=== PATIENT | male | born 1965 | race Caucasian/White ===

== ENCOUNTER → 2018-06-16 17:23 | Outpatient (CLI) | payer OTHER, SELFPAY ==
--- NOTE | 2018-06-16 17:31 | RAD_ITS ---
STUDY: X-RAY - RIGHT SHOULDER REASON FOR EXAM: Chronic shoulder pain with progressive worsening. TECHNIQUE: 4 view(s) of the shoulder. COMPARISON: None. FINDINGS: Normal glenohumeral articulation. There is a small undersurface osteophyte of the distal clavicle without joint space narrowing of the acromioclavicular joint. Normal acromion. Normal humeral head and visualized proximal humerus. There is a small ossicle at the inferior glenoid. Normal visualized pulmonary apex. RAD/Shoulder min 2 Views IMPRESSION: Small undersurface osteophyte of the distal clavicle. Electronically Signed: Rui Eng MD at 12:44 EST Tel , Service support ,
== END ==
PROVIDERS: Family Provider Internal Medicine; PCP Internal Medicine; Referring Provider Anesthesiology Pain Medicine; Visit Provider Anesthesiology Pain Medicine
DX: M25.511 Pain in right shoulder (principal); G89.29 Other chronic pain
CPT/HCPCS: 73030

== ENCOUNTER → 2018-09-03 06:32 | Outpatient (CLI) | payer OTHER, SELFPAY ==
--- NOTE | 2018-09-03 10:16 | NEURO ---
NCS and/or EMG Patient Report Ordering Doctor: Yamil Cao DATE OF SERVICE: 09/03/18 This is a bilateral upper extremity nerve conduction study in the left upper extremity EMG performed on this 53-year-old male with symptoms in both hands worse on the left including numbness and tingling, present for several years but worse over the past 6 months. He is a diabetic, his most recent hemoglobin A1c was 7.1 but he says 2 years ago it was as high as 9.4. He does note that a cortisone injection in his right shoulder improved his hand symptoms 4 weeks ago. He says symptoms are worse on the left side. Bilateral upper extremity sensory and motor nerve conduction studies performed. The median motor and sensory distal latencies are severely prolonged with mild reduction of amplitudes and moderate to severe reduction of conduction velocities. The ulnar motor and sensory and radial sensory responses are preserved. Median F waves bilaterally are prolonged compared to the ulnar F waves. Left upper extremity needle electromyography is performed. Muscles evaluated included the first dorsal interosseous, abductor pollicis brevis, brachioradialis, biceps, triceps and deltoid muscles. The abductor pollicis brevis muscle did demonstrate large motor units with early recruitment and 1+ fibrillation potentials. All other C8 muscles were normal and all other muscles demonstrated normal insertional activity with absence of pathologic spontaneous activity, normal motor unit recruitment pattern and amplitude was otherwise noted. Impression: Abnormal electrophysiologic study of the bilateral upper extremities consistent with severe carpal tunnel syndrome bilaterally, worse on the left.
== END ==
PROVIDERS: Family Provider Internal Medicine; PCP Internal Medicine; Referring Provider Anesthesiology Pain Medicine; Visit Provider Anesthesiology Pain Medicine
DX: G56.03 Carpal tunnel syndrome, bilateral upper limbs (principal); M79.643 Pain in unspecified hand; M79.603 Pain in arm, unspecified
CPT/HCPCS: 95886; 95911

== ENCOUNTER → 2018-11-04 08:24 | Outpatient (CLI) | payer OTHER, SELFPAY ==
[2018-11-04 08:14] VITALS: BMI 30.1
--- NOTE | 2018-11-04 08:25 | RAD_ITS ---
STUDY: X-RAY - LEFT HAND REASON FOR EXAM: Pain, carpal tunnel. TECHNIQUE: 3 view(s) of the hand. COMPARISON: None. FINDINGS: Normal radiocarpal articulation. Normal distal radioulnar joint. Normal visualized carpal bones. Normal carpal articulations. There is a small ossicle at the dorsal aspect of the wrist. Normal carpometacarpal articulation of the thumb. Normal second through fifth carpometacarpal joints. Normal metacarpi. Normal metacarpophalangeal joint of the thumb. There is a small marginal osteophyte at the first distal phalangeal base without joint space narrowing of the interphalangeal joint of the thumb. Normal proximal and distal phalanges of the thumb. Normal metacarpophalangeal joints of the second through fifth fingers. Normal proximal and distal interphalangeal joints of the second through fifth fingers. Normal phalanges of the second through fifth fingers. There is a small ossicle at the distal ulnar styloid process. RAD/Hand Min 3 Views IMPRESSION: Small marginal osteophyte of the first distal phalangeal base. Small ossicles at distal ulnar styloid process and dorsal wrist. Otherwise, unremarkable x-ray examination of the left hand. Electronically Signed: Rui Eng MD at 10:32 EDT Tel , Service support ,
--- NOTE | 2018-11-04 08:25 | RAD_ITS ---
STUDY: X-RAY - RIGHT HAND REASON FOR EXAM: Pain, carpal tunnel. TECHNIQUE: 3 view(s) of the hand. COMPARISON: None. FINDINGS: Normal radiocarpal articulation. Normal distal radioulnar joint. Normal visualized carpal bones. Normal carpal articulations Normal carpometacarpal articulation of the thumb. Normal second through fifth carpometacarpal joints. There is a carpal boss. Normal metacarpi. Normal metacarpophalangeal joint of the thumb. There are small marginal osteophytes without joint space narrowing of the interphalangeal joint of the thumb. Normal proximal and distal phalanges of the thumb. Normal metacarpophalangeal joints of the second through fifth fingers. There are small marginal osteophytes and mild joint space narrowing of the second distal interphalangeal joint. Normal phalanges of the second through fifth fingers. There is a metallic foreign body at the dorsal radial aspect of the third proximal phalangeal base. There is a very small metallic foreign body at the radial aspect of the first metacarpal. RAD/Hand Min 3 Views IMPRESSION: Mild arthrosis of the second distal interphalangeal joint. Small marginal osteophytes of the interphalangeal joint of the first digit. Carpal boss. Metallic foreign bodies. Electronically Signed: Rui Eng MD at 10:38 EDT Tel , Service support ,
== END ==
PROVIDERS: Family Provider Internal Medicine; PCP Internal Medicine; Referring Provider Orthopaedic Surgery; Visit Provider Orthopaedic Surgery
DX: G56.03 Carpal tunnel syndrome, bilateral upper limbs (principal)
CPT/HCPCS: 73130

== ENCOUNTER 2018-11-19 12:32 | Day surgery (SDC) | payer OTHER, SELFPAY ==
[2018-11-04 08:14] VITALS: BMI 30.1
--- NOTE | 2018-11-18 16:33 | PCM.HP.BLA ---
History and Physical I have re-examined the patient. There are no clinical changes since date of exam. Intake Vital Signs 11/04/18 Height 5 ft 10 in 11/04/18 Weight: 210 lb 11/04/18 Body Mass Index (BMI) 30.1 Intake Visit Reasons: Bilat Wrist Accompanied by: Self Is patient in pain?: No Allergies No Known Allergies Allergy (Unverified 11/04/18 08:15) Medications canagliflozin 100 mg tablet PO #30 tab 11/04/18 [History Confirmed 11/04/18] fenofibrate micronized 200 mg capsule PO #30 cap 11/04/18 [History Confirmed 11/04/18] hydrochlorothiazide 25 mg tablet PO #30 tab 11/04/18 [History Confirmed 11/04/18] insulin glargine (U-100) 100 unit/mL subcutaneous solution SC #50 ml 11/04/18 [History Confirmed 11/04/18] insulin lispro (U-100) 100 unit/mL subcutaneous pen SC #45 ml 11/04/18 [History Confirmed 11/04/18] lisinopril 40 mg tablet PO #30 tab 11/04/18 [History Confirmed 11/04/18] metformin 1,000 mg tablet PO #60 tab 11/04/18 [History Confirmed 11/04/18] naproxen 500 mg tablet PO #60 tab 11/04/18 [History Confirmed 11/04/18] pravastatin 80 mg tablet PO #30 tab 11/04/18 [History Confirmed 11/04/18] verapamil ER (SR) 240 mg tablet,extended release PO #30 tab 11/04/18 [History Confirmed 11/04/18] [facility] Medical History (Updated 11/04/18 @ 08:18 by Migdalia Morales) Diabetes mellitus (Acute) Hypertension (Chronic) HPI Bilat Wrist: Details: Parts of this documentation were recorded by a scribe, this documentation accurately reflects the service provided and the decisions made by me, Vanessa Dominguez, 11/04/18 0809. JUDIE CORBETT is a 53 year old M new patient here today for BL wrist pain/numbness. Had EMG study completed in 09/03/18 which showed BL severe carpal tunnel syndrome with the right being worse. Patient states he has numbness and tingling throughout his BL hands and states his finger tips feel that they are on fire. Patient has difficulty holding things in his hands. The pain and numbness is worse at night and does wake him up. Has tried night bracing which is not helpful. Denies any injections. Patient states his left hand is the worst. ROS Const Reports system reviewed and no additional complaints, except as docu Eyes Reports system reviewed and no additional complaints, except as docu ENT Reports system reviewed and no additional complaints, except as docu Card Reports system reviewed and no additional complaints, except as docu Resp Reports system reviewed and no additional complaints, except as docu GI Reports system reviewed and no additional complaints, except as docu Reports system reviewed and no additional complaints, except as docu Musc Reports as per HPI Skin/Breast Reports system reviewed and no additional complaints, except as docu Neuro Yes system reviewed and no additional complaints, except as docu Psych Reports system reviewed and no additional complaints, except as docu Endo Reports system reviewed and no additional complaints, except as docu Brendon/Lymph Reports system reviewed and no additional complaints, except as docu Aller/Immun Reports system reviewed and no additional complaints, except as docu Ortho Exam Left Wrist/Hand Left Wrist: Yes Durken's Test Sensation: Median: D WRIST: thenar atrophy noted bilaterally, left is greater Assessment & Plan Problems 1. Bilateral carpal tunnel syndrome G56.03 Plan X-rays were reviewed. There is no obvious fracture, dislocation, or lucency noted. Educated on the anatomy of the hands and innervation of the nerves and explained that he has bilateral carpal tunnel, left is greater. His treatment options are do nothing, surgery or injections. Explained that the goal of surgery is to stop progression, he may not get his previous strength back. Risks, benefits and alternatives of surgery reviewed including but no limited to risk of incisional hypersensitivity, pillar pain and continued symptomatology, nerve or artery damage, finger and wrist stiffness. Post op restrictions reviewed. Follow up post op or sooner if pain, swelling, numbness or associated symptoms, or concerns develop. All questions answered. Patient in agreement of plan. Orders Orders: Hand Min 3 Views Today G56.03 Hand Min 3 Views Today G56.03 Hand Min 3 Views Today G56.03 Coding Level of Care Code 11268 Diagnoses Bilateral carpal tunnel syndrome G56.03
[2018-11-19] VITALS (9 sets, daily range): BP systolic 107–133; BP diastolic 69–92; PULSE 60–77; RESP 14–16; TEMP 36.2–36.9; O2SAT 95–98; BMI 28.8
[2018-11-19] MEDS: Cefazolin 2 GM in 0.9% Normal Saline 100 ML IV (14:29)
[2018-11-19] MEDS: Mupirocin Ointment 22gm Tube 1 APPLIC (14:58)
[2018-11-19] MEDS: Bupivacaine 0.5% PF 10 ML VIAL (14:59)
[2018-11-19] MEDS: Triamcinolone Acetonide 40 MG/ML Vial (14:59)
--- NOTE | 2018-11-19 15:40 | DCINST_ITS ---
Discharge Diet: No Restrictions - leave dressing on until seen in postop clinic in 10-14 days, call with concerns, keep dressing cdi Discharge Activity: May Not Drive May shower in (days): 1 Ice area for (Minutes): 20 - Every hour while awake. Weight Bearing Status: Weight bearing as tolerated Keep extremity elevated above heart level: Operative Extremity Call your doctor if your incision/area has: Continuous Slow Oozing, Sudden Increased Bleeding, Increased Pain/ Swelling, Increased Redness, Foul Smelling Discharge Call your doctor if you observe: Fever of 101 or Higher, Coldness, Increased Pain, Numbness or Tingling, Change in Color, Calf discomfort Allergies/Adverse Reactions: Allergies No Known Allergies Allergy (Verified 11/19/18 12:44) Medications to take at Discharge canagliflozin 100 mg tablet 50 mg PO DAILY #30 tab 11/04/18 fenofibrate micronized 200 mg capsule 200 mg PO DAILY #30 cap 11/04/18 hydrochlorothiazide 25 mg tablet 25 mg PO DAILY #30 tab 11/04/18 lisinopril 40 mg tablet 40 mg PO DAILY #30 tab 11/04/18 metformin 1,000 mg tablet 1,000 mg PO BID #60 tab 11/04/18 pravastatin 80 mg tablet 80 mg PO QHS #30 tab 11/04/18 verapamil ER (SR) 240 mg tablet,extended release 240 mg PO QHS #30 tab 11/04/18 Insulin Glargine,Hum.rec.anlog [Lantus] 62 unit SQ QHS 11/12/18 Insulin Lispro [Humalog KwikPen] 100 unit SQ UD 11/12/18 Primary Care Physician: Ad Boyd MD [Primary Care Provider] - Test Results: Test results from this visit will be discussed in further detail at your follow- up appointment, if applicable. Please Follow Up With: Vanessa Dominguez, DO - [phone]
--- NOTE | 2018-11-19 15:40 | OP.PCM_ITS ---
Report of Operation Date of Procedure: 11/19/18 Pre-Operative Diagnosis: bilateral carpal tunnel syndrome Post-Operative Diagnosis: same Surgery/Procedure Performed:: left carpal tunnel release, right carpal tunnel injection pelletising extruder operator: Bigg Poe Type of Anesthesia:: Tracy Echavarria Anesthesiologist: Jonathan Herrmann Estimated Blood Loss (mL): min Fluids Replaced: 600cc lr Description of Procedure: Preoperative note Patient is a { 53 yo male } patient with nerve conduction study confirming carpal tunnel syndrome. Patient failed conservative treatment for her carpal tunnel elected proceed with left carpal tunnel release right carpal tunne injection Risks benefits and alternatives surgery discussed with patient. Risks including but not limited to blood loss, blood clot, infection, neurovascular injury, failure procedure, loss of life and loss of limb. Patient is aware like proceed with left carpal tunnel release. Operative note Patient seen and examined preoperative holding area. Left hand was marked. History and physical and consent reviewed. Patient was brought to the operating room placed supine on the operating table. Sign in, anesthesia, antibiotics were administered. Left upper extremity was prepped and draped after Tracy block was initiated. All bony prominences well-padded SCDs placed on bilateral lower extremities. We marked out our incisions for our carpal tunnel release at the intersection of Yang's line in the fourth ray flexed. We extended about a centimeter and a half. Timeout was performed. We then checked ensure that the Tracy block was working with pickups which it was. We then used a 15 blade to make a skin incision. We then dissected down tenotomy syllable of the transverse carpal ligament. We then used a new 15 blade cut through the transverse carpal ligament down to the level of the median nerve. We then further released the median nerve the combination of the 15 blade and tenotomies. The nerve was grayish in color and adherent to the transverse carpal ligament volarly. We released the transverse carpal ligament distally to the fat pad and then proximally under standard technique. We then palpated to ensure that we released all of the transverse carpal ligament which we did. We irrigated the incision with copious amounts of sterile saline. All bleeders were coagulated. The incision was closed with interrupted 4-0 nylon stitches. Tourniquet was deflated for total working time of 10 minutes. Patient tolerated procedure well there were no complications. We then injected the right carpal tunnel using sterile technique and placed a Band-Aid over there was no issues and no complications. Patient transferred to recovery room in stable condition. Postoperative note Hospital pharmacy has prescription Leave dressing clean dry and intact Follow-up in 2 weeks Call with concerns This note was generated with The [employer] dictation software. It may contain incorrect words, spelling, and punctuation that were not noted in checking the note before signing.
[2018-11-19] MEDS: HYDROcodone Bitartrate/Apap 5/325 Tablet PO (16:00)
--- NOTE | 2018-11-19 17:03 | SUR.PHASEII ---
PATIENT REPORTS NOT FEELING WELL LIKE MY BLOOD SUGAR IS LOW. RELATES HE HAD NOT EATEN SINCE 2100 THE PREVIOUS DAY, DIABETIC. HAD SOME SODA AND COOKIES BUT STILL FEELING POORLY. ACCUCHECK 99 WHICH IS LOW FOR PATIENT WHO FEELS SYMPTOMATIC HYPOGLYCEMIA BELOW 125. PEANUT BUTTER AND JELLY SANDWICH WITH APPLE JUICE GIVEN. OTHERWISE STATES PAIN IS IMPROVED AND TOLERABLE. WILL MONITOR.
[2018-11-20 07:47] LABS: Bedside Glucose 90 mg/dL (70-110)
[2018-11-20 08:09] LABS: Bedside Glucose 99 mg/dL (70-110)
== END 2018-11-19 17:38 | disposition home or self-care (01) ==
LOC: SDC 12:33 → AC 12:35
PROVIDERS: Family Provider Internal Medicine; PCP Internal Medicine; Referring Provider Orthopaedic Surgery; Visit Provider Orthopaedic Surgery
PROC: (CPT 64721; principal; 2018-11-19 14:00)
DX: G56.03 Carpal tunnel syndrome, bilateral upper limbs (principal); E11.9 Type 2 diabetes mellitus without complications; I10 Essential (primary) hypertension; E78.00 Pure hypercholesterolemia, unspecified; Z79.4 Long term (current) use of insulin; Z79.899 Other long term (current) drug therapy
CPT/HCPCS: 01810; 20526; 64721; 82962; J7120; J2405

== ENCOUNTER 2019-07-15 18:30 | Outpatient (RCR) | payer OTHER, SELFPAY ==
[2019-06-25 08:44] VITALS: BMI 28.8
== END 2019-07-15 19:00 | disposition home or self-care (01) ==
LOC: PT 18:30
PROVIDERS: PCP Internal Medicine; Referring Provider Orthopaedic Surgery; Visit Provider Orthopaedic Surgery
DX: S46.911D Strain of unspecified muscle, fascia and tendon at shoulder and upper arm level, right arm, subsequent encounter (principal); M75.21 Bicipital tendinitis, right shoulder
CPT/HCPCS: 97035; 97110; 97161

== ENCOUNTER 2020-03-23 06:01 | Day surgery (SDC) | payer OTHER, SELFPAY ==
[2020-01-26 08:14] VITALS: BMI 28.8
--- NOTE | 2020-02-24 06:00 | HP_ITS ---
I have re-examined the patient. There are no clinical changes since date of exam. Intake Intake Visit Reasons: RIGHT SHOULDER Accompanied by: self Is patient in pain?: Yes Allergies No Known Allergies Allergy (Verified 11/19/18 12:44) Medications canagliflozin 100 mg tablet 50 mg PO DAILY #30 tab 11/04/18 [History Confirmed 01/26/20] fenofibrate micronized 200 mg capsule 200 mg PO DAILY #30 cap 11/04/18 [History Confirmed 01/26/20] hydrochlorothiazide 25 mg tablet 25 mg PO DAILY #30 tab 11/04/18 [History Confirmed 01/26/20] lisinopril 40 mg tablet 40 mg PO DAILY #30 tab 11/04/18 [History Confirmed 01/26/20] metformin 1,000 mg tablet 1,000 mg PO BID #60 tab 11/04/18 [History Confirmed 01/26/20] pravastatin 80 mg tablet 80 mg PO QHS #30 tab 11/04/18 [History Confirmed 01/26/20] verapamil 240 mg tablet,extended release 240 mg PO QHS #30 tab 11/04/18 [History Confirmed 01/26/20] Insulin Glargine,Hum.rec.anlog [Lantus] 62 unit SQ QHS 11/12/18 [History Confirmed 01/26/20] Insulin Lispro [Humalog KwikPen] 100 unit SQ UD 11/12/18 [History Confirmed 01/26/20] [facility] Medical History (Updated 11/18/18 @ 16:[address] Vanessa Dominguez DO) Diabetes mellitus (Acute) Hypertension (Chronic) Social History (Updated 01/26/20 @ 10:[address] Vanessa Dominguez DO) Smoking Status: Never smoker HPI RIGHT SHOULDER: Surgical H&P: Yes Details: Parts of this documentation were recorded by a scribe, this documentation accurately reflects the service provided and the decisions made by me, Dr. Vanessa Dominguez DO 01/26/20 0806. JUDIE CORBETT is a 54 year old M here today for F/U on right shoulder after having MRI completed. He has had this shoulder pain for 2 years now. He was having steroid injections with basali and they were lasting for 3 months but now his last injection was only effective for about 6 weeks. He has right anterior shoulder over the biceps with pain moving lateral shoulder. He does have numbness and tingling of his right hand from carpal tunnel that is getting weaker and progressively worse with time. No neck pain or other radicular symptoms. see chart for fruther details. HAYLEE Musc Reports joint pain, Reports joint swelling, Reports limited joint movement, Denies numbness, Reports stiffness, Denies tingling Skin/Breast Denies redness, Denies lesions, Denies itching, Denies rash Neuro No numbness, No tingling Ortho Exam General General: Yes no acute distress Neurologic: Yes alert, Yes oriented x3 Psychologic: Yes reasonable and appropriate Right Wrist/Hand Motor: EPL: 5, FDP-2: 4, 1st Dorsal Interosseous: 5, APB: 4 Sensation: Radial: I, Ulnar: I, Median: D Right Shoulder Skin/Wound: No ecchymosis, No erythema, No swelling Testing: Positive Hawkin's, Neer's, Speed's, TTP Biceps and [place]; negative AROM-Forward Elevation 0-180, AROM-External Rotation at 90 0-60 or AROM-External Rotation at side 0-60 SHOULDER: rotator cuff weakness Assessment & Plan Problems 1. Biceps tendinitis of right shoulder M75.21 2. Complete tear of right rotator cuff, unspecified whether traumatic M75.121 3. Right carpal tunnel syndrome G56.01 Plan Personally reviewed patients MRI of the right shoulder. Patient educated that he has a full RTC tear of the right shoulder along with biceps tendonitis. Patient educated that since he has failed conservative treatment the next treatment option is to have a RTC repair and biceps tenodesis vs tenotomy. Reviewed the pre-operative plans with the patient. Risks and benefits of the procedure were fully explained, including but not limited to infection, neurovascular injury, continued pain, arthritis, stiffness, need for further surgery, re-injury, DVT, PE, general risks of anesthesia, and loss of limb or life. The patient understands all the risks and does wish to proceed with written consent. He wishes to proceed with right shoulder arthroscopy with rotator cuff repair, with tenodesis vs tenotomy, repair as indicated along with right carpal tunnel release. Educated that he also has carpal tunnel syndrome of the right side and we will to the release with the shoulder scope.We discussed the current risk associated COVID-19. While it is understood that there is a community spread of COVID 19 the risk of zachariah COVID-19 while at [facility] is very low, however, the risk cannot be completely mitigated because of the community spread of the disease. We discussed in detail the risk of exposure to and or potential harm posed by the COVID-19 virus with having a surgery/procedure at this time versus the risk of delaying the surgery/procedure. Is not possible to know either the risk of delaying the surgery procedure or chance of getting an infection with perfect accuracy, but a joint decision was made to proceed at this time with a schedule surgery/procedure as indicated on the consent form. Patient was notified that we will need to comply with any screening or testing [facility] wishes to perform or that surgery may be delayed for any positive results. Educated that he will be 6 weeks in a sling after surgery and he is unable to lift over head for 12 weeks post op. He wishes to have surgery within the next 30 days. Follow up 5 days post op or sooner if pain, swelling, numbness or associated symptoms, or concerns develop. All questions answered. Patient in agreement of plan. Coding Level of Care Code Off vis,est,level 4 Diagnoses Biceps tendinitis of right shoulder M75.21 Complete tear of right rotator cuff, unspecified whether traumatic M75.121 ??Rotator cuff tear trauma status: unspecified whether traumatic Right carpal tunnel syndrome G56.01 COVID (Procedure Consent) Procedure Criteria Procedure Criteria: Yes Elective The surgeon/proceduralist and patient have discussed in detail the risk of exposure to and/or potential harm posed by the COVID-19 virus with having a surgery/procedure at this time versus the risk of? delaying the surgery/procedure. It is not possible to know either the risk of delaying the surgery or procedure or chance of getting an infection with perfect accuracy, but a joint decision was made between the patient and the surgeon/proceduralist ?to proceed at this time with the scheduled surgery/procedure as indicated on the consent form.
[2020-03-08 08:17] VITALS: BMI 30.1
--- NOTE | 2020-03-18 08:15 | EKG12_ITS ---
Test Reason : PREOP Blood Pressure : / mmHG Vent. Rate : 073 BPM Atrial Rate : 073 BPM P-R Int : 134 ms QRS Dur : 096 ms QT Int : 378 ms P-R-T Axes : 018 017 010 degrees QTc Int : 416 ms Normal sinus rhythm Normal ECG Confirmed by CHAMP WALKER MD ([id number]), editorial intern CROW [place]ILL ([id number]) on 03/22/2020 9:27:48 AM Referred By: Vanessa Dominguez Confirmed By:CHAMP WALKER MD
[2020-03-18 09:23] LABS: Anion Gap 7 (5-15); BUN 29 mg/dL (7-18); BUN/Creat Ratio 24.6 RATIO (10-20); Calcium,Total 9.4 mg/dL (8.5-10.1); Chloride 106 mmol/L (98-107); Creatinine, Serum 1.18 mg/dL (0.70-1.30); EST Glomerular Filtration Rate 68 mL/min (>60); Est Glom Filt Rate - Afr Amer 82 mL/min (>60); Glucose 112 mg/dL (74-106); Potassium 3.9 mmol/L (3.5-5.1); Sodium Level 139 mmol/L (136-145)
[2020-03-22 14:28] LABS: Probe Check PASS; Specimen Processing Control PASS
--- NOTE | 2020-03-23 | TESH_PTH ---
PATIENT: JUDIE CORBETT Jr. LOC: [facility] [place] U#:[id number] AGE/SX: 54/M ROOM: RE03/23/[address]: Dr. Vanessa Dominguez DO : 1965 BED: DIS: 03/23/2020 SPEC #: [id number] RECD: 03/23/20 13:52 STATUS: FRIEDA TYRA #: [id number] ELADIA: 03/23/20 00:[address]: Vanessa Dominguez DEPT: SURGICAL PATHOLOGY RECD BY: Landon Doherty ENTERED: 03/24/20 08:14 SP TYPE: TENDON OTHR DR: Dr. Ad Boyd MD Tissues: Tendon and tendon sheath, NOS Procedures: Surgery Specimen Level III HEADER OPERATION: Shoulder arthroscopy; rotator cuff repair PRE-OP DIAGNOSIS: Biceps tendonitis of right shoulder; complete tear of right rotator cuff TISSUE SUBMITTED: Biceps tendon MICROSCOPIC DIAGNOSIS Biceps tendon: A piece of dense fibroconnective tissue with reactive changes, clinically complete tear of right rotator cuff. MILTON:josé 03/25/20 MICROSCOPIC DESCRIPTION Slides are reviewed. GROSS DESCRIPTION Received in fixative is one container labeled with the patient's name and designated biceps tendon. The specimen consists of a piece of tendinous tissue measuring 5 x 1 x 0.2 cm. Facilities Assistant sections are submitted in one cassette. / MILTON:josé 03/24/20 TC:5 CPT: 33449
[2020-03-23 06:20] VITALS: BP 133/90; PULSE 86; RESP 16; TEMP 36.6; O2SAT 99; BMI 28.9
[2020-03-23] MEDS: Lactated Ringers 1,000 ML 100 ML IV (07:02)
[2020-03-23 07:15] LABS: Bedside Glucose 224 mg/dL (70-110)
--- NOTE | 2020-03-23 07:36 | OP.PCM_ITS ---
Report of Operation Date of Procedure: 03/23/20 Pre-Operative Diagnosis: right shoulder rotator cuff tear, subacromial imp ingment syndrome, biceps tendinosis, right carpal tunnel syndrome Post-Operative Diagnosis: same Surgery/Procedure Performed:: sars, rotator cuff repair, sad/acromioplasty, open biceps subpec tenodesis, right carpal tunnel release engineer: Bigg Poe Type of Anesthesia:: General/Regional Anesthesiologist: Hollis Galo Specimen's removed: biceps tendon Estimated Blood Loss (mL): min Fluids Replaced: 1200cc lr Description of Procedure: Preoperative note Patient is a 54 year old patient with nerve conduction study confirming carpal tunnel syndrome, patient also had an MRI after failing conservative treatment options that showed a right full-thickness rotator cuff tear as well as biceps tendinosis and tearing at the labral junction, and bursitis. As noted above patient failed conservative treatment options elected proceed with right shoulder arthroscopy and right carpal tunnel release repair as indicated. Risks benefits and alternatives surgery discussed with patient. Risks including but not limited to blood loss, blood clot, infection, neurovascular injury, failure procedure, loss of life and loss of limb. Patient is aware like proceed with right carpal tunnel release right shoulder arthroscopy repair as indicated.. Operative note Patient seen and examined preoperative holding area. right hand was marked. History and physical and consent reviewed. Patient was brought to the operating room placed supine on the operating table. Sign in, anesthesia, antibiotics were administered. Patient was placed in beachchair positioning [facility] through beachchair positioning his blood pressure was checked and was stable. All bony prominences well-padded SCDs placed on bilateral lower extremities. We then marked out our bony landmarks for our portal placement for her shoulder. Timeout was performed. We then insufflated the glenohumeral joint for the posterior aspect had good return. Then use #11 blade to create our posterior portal. Began our diagnostic arthroscopy. The subscap was intact. We then created an anterior portal under direct visualization. We then probed the biceps labral anchor which was unstable and the labrum was completely torn off of its insertion. We then inserted a basket and trimmed back and cut the biceps and complete our biceps tenotomy. Inserted a shaver and trim back any loose pieces of the labrum the biceps labral junction. Patient had little bit of degenerative change changes of the anterior glenoid. There were no loose bodies in the inferior recess no haggle lesion. We then were able to visualize the full-thickness rotator cuff from the intra the intra-articular aspect. We then moved to the subacromial space. We created a lateral portal under direct visualization. There is extensive bursitis throughout the shoulder. This was resected with a combination of a shaver and a burner. We then debrided back the unstable mid rotator cuff. We then prepared the humeral head using an ablator wand to take any soft tissue off of our anchor placement sites as well as then using a bur to decorticate for better fixation of our screws and healing of her rotator cuff. Then placed to 5 5 bio composite Arthrex anchors just lateral to the cartilage of the humeral head. Then placed stitches coming from anterior to posterior through the rotator cuff which is a quite thickened rotator cuff and had a delaminating tear of the intra and her body as well. After this we did placed 2 additional suture tapes for better fixation. We then used 2 swivel locks laterally and tensioned the sutures appropriately laterally ensuring to anchors ensuring good spacing and placement of anchors. We had excellent footprint coverage with no tension on the repair. We then irrigated the subacromial space with copious nonsterile saline. We then moved to the open biceps tenodesis. Reprepped the area again waited the allotted 3 minutes and then made an incision just distal to the pec insertion. Is about 2 cm incision. Dissected down tenotomies to level of the biceps tendon which was brought out of the incision and truncated to appropriate length. We then whipstitched the end and placed the stitches through the Arthrex pec button system. We then subpec protecting all neurovascular structures at all times drilled unicortical he we then placed our button that was at the end of the biceps and flipped the button into the humeral shaft and then brought the tendon down to bone and then to the periosteum down to the biceps tendon for reinforcement with a free needle. Please note that at this time we did extend the arm to ensure that we had good length via biopsy of the tendon prior to truncated the biceps tendon we did did perform. Again we then irrigated all incisions copious nonsterile saline the portals were closed with interrupted 4-0 nylon stitches the biceps tenodesis site was closed with interrupted 3-0 Vicryl in a running 4-0 Monocryl. Then paid attention to our carpal tunnel. We reprepped the area and waited the allotted 3 minutes. We then marked out our incisions for our carpal tunnel release at the intersection of Yang's line in the fourth ray flexed. We ex tended about a centimeter and a half. We then used a 15 blade to make a skin incision. We then dissected down tenotomy syllable of the transverse carpal ligament. We then used a new 15 blade cut through the transverse carpal ligament down to the level of the median nerve. We then further released the median nerve the combination of the 15 blade and tenotomies. The nerve was grayish in color and adherent to the transverse carpal ligament volarly. We released the transverse carpal ligament distally to the fat pad and then proximally under standard technique. We then palpated to ensure that we released all of the transverse carpal ligament which we did. We irrigated the incision with copious amounts of sterile saline. All bleeders were coagulated. The incision was closed with interrupted 4-0 nylon stitches. Tourniquet was deflated for total working time of 14 minutes. Patient tolerated procedure well there were no complications. Patient transferred to recovery room in stable condition. Postoperative note Hospital pharmacy has prescription Leave dressing clean dry and intact Follow-up in 2 weeks Call with concerns This note was generated with [employer]ation software. It may contain incorrect words, spelling, and punctuation that were not noted in checking the note before signing
--- NOTE | 2020-03-23 07:36 | PCM.DC.ORTHO ---
Discharge Diet: No Restrictions - Leave dressing intact, remove dressing in 5 days and apply Band-Aids to incision sites, take medications as prescribed, do not take excess Tylenol, call with increased pain numbness tingling further issues arise, may remove sling for pendulums only Discharge Activity: May Not Drive May shower in (days): 1 Ice area for (Minutes): 20 - Every hour while awake. Weight Bearing Status: Weight bearing as tolerated Keep extremity elevated above heart level: Operative Extremity Call your doctor if your incision/area has: Continuous Slow Oozing, Sudden Increased Bleeding, Increased Pain/ Swelling, Increased Redness, Foul Smelling Discharge Call your doctor if you observe: Fever of 101 or Higher, Coldness, Increased Pain, Numbness or Tingling, Change in Color, Calf discomfort Allergies/Adverse Reactions: Allergies No Known Allergies Allergy (Verified 03/14/20 08:17) Medications to take at Discharge canagliflozin 100 mg tablet 50 mg PO DAILY #30 tab 11/04/18 fenofibrate micronized 200 mg capsule 200 mg PO DAILY #30 cap 11/04/18 hydrochlorothiazide 25 mg tablet 25 mg PO DAILY #30 tab 11/04/18 lisinopril 40 mg tablet 40 mg PO QHS #30 tab 11/04/18 metformin 1,000 mg tablet 1,000 mg PO BID #60 tab 11/04/18 pravastatin 80 mg tablet 80 mg PO QHS #30 tab 11/04/18 verapamil 240 mg tablet,extended release 240 mg PO QHS #30 tab 11/04/18 Insulin Glargine,Hum.rec.anlog [Lantus] 62 unit SQ QHS 11/12/18 Insulin Lispro [Humalog KwikPen] 100 unit SQ UD 11/12/18 Ondansetron [Zofran] 8 mg PO Q8H PRN PRN #20 tab 03/23/20 Oxycodone HCl/Acetaminophen [Percocet 5/325] 1 - 2 tab PO Q6H PRN PRN 5 Days #28 tab 03/23/20 Zolpidem Tartrate [Ambien (Generic)] 5 mg PO QHS PRN PRN #14 tab 03/23/20 The following prescriptions were given: Zolpidem Tartrate [Ambien (Generic)] 5 mg PO QHS PRN PRN #14 tab PRN Reason: Insomnia Transmission Status: Received by [facility] Oxycodone HCl/Acetaminophen [Percocet 5/325] 1 - 2 tab PO Q6H PRN PRN 5 Days #28 tab PRN Reason: Pain Transmission Status: Received by [facility] Ondansetron [Zofran] 8 mg PO Q8H PRN PRN #20 tab PRN Reason: Nausea Transmission Status: Received by [facility] Primary Care Physician: Ad Boyd MD [Primary Care Provider] - Test Results: Test results from this visit will be discussed in further detail at your follow-up appointment, if applicable. Please Follow Up With: Vanessa Dominguez, DO - [phone]
[2020-03-23] MEDS: Cefazolin 2 GM in 0.9% Normal Saline 100 ML IV (07:45)
[2020-03-23] MEDS: Epinephrine (1 mg/ml) 1 MG/ML VIAL (10:00)
[2020-03-23] MEDS: Mupirocin Ointment 22gm Tube 1 APPLIC (10:45)
[2020-03-23 11:47] VITALS: BP 133/90; BP 148/84; PULSE 83; RESP 16; TEMP 36.1; O2SAT 93
[2020-03-23 12:00] VITALS: BP 133/90; BP 157/85; PULSE 92; RESP 16; O2SAT 93
[2020-03-23 12:00] LABS: Bedside Glucose 261 mg/dL (70-110)
[2020-03-23 12:15] VITALS: BP 133/90; BP 167/97; PULSE 91; RESP 16; O2SAT 95
[2020-03-23 12:35] VITALS: BP 133/90; BP 134/75; PULSE 99; RESP 16; O2SAT 100
[2020-03-23] MEDS: Insulin Lispro 100 UNIT/ML INSULN.PEN 6 UNIT SC (12:54)
[2020-03-23 13:15] VITALS: BP 133/90; BP 141/84; PULSE 94; RESP 18; TEMP 36.4; O2SAT 93
== END 2020-03-23 14:09 | disposition home or self-care (01) ==
LOC: SDC 06:01 → AC 06:02
PROVIDERS: Anesthesiology; PCP Internal Medicine; Referring Provider Orthopaedic Surgery; Visit Provider Orthopaedic Surgery
PROC: (CPT 29827; principal; 2020-03-23 07:10)
PROC: (CPT 64721; 2020-03-23 07:10)
DX: M75.121 Complete rotator cuff tear or rupture of right shoulder, not specified as traumatic (principal); M75.41 Impingement syndrome of right shoulder; M75.21 Bicipital tendinitis, right shoulder; M75.51 Bursitis of right shoulder; G56.01 Carpal tunnel syndrome, right upper limb; Z20.828 Contact with and (suspected) exposure to other viral communicable diseases; E11.9 Type 2 diabetes mellitus without complications; I10 Essential (primary) hypertension; E78.00 Pure hypercholesterolemia, unspecified; K21.9 Gastro-esophageal reflux disease without esophagitis; Z79.4 Long term (current) use of insulin; Z79.899 Other long term (current) drug therapy
CPT/HCPCS: 01630; 29823; 29826; 29827; 64415; 64721; 36415; 80048; 82962; 83036; 87426; 87635; 88304; 93005; C9803; J7120; C1713; J2405; U0002

== ENCOUNTER → 2020-04-05 09:20 | Outpatient (CLI) | payer OTHER, SELFPAY ==
[2020-04-01 09:47] VITALS: BMI 28.8
--- NOTE | 2020-04-05 09:21 | VDUE_ITS ---
Reason For Study: Swelling Right Proximal Right jugular vein is spontaneous, widely patent, phasic, with no intraluminal echogenicity noted. Right subclavian vein is spontaneous, widely patent, phasic, with no intraluminal echogenicity noted. Right Lower Arm Right radial vein is compressible. Right ulnar vein is compressible. Right Arm Right axillary vein is spontaneous, patent, phasic, competent, compressible and demonstrates augmentation. Right brachial vein is compressible. Right cephalic vein is compressible. Right basilic vein is compressible. Patient Safety Prelim to Angel[place]. Interpretation Summary No evidence for acute deep venous thrombosis[right] upper extremity with patent and compressible cephalic and basilic veins. Ordering Physician: Vanessa Dominguez Referring Physician: Ad Boyd M.D. Performed By: Karin Fitzgerald RVT ?
== END ==
PROVIDERS: PCP Internal Medicine; Referring Provider Orthopaedic Surgery; Visit Provider Orthopaedic Surgery
DX: Z47.89 Encounter for other orthopedic aftercare (principal); M79.89 Other specified soft tissue disorders
CPT/HCPCS: 93971

== ENCOUNTER 2020-08-03 18:30 | Outpatient (RCR) | payer OTHER, SELFPAY ==
[2020-04-01 09:47] VITALS: BMI 28.8
--- NOTE | 2020-04-11 09:56 | HP.PTEVAL ---
Patient's Visit Information JUDIE CORBETT Jr. is a 54 year old M referred to Physical Therapy by Dr. Vanessa Dominguez DO with a diagnosis of 03-25-2020 S/P R RC repair and biceps tenodesis, R CTR. Date of Evaluation: 04/06/20 Physical Therapist: JACOBO Chester - Visit Plan Frequency: 2x /Week Duration: 2 Months Plan: Follow Protocol in file. 2X/ week for 6-8 weeks for R shoulder PROM (no ER past 30 degrees), Wrist ROM (flex and ext) and thumb to all 5 fingers. With E-stim and ice to the R shoulder as needed with HEP. Teach pendulums next visit. Pt will be in abd sling X 5 more weeks. - Subjective Pt had surgery on 03-25-2020. Pt saw Dr Sebastian yesterday and he gave him the paper work to see PT. She told him to work his hand. He was squeezing a jelly ball. Pt was told that he has 5 more weeks in his sling. Pt has been having pain in his forearm and fingers and had the US and there were no clots.... He is not sleeping well ( 2 hours at a time) and he is still in a recliner. 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 When he bends his middle finger he gets a pain up the forearm and up to his shoulder. He reports that he has pain in his shoulder when showering cause he has to hold his arm up. - Pain R shoulder Pain Intensity (Out of 10): 0 R forearm pain Pain Intensity (Out of 10): 1 - Objective PROM R shoulder flex 105 dergrees and R shoulder PROM L abd 100 degrees, ER ROM L shoulder to 5 degrees. R wrist ext 31 degrees, R wrist flexion 62 degees. He is able to touch thumb to all digits except for 5th met. He has increased forearm pain with middle finger flexion and touching thrumb. - Goals Goal 1:: I HEP Goal Time Frame: 6-8 Weeks Goal 2:: Increase PROM to full pain free ROM at DC Goal Time Frame: 6-8 Weeks Goal 3:: Decrease R shoulder pain to 0/10 at rest Goal Time Frame: 6-8 Weeks Goal 4:: Be able to sleep trough the night without pain Goal Time Frame: 8-12 Weeks Goal 5:: Inccrease R wrist flex and ext to full pain free ROM Goal Time Frame: 6-8 Weeks - Rehabilitation Potential Rehabilitation Potential: Good - Anticipated Interventions Patient/Client Instruction: Educate patient on: Condition, Plan of Care For the Purpose of:: To decrease pain, To decrease swelling/inflammation, To increase ROM, To improve nutrient delivery to tissue, To improve muscle performance and motor function, To improve ability to perform ADL's, To increase tolerance to activity/condition/position, To improve ability of physical actions for home/community/work/leisure, To improve health of tissue, To decrease soft tissue restriction, To increase flexibility/ROM Therapeutic Exercise to Include: Strength training, Flexibilty training, Passive ROM, Active ROM, Scapular Strength/Stabilization For the Purpose of:: To decrease pain, To decrease swelling/inflammation, To increase ROM, To improve nutrient delivery to tissue, To improve muscle performance and motor function, To improve ability to perform ADL's, To increase tolerance to activity/condition/position, To improve performance and independence with ADL's, To decrease level of supervision to perform tasks, To improve ability of physical actions for home/community/work/leisure, To improve health of tissue, To decrease soft tissue restriction, To increase flexibility/ROM Manual Therapy Techniques to Include: Passive ROM For the Purpose of:: To increase ROM, To improve nutrient delivery to tissue IF ES: Yes Cryotherapy (ice pack, ice massage): Yes Thermo therapy (hot pack): Yes For the Purpose of:: To decrease pain, To decrease swelling/inflammation, To increase ROM, To improve nutrient delivery to tissue, To improve muscle performance and motor function Thank you for the opportunity to evaluate your patient. For Medicare and Medicare HMO plans, please review the plan of care and approve it. It will need to be FAXED BACK to us at [phone] for Medicare purposes. For Medicare only, by signing this I certify the plan of care. Please let me know if there are questions or concerns regarding this plan of care. Physician Signature: Date:
--- NOTE | 2020-06-13 18:58 | HP.OTEVAL_ITS ---
Patient's Visit Information JUDIE CORBETT Jr. is a 54 year old M, referred to Occupational Therapy by Dr. Vanessa Dominguez DO, with a diagnosis of right CTS. Date of Evaluation: 06/13/20 Occupational Therapist: Shonna Yanez, OTR/Roman, CHT - Subjective This 54 year old male was seen for OT eval with dx of right CTS s/p right CTR 2019. pt states he ended up having RC tear, CTS and biceps proximal repair. pt states the CTS was an issue for about two years and opted to have his sx with his shoulder repair- today pt is cont. with physical therpay for his shoulder but continues to have scar sensitivity issues. pt would like to know what he can do to improve the scar tenderness so he isn't limited with ADLS, IADLs or work tasks. - Pain right hand 0 Pain Intensity Range: 0, 6 - ROM Wrist: right 55/55 left 60/60 ROM Comments: pt demo the ability to form a composite fist - Strength Category Consultant: right 65# left 95# Lateral Pinch: right 22# left 26# Tripod Pinch: right 20# left 24# - Sensation Sensation Comments: pt states after sx his tingling/numbness resolved - Quick DASH-Disab of Arm,Shoulder& Hand Quick DASH Score: 30.0000 - Goals Goal:: pt will demo a increase in right art gilder strength to 75# or greater to increase pts ind. with ADLs and IADLs by d/c Goal:: pt will report pain no greater than 2/10 with use of right hand with daily tasks by d/c Goal:: pt will demo understanding of scar mtg, scar desensitization by end of 1st session. - Rehabilitation General Assessment: Pt is 11 weeks and 3 days s/p from a right CTR with RC repair and proximal biceps tendon repair. pt states he continues to struggle with scar tenderness with some daily occupations and has to mod. his daily tasks. Pt demo with hyper-trophic scar and tenderness with use of right hand with ADLs and IADLs. PT would benefit from skilled OT services to ed. pt on scar mtg and scar desensitization. pts order for OT was writen 05/05/20 and this is the first pt has been able to get into OT due to work schedule. Pt demo good ability and can form a tight fist. scar is tender at times- therapsit is rec'd HEP at this time. pt demo understanding and agree to POC. Pt is cont. with PT for his shoulder rehab and will let therapist know if he has questions or concerns. Rehabilitation Potential: Good - Anticipated Interventions A/AAROM/PROM, Strengthening, Scar Care, Triggerpoint Release, Desensitization, Modalities, Home Program - Visit Plan TEXT: Thank you for the opportunity to evaluate your patient. For Medicare and Medicare HMO plans, please review the plan of care and approve it. It will need to be FAXED BACK to us at [phone] for Medicare purposes. Please let me know if there are questions or concerns regarding this plan of care. Physician Signature: Date:
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
== END 2020-08-03 19:00 | disposition home or self-care (01) ==
LOC: PT 18:30
PROVIDERS: PCP Internal Medicine; Referring Provider Orthopaedic Surgery; Visit Provider Orthopaedic Surgery
DX: Z47.89 Encounter for other orthopedic aftercare (principal)
CPT/HCPCS: 97110; 97140; 97161; 97166; 97530

== ENCOUNTER 2022-02-20 07:00 | Outpatient (RCR) | payer OTHER, SELFPAY ==
--- NOTE | 2021-08-23 10:31 | HP.PTEVAL ---
Patient's Visit Information JUDIE CORBETT Jr. is a 56 year old M referred to Physical Therapy by ISABELLE MCCLURE with a diagnosis of s/p L shld arthro, massive RC repair, bicep tenodesis, SAD, acromiopla 08/01. Date of Evaluation: 08/22/21 Physical Therapist: JACOBO Chester - Visit Plan Frequency: 1-2x /Week Duration: 2 Months Plan: Follow filed protocol. 1-2X/ week for PROM (flexion 130 degrees and ER to 30 degrees) for 3-4 additional weeks or 6 (09-12-2021)weeks total and then follow protocol after pt sees for progression. May use ice. DOS 08-01-2021. HEP: hand squeeze ball, scapular squeezes, and pendulums - Subjective Pt reports that his L shoulder started to act up and went to see Dr Sebastian and she did an MRI and it was a mess. It showed an old tear, a new tear, and Dr did something with his bicep and tucked it under his clavicle but he does not have a scar or luna muscle. The surgery was 5.5 hours and to be in the sling for at least 6 weeks. The tear was massive. He was sleeping in the recliner but now in bed all propped up. It is getting better but still not good sleep. He is off work for at least 8 weeks. RTD in 3 weeks. He is not taking pain meds now for over a week. He is R handed. Pt is in a sling on his side. - Pain L shoulder pain Pain Intensity (Out of 10): 2 - Objective R handed. R shoulder PROM ER at 54 degrees abd 12 degrees. R shoulder PROM flexion 97 degrees. Instructed pt in pendulums, ball hand squeeze and scapular squeezes - Balance/Special Test Scores Quick DASH Score: 34.0900 - Goals Goal 1:: I HEP Goal Time Frame: 8-12 Weeks Goal 2:: PROM 130 degrees flexion Goal Time Frame: 2-4 Weeks Goal 3:: Be able to use his L arm with ADL's and work without pain or signs of weakness Goal Time Frame: 8-12 Weeks Goal 4:: Increase AROM of the L shoulder to full AROM painfree by DC Goal Time Frame: 8-12 Weeks - Rehabilitation Potential Rehabilitation Potential: Good - Anticipated Interventions Patient/Client Instruction: Educate patient on: Condition, Plan of Care For the Purpose of:: To decrease pain, To decrease swelling/inflammation, To increase ROM, To improve nutrient delivery to tissue, To improve muscle performance and motor function, To improve ability to perform ADL's, To increase tolerance to activity/condition/position, To improve performance and independence with ADL's, To decrease level of supervision to perform tasks, To improve ability of physical actions for home/community/work/leisure, To improve health of tissue, To decrease soft tissue restriction, To increase flexibility/ROM Therapeutic Exercise to Include: Strength training, Coordination, Postural training, Flexibilty training, Passive ROM, Active ROM, Scapular Strength/Stabilization For the Purpose of:: To decrease pain, To increase ROM, To improve nutrient delivery to tissue, To improve muscle performance and motor function, To improve ability to perform ADL's, To increase tolerance to activity/condition/position, To improve performance and independence with ADL's, To decrease level of supervision to perform tasks, To improve ability of physical actions for home/community/work/leisure, To improve health of tissue, To decrease soft tissue restriction, To increase flexibility/ROM Manual Therapy Techniques to Include: Passive ROM For the Purpose of:: To increase ROM, To decrease soft tissue restriction, To increase flexibility/ROM Thank you for the opportunity to evaluate your patient. For Medicare and Medicare HMO plans, please review the plan of care and approve it. It will need to be FAXED BACK to us at [phone] for Medicare purposes. For Medicare only, by signing this I certify the plan of care. Please let me know if there are questions or concerns regarding this plan of care. Physician Signature: Date:
--- NOTE | 2021-09-27 18:57 | HP.PTREVAL ---
ISABELLE MCCLURE, It has been my pleasure to treat JUDIE CORBETT Jr. over the last 10 visits for s/p L shld arthro, massive RC repair, bicep tenodesis, SAD, acromiopla 08/01. Please see the progress note below for an update on the physical therapy plan of care! Subjective: Continued from July Objective/Function: PROM L shoulder to 140 degrees and ER to at least 30 degrees. Plan Plan: Start isometrics next visit. Follow filed protocol (6 weeks to 10 weeks) able to do AAROM flex and ER including pulleys, isometics, UBE with arms by side. October 10 able to start AROM and RC strengthening. 1-2X/ week for PROM (flexion 130 degrees and ER to 30 degrees) for 3-4 additional weeks or 6 (09-12-2021)weeks total and then follow protocol after pt sees Dr for progression. May use ice. DOS 08-01-2021. HEP: hand squeeze ball, scapular squeezes, and pendulums Balance/Gait/Functional tests - Balance/Special Test Scores Quick DASH Score: 25.0000 Goals Goal 1:: I HEP Goal Time Frame: 8-12 Weeks Goal 2:: PROM 130 degrees flexion Goal Time Frame: 2-4 Weeks Goal Progress: Goal Met Goal 3:: Be able to use his L arm with ADL's and work without pain or signs of weakness Goal Time Frame: 8-12 Weeks Goal 4:: Increase AROM of the L shoulder to full AROM painfree by DC Goal Time Frame: 8-12 Weeks Anticipated Interventions Patient/Client Instruction: Educate patient on: Condition, Plan of Care For the Purpose of:: To decrease pain, To decrease swelling/inflammation, To increase ROM, To improve nutrient delivery to tissue, To improve muscle performance and motor function, To improve ability to perform ADL's, To increase tolerance to activity/condition/position, To improve performance and independence with ADL's, To decrease level of supervision to perform tasks, To improve ability of physical actions for home/community/work/leisure, To improve health of tissue, To decrease soft tissue restriction, To increase flexibility/ROM Therapeutic Exercise to Include: Strength training, Coordination, Postural training, Flexibilty training, Passive ROM, Active ROM, Scapular Strength/Stabilization For the Purpose of:: To decrease pain, To increase ROM, To improve nutrient delivery to tissue, To improve muscle performance and motor function, To improve ability to perform ADL's, To increase tolerance to activity/condition/position, To improve performance and independence with ADL's, To decrease level of supervision to perform tasks, To improve ability of physical actions for home/community/work/leisure, To improve health of tissue, To decrease soft tissue restriction, To increase flexibility/ROM Manual Therapy Techniques to Include: Passive ROM For the Purpose of:: To increase ROM, To decrease soft tissue restriction, To increase flexibility/ROM Please do not hesitate to contact me at [phone] by phone or if you have questions or concerns regarding this new plan of care! Sincerely, Olga Trevino, MPT
--- NOTE | 2022-02-20 07:50 | HP.PTDCSUM ---
It has been my pleasure to treat JUDIE CORBETT . referred by ISABELLE MCCLURE, with the diagnosis of s/p L shld arthro, massive RC repair, bicep tenodesis, SAD, acromiopla 08/01 for a total of 26 visit(s). Discharge Date: 02/20/22 Please see the following information for a summary of their discharge status. Subjective: Pt saw the Dr yesterday and she said that she does not need to see him anymore. He was able to reach up higher at work yesterday. He feels that he can keep working on it at home. L shoulder pain Pain Intensity (Out of 10): 0 % Improvement: 80 Objective/Function: AROM L Shoulder: Flex 141. IR L1 (tight) Goal 1:: I HEP Goal Progress: Goal Met Goal 2:: PROM 130 degrees flexion Goal Progress: Goal Met Goal 3:: Be able to use his L arm with ADL's and work without pain or signs of weakness Goal Progress: Progressing Goal 4:: Increase AROM of the L shoulder to full AROM painfree by DC Goal Progress: Progressing Plan: DC PT to HOME stretching and strengthening Discharge Comments: DC PT to HEP If there are questions or concerns regarding this patient's physical therapy, please feel free to call me at [phone]. Thank you for the referral of this patient. Sincerely, Olga Trevino, MPT Balance/Gait/Functional tests - Balance/Special Test Scores Quick DASH Score: 6.8175
== END 2022-02-20 09:46 | disposition home or self-care (01) ==
LOC: PT 07:00
PROVIDERS: PCP Internal Medicine
DX: M25.512 Pain in left shoulder (principal); G89.29 Other chronic pain; M75.122 Complete rotator cuff tear or rupture of left shoulder, not specified as traumatic; M77.8 Other enthesopathies, not elsewhere classified; Z98.890 Other specified postprocedural states
CPT/HCPCS: 97014; 97035; 97110; 97140; 97161; G0283

== ENCOUNTER → 2024-10-14 | Outpatient (CLI) | payer OTHER, SELFPAY ==
--- NOTE | 2024-10-14 08:27 | RAD_ITS ---
PROCEDURE: KNEE 1 OR 2 VIEWS 10/14/2024 REASON FOR EXAM: OA TECHNIQUE: KNEE 1 OR 2 VIEWS COMPARISON: None. FINDINGS: Mild tricompartmental changes of degenerative joint disease, more prominent in the medial tibiofemoral compartment. No fracture or dislocation is seen. No lytic or blastic bone lesion is noted. Minimal suprapatellar knee joint effusion. Prepatellar/infrapatellar soft tissue edema and thickening, probably bursitis. RAD/Knee 1 or 2 Views IMPRESSION: Mild degenerative joint disease. Prepatellar/infrapatellar soft tissue edema and thickening, probably bursitis. Reading Location: [facility]
--- NOTE | 2024-10-14 08:27 | RAD_ITS ---
PROCEDURE: HAND MIN 3 VIEWS 10/14/2024 REASON FOR EXAM: PAIN TECHNIQUE: HAND MIN 3 VIEWS COMPARISON: None. FINDINGS: Mild degenerative joint disease of the 1st carpometacarpal joint. Moderate degenerative joint disease of the 3rd metacarpophalangeal joint. Moderate degenerative joint disease of the 2nd metacarpophalangeal joint. Radiopaque foreign bodies overlying the base of the 1st metacarpal bone and the base of the middle phalanx of the 3rd finger. No fracture or dislocation is seen. No lytic or blastic bone lesion is noted. RAD/Hand Min 3 Views IMPRESSION: Degenerative joint disease, more prominent in the 3rd and 2nd metacarpophalange al joints. Reading Location: [facility]
--- NOTE | 2024-10-14 08:27 | RAD_ITS ---
PROCEDURE: KNEE 1 OR 2 VIEWS 10/14/2024 REASON FOR EXAM: OA TECHNIQUE: KNEE 1 OR 2 VIEWS COMPARISON: None. FINDINGS: Mild tricompartmental changes of degenerative joint disease, more prominent in the medial tibiofemoral compartment. Enthesophytes are noted at the upper and lower pole of the patella. Minimal suprapatellar knee joint effusion. No fracture or dislocation is seen. Well-defined sclerotic lesion in the proximal tibial diaphysis measuring 1.7 cm, probably benign chronic bone island. RAD/Knee 1 or 2 Views IMPRESSION: Mild degenerative joint disease. Reading Location: [facility]
--- NOTE | 2024-10-14 08:30 | RAD_ITS ---
PROCEDURE: HAND MIN 3 VIEWS 10/14/2024 REASON FOR EXAM: Finger stiffness. TECHNIQUE: HAND MIN 3 VIEWS COMPARISON: None. FINDINGS: Mild degenerative joint disease of the 1st carpometacarpal, carpal, metacarpophalangeal and interphalangeal joints. No fracture or dislocation is seen. No lytic or blastic bone lesion is noted. RAD/Hand Min 3 Views IMPRESSION: Mild degenerative joint disease. Reading Location: [facility]
--- OUTSIDE RECORDS SUMMARY | 2024-10-14 09:10 | XMS RPT_ITS | CCD ---
Author Organization [facility] Care Team Providers Care Accessibility Lift Technician Name Role Phone Ad Boyd MD Primary Care Provider [phone] Ad Boyd Primary Care Unavailable CELESTINE LOPEZ Referring Unavailable CELESTINE LOPEZ Attending Unavailable Ad Boyd MD Primary Care Provider [phone] Clara Escobar MD Unavailable Ad Boyd MD Primary Care Provider [phone] AD BOYD Primary Care Unavailable DAVID SAHA Referring Unavailable DAVID SAHA Referring Unavailable AD BOYD Primary Care Unavailable Chris MANAGER OF SALES.PIZZA MAKER, Britney M Unavailable DAVID SAHA Attending Unavailable AD BOYD Primary Care Unavailable DAVID SAHA Referring Unavailable AD BOYD Primary Care Unavailable MYAH CORDOBA Attending Unavailable AD BOYD Primary Care Unavailable CLARA ESCOBAR Attending Unavailable AD BOYD Primary Care Unavailable MONSERRAT THORNTON Attending Unavailable AD BOYD Primary Care Unavailable MONSERRAT THORNTON Referring Unavailable Ad Boyd MD Primary Care Provider [phone] Allergies Allergy Classification Reported Allergen(s) Allergy Type Date of Onset Reaction(s) Facility (16 sources) semaglutide; Translations: [SEMAGLUTIDE] Drug Allergy 03-26-[address] [facility] Medications Current Medications Medication Drug Class(es) Dates Sig (Normalized) Sig (Original) ascorbic acid 200 mg / beta carotene 1000 unt / cuprous oxide 2 mg / dl-alpha tocopheryl acetate 60 unt / lutein 2 mg / sodium selenate 0.055 mg / zinc oxide 40 mg oral tablet (20 sources) Vitamin C Start: 01-15-2014 End: 09-23-2024 take 1 tablet by mouth once daily Vit A,C and O-Kbtckp-[place] (OCUVITE WITH LUTEIN) 1,000 unit-200 mg-60 unit-2 mg tab Indications: Macular degeneration Take 1 tablet by mouth once daily. 0 01/15/2014 09/23/2024 Discontinued (Other) Comment on above: Take 1 tablet by jay th once daily. aspirin 81 mg delayed release oral tablet (20 sources) Platelet Aggregation Inhibitor, Nonsteroidal Anti-inflammatory Drug Start: 04-28-2007 take 1 tablet by mouth once daily aspirin(ECOTRIN LOW STRENGTH 81 MG TAB) Indications: Type II or unspecified type diabetes mellitus without mention of complication, not stated as uncontrolled Take 81 mg by mouth once daily. 0 04/28/2007 Active Comment on above: Take one(1) tablet d aily. atorvastatin 40 mg oral tablet (20 sources) HMG-CoA Reductase Inhibitor Start: 06-30-2020 End: 09-23-2024 take 1 tablet by mouth once daily atorvastatin (LIPITOR) 40 mg tablet Indications: Mixed hyperlipidemia Take 1 tablet by mouth once daily. 90 tablet 09/22/2024 Active Comment on above: Take 1 tablet by jay th once daily. TAKE 1 TABLET BY JAY TH ONCE DAILY Blood-Glucose Meter,Continuous (DEXCOM G6 MIXING ENGINEER) misc (20 sources) Start: 10-05-2021 End: 09-23-2024 Blood-Glucose Meter,Continuous (DEXCOM G6 MIXING ENGINEER) misc Indications: Controlled type 2 diabetes mellitus without complication, with long-term current use of insulin (HCC) Use as directed, IDDM, E11.9 1 Each 10/05/2021 09/23/2024 Discontinued (Other) Start: 10-05-2021 Blood-Glucose Meter,Continuous (DEXCOM G6 MIXING ENGINEER) misc Indications: Controlled type 2 diabetes mellitus without complication, with long-term current use of insulin (HCC) Use as directed, IDDM, E11.9 1 Each 10/05/2021 Active Start: 10-05-2021 Blood-Glucose Meter,Continuous (DEXCOM G6 MIXING ENGINEER) misc Indications: Controlled type 2 diabetes mellitus without complication, with long-term current use of insulin (HCC) Use as directed, IDDM, E11.9 1 Each 0 10/05/2021 Active Comment on above: Use as directed, IDD M, E11.9 Blood-Glucose Meter,Continuous (DEXCOM G7 MIXING ENGINEER) misc (4 sources) Blood-Glucose Meter,Continuous (DEXCOM G7 MIXING ENGINEER) misc 1 each. [facility] Active Blood-Glucose Sensor (DEXCOM G6 SENSOR) ana (20 sources) Start: 03-13-2022 End: 09-23-2024 Blood-Glucose Sensor (DEXCOM G6 SENSOR) ana Use as directed; IDDM, E 11.9 3 Each 11 03/13/2022 09/23/2024 Discontinued (Other) Start: 03-13-2022 Blood-Glucose Sensor (DEXCOM G6 SENSOR) ana Use as directed; IDDM, E 11.9 3 Each 11 03/13/2022 Active Start: 10-05-2021 Blood-Glucose Sensor (DEXCOM G6 SENSOR) ana Indications: Controlled type 2 diabetes mellitus without complication, with long-term current use of insulin (HCC) Use as directed; IDDM, E 11.9 3 Each 11 10/05/2021 Active Comment on above: Use as directed; IDD M, E 11.9 Blood-Glucose Sensor (DEXCOM G7 SENSOR) ana (4 sources) Blood-Glucose Se nsor (DEXCOM G7 SENSOR) ana 1 each every 10 days. [facility] Active Blood-Glucose Transmitter (DEXCOM G6 TRANSMITTER) ana (20 sources) Start: 10-05-2021 End: 09-23-2024 Blood-Glucose Transmitter (DEXCOM G6 TRANSMITTER) ana Indications: Controlled type 2 diabetes mellitus without complication, with long-term current use of insulin (HCC) Use as directed, IDDM, E 11.9 1 Each 3 10/05/2021 09/23/2024 Discontinued (Other) Start: 10-05-2021 Blood-Glucose Transmitter (DEXCOM G6 TRANSMITTER) ana Indications: Controlled type 2 diabetes mellitus without complication, with long-term current use of insulin (HCC) Use as directed, IDDM, E 11.9 1 Each 3 10/05/2021 Active Comment on above: Use as directed, IDD M, E 11.9 canagliflozin 300 mg oral tablet (2 sources) Sodium-Glucose Cotransporter 2 Inhibitor Start: 07-01-19 21 take 300 mg by mouth once daily Canagliflozin Active 300 MG PO DAILY June 30, 2020 1:00am Start: 11-04-2018 End: 06-30-2020 take 50 mg by mouth once daily Canagliflozin Discontin ued 50 MG PO DAILY November 04, 2018 12:00am June 30, 2020 9:09am dapagliflozin 10 mg oral tablet (20 sources) Sodium-Glucose Cotransporter 2 Inhibitor Start: 09-22-2024 take 1 tablet by mouth once daily at breakfast FARXIGA 10 mg tablet Indications: Type 2 diabetes mellitus with microalbuminuria, with long-term current use of insulin (HCC) Take 1 tablet by mouth daily with breakfast. 90 tablet 09/22/2024 Active Start: 04-12-2023 End: 09-18-2024 take 1 tablet by mouth once daily at breakfast FARXIGA 10 mg tablet Indications: Type 2 diabetes mellitus with microalbuminuria, with long-term current use of insulin (HCC) Take 1 tablet by mouth daily with breakfast. 90 tablet 3 10/21/2023 09/18/2024 Discontinued Start: 04-24-2021 End: 04-25-2022 take 1 tablet by mouth once daily at breakfast FARXIGA 10 mg tablet Take 1 tablet by mouth daily with breakfast. 90 tablet 3 04/25/2022 Active Comment on above: Take 1 tablet by jay th daily with breakfast. diclofenac sodium 75 mg delayed release oral tablet (4 sources) Nonsteroidal Anti-inflammatory Drug Start: 09-17-19 End: 10-15-19 take 1 tablet by mouth twice daily diclofenac, EC, (VOLTAREN) 75 mg EC tablet Take 75 mg by mouth two times a day. 09/16/2024 10/14/2024 Active doxycycline hyclate 100 mg oral tablet (1 source) Tetracycline-class Drug Start: 04-07-20 End: 04-14-20 take 1 tablet by mouth twice daily doxycycline (VIBRA-TABS) 100 mg tablet Indications: Rhinosinusitis Take 1 tablet by mouth two times a day for 7 days. 14 tablet 04/07/2024 04/14/2024 Active fenofibrate 200 mg oral capsule (20 sources) Peroxisome Proliferator Receptor alpha Agonist Start: 09-23-19 take 1 capsule by mouth once fenofibrate (LOFIBRA) 200 mg capsule Indications: Mixed hyperlipidemia Take 1 capsule by mouth every afternoon. 90 capsule 09/22/2024 Active Start: 11-04-2018 End: 09-18-2024 take 1 capsule by mouth once daily fenofibrate (LOFIBRA) 200 mg capsule Indications: Mixed hyperlipidemia TAKE 1 CAPSULE BY MOUTH DAILY 90 capsule 3 04/02/2024 09/18/2024 Discontinued Comment on above: TAKE 1 CAPSULE BY MO UTH DAILY glucagon 3 mg nasal powder (16 sources) Antihypoglycemic Agent Start : 02-12 glucagon (BAQSIMI) 3 mg/actuation nasal spray Use 1 [place] in the nose as needed. May repeat after 15 minutes using a new device if there is no response. 2 Each 2 02/13/2024 Active hydroCHLOROthiazide 25 mg oral tablet (20 sources) Thiazide Diuretic Start : 08-28 End: 10-08 take 1 tablet by mouth once daily hydroCHLOROthiazide 25 mg tablet Indications: Essential hypertension Take 1 tablet by mouth once daily. 90 tablet 3 10/08/2024 Active Start: 11-04-2018 End: 06-19-2022 take 1 tablet by mouth once daily hydroCHLOROthiazide (HYDRODIURIL, ESIDRIX) 25 mg tablet TAKE 1 TABLET BY MOUTH ONCE DAILY 30 tablet 0 06/19/2022 Active Comment on above: TAKE 1 TABLET BY JAY TH ONCE DAILY Take 1 tablet by jay th once daily. insulin glargine 100 unt/ml injectable solution (20 sources) Insulin Analog Start: 09-24-19 inject 60 [IU] by subcutaneous injection once daily at bedtime insulin glargine (LANTUS U-100 INSULIN) 100 unit/mL injection Indications: Type 2 diabetes mellitus with microalbuminuria, with long-term current use of insulin (HCC) Inject 60 Units subcutaneously daily at bedtime. 09/23/2024 Active Start: 09-22-2024 End: 09-23-2024 inject 55 [IU] by subcutaneous injection once daily at bedtime insulin glargine (LANTUS U-100 INSULIN) 100 unit/mL injection Indications: Type 2 diabetes mellitus with microalbuminuria, with long-term current use of insulin (HCC) Inject 55 Units subcutaneously daily at bedtime. 60 mL 09/22/2024 09/23/2024 Discontinued Start: 03-26-2024 End: 09-18-2024 inject 55 [IU] by subcutaneous injection once daily at bedtime insulin glargine (LANTUS U-100 INSULIN) 100 unit/mL injection Indications: Type 2 diabetes mellitus with microalbuminuria, with long-term current use of insulin ([facility]) Inject 55 Units subcutaneously daily at bedtime. 60 mL 09/22/2024 Active Start: 01-15-2024 End: 03-26-2024 inject 60 [IU] by subcutaneous injection once daily at bedtime insulin glargine (LANTUS U-100 INSULIN) 100 unit/mL injection Indications: Type 2 diabetes mellitus with microalbuminuria, with long-term current use of insulin ([facility]) Inject 60 Units subcutaneously daily at bedtime. 60 mL 3 01/15/2024 03/26/2024 Discontinued Start: 09-12-2023 End: 01-15-2024 inject 55 [IU] by subcutaneous injection once daily at bedtime insulin glargine (LANTUS U-100 INSULIN) 100 unit/mL injection Inject 55 Units subcutaneously daily at bedtime. 60 mL 3 09/12/2023 01/15/2024 Discontinued Start: 08-21-2021 End: 09-12-2023 inject 60 [IU] by subcutaneous injection once daily at bedtime LANTUS U-100 INSULIN 100 unit/mL injection Indications: Controlled type 2 diabetes mellitus without complication, with long-term current use of insulin ([facility]) INJECT 60 UNITS SUBCUTANEOUSLY ONCE DAILY AT BEDTIME 60 mL 3 10/12/2022 09/12/2023 Discontinued Start: 08-19-2020 inject 60 [IU] by newman bcutaneous injection once daily at bedtime insulin glargine (LANTUS U-100 INSULIN) 100 unit/mL injection Inject 60 Units subcutaneously daily at bedtime. 60 mL 3 08/19/2020 Active Start: 11-12-2018 inject 62 [IU] by newman bcutaneous injection at bedtime Insulin Glargine Active 62 UNIT SQ AT BEDTIME November 12, 2018 12:00am Comment on above: Inject 60 Units subc utaneously daily at bedtime. INJECT 60 UNITS SUBC UTANEOUSLY ONCE DAILY AT BEDTIME 3 ml insulin lispro 100 unt/ml pen injector (20 sources) Insulin Analog Start: 09-12-2023 End: 10-13-2024 HUMALOG KWIKPEN INSULIN 100 unit/mL Indications: Type 2 diabetes mellitus with microalbuminuria, with long-term current use of insulin (HCC) INJECT 12 UNTS SUBCUTANEOUSLY BEFORE BREAKFAST, 20 UNITS BEFORE lunch and 30 UNITS PLUS SS#2 (2 units for every 50 over 150 pre meal blood sugar) 60 mL 3 10/13/2024 Active Start: 06-19-2023 End: 09-12-2023 inject 14 [IU] by subcutaneous injection before breakfast, then inject 22 [IU] by subcutaneous injection before lunch, then inject 32 [IU] by subcutaneous injection before dinner HUMALOG KWIKPEN INSULIN 100 unit/mL Indications: Type 2 diabetes mellitus with microalbuminuria, with long-term current use of insulin (HCC) INJECT 14 UNITS SUBCUTANEOUSLY BEFORE BREAKFAST, INJECT 22 UNITS BEFORE lunch, INJECT 32 UNITS BEFORE dinner 75 mL 3 06/19/2023 09/12/2023 Discontinued Start: 04-12-2023 End: 06-19-2023 HUMALOG KWIKPEN INSULIN 100 unit/mL Indications: Type 2 diabetes mellitus with microalbuminuria, with long-term current use of insulin ([facility]) 12 units with breakfast, 20 units with lunch and 30 units with dinner 75 mL 3 04/12/2023 06/19/2023 Discontinued Start: 11-09-2022 HUMALOG KWIKPE N INSULIN 100 unit/mL Indications: Type 2 diabetes mellitus with microalbuminuria, with long-term current use of insulin ([facility]) 5 units with dinner 75 mL 3 11/09/2022 Active Start: 06-15-2022 End: 06-18-2022 inject 14 [IU] by subcutaneous injection before breakfast, then inject 22 [IU] by subcutaneous injection before lunch, then inject 32 [IU] by subcutaneous injection before dinner HUMALOG KWIKPEN INSULIN 100 unit/mL Indications: Type 2 diabetes mellitus with microalbuminuria, with long-term current use of insulin (HCC) INJECT 14 UNITS SUBCUTANEOUSLY BEFORE BREAKFAST, INJECT 22 UNITS BEFORE lunch, INJECT 32 UNITS BEFORE dinner 75 mL 3 06/18/2022 Active Start: 10-05-2021 End: 06-15-2022 inject 12 [IU] by subcutaneous injection before breakfast, then inject 20 [IU] by subcutaneous injection before lunch, then inject 30 [IU] by subcutaneous injection before dinner insulin lispro (HUMALOG KWIKPEN INSULIN) 100 unit/mL Indications: Controlled type 2 diabetes mellitus without complication, with long-term current use of insulin ([facility]) INJECT 12 UNITS SUBCUTANEOUSLY BEFORE BREAKFAST, INJECT 20 UNITS BEFORE lunch, INJECT 30 UNITS BEFORE dinner 20 Pen 3 10/05/2021 06/15/2022 Discontinued Start: 08-19-2020 End: 10-05-2021 inject 10 [IU] by subcutaneous injection before breakfast, then inject 23 [IU] by subcutaneous injection before lunch, then inject 35 [IU] by subcutaneous injection before dinner insulin lispro (HUMALOG KWIKPEN INSULIN) 100 unit/mL Indications: Controlled type 2 diabetes mellitus without complication, with long-term current use of insulin ([facility]) INJECT TEN UNITS SUBCUTANEOUSLY BEFORE BREAKFAST, INJECT 23 UNITS BEFORE lunch, INJECT 35 UNITS BEFORE dinner 20 Pen 3 08/19/2020 10/05/2021 Discontinued Start: 11-12-2018 Insulin Lispro Active 100 UNIT SQ DIRECTED November 12, 2018 12:00am Comment on above: INJECT TEN UNITS SUB CUTANEOUSLY BEFORE BREAKFAST, INJECT 23 UNITS BEFORE lunch, INJECT 35 UNITS BEFORE dinner INJECT 12 UNITS SUBC UTANEOUSLY BEFORE BREAKFAST, INJECT 20 UNITS BEFORE lunch, INJECT 30 UNITS BEFORE dinner INJECT 14 UNITS SUBC UTANEOUSLY BEFORE BREAKFAST, INJECT 22 UNITS BEFORE lunch, INJECT 32 UNITS BEFORE dinner 5 units with dinner 12 units with breakf ast, 20 units with lunch and 30 units with dinner lisinopril 40 mg oral tablet (20 sources) Angiotensin Converting Enzyme Inhibitor Start: 2018 End: 2024 take 1 tablet by mouth once daily lisinopril (ZESTRIL) 40 mg tablet Indications: Essential hypertension Take 1 tablet by mouth once daily. 90 tablet 3 10/08/2024 Active Comment on above: TAKE 1 TABLET BY JAY TH ONCE DAILY take 1 tablet by jay th daily metFORMIN hydrochloride 1000 mg oral tablet (20 sources) Biguanide Start: 2018 End: 2024 take 1 tablet by mouth twice daily metFORMIN (GLUCOPHAGE) 1,000 mg tablet Indications: Controlled type 2 diabetes mellitus without complication, with long-term current use of insulin ([facility]) TAKE 1 TABLET BY MOUTH TWICE DAILY 180 tablet 3 09/21/2024 Active Comment on above: Take 1 tablet by jay th twice daily. multivit-min/folic/v it K/lycop (MEN'S MULTIVITAMIN ORAL) (4 sources) take 1 tablet by mouth once daily multivit-min/folic/v it K/lycop (MEN'S MULTIVITAMIN ORAL) Take 1 tablet by mouth once daily. Active semaglutide (OZEMPIC) 0.25 mg or 0.5 mg (2 mg/3 mL) pen (5 sources) Start: 2023 End: 2023 inject 0.25 mg by subcutaneous injection every week, then inject 0.5 mg by subcutaneous injection every week semaglutide (OZEMPIC) 0.25 mg or 0.5 mg (2 mg/3 mL) pen Indications: Type 2 diabetes mellitus with microalbuminuria, with long-term current use of insulin (HCC) Inject subcutaneously 0.25 mg weekly x 4 wks then increase to 0.5 mg weekly 3 mL 5 01/15/2024 03/26/2024 Discontinued Start: 01-15-2024 inject 0.25 mg by newman bcutaneous injection every week, then inject 0.5 mg by subcutaneous injection every week semaglutide (OZEMPIC) 0.25 mg or 0.5 mg (2 mg/3 mL) pen Indications: Type 2 diabetes mellitus with microalbuminuria, with long-term current use of insulin (HCC) Inject subcutaneously 0.25 mg weekly x 4 wks then increase to 0.5 mg weekly 3 mL 5 01/15/2024 Active verapamil hydrochloride 240 mg extended release oral tablet (20 sources) Calcium Channel Abdulaziz Start: 09-22-2024 take 1 tablet by mouth once daily at bedtime verapamil SR (CALAN SR) 240 mg CR tablet Indications: Essential hypertension Take 1 tablet by mouth daily at bedtime. 90 tablet 09/22/2024 Active Start: 11-04-2018 End: 09-18-2024 take 1 tablet by mouth once daily at bedtime verapamil SR (CALAN SR) 240 mg CR tablet Indications: Essential hypertension take 1 tablet by mouth daily at bedtime 90 tablet 3 06/22/2024 09/18/2024 Discontinued Comment on above: Take 1 tablet by jay th daily at bedtime. TAKE 1 TABLET BY JAY TH DAILY AT BEDTIME Completed/Discontinued Medications Medication Drug Class(es) Dates Sig (Normalized) Sig (Original) acetaminophen 325 mg / HYDROcodone bitartrate 5 mg oral tablet (1 source) Opioid Agonist Start: 11-19-2018 End: 11-29-2018 take 1 tablet by mouth every six hours as needed Hydrocodone-Acetami nophen Discontinued 1 - 2 TABLET PO EVERY 6 HOURS NEEDED 40 5 November 19, 2018 November 29, 2018 12:09am acetaminophen 325 mg / oxyCODONE hydrochloride 5 mg oral tablet (6 sources) Opioid Agonist Start: 08-01-2021 End: 10-05-2021 take 1 tablet by mouth every six hours as needed for pain oxyCODONE-acetamino phen (PERCOCET) 5-325 mg tablet Indications: Postoperative pain Take 1 tablet by mouth every 6 hours as needed for pain. 25 tablet 0 08/01/2021 10/05/2021 Discontinued Start: 03-23-2020 End: 03-28-2020 take 1 tablet by mouth every six hours as needed Oxycodone-Acetaminophen Discontinued 1 - 2 TABLET PO EVERY 6 HOURS NEEDED 28 March 23, 2020 March 28, 2020 1:03am Comment on above: Take 1 tablet by jay th every 6 hours as needed for pain. 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 10 tablet 0 08/03/2021 10/05/2021 Discontinued Comment on above: Take 1 tablet by jay th twice daily for 5 days. ondansetron 4 mg oral tablet (6 sources) Serotonin-3 Receptor Antagonist Start: 2 End: 2 take 1 tablet by mouth every eight hours as needed ondansetron (ZOFRAN) 4 mg tablet Take 1 tablet by mouth every 8 hours as needed for nausea/vomiting. 10 tablet 0 08/01/2021 10/05/2021 Discontinued Start: 03-23-2020 take 8 mg by mouth e very eight hours as needed Ondansetron Hcl Active 8 MG PO EVERY 8 HOURS NEEDED March 23, 2020 1:00am Comment on above: Take 1 tablet by jay th every 8 hours as needed for nausea/vomiting. oxyCODONE hydrochloride 5 mg oral tablet (1 source) Opioid Agonist Start: End: take 1-3 tablets by mouth every four hours at mealtime as needed for pain Oxycodone Discontinued 5 MG PO Q4H 30 March 24, 2020 March 29, 2020 1:02am take 1-3 tabs by mouth with food every 4 hours as needed for pain, stop all other narcotics pravastatin sodium 80 mg oral tablet (1 source) HMG-CoA Reductase Inhibitor Start: End: take 80 mg by mouth at bedtime Pravastatin Discontinued 80 MG PO AT BEDTIME November 04, 2018 12:00am June 30, 2020 9:08am traMADol hydrochloride 50 mg oral tablet (7 sources) Opioid Agonist Start: End: take 1 tablet by mouth every four hours as needed for pain traMADol (ULTRAM) 50 mg tablet Indications: Bursitis of left shoulder , Nontraumatic complete tear of left rotator cuff , Tendinitis of left shoulder , Chronic left shoulder pain Take 1 tablet by mouth every 4 hours as needed for pain. for pain. 30 tablet 0 05/11/2021 10/05/2021 Discontinued Comment on above: Take 1 tablet by jay every 4 hours as needed for pain. for pain. zolpidem tartrate 5 mg oral tablet (6 sources) gamma-Aminobutyric Acid-ergic Agonist Start: End: take 1 tablet by mouth at bedtime as needed zolpidem (AMBIEN) 5 mg tablet Indications: Other insomnia Take 1 tablet by mouth at bedtime as needed for up to 7 days. 7 tablet 0 08/01/2021 10/05/2021 Discontinued Start: 03-23-2020 End: 06-30-2020 take 5 mg by mouth at bedtime as needed Zolpidem Discontinued 5 MG PO AT BEDTIME NEEDED March 23, 2020 1:00am June 30, 2020 9:09am Comment on above: Take 1 tablet by jya th at bedtime as needed for up to 7 days. Problems Active Problems Problem Classification Problem Date Documented Date Episodic/Chronic Diabetes mellitus with complications (20 sources) Type II diabetes mellitus uncontrolled; Translations: [Type 2 diabetes mellitus with hyperglycemia] Onset: 04-28-1998 04-17-2021 Chronic Diabetes mellitus without complication (20 sources) Type 2 diabetes mellitus; Translations: [Type 2 diabetes mellitus without complications] Onset: 08-01-2021 08-01-2021 Chronic Disorders of lipid metabolism (20 sources) Mixed hyperlipidemia; Translations: [Mixed hyperlipidemia] Onset: 04-28-2007 06-21-2014 Chronic Essential hypertension (20 sources) Hypertensive disorder; Translations: [Essential (primary) hypertension] Onset: 04-28-2007 06-21-2014 Chronic Malaise and fatigue (1 source) Fatigue; Translations: [Other fatigue] 09-12-2023 Episodic Other aftercare (3 sources) lobsterman (current) use of insulin; Translations: [Type 2 diabetes mellitus with microalbuminuria, with long-term current use of insulin (HCC)] Onset: 06-15-2022 Episodic Other connective tissue disease (1 source) Complete rotator cuff tear or rupture of left shoulder, not specified as traumatic; Translations: [Complete rotator cuff tear or rupture of left shoulder, not specified as traumatic] Onset: 02-20-2022 Episodic Other connective tissue disease (1 source) Other enthesopathies, not elsewhere classified; Translations: [Other enthesopathies, not elsewhere classified] Onset: 02-20-2022 Episodic Other connective tissue disease (2 sources) Pain in right foot; Translations: [Pain in right foot] 08-19-2023 Episodic Other connective tissue disease (1 source) Plantar fasciitis; Translations: [Plantar fascial fibromatosis] 08-29-2023 Episodic Other male genital disorders (20 sources) Secondary erectile dysfunction; Translations: [Male erectile dysfunction, unspecified] Onset: 11-06-2016 11-06-2016 Chronic Other nervous system disorders (1 source) Other chronic pain; Translations: [Other chronic pain] Onset: 02-20-2022 Chronic Other non-traumatic joint disorders (2 sources) Chronic pain of left upper limb; Translations: [Pain in left shoulder] Episodic Other non-traumatic joint disorders (1 source) Pain in left shoulder; Translations: [Pain in left shoulder] Onset: 02-20-2022 Episodic Other screening for suspected conditions (not mental disorders or infectious disease) (3 sources) Patient encounter status; Translations: [Encounter for screening for malignant neoplasm of colon] Onset: 03-20-2024 08-28-2023 Episodic Other upper respiratory infections (1 source) Chronic sinusitis, unspecified; Translations: [Unspecified sinusitis (chronic)] 04-07-2024 Chronic Residual codes; unclassified (2 sources) History of operative procedure on shoulder; Translations: [Other specified postprocedural states] Episodic Residual codes; unclassified (1 source) Other specified postprocedural states; Translations: [Other specified postprocedural states] Onset: 02-20-2022 Episodic Past or Other Problems Problem Classification Problem Date Documented Date Episodic/Chronic Genitourinary symptoms and ill-defined conditions (20 sources) Proteinuria; Translations: [Proteinuria, unspecified] Onset: 11-21-2010 Resolved: 09-19-2015 09-19-2015 Episodic Other connective tissue disease (20 sources) Full thickness rotator cuff tear; Translations: [Complete rotator cuff tear or rupture of left shoulder, not specified as traumatic] Onset: 07-25-2021 Episodic Other connective tissue disease (20 sources) Bursitis of left shoulder; Translations: [Bursitis of left shoulder] Onset: 07-25-2021 Episodic Other connective tissue disease (20 sources) Tendonitis of left shoulder; Translations: [Other enthesopathies, not elsewhere classified] Onset: 07-25-2021 Episodic Other nutritional; endocrine; and metabolic disorders (20 sources) Constitutional obesity; Translations: [Other obesity] Onset: 09-19-2015 Resolved: 06-23-2018 06-23-2018 Chronic Other nutritional; endocrine; and metabolic disorders (19 sources) Overweight in adulthood with body mass index of 25 or more but less than 30; Translations: [Overweight] Onset: 02-12-2024 01-15-2024 Episodic Other nutritional; endocrine; and metabolic disorders (1 source) Overweight; Translations: [Overweight with body mass index (BMI) of 29 to 29.9 in adult] Onset: 02-12-2024 Episodic Other nutritional; endocrine; and metabolic disorders (1 source) Body mass index (BMI) 29.0-29.9, adult; Translations: [Overweight with body mass index (BMI) of 29 to 29.9 in adult] Onset: 02-12-2024 Episodic Results Test Name Value Interpretation Reference Range Facility 25(OH)D3 [facility] 2024 25-hydroxyvitamin D3 [Mass/Vol] 26.1 ng/mL Low 31.0-80.0 [facility] Comment on above: Order Comment: Speci men Type: BLOOD SPECIMENOrdering Facility: [facility] Address: [address] [place] [address] Result Comment: Clas sification of 25 OH Vitamin D status: Deficiency/Insufficiency: < or = 30 ng/ml. Sufficiency/Optimal Levels: 31-80 ng/mL Toxicity: > 100 ng/mL. Test performed by chemiluminescent immunoassay. Performed By: #### 1 989-3 ####[facility] [id number] [place] [address] [place] ALBUMIN/CREATININE RATIO, UR INEon 09-23-2024 Albumin DL <= 20 mg/L (U) [Mass/Vol] 13.5 mg/L Normal [facility] Comment on above: Order Comment: Speci men Type: URINE SPECIMENOrdering Facility: [facility] Address: [address] [place] [address] Performed By: #### U ACR ####[facility] [id number] [place] [address] [place] Albumin/Creatinine (U) [Mass ratio] 17 mg/g Normal <30 [facility] Comment on above: Order Comment: Speci men Type: URINE SPECIMENOrdering Facility: [facility] Address: [address] [place] [address] Result Comment: Adul t Male and Female Nephrotic Criteria: <30 mg/g is considered normal to mildly increased 30-300 mg/g is considered moderately increased >300 mg/g is considered severely increased KDIGO. (2013). KDIGO 2012 Clinical Practice Guideline for the Evaluation and Management of Chronic Kidney Disease. Official Journal of the International Society of Nephrology, 3(1), 1-150. Performed By: #### U ACR ####[facility] LABIA [id number] [address] OF [facility] Creatinine (U) [Mass/Vol] 80.9 mg/dL Normal 20.0-300.0 [facility] Comment on above: Order Comment: Speci men Type: URINE SPECIMENOrdering Facility: [facility] Address: [address] [place] [address] Performed By: #### U ACR ####[facility] LABCLIA [id number] [address] OF [facility] CNOVon 09-23-2024 CNOV Office Visit (ENWSTR ) JUDIE CORBETT ([id number]) 1965 M Date Time Provider Department 09/23/24 7:15 AM MONSERRAT THORNTON ENWSTR During your visit today, we recorded the following information about you: Pulse Respiration Blood pressure Weight 69/minute 19/minute 140/88 92.1 kg Height 1.778 m Monserrat Thornton, MANAGER OF SALES.PIZZA MAKER 09/23/2024 7:54 AM Signed OFFICE VISIT PROGRESS NOTE CC Judie Corbett is a 59 year old who presents today for blood sugar review, DM Med dose review, adjust. HPI PATIENT OF DR. 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 Escobar in [place] Does not calibrate his DEXCOM States was really watching his diet, then 'fell off' Was eating differently intiially, tried for a little while, then 'hyun' I was hungry all the time I like to eat, portion control difficult Lost weight, 10 pounds, then regained I gotta get back on track Has arthritis in bilateral hands/knuckles Was previouly using a lot of tylenol Now started on voltaren Reports farxiga is no longer covered Did not tolerate GLP1 group due to muscle aches and fatigue CURRENT DM MEDS FARXIGA 10 mg daily HUMALOG 30 LANTUS 55 units daily METFORMIN 1000 BID SMBG Type of Monitor: Other DEXCOM (patient was not calibrating his DEXCOM) Frequency of Monitorin times a day BG Values: Hypoglycemia: no Diet: No specific diet regimen - 'got off track' Exercise: work only DM REVIEW OF SYSTEMS Last Eye Exam : 03/2024 Last Podiatry Exam: 12/2023 Cardiorespiratory: negative, denies chest pain, pressure Claudication: no Dyslipidemia: Yes, controlled on medication High Blood Pressure: Yes, controlled on medication CURRENT LABS LABS ORDERED, NOT COMPLETED BY PATIENT FOR OV HEMOGLOBIN A1C Component Ref Range AND Units 6 mo ago (03/20/24) 1 yr ago (04/05/23) 3 yr ago (07/25/21) 4 yr ago (05/05/20) 8 yr ago (03/19/16) 8 yr ago (10/12/15) 9 yr ago (06/22/15) Hemoglobin A1C 4.3 - 5.6 % 7.0 High 7.2 High CM 7.6 High C Recent Labs 07/25/21 0932 03/13/22 0937 09/21/22 0928 11/09/22 0843 04/05/23 0703 09/12/23 0832 01/15/24 0755 03/20/24 0807 ALT -- -- 21 -- 18 -- -- 20 AST -- -- 23 -- 21 -- -- 27 UCRR 92.7 -- -- -- 88.3 -- -- 85.0 UALBR 21.7 -- -- -- 30.4 -- -- 22.3 UALBCR 23 -- -- -- 34* -- -- 26 TSH -- -- -- -- 1.450 -- -- -- TPROT -- -- 7.5 -- 7.2 -- -- 7.1 ALB -- -- 4.5 -- 4.5 -- -- 4.4 CA -- -- 9.9 -- 9.7 -- -- 9.2 TBILI -- -- 0.3 -- 0.3 -- -- 0.3 ALKPHOS -- -- 65 -- 60 -- -- 54 GLUC -- -- 121* -- 83 -- -- 92 BUN -- -- 23 -- 31* -- -- 30* CREAT -- -- 1.11 -- 1.13 -- -- 1.18 NA -- -- 139 -- 140 -- -- 141 K -- -- 4.6 -- 4.4 -- -- 4.3 CHLOR -- -- 104 -- 104 -- -- 105 CO2 -- -- 21* -- 26 -- -- 24 ANION -- -- 14 -- 10 -- -- 12 EGFROTH -- -- 76 -- 75 -- -- 71 HBA1C -- < > -- < > 7.2* 7.7* 7.3* 7.0* < > = values in this interval not displayed. Recent Labs 07/25/21 0913 03/13/22 0937 04/05/23 0703 09/12/23 0832 01/15/24 0755 03/20/24 0807 TG 315* -- 343* -- -- 211* CHOL 147 -- 150 -- -- 154 HDL 34* -- 33* -- -- 36* VLDL 63* -- 69* -- -- 42* LDL 50 -- 48 -- -- 76 FASTTIME 2 -- 12 -- -- 12 TCHDL 4.32 -- 4.55 -- -- 4.28 LDLHDL 1.47 -- 1.45 -- -- 2.11 NONHDL 113 -- 117 -- -- 118 HBA1C 7.6* < > 7.2* 7.7* 7.3* 7.0* HBA0 171 -- 160 -- -- 154 < > = values in this interval not displayed. PAST MEDICAL HISTORY Diagnosis Date Carpal tunnel syndrome, bilateral 2018 DM w/o complication type II, uncontrolled 08/21/2011 Macular degeneration 06/11/2013 Nontraumatic complete tear of right rotator cuff 2019 Other and unspecified hyperlipidemia 04/28/2007 Proteinuria 11/21/2010 Snoring Type II or unspecified type diabetes mellitus without mention of complication, not stated as uncontrolled 04/28/2007 Unspecified essential hypertension 04/28/2007 PAST SURGICAL HISTORY Procedure Laterality Date ARTHROSC SH TENODESIS BICEPS Right 03/23/2020 COLONOSCOPY FLX DX W/COLLJ SPEC WHEN PFRMD 03/08/2014 HAND SURGERY HX Right 1979 Tendon repair REVISE MEDIAN N/CARPAL TUNNEL SURG Left 11/19/2018 REVISE MEDIAN N/CARPAL TUNNEL SURG Right 03/23/2020 ROTATOR CUFF REPAIR Right 03/23/2020 FAMILY HISTORY Problem Relation Age of Onset Diabetes Mother Stroke Mother Cancer Mother kidney Coronary Artery Disease Mother Kidney Disease Father declined dialysis Hypertension Father Coronary Artery Disease Father Emphysema Father No Known Problems Sister No Known Problems Sister Social History Tobacco Use Smoking status: Never Smokeles (more content not included)... [facility] (SOFYW[facility] JUDIE CORBETT ([id number]) 1965 M Date Time Provider Department 09/23/24 MONSERRAT THORNTON During your visit today, we recorded the following information about you: Reyna Granados RN 09/23/2024 8:43 AM Signed OV notes from today's endocrinology visit faxed to [facility] for Pt's existing CGM order. Fax confirmation received. Reyna Granados RN September 23, 2024 8:43 AM Allergies As of Date: 09/23/2024 Noted Allergy Reaction OZEMPIC (SEMAGLUTIDE) 03/26/2024 5 - Intolerance Comments: Muscle aches, fatigue Date Reviewed: 09/23/2024 Reviewed by: Reyna Granados RN - Fully Assessed Reason for Visit: OV Notes to DME [Other] Prescriptions as of 09/23/2024 - diclofenac, EC, (VOLTAREN) 75 mg EC tablet Take 75 mg by mouth two times a day. - Blood-Glucose Meter,Continuous (DEXCOM G7 MIXING ENGINEER) misc 1 each. [facility] - Blood-Glucose Sensor (DEXCOM G7 SENSOR) ana 1 each every 10 days. [facility] - multivit-min/folic/vit K/lycop (MEN'S MULTIVITAMIN ORAL) Take 1 tablet by mouth once daily. - insulin glargine (LANTUS U-100 INSULIN) 100 unit/mL injection Inject 60 Units subcutaneously daily at bedtime. - HUMALOG KWIKPEN INSULIN 100 unit/mL INJECT 12 UNTS SUBCUTANEOUSLY BEFORE BREAKFAST, 20 UNITS BEFORE lunch and 30 UNITS PLUS SS#2 (2 units for every 50 over 150 pre meal blood sugar) - blood sugar diagnostic (ONETOUCH VERIO TEST STRIPS) test strip Check blood sugar results for CGM calibration and during sensor downtime up to TWICE DAILY - lancets (ONETOUCH DELICA PLUS LANCET) 30 gauge Check blood sugar results for CGM calibration and during sensor downtime up to TWICE DAILY - FARXIGA 10 mg tablet Take 1 tablet by mouth daily with breakfast. - atorvastatin (LIPITOR) 40 mg tablet Take 1 tablet by mouth once daily. - verapamil SR (CALAN SR) 240 mg CR tablet Take 1 tablet by mouth daily at bedtime. - fenofibrate (LOFIBRA) 200 mg capsule Take 1 capsule by mouth every afternoon. - metFORMIN (GLUCOPHAGE) 1,000 mg tablet TAKE 1 TABLET BY MOUTH TWICE DAILY - hydroCHLOROthiazide 25 mg tablet TAKE 1 TABLET BY MOUTH ONCE DAILY - lisinopril (ZESTRIL) 40 mg tablet TAKE 1 TABLET BY MOUTH ONCE DAILY - glucagon (BAQSIMI) 3 mg/actuation nasal spray Use 1 Beeson in the nose as needed. May repeat after 15 minutes using a new device if there is no response. - insulin needles, DISPOSABLE, (BD INSULIN PEN NEEDLE UF) 31 gauge x 09/04 Use 4 pen needles daily - aspirin(ECOTRIN LOW STRENGTH 81 MG TAB) Take 81 mg by mouth once daily. Problem List As Of Date 09/23/2024 Noted Resolved Mixed hyperlipidemia [E78.2] 04/28/2007 Proteinuria [R80.9] 11/21/2010 09/19/2015 Obesity [E66.89] 09/19/2015 06/23/2018 Impotence of organic origin [N52.9] 11/06/2016 Complete tear of left rotator cuff [M75.122] 07/25/2021 Bursitis of left shoulder [M75.52] 07/25/2021 Tendinitis of left shoulder [M77.8] 07/25/2021 Essential hypertension [I10] 10/05/2021 Type 2 diabetes mellitus with microalbuminuria,*06/15/2022 Overweight with body mass index (BMI) of 29 to *02/12/2024 Encounter Status:Closed by REYNA GRANADOS on 09/23/24 Normal [facility] Comprehensive metabolic 2000 panelOrdered By: Camryn Miles on 09-23-2024 Albumin [Mass/Vol] 4.2 g/dL 3.9 - 4.9 g/dL [facility] ALP [Catalytic activity/Vol] 63 U/L 38 - 113 U/L [facility] ALT [Catalytic activity/Vol] 21 U/L 10 - 54 U/L [facility] Anion gap [Moles/Vol] 12 mmol/L 8 - 15 mmol/L [facility] AST [Catalytic activity/Vol] 24 U/L 14 - 40 U/L [facility] Bilirubin [Mass/Vol] 0.2 mg/dL 0.2 - 1.3 mg/dL [facility] Calcium [Mass/Vol] 9.8 mg/dL 8.5 - 10. 2 mg/dL [facility] Chloride [Moles/Vol] 103 mmol/L 98 - 107 mmol/L [facility] CO2 [Moles/Vol] 21 mmol/L Low 22 - 30 mmol/L [facility] Creatinine [Mass/Vol] 1.3 mg/dL High 0.73 - 1.22 mg/dL [facility] GFR/1.73 sq M.predicted among non-blacks MDRD (S/P/Bld) [Vol rate/Area] 63 mL/min/{1.73_m2} - PINF [facility] Comment on above: Estimated Glomerular Filtration Rate (eGFR) is calculated using the 2020 CKD-EPI creatinine equation. This equation utilizes serum creatinine, sex, and age as parameters. The creatinine assay has traceable calibration to isotope dilution-mass spectrometry. Refer to KDIGO guidelines for clinical interpretation. In patients with unstable renal function, e.g. those with acute kidney injury, the eGFR may not accurately reflect actual GFR. Glucose [Mass/Vol] 148 mg/dL High 74 - 99 mg/dL [facility] Comment on above: The [place] Diabete s Association (ADA) provides guidance for cutoff values for fasting glucose and random glucose. The ADA defines fasting as no caloric intake for at least 8 hours. Fasting plasma glucose results between 100 to 125 mg/dL indicate increased risk for diabetes (prediabetes). Fasting plasma glucose results greater than or equal to 126 mg/dL meet the criteria for diagnosis of diabetes. In the absence of unequivocal hyperglycemia, results should be confirmed by repeat testing. In a patient with classic symptoms of hyperglycemia or hyperglycemic crisis, random plasma glucose results greater than or equal to 200 mg/dL meet the criteria for diagnosis of diabetes. Reference: Standards of Medical Care in Diabetes 2016, [place] Diabetes Association. Diabetes Care. 2016.39(Suppl 1). Interpretation and review of laboratory results Abnormal [facility] Potassium [Moles/Vol] 4.4 mmol/L 3.7 - 5.1 mmol/L [facility] Protein [Mass/Vol] 6.9 g/dL 6.3 - 8.0 g/dL [facility] Sodium [Moles/Vol] 136 mmol/L 136 - 144 mmol/L [facility] Urea nitrogen [Mass/Vol] 35 mg/dL High 9 - 24 mg/dL [facility] Comprehensive metabolic 2000 panelon 09-23-2024 Albumin [Mass/Vol] 4.2 g/dL Normal 3.9-4.9 [facility] Comment on above: Order Comment: Speci men Type: BLOOD SPECIMENOrdering Facility: [facility] Address: [facility] [place] [address] Performed By: #### 2 4323-8 ####[facility] MILLTOWNCLIA [id number] [place] [address] [place] ALP [Catalytic activity/Vol] 63 U/L Normal 38-113 [facility] Comment on above: Order Comment: Speci men Type: BLOOD SPECIMENOrdering Facility: [facility] Address: [address] [place] [address] Performed By: #### 2 4323-8 ####[facility] MILLTOWNCLIA [id number] [place] [address] [place] ALT [Catalytic activity/Vol] 21 U/L Normal 10-54 [facility] Comment on above: Order Comment: Speci men Type: BLOOD SPECIMENOrdering Facility: [facility] Address: [address] [place] [address] Performed By: #### 2 4323-8 ####[facility] MILLWNCLIA [id number] [place] [address] [place] Anion gap [Moles/Vol] 12 mmol/L Normal 8-15 [facility] Comment on above: Order Comment: Speci men Type: BLOOD SPECIMENOrdering Facility: [facility] Address: [address] [place] [address] Performed By: #### 2 4323-8 ####[facility] MILLWNCLIA [id number] [place] [address] [place] AST [Catalytic activity/Vol] 24 U/L Normal 14-40 [facility] Comment on above: Order Comment: Speci men Type: BLOOD SPECIMENOrdering Facility: [facility] Address: [address] [place] [address] Performed By: #### 2 4323-8 ####[facility] MILLTOWNCLIA [id number] [place] [address] [place] Bilirubin [Mass/Vol] 0.2 mg/dL Normal 0.2-1.3 [facility] Comment on above: Order Comment: Speci men Type: BLOOD SPECIMENOrdering Facility: [facility] Address: [address] [place] [address] Performed By: #### 2 4323-8 ####[facility] ZHANNALIA [id number] [place] [address] [place] Calcium [Mass/Vol] 9.8 mg/dL Normal 8.5-10.2 [facility] Comment on above: Order Comment: Speci men Type: BLOOD SPECIMENOrdering Facility: [facility] Address: [address] [place] [address] Performed By: #### 2 4323-8 ####[facility]ITALWNCLIA [id number] [place] [address] [place] Chloride [Moles/Vol] 103 mmol/L Normal 98-107 [facility] Comment on above: Order Comment: Speci men Type: BLOOD SPECIMENOrdering Facility: [facility] Address: [address] [place] [address] Performed By: #### 2 4323-8 ####[facility]ITAL[facility]CLIA [id number] [place] [address] [place] CO2 [Moles/Vol] 21 mmol/L Low 22-30 [facility] Comment on above: Order Comment: Speci men Type: BLOOD SPECIMENOrdering Facility: [facility] Address: [address] [place] [address] Performed By: #### 2 4323-8 ####[facility]ITALNCLIA [id number] [place] [address] [place] Creatinine [Mass/Vol] 1.30 mg/dL High 0.73-1.22 [facility] Comment on above: Order Comment: Speci men Type: BLOOD SPECIMENOrdering Facility: [facility] Address: [address] [place] [address] Performed By: #### 2 4323-8 ####[facility]ITAL[facility] [id number] [place] [address] [place] Creatinine and Glomerular filtration rate.predicted panel (S/P/Bld) 63 mL/min/1.73m??? Normal >=60 [facility] Comment on above: Order Comment: Iván olmos Type: BLOOD SPECIMENOrdering Facility: [facility] Address: [address] [place] [address] Result Comment: Roberta mated Glomerular Filtration Rate (eGFR) is calculated using the 2020 CKD-EPI creatinine equation. This equation utilizes serum creatinine, sex, and age as parameters. The creatinine assay has traceable calibration to isotope dilution-mass spectrometry. Refer to KDIGO guidelines for clinical interpretation. In patients with unstable renal function, e.g. those with acute kidney injury, the eGFR may not accurately reflect actual GFR. Performed By: #### 2 4323-8 ####[facility] [id number] [place] [address] [place] Glucose [Mass/Vol] 148 mg/dL High 74-99 [facility] Comment on above: Order Comment: Iván olmos Type: BLOOD SPECIMENOrdering Facility: [facility] Address: [address] [place] [address] Result Comment: The [place] Diabetes Association (ADA) provides guidance for cutoff values for fasting glucose and random glucose. The ADA defines fasting as no caloric intake for at least 8 hours. Fasting plasma glucose results between 100 to 125 mg/dL indicate increased risk for diabetes (prediabetes). Fasting plasma glucose results greater than or equal to 126 mg/dL meet the criteria for diagnosis of diabetes. In the absence of unequivocal hyperglycemia, results should be confirmed by repeat testing. In a patient with classic symptoms of hyperglycemia or hyperglycemic crisis, random plasma glucose results greater than or equal to 200 mg/dL meet the criteria for diagnosis of diabetes. Reference: Standards of Medical Care in Diabetes 2016, [place] Diabetes Association. Diabetes Care. 2016.39(Suppl 1). Performed By: #### 2 4323-8 ####[facility] [id number] [place] [address] [place] Potassium [Moles/Vol] 4.4 mmol/L Normal 3.7-5.1 [facility] Comment on above: Order Comment: Speci men Type: BLOOD SPECIMENOrdering Facility: [facility] Address: [address] [place] [address] Performed By: #### 2 4323-8 ####[facility] HOSPITALWOSWALDOLIA [id number] [place] [address] [place] Protein [Mass/Vol] 6.9 g/dL Normal 6.3-8.0 [facility] Comment on above: Order Comment: Speci men Type: BLOOD SPECIMENOrdering Facility: [facility] Address: [address] [place] [address] Performed By: #### 2 4323-8 ####[facility] HOSPITALOSWALDOLIAngelica [id number] [place] [address] [place] Sodium [Moles/Vol] 136 mmol/L Normal 136-144 [facility] Comment on above: Order Comment: Speci men Type: BLOOD SPECIMENOrdering Facility: [facility] Address: [address] [place] [address] Performed By: #### 2 4323-8 ####[facility] HOSPITALCARISSALIA [id number] [place] [address] [place] Urea nitrogen [Mass/Vol] 35 mg/dL High 9-24 [facility] Comment on above: Order Comment: Speci men Type: BLOOD SPECIMENOrdering Facility: [facility] Address: [address] [place] [address] Performed By: #### 2 4323-8 ####[facility]ITALNCLIA [id number] [place] [address] [place] HbA1c (Bld)on 09-23-2024 Average glucose Estimated from glycated hemoglobin (Bld) [Mass/Vol] 166 mg/dL Normal [facility] Comment on above: Order Comment: Iván olmos Type: BLOOD SPECIMENOrdering Facility: [facility] Address: [address] [place] [address] Result Comment: eAG: (Estimated average glucose) is a calculated value from HgbA1c and is leasing representative of the average blood glucose level in the last 2-3 month period. Performed By: #### 5 5454-3 ####[facility] LABCLIA [id number] [place] [address] [place] HbA1c (Bld) [Mass fraction] 7.4 % High 4.3-5.6 [facility] Comment on above: Order Comment: Iván olmos Type: BLOOD SPECIMENOrdering Facility: [facility] Address: [address] [place] [address] Result Comment: [place] Diabetes Association guidelines indicate that patients with HgbA1c in the range 5.7-6.4% are at increased risk for development of diabetes, and intervention by lifestyle modification may be beneficial. HgbA1c greater or equal to 6.5% is considered diagnostic of diabetes. Performed By: #### 5 5454-3 ####[facility] LABCLIA [id number] [place] [address] [place] LIPID PANEL, NONFASTINGon Cholesterol [Mass/Vol] 147 mg/dL Normal <200 [facility] Comment on above: Order Comment: Iván nickolas Type: BLOOD SPECIMENOrdering Facility: [facility] Address: [address] [place] [address] Result Comment: <200 mg/dL, Desirable 200-239 mg/dL, Borderline high >239 mg/dL, High Performed By: #### 3 016-3, LIPNF, 2132-9 ####[facility] LABCLIA [id number] [place] [address] [place] HDL CHOLESTEROL, NF 30 mg/dL Low >39 [facility] Comment on above: Order Comment: Iván nickolas Type: BLOOD SPECIMENOrdering Facility: [facility] Address: [address] [place] [address] Result Comment: 40-5 9 mg/dL, Acceptable >59 mg/dL, High: Negative risk factor for coronary heart disease <40 mg/dL, Low: Positive risk factor for coronary heart disease Performed By: #### 3 016-3, LIPNF, 2131-12 ####[facility] LABCLIA [id number] [place] [id number] [place] LDL CHOLESTEROL CALCULATED, NF 60 mg/dL Normal <100 [facility] Comment on above: Order Comment: Speci men Type: BLOOD SPECIMENOrdering Facility: [facility] [facility] Address: [address] [place] [address] Result Comment: <100 mg/dL, Optimal 100-129 mg/dL, Near optimal/above optimal 130-159 mg/dL, Borderline high 160-189 mg/dL, High >189 mg/dL, Very high Secondary prevention optimal LDL Cholesterol levels are recommended to be <70 mg/dL LDL cholesterol is calculated using the Yanes-NIH equation. Performed By: #### 3 016-3, LIPFRED, 2131-12 ####[facility] LABCLIA [id number] [address] [place] LDL/HDL RATIO, NF 2.00 mg/dL Normal <2.54 [facility] Comment on above: Order Comment: Speci men Type: BLOOD SPECIMENOrdering Facility: [facility] Address: [address] [place] [address] Result Comment: Refmellisa guerrace: 1. National Cholesterol Education Program ATP III Guideline At-A-Glance Quick Desk Reference: National Heart, Lung, and Blood [place]. National Institutes of Health. 2001: NIH Publication No. 01-3305. 2. An International Atherosclerosis Society position paper: global recommendations for the management of dyslipidemia: executive summary, Atherosclerosis. 2014: 232(2):410-413. Performed By: #### 3 016-3, LIPNF, 2131-12 ####[facility] LABCLIA [id number] [place] [id number] [place] NON HDL CHOL, NF 117 mg/dL Normal <130 [facility] Comment on above: Order Comment: Speci men Type: BLOOD SPECIMENOrdering Facility: [facility] Address: [address] [place] [address] Result Comment: <130 mg/dL, Optimal 130-159 mg/dL, Near optimal/above optimal 160-189 mg/dL, Borderline high 190-219 mg/dL, High >219 mg/dL, Very high Secondary prevention optimal non HDL Cholesterol levels are recommended to be <100 mg/dL Performed By: #### 3 016-3, LIPNF, 2131-12 ####[facility] LABCLIA [id number] [address] OF [facility] T CHOL/HDL RATIO NF 4.90 mg/dL Normal <5.10 [facility] Comment on above: Order Comment: Speci men Type: BLOOD SPECIMENOrdering Facility: [facility] Address: [address] [place] [address] Performed By: #### 3 016-3, LIPNF, 2131-12 ####[facility] LABIA [id number] [place] [address] [place] TRIGLYCERIDES, NF 370 mg/dL High <150 [facility] Comment on above: Order Comment: Speci men Type: BLOOD SPECIMENOrdering Facility: [facility] Address: [address] [place] [address] Result Comment: <150 mg/dL, Normal 150-199 mg/dL, Borderline high 200-499 mg/dL, High >499 mg/dL, Very high Performed By: #### 3 016-3, LIPNF, 2131-12 ####[facility] LABIA [id number] [place] [address] [place] VLDL CHOLESTEROL, NF 54 mg/dL High <30 [facility] Comment on above: Order Comment: Speci men Type: BLOOD SPECIMENOrdering Facility: [facility] Address: [address] [place] [address] Performed By: #### 3 016-3, LIPNF, 2131-12 ####[facility] LABIA [id number] [address] [place] TSH SerPl-aCncon 09-23-2024 TSH Qn 1.070 m[IU]/L Normal 0.270-4.200 [facility] Comment on above: Order Comment: Speci men Type: BLOOD SPECIMENOrdering Facility: [facility] Address: [address] [place] [address] Performed By: #### 3 016-3, LIPNF, 2131-12 ####[facility] LABIA [id number] [address] [place] Vit B12 SerPl-mCncon 025 Cobalamin (Vitamin B12) [Mass/Vol] 468 pg/mL Normal 232-1245 [facility] Comment on above: Order Comment: Speci men Type: BLOOD SPECIMENOrdering Facility: [facility] Address: [address] [place] [address] Performed By: #### 3 016-3, LIPFRED, 2131-12 ####[facility] [id number] [address] [place] CNPTrish 09-08-2024 CNPN Telephone (ENDMED) JUDIE CORBETT ([id number]) 1965 M Date Time Provider Department 09/08/24 CLARA ESCOBAR During your visit today, we recorded the following information about you: Constantino Eisenberg MA 09/08/2024 1:36 PM Signed Form on [employer] desk/basket for review from [employer]. Please review and sign. Needs to be faxed to [phone]. DWO: Medical Supplies ([place]) Constantino Eisenberg MA 09/08/2024 2:06 PM Signed Form signed and faxed, Transmission ok CLOSED Allergies As of Date: 09/08/2024 Noted Allergy Reaction OZEMPIC (SEMAGLUTIDE) 03/26/2024 5 - Intolerance Date Reviewed: 04/07/2024 Reviewed by: Ebonie Toth MA - Fully Assessed Reason for Visit: [employer] Form [Other] Cmt: DWO: Medical Supplies ([place]) Prescriptions as of 09/08/2024 - hydroCHLOROthiazide 25 mg tablet TAKE 1 TABLET BY MOUTH ONCE DAILY - lisinopril (ZESTRIL) 40 mg tablet TAKE 1 TABLET BY MOUTH ONCE DAILY - verapamil SR (CALAN SR) 240 mg CR tablet take 1 tablet by mouth daily at bedtime - fenofibrate (LOFIBRA) 200 mg capsule TAKE 1 CAPSULE BY MOUTH DAILY - insulin glargine (LANTUS U-100 INSULIN) 100 unit/mL injection Inject 55 Units subcutaneously daily at bedtime. - glucagon (BAQSIMI) 3 mg/actuation nasal spray Use 1 Beeson in the nose as needed. May repeat after 15 minutes using a new device if there is no response. - HUMALOG KWIKPEN INSULIN 100 unit/mL INJECT 12 UNTS SUBCUTANEOUSLY BEFORE BREAKFAST, 20 UNITS BEFORE lunch and 30 UNITS - FARXIGA 10 mg tablet Take 1 tablet by mouth daily with breakfast. - metFORMIN (GLUCOPHAGE) 1,000 mg tablet take 1 tablet by mouth twice daily - atorvastatin (LIPITOR) 40 mg tablet take 1 tablet by mouth once daily - Blood-Glucose Sensor (DEXCOM G6 SENSOR) ana Use as directed; IDDM, E 11.9 - Blood-Glucose Meter,Continuous (DEXCOM G6 MIXING ENGINEER) [facility] Use as directed, IDDM, E11.9 - Blood-Glucose Transmitter (DEXCOM G6 TRANSMITTER) ana Use as directed, IDDM, E 11.9 - insulin needles, DISPOSABLE, (BD INSULIN PEN NEEDLE UF) 31 gauge x 09/04 Use 4 pen needles daily - Vit A,C and D-Knmksq-Pymqeigm (OCUVITE WITH LUTEIN) 1,000 unit-200 mg-60 unit-2 mg tab Take 1 tablet by mouth once daily. - aspirin(ECOTRIN LOW STRENGTH 81 MG TAB) Take one(1) tablet daily. Problem List As Of Date 09/08/2024 Noted Resolved Mixed hyperlipidemia [E78.2] 04/28/2007 Proteinuria [R80.9] 11/21/2010 09/19/2015 Obesity [E66.89] 09/19/2015 06/23/2018 Impotence of organic origin [N52.9] 11/06/2016 Complete tear of left rotator cuff [M75.122] 07/25/2021 Bursitis of left shoulder [M75.52] 07/25/2021 Tendinitis of left shoulder [M77.8] 07/25/2021 Essential hypertension [I10] 10/05/2021 Type 2 diabetes mellitus with microalbuminuria,*06/15/2022 Overweight with body mass index (BMI) of 29 to *02/12/2024 Encounter Status:Closed by CONSTANTINO EISENBERG on 09/08/24 [facility] Tele[facility] (ENDOMN) JUDIE CORBETT ([id number]) 1965 M Date Time Provider Department 07/24/24 DAVID SAHA During your visit today, we recorded the following information about you: Roxie Fortune MA 07/24/2024 3:27 PM Signed The patient needs some help with the coding for the appointment with the registered Dietitian. The patient did call the billing department and was told that he was charged for nutritional education training therapy for 860$. The patient would like a phone call back. The service was not covered by his insurance. Please call the patient at [phone] Roxie Fortune Mail Weigher II Endocrinology AND Metabolism [place] F20-X David Saha APRN.PIZZA MAKER 07/24/2024 3:46 PM Signed Will forward to unit support representative. Thank you David Saha APRN.PIZZA MAKER 07/27/2024 12:57 PM Signed He will need to follow up with billing department and his insurnace. Thank you Kalina Reza, RN 07/27/2024 2:36 PM Signed Notified patient of David Saha CNP's message. Patient was not accepting of this information. Discussed that the diagnosis attached to his services rendered are directly related to the actual visit he had with nutrition not David, she did not conduct the visit itself. She placed the consult order. Discussed that many insurances do not cover this service. He stated that he was told by his insurance that they do not cover this type of visit. Explained that unfortunately he will need to contact billing to discuss payment options, the answer is not to blame the providers that rendered services. He did not have to attend this appointment, but it is patients responsibility to know what is covered under his own responsibility, he did agree that it is but he feels that what he received was not worth this fee. Discussed that the providers do not place the amounts to visits, they place the services they render according to the [facility]'s template, and the billing office attaches the fee's set forth by [facility], these are fee's set by our [employer]. Any further questions should be addressed between himself, the billing office and insurance. All codes were deemed correct from both providers' standpoint. Patient did end call abruptly. Encounter closed. Allergies As of Date: 07/24/2024 Noted Allergy Reaction OZEMPIC (SEMAGLUTIDE) 03/26/2024 5 - Intolerance Date Reviewed: 04/07/2024 Reviewed by: Ebonie Toth MA - Fully Assessed Reason for Visit: Patient Question [2427] Prescriptions as of 07/27/2024 - hydroCHLOROthiazide 25 mg tablet TAKE 1 TABLET BY MOUTH ONCE DAILY - lisinopril (ZESTRIL) 40 mg tablet TAKE 1 TABLET BY MOUTH ONCE DAILY - verapamil SR (CALAN SR) 240 mg CR tablet take 1 tablet by mouth daily at bedtime - fenofibrate (LOFIBRA) 200 mg capsule TAKE 1 CAPSULE BY MOUTH DAILY - insulin glargine (LANTUS U-100 INSULIN) 100 unit/mL injection Inject 55 Units subcutaneously daily at bedtime. - glucagon (BAQSIMI) 3 mg/actuation nasal spray Use 1 Beeson in the nose as needed. May repeat after 15 minutes using a new device if there is no response. - HUMALOG KWIKPEN INSULIN 100 unit/mL INJECT 12 UNTS SUBCUTANEOUSLY BEFORE BREAKFAST, 20 UNITS BEFORE lunch and 30 UNITS - FARXIGA 10 mg tablet Take 1 tablet by mouth daily with breakfast. - metFORMIN (GLUCOPHAGE) 1,000 mg tablet take 1 tablet by mouth twice daily - atorvastatin (LIPITOR) 40 mg tablet take 1 tablet by mouth once daily - Blood-Glucose Sensor (DEXCOM G6 SENSOR) ana Use as directed; IDDM, E 11.9 - Blood-Glucose Meter,Continuous (DEXCOM G6 MIXING ENGINEER) misc Use as directed, IDDM, E11.9 - Blood-Glucose Transmitter (DEXCOM G6 TRANSMITTER) ana Use as directed, IDDM, E 11.9 - insulin needles, DISPOSABLE, (BD INSULIN PEN NEEDLE UF) 31 gauge x 5/16 Use 4 pen needles daily - Vit A,C and B-Drusel-Mticqxva (OCUVITE WITH LUTEIN) 1,000 unit-200 mg-60 unit-2 mg tab Take 1 tablet by mouth once daily. - aspirin(ECOTRIN LOW STRENGTH 81 MG TAB) Take one(1) tablet daily. Problem List As Of Date 07/24/2024 Noted Resolved Mixed hyperlipidemia [E78.2] 04/28/2007 Proteinuria [R80.9] 11/21/2010 09/19/2015 Obesity [E66.89] 09/19/2015 06/23/2018 Impotence of organic origin [N52.9] 11/06/2016 Complete tear of left rotator cuff [M75.122] 07/25/2021 Bursitis of left shoulder [M75.52] 07/25/2021 Tendinitis of left shoulder [M77.8] 07/25/2021 Essential hypertension [I10] 10/05/2021 Type 2 diabetes mellitus with microalbuminuria,*06/15/2022 Overweight with body mass index (BMI) of 29 to *02/12/2024 Encounter Status:Closed by KALINA REZA on 07/27/24 [facility] CNOVon 04-07-2024 CNOV Office Visit (WSTR ) JUDIE CORBETT ([id number]) 1965 M Date Time Provider Department 04/07/24 7:30 AM SHELLY GARCÍA [facility] During your visit today, we recorded the following information about you: Temperature Pulse Respiration Blood pressure 97.9 degrees 86/minute 16/minute 134/72 Weight 91.6 kg Shelly García, JERRY.PIZZA MAKER 04/07/2024 7:45 AM Signed CC: Patient presents with: Sinus Problem: sinus pressure and drainage x 9 days HPI: Judie Corbett is a 58 year old male who presents to the office with complaint of head congestion and sinus symptoms for 9 days. Symptoms are staying the same. Associated symptoms includes nasal congestion. Denies wheezing, dyspnea, nausea, vomiting , and diarrhea. Treatments tried include nothing so far. with no relief of symptoms. Sick contacts: unknown. History of asthma, frequent episodes of bronchitis, chronic bronchitis, bronchiectasis or COPD: No Smoker: No Seasonal/environmental allergies: No The ROS is otherwise negative. The patient's pmh, medications, allergies, and past visits are reviewed. PHYSICAL EXAM: BP 134/72 Pulse 86 Temp 36.6 ?C (97.9 ?F) Resp 16 Wt 91.6 kg (201 lb 15.1 oz) SpO2 96% BMI 28.98 kg/m? General appearance: alert, cooperative, pleasant, in no acute distress Head: Normocephalic Eyes: EOM's intact, conjunctiva pink and moist, no icterus, sclera white, non-injected Ears: Right ear: External ear/canal- Normal, TM - clear with good landmarks. Left ear: External ear/canal- Normal, TM - clear with good landmarks Oropharynx:moist without lesions, No erythema, exudates or tonsillar hypertrophy. Heart: Negative. RRR without obvious murmur, gallop, or rubs. No ectopy. Lungs: clear to auscultation, without rales or wheeze, good air exchange PAST MEDICAL HISTORY Diagnosis Date Carpal tunnel syndrome, bilateral 2019 DM w/o complication type II, uncontrolled 08/21/2011 Macular degeneration 06/11/2013 Nontraumatic complete tear of right rotator cuff 2019 Other and unspecified hyperlipidemia 04/28/2007 Proteinuria 11/21/2010 Snoring Type II or unspecified type diabetes mellitus without mention of complication, not stated as uncontrolled 04/28/2007 Unspecified essential hypertension 04/28/2007 PAST SURGICAL HISTORY Procedure Laterality Date ARTHROSC SH TENODESIS BICEPS Right 03/23/2020 COLONOSCOPY FLX DX W/COLLJ SPEC WHEN PFRMD 03/08/2014 HAND SURGERY HX Right 1979 Tendon repair REVISE MEDIAN N/CARPAL TUNNEL SURG Left 11/19/2018 REVISE MEDIAN N/CARPAL TUNNEL SURG Right 03/23/2020 ROTATOR CUFF REPAIR Right 03/23/2020 ALLERGIES Ozempic [Semaglutide] MEDICATIONS fenofibrate (LOFIBRA) 200 mg capsule TAKE 1 CAPSULE BY MOUTH DAILY insulin glargine (LANTUS U-100 INSULIN) 100 unit/mL injection Inject 55 Units subcutaneously daily at bedtime. glucagon (BAQSIMI) 3 mg/actuation nasal spray Use 1 Beeson in the nose as needed. May repeat after 15 minutes using a new device if there is no response. HUMALOG KWIKPEN INSULIN 100 unit/mL INJECT 12 UNTS SUBCUTANEOUSLY BEFORE BREAKFAST, 20 UNITS BEFORE lunch and 30 UNITS FARXIGA 10 mg tablet Take 1 tablet by mouth daily with breakfast. metFORMIN (GLUCOPHAGE) 1,000 mg tablet take 1 tablet by mouth twice daily atorvastatin (LIPITOR) 40 mg tablet take 1 tablet by mouth once daily lisinopril (ZESTRIL) 40 mg tablet take 1 tablet by mouth daily hydroCHLOROthiazide 25 mg tablet take 1 tablet by mouth once daily. verapamil SR (CALAN SR) 240 mg CR tablet take 1 tablet by mouth daily at bedtime Blood-Glucose Sensor (DEXCOM G6 SENSOR) ana Use as directed; IDDM, E 11.9 Blood-Glucose Meter,Continuous (DEXCOM G6 MIXING ENGINEER) misc Use as directed, IDDM, E11.9 Blood-Glucose Transmitter (DEXCOM G6 TRANSMITTER) ana Use as directed, IDDM, E 11.9 insulin needles, DISPOSABLE, (BD INSULIN PEN NEEDLE UF) 31 gauge x 5/16 Use 4 pen needles daily Vit A,C and Y-Kkjmms-Ddjnzxmk (OCUVITE WITH LUTEIN) 1,000 unit-200 mg-60 unit-2 mg tab Take 1 tablet by mouth once daily. aspirin(ECOTRIN LOW STRENGTH 81 MG TAB) Take one(1) tablet daily. doxycycline (VIBRA-TABS) 100 mg tablet Take 1 tablet by mouth two times a day for 7 days. FAMILY HISTORY Problem Relation Age of Onset Diabetes Mother Stroke Mother Cancer Mother kidney Coronary Artery Disease Mother Kidney Disease Father declined dialysis Hypertension Father Coronary Artery Disease Father Emphysema Father No Known Problems Sister No Known Problems Sister Social History Tobacco Use Smoking status: Never Smokeless tobacco: Never Vaping Use Vaping status: Never Used Substance Use Topics Alcohol use: Yes Comment: Not weekly Drug use: No ASSESSMENT/PLAN: 1. Rhinosinusitis - ICD9: 473.9, ICD10: J32.9 - DOXYCYCLINE HYCLATE 100 MG TABLET Prescription instructions reviewed with patient as appli (more content not included)... Normal [facility] CNPNon 04-02-2024 CNPN Telephone (ENDHDF) JUDIE CORBETT ([id number]) 1965 M Date Time Provider Department 04/02/24 CLARA ESCOBAR During your visit today, we recorded the following information about you: Sydnee Butcher MA 04/02/2024 3:03 PM Signed Form on docs desk/basket for review from [employer]. Please review and sign. Needs to be faxed to For: [employer] Office notes attached Clara Escobar MD 04/06/2024 11:24 AM Signed Form signed Please fax it back Thank you MD Hadley Lisa Gretchen, MA 04/06/2024 1:31 PM Signed Form faxed to [employer] at on April 06, 2024; transmission ok. Allergies As of Date: 04/02/2024 Noted Allergy Reaction OZEMPIC (SEMAGLUTIDE) 03/26/2024 5 - Intolerance Date Reviewed: 03/26/2024 Reviewed by: Constantino Eisenberg MA - Fully Assessed Reason for Visit: [employer] [Other] Prescriptions as of 04/06/2024 - fenofibrate (LOFIBRA) 200 mg capsule TAKE 1 CAPSULE BY MOUTH DAILY - insulin glargine (LANTUS U-100 INSULIN) 100 unit/mL injection Inject 55 Units subcutaneously daily at bedtime. - glucagon (BAQSIMI) 3 mg/actuation nasal spray Use 1 Beeson in the nose as needed. May repeat after 15 minutes using a new device if there is no response. - HUMALOG KWIKPEN INSULIN 100 unit/mL INJECT 12 UNTS SUBCUTANEOUSLY BEFORE BREAKFAST, 20 UNITS BEFORE lunch and 30 UNITS - FARXIGA 10 mg tablet Take 1 tablet by mouth daily with breakfast. - metFORMIN (GLUCOPHAGE) 1,000 mg tablet take 1 tablet by mouth twice daily - atorvastatin (LIPITOR) 40 mg tablet take 1 tablet by mouth once daily - lisinopril (ZESTRIL) 40 mg tablet take 1 tablet by mouth daily - hydroCHLOROthiazide 25 mg tablet take 1 tablet by mouth once daily. - verapamil SR (CALAN SR) 240 mg CR tablet take 1 tablet by mouth daily at bedtime - Blood-Glucose Sensor (DEXCOM G6 SENSOR) ana Use as directed; IDDM, E 11.9 - Blood-Glucose Meter,Continuous (DEXCOM G6 MIXING ENGINEER) misc Use as directed, IDDM, E11.9 - Blood-Glucose Transmitter (DEXCOM G6 TRANSMITTER) ana Use as directed, IDDM, E 11.9 - insulin needles, DISPOSABLE, (BD INSULIN PEN NEEDLE UF) 31 gauge x 09/04 Use 4 pen needles daily - Vit A,C and Z-Jhncyd-Cmqglzzf (OCUVITE WITH LUTEIN) 1,000 unit-200 mg-60 unit-2 mg tab Take 1 tablet by mouth once daily. - aspirin(ECOTRIN LOW STRENGTH 81 MG TAB) Take one(1) tablet daily. Problem List As Of Date 04/02/2024 Noted Resolved Mixed hyperlipidemia [E78.2] 04/28/2007 Proteinuria [R80.9] 11/21/2010 09/19/2015 Obesity [E66.89] 09/19/2015 06/23/2018 Impotence of organic origin [N52.9] 11/06/2016 Complete tear of left rotator cuff [M75.122] 07/25/2021 Bursitis of left shoulder [M75.52] 07/25/2021 Tendinitis of left shoulder [M77.8] 07/25/2021 Essential hypertension [I10] 10/05/2021 Type 2 diabetes mellitus with microalbuminuria,*06/15/2022 Overweight with body mass index (BMI) of 29 to *02/12/2024 Encounter Status:Closed by CLARA ESCOBAR on 04/06/24 Normal [facility] CNPNon 03-27-2024 CNPN Telephone (ENDMED) JUDIE CORBETT ([id number]) 1965 M Date Time Provider Department 03/27/24 CLARA ESCOBAR [employer]oMED During your visit today, we recorded the following information about you: Kelly Singh MA 03/27/2024 11:45 AM Signed Received Eye Exam Report from Hector Moore O.D. HM Updated. Placed in provider's inbox for review. [facility] Clara Escobar MD 03/30/2024 10:23 AM Signed Reviewed Exam date- 03/27/24 No retinopathy Clara Escobar MD Allergies As of Date: 03/27/2024 Noted Allergy Reaction OZEMPIC (SEMAGLUTIDE) 03/26/2024 5 - Intolerance Date Reviewed: 03/26/2024 Reviewed by: Constantino Eisenberg MA - Fully Assessed Reason for Visit: Diabetic Eye Exam [3566] Cmt: Hector Moore O.D. Prescriptions as of 03/30/2024 - insulin glargine (LANTUS U-100 INSULIN) 100 unit/mL injection Inject 55 Units subcutaneously daily at bedtime. - glucagon (BAQSIMI) 3 mg/actuation nasal spray Use 1 Beeson in the nose as needed. May repeat after 15 minutes using a new device if there is no response. - HUMALOG KWIKPEN INSULIN 100 unit/mL INJECT 12 UNTS SUBCUTANEOUSLY BEFORE BREAKFAST, 20 UNITS BEFORE lunch and 30 UNITS - FARXIGA 10 mg tablet Take 1 tablet by mouth daily with breakfast. - metFORMIN (GLUCOPHAGE) 1,000 mg tablet take 1 tablet by mouth twice daily - atorvastatin (LIPITOR) 40 mg tablet take 1 tablet by mouth once daily - lisinopril (ZESTRIL) 40 mg tablet take 1 tablet by mouth daily - hydroCHLOROthiazide 25 mg tablet take 1 tablet by mouth once daily. - verapamil SR (CALAN SR) 240 mg CR tablet take 1 tablet by mouth daily at bedtime - fenofibrate (LOFIBRA) 200 mg capsule take 1 capsule by mouth daily - Blood-Glucose Sensor (DEXCOM G6 SENSOR) ana Use as directed; IDDM, E 11.9 - Blood-Glucose Meter,Continuous (DEXCOM G6 MIXING ENGINEER) misc Use as directed, IDDM, E11.9 - Blood-Glucose Transmitter (DEXCOM G6 TRANSMITTER) ana Use as directed, IDDM, E 11.9 - insulin needles, DISPOSABLE, (BD INSULIN PEN NEEDLE UF) 31 gauge x 09/04 Use 4 pen needles daily - Vit A,C and V-Shupml-Whkfnqpk (OCUVITE WITH LUTEIN) 1,000 unit-200 mg-60 unit-2 mg tab Take 1 tablet by mouth once daily. - aspirin(ECOTRIN LOW STRENGTH 81 MG TAB) Take one(1) tablet daily. Problem List As Of Date 03/27/2024 Noted Resolved Mixed hyperlipidemia [E78.2] 04/28/2007 Proteinuria [R80.9] 11/21/2010 09/19/2015 Obesity [E66.89] 09/19/2015 06/23/2018 Impotence of organic origin [N52.9] 11/06/2016 Complete tear of left rotator cuff [M75.122] 07/25/2021 Bursitis of left shoulder [M75.52] 07/25/2021 Tendinitis of left shoulder [M77.8] 07/25/2021 Essential hypertension [I10] 10/05/2021 Type 2 diabetes mellitus with microalbuminuria,*06/15/2022 Overweight with body mass index (BMI) of 29 to *02/12/2024 Encounter Status:Closed by CLARA ESCOBAR on 03/30/24 Normal [facility] CNOVon 03-26-2024 CNOV Office Visit (CHRIS ) JUDIE CORBETT ([id number]) 1965 M Date Time Provider Department 03/26/24 8:40 AM CLARA ESCOBAR During your visit today, we recorded the following information about you: Pulse Blood pressure Weight 82/minute 137/75 90.6 kg Clara Escobar MD 03/26/2024 9:06 AM Signed DIABETES FOLLOW UP SUBJECTIVE: Judie Corbett is a 58 year old male who presents for a return visit regarding type 2 Diabetes, HTN and hyperlipidemia. Diabetes complications include: None. Recent A1c was 7.0 Interval history: He saw a dietitian and cut down on carbs Also focusing on portion control He has lost weight- 7 lbs He tried ozempic but didn't tolerate it -developed muscle aches and extreme fatigue Diabetes treatment regimen: Lantus 60 units q HS Humalog 12-20-30 units with meals- states he usually doesn't need lunch dose since he has made dietary changes Metformin 1000 mg BID Farxiga 10 mg daily Meal plannin meals, snacks are carrots and beets eye exam: uptodate flu shot:no Blood glucose times and ranges (mg/dl): Currently he is using [employer] G6 14 day CGM data GMI- 6.8 Average BG 146 TIR- 74% High- 14% Very high-5% Low- 4% Very low-1% Hypoglycemic episodes/treatment: rare He also has HTN, he takes lisinopril 40 mg daily and verapamil 240 mg daily Hyperlipidemia- on pravachol and fenofibrate PAST MEDICAL HISTORY Diagnosis Date Carpal tunnel syndrome, bilateral 2019 DM w/o complication type II, uncontrolled 08/21/2011 Macular degeneration 06/11/2013 Nontraumatic complete tear of right rotator cuff 2019 Other and unspecified hyperlipidemia 04/28/2007 Proteinuria 11/21/2010 Snoring Type II or unspecified type diabetes mellitus without mention of complication, not stated as uncontrolled 04/28/2007 Unspecified essential hypertension 04/28/2007 PAST SURGICAL HISTORY Procedure Laterality Date ARTHROSC SH TENODESIS BICEPS Right 03/23/2020 COLONOSCOPY FLX DX W/COLLJ SPEC WHEN PFRMD 03/08/2014 HAND SURGERY HX Right 1980 Tendon repair REVISE MEDIAN N/CARPAL TUNNEL SURG Left 11/19/2018 REVISE MEDIAN N/CARPAL TUNNEL SURG Right 03/23/2020 ROTATOR CUFF REPAIR Right 03/23/2020 Social History Tobacco Use Smoking status: Never Smokeless tobacco: Never Vaping Use Vaping status: Never Used Substance Use Topics Alcohol use: Yes Comment: Not weekly Drug use: No REVIEW OF SYSTEMS: GENERAL:No weight loss, malaise or fevers NECK:Negative for lumps, goiter, pain and significant neck swelling RESPIRATORY: Negative for cough, hemoptysis, wheezing or shortness of breath CARDIOVASCULAR: Negative for chest pain, leg swelling or palpitations MUSCULOSKELETAL:no muscle aches, +arthralgia NEUROLOGIC: no numbness, tingling, no Paresthesias, no headaches SKIN:Negative for lesions, rash, and itching ENDOCRINE: Negative for cold or heat intolerance or goiter Current Outpatient Medications on File Prior to Visit Medication Sig glucagon (BAQSIMI) 3 mg/actuation nasal spray Use 1 Beeson in the nose as needed. May repeat after 15 minutes using a new device if there is no response. insulin glargine (LANTUS U-100 INSULIN) 100 unit/mL injection Inject 60 Units subcutaneously daily at bedtime. HUMALOG KWIKPEN INSULIN 100 unit/mL INJECT 12 UNTS SUBCUTANEOUSLY BEFORE BREAKFAST, 20 UNITS BEFORE lunch and 30 UNITS FARXIGA 10 mg tablet Take 1 tablet by mouth daily with breakfast. metFORMIN (GLUCOPHAGE) 1,000 mg tablet take 1 tablet by mouth twice daily atorvastatin (LIPITOR) 40 mg tablet take 1 tablet by mouth once daily lisinopril (ZESTRIL) 40 mg tablet take 1 tablet by mouth daily hydroCHLOROthiazide 25 mg tablet take 1 tablet by mouth once daily. verapamil SR (CALAN SR) 240 mg CR tablet take 1 tablet by mouth daily at bedtime fenofibrate (LOFIBRA) 200 mg capsule take 1 capsule by mouth daily Blood-Glucose Sensor (Vocalcom G6 SENSOR) ana Use as directed; IDDM, E 11.9 Blood-Glucose Meter,Continuous (DEXCOM G6 MIXING ENGINEER) misc Use as directed, IDDM, E11.9 Blood-Glucose Transmitter (DEXCOM G6 TRANSMITTER) ana Use as directed, IDDM, E 11.9 insulin needles, DISPOSABLE, (BD INSULIN PEN NEEDLE UF) 31 gauge x 16 Use 4 pen needles daily Vit A,C and Z-Nsgoaj-Fzdesrak (OCUVITE WITH LUTEIN) 1,000 unit-200 mg-60 unit-2 mg tab Take 1 tablet by mouth once daily. aspirin(ECOTRIN LOW STRENGTH 81 MG TAB) Take one(1) tablet daily. semaglutide (OZEMPIC) 0.25 mg or 0.5 mg (2 mg/3 mL) pen Inject subcutaneously 0.25 mg weekly x 4 wks then increase to 0.5 mg weekly (Patient not taking: Reported on 03/26/2024) No current facility-administered medications on file prior to visit. PHYSICAL EXAM: BP 137/75 Pulse 82 Wt 90.6 kg (199 lb 11.8 oz) SpO2 98% BMI 28.66 kg/m? General:alert and oriented X 3, no acute distress Eyes:anicteric sclera, Extraocular motions inta (more content not included)... Normal [facility] Chris 03-26-2024 [place]IN[place] Telephone ([employer]) JUDIE CORBETT ([id number]) 1965 M Date Time Provider Department 03/26/24 CLARA ESCOBAR During your visit today, we recorded the following information about you: Constantino Eisenberg MA 03/27/2024 1:07 PM Addendum Patient provided [place] Dept of Transportation Diabetic Waiver form at appointment. completed form. A copy of the form will be at the front office agent for patient to moss picker. Called patient and let him know. Copy sent to be scanned in. CLOSED Allergies As of Date: 03/26/2024 Noted Allergy Reaction OZEMPIC (SEMAGLUTIDE) 03/26/2024 5 - Intolerance Date Reviewed: 03/26/2024 Reviewed by: Constantino Eisenberg MA - Fully Assessed Reason for Visit: [place] Dept of Transportation Form [Other] Cmt: Diabetic Waiver Prescriptions as of 03/27/2024 - insulin glargine (LANTUS U-100 INSULIN) 100 unit/mL injection Inject 55 Units subcutaneously daily at bedtime. - glucagon (BAQSIMI) 3 mg/actuation nasal spray Use 1 Beeson in the nose as needed. May repeat after 15 minutes using a new device if there is no response. - HUMALOG KWIKPEN INSULIN 100 unit/mL INJECT 12 UNTS SUBCUTANEOUSLY BEFORE BREAKFAST, 20 UNITS BEFORE lunch and 30 UNITS - FARXIGA 10 mg tablet Take 1 tablet by mouth daily with breakfast. - metFORMIN (GLUCOPHAGE) 1,000 mg tablet take 1 tablet by mouth twice daily - atorvastatin (LIPITOR) 40 mg tablet take 1 tablet by mouth once daily - lisinopril (ZESTRIL) 40 mg tablet take 1 tablet by mouth daily - hydroCHLOROthiazide 25 mg tablet take 1 tablet by mouth once daily. - verapamil SR (CALAN SR) 240 mg CR tablet take 1 tablet by mouth daily at bedtime - fenofibrate (LOFIBRA) 200 mg capsule take 1 capsule by mouth daily - Blood-Glucose Sensor (DEXCOM G6 SENSOR) ana Use as directed; IDDM, E 11.9 - Blood-Glucose Meter,Continuous (DEXCOM G6 MIXING ENGINEER) misc Use as directed, IDDM, E11.9 - Blood-Glucose Transmitter (DEXCOM G6 TRANSMITTER) ana Use as directed, IDDM, E 11.9 - insulin needles, DISPOSABLE, (BD INSULIN PEN NEEDLE UF) 31 gauge x /16 Use 4 pen needles daily - Vit A,C and D-Ewbutf-Mhtfeoqa (OCUVITE WITH LUTEIN) 1,000 unit-200 mg-60 unit-2 mg tab Take 1 tablet by mouth once daily. - aspirin(ECOTRIN LOW STRENGTH 81 MG TAB) Take one(1) tablet daily. Problem List As Of Date 03/26/2024 Noted Resolved Mixed hyperlipidemia [E78.2] 04/28/2007 Proteinuria [R80.9] 11/21/2010 09/19/2015 Obesity [E66.89] 09/19/2015 06/23/2018 Impotence of organic origin [N52.9] 11/06/2016 Complete tear of left rotator cuff [M75.122] 07/25/2021 Bursitis of left shoulder [M75.52] 07/25/2021 Tendinitis of left shoulder [M77.8] 07/25/2021 Essential hypertension [I10] 10/05/2021 Type 2 diabetes mellitus with microalbuminuria,*06/15/2022 Overweight with body mass index (BMI) of 29 to *02/12/2024 Encounter Status:Closed by CONSTANTINO EISENBERG on 03/26/24 Normal [facility] ALBUMIN/CREATININE RATIO, UR INEon 03-20-2024 Albumin DL <= 20 mg/L (U) [Mass/Vol] 22.3 mg/L Normal [facility] Comment on above: Order Comment: Speci men Type: URINE SPECIMEN Ordering Facility: [facility] Address: [address] [place] [address] Performed By: #### U ACR #### [facility] CLIA [id number] [address] [place] [address] [place] Albumin/Creatinine (U) [Mass ratio] 26 mg/g Normal <30 [facility] Comment on above: Order Comment: Yaquelini men Type: URINE SPECIMEN Ordering Facility: [facility] Address: [address] [place] [address] Result Comment: Adul t Male and Female Nephrotic Criteria: <30 mg/g is considered normal to mildly increased 30-300 mg/g is considered moderately increased >300 mg/g is considered severely increased KDIGO. (2013). KDIGO 2012 Clinical Practice Guideline for the Evaluation and Management of Chronic Kidney Disease. Official Journal of the International Society of Nephrology, 3(1), 1-150. Performed By: #### U ACR #### [facility] CLIA [id number] [address] [place] [address] [place] Creatinine (U) [Mass/Vol] 85.0 mg/dL Normal 20.0-300.0 [facility] Comment on above: Order Comment: Speci men Type: URINE SPECIMEN Ordering Facility: [facility] Address: [address] [place] [address] Performed By: #### U ACR #### [facility] CLIA [id number] [address] [place] [address] [place] CBC panel Auto (Bld)on 03-20 Erythrocyte distribution width (RBC) [Ratio] 14.0 % Normal 11.5-15.0 [facility] Comment on above: Order Comment: Speci men Type: BLOOD SPECIMEN Ordering Facility: [facility] Address: [address] [place] [address] Performed By: #### 5 8410-2 #### [facility] CLIA [id number] [address] Hematocrit (Bld) [Volume fraction] 45.6 % Normal 39.0-51.0 [facility] Comment on above: Order Comment: Speci men Type: BLOOD SPECIMEN Ordering Facility: [facility] Address: [address] [place] [address] Performed By: #### 5 8410-2 #### [facility] CLIA [id number] [address] [place] Hemoglobin (Bld) [Mass/Vol] 15.0 g/dL Normal 13.0-17.0 [facility] Comment on above: Order Comment: Speci men Type: BLOOD SPECIMEN Ordering Facility: [facility] Address: [address] [place] [address] Performed By: #### 5 8410-2 #### [facility] CLIA [id number] [address] MCH (RBC) [Entitic mass] 28.6 pg Normal 26.0-34.0 [facility] Comment on above: Order Comment: Speci men Type: BLOOD SPECIMEN Ordering Facility: [facility] Address: [address] [place] [address] Performed By: #### 5 8410-2 #### [facility] CLIA [id number] [address] [place] MCHC (RBC) [Mass/Vol] 32.9 g/dL Normal 30.5-36.0 [facility] Comment on above: Order Comment: Speci men Type: BLOOD SPECIMEN Ordering Facility: [facility] Address: [facility] [place] [address] Performed By: #### 5 8410-2 #### [facility] CLIA [id number] [address] [place] MCV (RBC) [Entitic vol] 86.9 fL Normal 80.0-100.0 [facility] Comment on above: Order Comment: Speci men Type: BLOOD SPECIMEN Ordering Facility: [facility] Address: [address] [place] [address] Performed By: #### 5 8410-2 #### [facility] CLIA [id number] [address] Nucleated RBC (Bld) [#/Vol] 10*3/uL Normal <0.01 [facility] Comment on above: Order Comment: Speci men Type: BLOOD SPECIMEN Ordering Facility: [facility] Address: [address] [place] [address] Performed By: #### 5 8410-2 #### [facility] CLIA [id number] [address] Platelet mean volume (Bld) [Entitic vol] 10.6 fL Normal 9.0-12.7 [facility] Comment on above: Order Comment: Speci men Type: BLOOD SPECIMEN Ordering Facility: [facility] Address: [address] [place] [address] Performed By: #### 5 8410-2 #### [facility] CLIA [id number] [address] Platelets (Bld) [#/Vol] 201 10*3/uL Normal 150-400 [facility] Comment on above: Order Comment: Speci men Type: BLOOD SPECIMEN Ordering Facility: [facility] Address: [address] [place] [address] Performed By: #### 5 8410-2 #### [facility] CLIA [id number] [address] [place] [address] [place] RBC (Bld) [#/Vol] 5.25 10*6/uL Normal 4.20-6.00 [facility] Comment on above: Order Comment: Speci men Type: BLOOD SPECIMEN Ordering Facility: [facility] Address: [address] [place] [address] Performed By: #### 5 8410-2 #### [facility] CLIA [id number] [address] [place] [address] [place] WBC (Bld) [#/Vol] 5.89 10*3/uL Normal 3.70-11.00 [facility] Comment on above: Order Comment: Speci men Type: BLOOD SPECIMEN Ordering Facility: [facility] Address: [address] [place] [address] Performed By: #### 5 8410-2 #### [facility] CLIA [id number] [address] OF [facility] Comprehensive metabolic 2000 panelon 03-20-2024 Albumin [Mass/Vol] 4.4 g/dL Normal 3.9-4.9 [facility] Comment on above: Order Comment: Speci men Type: BLOOD SPECIMEN Ordering Facility: [facility] Address: [address] [place] [address] Performed By: #### 2 4323-8, 46596-3 #### [facility] CLIA [id number] [address] [place] ALP [Catalytic activity/Vol] 54 U/L Normal 38-113 [facility] Comment on above: Order Comment: Speci men Type: BLOOD SPECIMEN Ordering Facility: [facility] Address: [address] [place] [address] Performed By: #### 2 4323-8, 23516-7 #### [facility] CLIA [id number] [address] ALT [Catalytic activity/Vol] 20 U/L Normal 10-54 [facility] Comment on above: Order Comment: Speci men Type: BLOOD SPECIMEN Ordering Facility: [facility] Address: [address] [place] [address] Performed By: #### 2 4323-8, 07868-4 #### [facility] CLIA [id number] [address] [place] [address] [place] Anion gap [Moles/Vol] 12 mmol/L Normal 8-15 [facility] Comment on above: Order Comment: Speci men Type: BLOOD SPECIMEN Ordering Facility: [facility] Address: [address] [place] [address] Performed By: #### 2 4323-8, 09698-9 #### [facility] CLIA [id number] [address] [place] [address] [place] AST [Catalytic activity/Vol] 27 U/L Normal 14-40 [facility] Comment on above: Order Comment: Speci men Type: BLOOD SPECIMEN Ordering Facility: [facility] Address: [address] [place] [address] Performed By: #### 2 4323-8, 75042-0 #### [facility] CLIA [id number] [address] [place] [address] [place] Bilirubin [Mass/Vol] 0.3 mg/dL Normal 0.2-1.3 [facility] Comment on above: Order Comment: Speci men Type: BLOOD SPECIMEN Ordering Facility: [facility] Address: [address] [place] [address] Performed By: #### 2 4323-8, 78058-4 #### [facility] CLIA [id number] [address] [place] Calcium [Mass/Vol] 9.2 mg/dL Normal 8.5-10.2 [facility] Comment on above: Order Comment: Speci men Type: BLOOD SPECIMEN Ordering Facility: [facility] Address: [address] [place] [address] Performed By: #### 2 4323-8, 30800-4 #### [facility] CLIA [id number] [address] [place] [address] [place] Chloride [Moles/Vol] 105 mmol/L Normal 98-107 [facility] Comment on above: Order Comment: Speci men Type: BLOOD SPECIMEN Ordering Facility: [facility] Address: [address] [place] [address] Performed By: #### 2 4323-8, 80901-5 #### [facility] CLIA [id number] [address] [place] [address] [place] CO2 [Moles/Vol] 24 mmol/L Normal 22-30 [facility] Comment on above: Order Comment: Speci men Type: BLOOD SPECIMEN Ordering Facility: [facility] Address: [address] [place] [address] Performed By: #### 2 4323-8, 13275-6 #### [facility] CLIA [id number] [address] [place] Creatinine [Mass/Vol] 1.18 mg/dL Normal 0.73-1.22 [facility] Comment on above: Order Comment: Speci men Type: BLOOD SPECIMEN Ordering Facility: [facility] Address: [address] [place] [address] Performed By: #### 2 4323-8, 91116-9 #### [facility] CLIA [id number] [address] Creatinine and Glomerular filtration rate.predicted panel (S/P/Bld) 71 mL/min/1.73m??? Normal >=60 [facility] Comment on above: Order Comment: Speci men Type: BLOOD SPECIMEN Ordering Facility: [facility] Address: [address] [place] [address] Result Comment: Roberta mated Glomerular Filtration Rate (eGFR) is calculated using the 2020 CKD-EPI creatinine equation. This equation utilizes serum creatinine, sex, and age as parameters. The creatinine assay has traceable calibration to isotope dilution-mass spectrometry. Refer to KDIGO guidelines for clinical interpretation. In patients with unstable renal function, e.g. those with acute kidney injury, the eGFR may not accurately reflect actual GFR. Performed By: #### 2 4323-8, 89759-5 #### [facility] CLIA [id number] [address] STATES OF [facility] Glucose [Mass/Vol] 92 mg/dL Normal 74-99 [facility] Comment on above: Order Comment: Speci men Type: BLOOD SPECIMEN Ordering Facility: [facility] Address: [address] [place] [address] Result Comment: The [place] Diabetes Association (ADA) provides guidance for cutoff values for fasting glucose and random glucose. The ADA defines fasting as no caloric intake for at least 8 hours. Fasting plasma glucose results between 100 to 125 mg/dL indicate increased risk for diabetes (prediabetes). Fasting plasma glucose results greater than or equal to 126 mg/dL meet the criteria for diagnosis of diabetes. In the absence of unequivocal hyperglycemia, results should be confirmed by repeat testing. In a patient with classic symptoms of hyperglycemia or hyperglycemic crisis, random plasma glucose results greater than or equal to 200 mg/dL meet the criteria for diagnosis of diabetes. Reference: Standards of Medical Care in Diabetes 2016, [place] Diabetes Association. Diabetes Care. 2016.39(Suppl 1). Performed By: #### 2 4323-8, 90387-0 #### [facility] CLIA [id number] [address] [place] [address] [place] Potassium [Moles/Vol] 4.3 mmol/L Normal 3.7-5.1 [facility] Comment on above: Order Comment: Speci men Type: BLOOD SPECIMEN Ordering Facility: [facility] Address: [address] [place] [address] Performed By: #### 2 4323-8, 39469-7 #### [facility] CLIA [id number] [address] [place] [address] [place] Protein [Mass/Vol] 7.1 g/dL Normal 6.3-8.0 [facility] Comment on above: Order Comment: Yaquelini men Type: BLOOD SPECIMEN Ordering Facility: [facility] Address: [address] [place] [address] Performed By: #### 2 4323-8, 54547-8 #### [facility] CLIA [id number] [address] [place] [address] [place] Sodium [Moles/Vol] 141 mmol/L Normal 136-144 [facility] Comment on above: Order Comment: Yaquelini men Type: BLOOD SPECIMEN Ordering Facility: [facility] Address: [address] [place] [address] Performed By: #### 2 4323-8, 57974-9 #### [facility] CLIA [id number] [address] [place] [address] [place] Urea nitrogen [Mass/Vol] 30 mg/dL High 9-24 [facility] Comment on above: Order Comment: Iván olmos Type: BLOOD SPECIMEN Ordering Facility: [facility] Address: [address] [place] [address] Performed By: #### 2 4323-8, 34360-3 #### [facility] CLIA [id number] [address] [place] [address] [place] HbA1c (Bld)on 03-20-2024 Average glucose Estimated from glycated hemoglobin (Bld) [Mass/Vol] 154 mg/dL Normal [facility] Comment on above: Order Comment: Iván olmos Type: BLOOD SPECIMEN Ordering Facility: [facility] Address: [address] [place] [address] Result Comment: eAG: (Estimated average glucose) is a calculated value from HgbA1c and is leasing representative of the average blood glucose level in the last 2-3 month period. Performed By: #### 5 5454-3 #### [facility] CLIA [id number] [address] [place] [address] [place] HbA1c (Bld) [Mass fraction] 7.0 % High 4.3-5.6 [facility] Comment on above: Order Comment: Iván olmos Type: BLOOD SPECIMEN Ordering Facility: [facility] Address: [address] [place] [address] Result Comment: Amer [place] Diabetes Association guidelines indicate that patients with HgbA1c in the range 5.7-6.4% are at increased risk for development of diabetes, and intervention by lifestyle modification may be beneficial. HgbA1c greater or equal to 6.5% is considered diagnostic of diabetes. Performed By: #### 5 5454-3 #### [facility] CLIA [id number] [address] [place] [address] [place] Lipid 1996 panelon 4 Cholesterol [Mass/Vol] 154 mg/dL Normal <200 [facility] Comment on above: Order Comment: Iván olmos Type: BLOOD SPECIMEN Ordering Facility: [facility] Address: [address] [place] [address] Result Comment: <200 mg/dL, Desirable 200-239 mg/dL, Borderline high >239 mg/dL, High Performed By: #### 2 4323-8, 81828-6 #### [facility] CLIA [id number] [address] Cholesterol in HDL [Mass/Vol] 36 mg/dL Low >39 [facility] Comment on above: Order Comment: Iván olmos Type: BLOOD SPECIMEN Ordering Facility: [facility] Address: [address] [place] [address] Result Comment: 40-5 9 mg/dL, Acceptable >59 mg/dL, High: Negative risk factor for coronary heart disease <40 mg/dL, Low: Positive risk factor for coronary heart disease Performed By: #### 2 4323-8, 12647-9 #### [facility] CLIA [id number] [address] Cholesterol in LDL [Mass/Vol] 76 mg/dL Normal <100 [facility] Comment on above: Order Comment: Iván [facility] Type: BLOOD SPECIMEN Ordering Facility: [facility] Address: [address] [place] [address] Result Comment: <100 mg/dL, Optimal 100-129 mg/dL, Near optimal/above optimal 130-159 mg/dL, Borderline high 160-189 mg/dL, High >189 mg/dL, Very high Secondary prevention optimal LDL Cholesterol levels are recommended to be < 70 mg/dL Performed By: #### 2 4323-8, 07534-1 #### [facility] CLIA [id number] [address] Cholesterol in LDL/Cholesterol in HDL [Mass ratio] 2.11 {ratio} Normal <2.54 [facility] Comment on above: Order Comment: Iván [facility] Type: BLOOD SPECIMEN Ordering Facility: [facility] Address: [address] [place] [address] Result Comment: Refe rence: 1. National Cholesterol Education Program ATP III Guideline At-A-Glance Quick Desk Reference: National Heart, Lung, and Blood [place]. National Institutes of Health. 2001: NIH Publication No. 01-3305. 2. An International Atherosclerosis Society position paper: global recommendations for the management of dyslipidemia: executive summary, Atherosclerosis. 2014: 232(2):410-413. Performed By: #### 2 4323-8, 59447-5 #### [facility] CLIA [id number] [address] Cholesterol in VLDL [Mass/Vol] 42 mg/dL High <30 [facility] Comment on above: Order Comment: Yaquelini men Type: BLOOD SPECIMEN Ordering Facility: [facility] Address: [address] [place] [address] Performed By: #### 2 4323-8, 51307-9 #### [facility] CLIA [id number] [address] Cholesterol non HDL [Mass/Vol] 118 mg/dL Normal <130 [facility] Comment on above: Order Comment: Iván olmos Type: BLOOD SPECIMEN Ordering Facility: [facility] Address: [address] [place] [address] Result Comment: <130 mg/dL, Optimal 130-159 mg/dL, Near optimal/above optimal 160-189 mg/dL, Borderline high 190-219 mg/dL, High >219 mg/dL, Very high Secondary prevention optimal non HDL Cholesterol levels are recommended to be <100 mg/dL Performed By: #### 2 4323-8, 01138-6 #### [facility] CLIA [id number] [address] Cholesterol.total/ Cholesterol in HDL [Mass ratio] 4.28 {ratio} Normal <5.10 [facility] Comment on above: Order Comment: Yaquelini men Type: BLOOD SPECIMEN Ordering Facility: [facility] Address: [address] [place] [id number] Performed By: #### 2 4323-8, 30877-2 #### [facility] CLIA [id number] [address] FASTING TIME [address] [facility] Comment on above: Order Comment: Iván [facility] Type: BLOOD SPECIMEN Ordering Facility: [facility] Address: [address] [place] [address] Performed By: #### 2 4323-8, 68992-6 #### [facility] CLIA [id number] [address] [place] [address] [place] Triglyceride [Mass/Vol] 211 mg/dL High <150 [facility] Comment on above: Order Comment: Speci men Type: BLOOD SPECIMEN Ordering Facility: [facility] Address: [address] [place] [address] Result Comment: <150 mg/dL, Normal 150-199 mg/dL, Borderline high 200-499 mg/dL, High >499 mg/dL, Very high Performed By: #### 2 4323-8, 64250-1 #### [facility] CLIA [id number] [address] [place] [address] [place] PSA/PROSTATE SPECIFIC ANTIGE N SCREENINGon 03-20-2024 Prostate specific Ag [Mass/Vol] 0.89 ng/mL Normal <2.60 [facility] Comment on above: Order Comment: Speci men Type: URINE SPECIMEN Ordering Facility: [facility] Address: [address] [place] [address] Result Comment: Tota l PSA test methodology used is the Electrochemiluminescence Immunoassay by [employer]. Total PSA values by differing methodologies cannot be interchanged. Performed By: #### U ACR #### [facility] CLIA [id number] [address] [place] [address] [place] Chris 02-03-2024 [place] Telephone ([employer]) JUDIE CORBETT ([id number]) 1965 M Date Time Provider Department 02/03/24 DAVID SAHA During your visit today, we recorded the following information about you: Constantino Eisenberg MA 02/03/2024 3:22 PM Signed Form on docs desk/basket for review from [employer]. Please review and sign. Needs to be faxed to [phone]. Attached last office note CGM sensor and transmitter David Saha APRN.CNP 02/11/2024 7:24 AM Signed Form signed. Thank you Sydnee Butcher MA 02/11/2024 9:00 AM Signed Form faxed to ANDREA at on February 11, 2024; transmission ok. Allergies As of Date: 02/03/2024 (No Known Allergies) Date Reviewed: 01/15/2024 Reviewed by: David Saha APRN.TRINA - Fully Assessed Reason for Visit: [place] Form [Other] Cmt: CGM sensor and transmitter Prescriptions as of 02/11/2024 - insulin glargine (LANTUS U-100 INSULIN) 100 unit/mL injection Inject 60 Units subcutaneously daily at bedtime. - HUMALOG KWIKPEN INSULIN 100 unit/mL INJECT 12 UNTS SUBCUTANEOUSLY BEFORE BREAKFAST, 20 UNITS BEFORE lunch and 30 UNITS - semaglutide (OZEMPIC) 0.25 mg or 0.5 mg (2 mg/3 mL) pen Inject subcutaneously 0.25 mg weekly x 4 wks then increase to 0.5 mg weekly - FARXIGA 10 mg tablet Take 1 tablet by mouth daily with breakfast. - metFORMIN (GLUCOPHAGE) 1,000 mg tablet take 1 tablet by mouth twice daily - atorvastatin (LIPITOR) 40 mg tablet take 1 tablet by mouth once daily - lisinopril (ZESTRIL) 40 mg tablet take 1 tablet by mouth daily - hydroCHLOROthiazide 25 mg tablet take 1 tablet by mouth once daily. - verapamil SR (CALAN SR) 240 mg CR tablet take 1 tablet by mouth daily at bedtime - fenofibrate (LOFIBRA) 200 mg capsule take 1 capsule by mouth daily - Blood-Glucose Sensor (DEXCOM G6 SENSOR) ana Use as directed; IDDM, E 11.9 - Blood-Glucose Meter,Continuous (DEXCOM G6 MIXING ENGINEER) misc Use as directed, IDDM, E11.9 - Blood-Glucose Transmitter (DEXCOM G6 TRANSMITTER) ana Use as directed, IDDM, E 11.9 - insulin needles, DISPOSABLE, (BD INSULIN PEN NEEDLE UF) 31 gauge x 5/16 Use 4 pen needles daily - Vit A,C and M-Hrfhdk-Xygawrov (OCUVITE WITH LUTEIN) 1,000 unit-200 mg-60 unit-2 mg tab Take 1 tablet by mouth once daily. - aspirin(ECOTRIN LOW STRENGTH 81 MG TAB) Take one(1) tablet daily. Problem List As Of Date 02/03/2024 Noted Resolved Mixed hyperlipidemia [E78.2] 04/28/2007 Proteinuria [R80.9] 11/21/2010 09/19/2015 Obesity [E66.89] 09/19/2015 06/23/2018 Impotence of organic origin [N52.9] 11/06/2016 Complete tear of left rotator cuff [M75.122] 07/25/2021 Bursitis of left shoulder [M75.52] 07/25/2021 Tendinitis of left shoulder [M77.8] 07/25/2021 Essential hypertension [I10] 10/05/2021 Type 2 diabetes mellitus with microalbuminuria,*06/15/2022 Encounter Status:Closed by SYDNEE BUTCHER on 02/11/24 [facility] CNOVon 01-15-2024 CNOV Office Visit (ENDMED ) MONTSERRATJUDIE TAPIA Mellisa ([id number]) 1965 M Date Time Provider Department 01/15/24 8:00 AM DAIVD SAHA During your visit today, we recorded the following information about you: Pulse Blood pressure Weight 77/minute 122/80 92.1 kg David Saha APRN.CNP 01/15/2024 8:57 AM Signed Reason for Consultation: DM Type 2 Referring Physician: Ad Boyd MD [id number] [facility] [address] HISTORY OF PRESENT ILLNESS Mr. Corbett is a 58 year old male presenting here today for a follow up of DM Type 2. As I recall, he was initially diagnosed with diabetes 2011. Patient of Dr. 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 States he has a big appetite and his is planning on starting them on a new diet. She is on compounded Semaglutide. Has questions about how many carbs to consume and daily calorie intake. Concerned family and friends have of cancer and wonders about screenings Dexcom supplies from [employer]. Interested in G7. Current diabetes regimen is as follows: Farxiga 10 mg daily Metformin 1,000mg BID lantus 55 units HS-- taking 60 units instead Humalog 10 units breakfast, 22 units lunch, 34 units with dinner --actually taking 12 B, 20 L, 30 dinner but admits he often misses the breakfast and lunch doses and takes the dinner dose after eating. Previous DM medications: Invokana Glimepiride he is checking his blood glucose continuously with Dexcom G6 CGM he does bring a log book today for review. LDE Blood Sugar Frequency: Dexcom download (01/02/24 to 01/15/24) In range 73% High 24% Very high 2% Low 1% Very low 0% Avg glucose 151 GMI 6.9 BG is best from 1 AM to 7 AM He rises slightly after breakfast and more after lunch and dinner Hypoglycemia frequency: occasionally Hypoglycemia awareness: Yes Regarding symptoms of hypoglycemia, he is not experiencing any symptoms such as polyuria, polydipsia, nocturia or rapid weight loss or blurry vision, Overall, the patient has no acute complaints at this time. HLD: Atorvastatin, fenofibrate HTN: Lisinopril, hctz, verapamil PAST MEDICAL HISTORY Diagnosis Date Carpal tunnel syndrome, bilateral 2018 DM w/o complication type II, uncontrolled 08/21/2011 Macular degeneration 06/11/2013 Nontraumatic complete tear of right rotator cuff 2019 Other and unspecified hyperlipidemia 04/28/2007 Proteinuria 11/21/2010 Snoring Type II or unspecified type diabetes mellitus without mention of complication, not stated as uncontrolled 04/28/2007 Unspecified essential hypertension 04/28/2007 PAST SURGICAL HISTORY Procedure Laterality Date ARTHROSC SH TENODESIS BICEPS Right 03/23/2020 COLONOSCOPY FLX DX W/COLLJ SPEC WHEN PFRMD 03/08/2014 HAND SURGERY HX Right 1979 Tendon repair REVISE MEDIAN N/CARPAL TUNNEL SURG Left 11/19/2018 REVISE MEDIAN N/CARPAL TUNNEL SURG Right 03/23/2020 ROTATOR CUFF REPAIR Right 03/23/2020 FAMILY HISTORY Problem Relation Age of Onset Diabetes Mother Stroke Mother Cancer Mother kidney Coronary Artery Disease Mother Kidney Disease Father declined dialysis Hypertension Father Coronary Artery Disease Father Emphysema Father No Known Problems Sister No Known Problems Sister Social History Tobacco Use Smoking status: Never Smokeless tobacco: Never Vaping Use Vaping status: Never Used Substance Use Topics Alcohol use: Yes Comment: Not weekly Drug use: No Allergies As of Date: 01/15/2024 (No Known Allergies) Fully Assessed 01/15/2024 Current Outpatient Medications Medication Sig Dispense Refill FARXIGA 10 mg tablet Take 1 tablet by mouth daily with breakfast. 90 tablet 3 metFORMIN (GLUCOPHAGE) 1,000 mg tablet take 1 tablet by mouth twice daily 180 tablet 3 atorvastatin (LIPITOR) 40 mg tablet take 1 tablet by mouth once daily 90 tablet 3 insulin glargine (LANTUS U-100 INSULIN) 100 unit/mL injection Inject 55 Units subcutaneously daily at bedtime. 60 mL 3 HUMALOG KWIKPEN INSULIN 100 unit/mL INJECT 10 UNTS SUBCUTANEOUSLY BEFORE BREAKFAST, 22 UNITS BEFORE lunch and 34 UNITS 75 mL 3 lisinopril (ZESTRIL) 40 mg tablet take 1 tablet by mouth daily 90 tablet 3 hydroCHLOROthiazide 25 mg tablet take 1 tablet by mouth once daily. 90 tablet 3 verapamil SR (CALAN SR) 240 mg CR tablet take 1 tablet by mouth daily at bedtime 90 tablet 3 fenofibrate (LOFIBRA) 200 mg capsule take 1 capsule by mouth daily 90 capsule 3 Blood-Glucose Sensor (DEXCOM G6 SENSOR) ana Use as directed; IDDM, E 11.9 3 Each 11 Blood-Glucose Meter,Continuous (DEXCOM G6 MIXING ENGINEER) misc Use as directed, IDDM, E11.9 1 Each 0 Blood (more content not included)... Normal [facility] HEMOGLOBIN A1C (POC)on 01-14 HbA1c (Bld) [Mass fraction] 7.3 % Abnormal 4.3 - 5.6 % [facility] Comment on above: Location:[facility], [address] [place], [address] Point of care (POC) Hemoglobin A1c (HGBA1C) testing is intended to assess glucose control and provide a management tool for patients known to have diabetes and their healthcare providers. Target HGBA1C levels may depend on specific clinical circumstances. POC HGBA1C is not intended for use as a diagnostic or screening test; laboratory-based testing should be used for diagnostic purposes. The following information is supplemental and may not be applicable to specific diabetes management situations: The POC device vocational case manager provides a normal range of 4.2% to 6.5% for the HGBA1C POC test. However, the [place] Diabetes Association guidelines indicate that patients with HGBA1C in the range of 5.7% to 6.4% are at increased risk for development of diabetes and that intervention by lifestyle modification may be beneficial. A HGBA1C level greater than or equal to 6.5% is considered diagnostic of diabetes, pending confirmatory testing. Use of HGBA1C testing to evaluate glucose control may not be appropriate for patients with hemoglobin variants or other conditions (e.g. anemia) that alter red blood cell lifespan. Interpretation and review of laboratory results Abnormal [facility] HEMOGLOBIN A1C (POC)on 09-11 HbA1c (Bld) [Mass fraction] 7.7 % Abnormal 4.3 - 5.6 % [facility] Comment on above: Location:[facility], [address] [place] [address], [address] Point of care (POC) Hemoglobin A1c (HGBA1C) testing is intended to assess glucose control and provide a management tool for patients known to have diabetes and their healthcare providers. Target HGBA1C levels may depend on specific clinical circumstances. POC HGBA1C is not intended for use as a diagnostic or screening test; laboratory-based testing should be used for diagnostic purposes. The following information is supplemental and may not be applicable to specific diabetes management situations: The POC device vocational case manager provides a normal range of 4.2% to 6.5% for the HGBA1C POC test. However, the [place] Diabetes Association guidelines indicate that patients with HGBA1C in the range of 5.7% to 6.4% are at increased risk for development of diabetes and that intervention by lifestyle modification may be beneficial. A HGBA1C level greater than or equal to 6.5% is considered diagnostic of diabetes, pending confirmatory testing. Use of HGBA1C testing to evaluate glucose control may not be appropriate for patients with hemoglobin variants or other conditions (e.g. anemia) that alter red blood cell lifespan. Interpretation and review of laboratory results Abnormal [facility] XR Foot - right AP and Later al and obliqueon 08-23-2023 IMPRESSION: No acute osseous abnormality Cargo And Container Inspector: JANA Transcribe Date/Time: Aug 23 2023 10:51A Dictated by : CYNDY BRAN MD This examination was interpreted and the report reviewed and electronically signed by: CYNDY BRAN MD on Aug 23 2023 10:55AM EST DIVISION OF RADIOLOGY * * *Final Report* * * DATE OF EXAM: Aug 19 2023 3:03PM WOX [id number] - XR FOOT 3V AP/LAT/OBL RT / PROCEDURE REASON: Right foot pain * * * * Physician Interpretation * * * * EXAMINATION: XR FOOT 3V AP/LAT/OBL RT CLINICAL HISTORY: Right foot pain Technique: XR FOOT 3V AP/LAT/OBL RT -- RIGHT with 3 views on 3 images Comparison: None RESULT: No acute fracture or dislocation. Joint spaces are maintained. Plantar and posterior calcaneal spurs. DIVISION OF RADIOLOGY Provider, [facility] - 08/23/2023 * * *Final Report* * * DATE OF EXAM: Aug 19 2023 3:03PM WOX [id number] - XR FOOT 3V AP/LAT/OBL RT / PROCEDURE REASON: Right foot pain * * * * Physician Interpretation * * * * EXAMINATION: XR FOOT 3V AP/LAT/OBL RT CLINICAL HISTORY: Right foot pain Technique: XR FOOT 3V AP/LAT/OBL RT -- RIGHT with 3 views on 3 images Comparison: None RESULT: No acute fracture or dislocation. Joint spaces are maintained. Plantar and posterior calcaneal spurs. IMPRESSION IMPRESSION: No acute osseous abnormality Cargo And Container Inspector: [facility] Transcribe Date/Time: Aug 23 2023 10:51A Dictated by : CYNDY BRAN MD This examination was interpreted and the report reviewed and electronically signed by: CYNDY BRAN MD on Aug 23 2023 10:55AM EST [facility] XR Foot - right AP and Later al and obliqueOrdered By: Ccf Provider on 08-23-2023 [facility] XR Foot - right AP and Later al and obliqueon 08-19-2023 Radiology Study observation (narrative) [facility] ALBUMIN/CREAT RATIO RND URon 04-05-2023 Albumin DL <= 20 mg/L (U) [Mass/Vol] 30.4 mg/L Normal [facility] Comment on above: Order Comment: Speci men Type: URINE SPECIMEN Ordering Facility: [facility] Address: [address] [place] [address] Performed By: #### U ACR #### [facility] CLIA [id number] [address] [place] [address] [place] Albumin/Creatinine (U) [Mass ratio] 34 mg/g High <30 [facility] Comment on above: Order Comment: Speci men Type: URINE SPECIMEN Ordering Facility: [facility] Address: [address] [place] [address] Result Comment: Adul t Male and Female Nephrotic Criteria: <30 mg/g is considered normal to mildly increased 30-300 mg/g is considered moderately increased >300 mg/g is considered severely increased KDIGO. (2013). KDIGO 2012 Clinical Practice Guideline for the Evaluation and Management of Chronic Kidney Disease. Official Journal of the International Society of Nephrology, 3(1), 1-150. Performed By: #### U ACR #### [facility] CLIA [id number] [address] [place] [address] [place] Creatinine (U) [Mass/Vol] 88.3 mg/dL Normal 20.0-300.0 [facility] Comment on above: Order Comment: Speci men Type: URINE SPECIMEN Ordering Facility: [facility] Address: [address] [place] [address] Performed By: #### U ACR #### [facility] CLIA [id number] [address] [place] [address] [place] Comprehensive metabolic 2000 panelon 04-05-2023 Albumin [Mass/Vol] 4.5 g/dL Normal 3.9-4.9 [facility] Comment on above: Order Comment: Speci men Type: BLOOD SPECIMEN Ordering Facility: [facility] Address: [address] [place] [address] Performed By: #### 3 016-3, 02206-5, 92364-9 #### [facility] CLIA [id number] [address] [place] [address] [place] ALP [Catalytic activity/Vol] 60 U/L Normal 38-113 [facility] Comment on above: Order Comment: Speci men Type: BLOOD SPECIMEN Ordering Facility: [facility] Address: [address] [place] [address] Performed By: #### 3 016-3, 40664-4, 43427-2 #### [facility] CLIA [id number] [address] [place] [address] [place] ALT [Catalytic activity/Vol] 18 U/L Normal 10-54 [facility] Comment on above: Order Comment: Speci men Type: BLOOD SPECIMEN Ordering Facility: [facility] Address: [address] [place] [address] Performed By: #### 3 016-3, 77476-0, 00591-9 #### [facility] CLIA [id number] [address] [place] [address] [place] Anion gap [Moles/Vol] 10 mmol/L Normal 9-18 [facility] Comment on above: Order Comment: Speci men Type: BLOOD SPECIMEN Ordering Facility: [facility] Address: [address] [place] [address] Performed By: #### 3 016-3, 84668-0, 02284-4 #### [facility] CLIA [id number] [address] [place] AST [Catalytic activity/Vol] 21 U/L Normal 14-40 [facility] Comment on above: Order Comment: Speci men Type: BLOOD SPECIMEN Ordering Facility: [facility] Address: [address] [place] [address] Performed By: #### 3 016-3, 14821-4, 97239-6 #### [facility] CLIA [id number] [address] [place] [address] [place] Bilirubin [Mass/Vol] 0.3 mg/dL Normal 0.2-1.3 [facility] Comment on above: Order Comment: Speci men Type: BLOOD SPECIMEN Ordering Facility: [facility] Address: [address] [place] [address] Performed By: #### 3 016-3, 86054-3, 08157-1 #### [facility] CLIA [id number] [address] [place] [address] [place] Calcium [Mass/Vol] 9.7 mg/dL Normal 8.5-10.2 [facility] Comment on above: Order Comment: Speci men Type: BLOOD SPECIMEN Ordering Facility: [facility] Address: [address] [place] [address] Performed By: #### 3 016-3, 43961-4, 10502-7 #### [facility] CLIA [id number] [address] [place] [address] [place] Chloride [Moles/Vol] 104 mmol/L Normal 97-105 [facility] Comment on above: Order Comment: Speci men Type: BLOOD SPECIMEN Ordering Facility: [facility] Address: [address] [place] [address] Performed By: #### 3 016-3, 11826-2, 62596-5 #### [facility] CLIA [id number] [address] [place] [address] [place] CO2 [Moles/Vol] 26 mmol/L Normal 22-30 [facility] Comment on above: Order Comment: Speci men Type: BLOOD SPECIMEN Ordering Facility: [facility] Address: [address] [place] [address] Performed By: #### 3 016-3, , 39952-8 #### [facility] CLIA [id number] [address] [place] [address] [place] Creatinine [Mass/Vol] 1.13 mg/dL Normal 0.73-1.22 [facility] Comment on above: Order Comment: Speci men Type: BLOOD SPECIMEN Ordering Facility: [facility] Address: [address] [place] [address] Performed By: #### 3 016-3, 65910-6, 33702-3 #### [facility] CLIA [id number] [address] [place] [address] [place] Creatinine and Glomerular filtration rate.predicted panel (S/P/Bld) 75 mL/min/1.73m??? Normal >=60 [facility] Comment on above: Order Comment: Iván olmos Type: BLOOD SPECIMEN Ordering Facility: [facility] Address: [address] [place] [address] Result Comment: Roberta mated Glomerular Filtration Rate (eGFR) is calculated using the 2020 CKD-EPI creatinine equation. This equation utilizes serum creatinine, sex, and age as parameters. The creatinine assay has traceable calibration to isotope dilution-mass spectrometry. Refer to KDIGO guidelines for clinical interpretation. In patients with unstable renal function, e.g. those with acute kidney injury, the eGFR may not accurately reflect actual GFR. Performed By: #### 3 016-3, 66975-0, 23872-3 #### [facility] CLIA [id number] [address] [place] [address] [place] Glucose [Mass/Vol] 83 mg/dL Normal 74-99 [facility] Comment on above: Order Comment: Iván olmos Type: BLOOD SPECIMEN Ordering Facility: [facility] Address: [address] [place] [address] Result Comment: The [place] Diabetes Association (ADA) provides guidance for cutoff values for fasting glucose and random glucose. The ADA defines fasting as no caloric intake for at least 8 hours. Fasting plasma glucose results between 100 to 125 mg/dL indicate increased risk for diabetes (prediabetes). Fasting plasma glucose results greater than or equal to 126 mg/dL meet the criteria for diagnosis of diabetes. In the absence of unequivocal hyperglycemia, results should be confirmed by repeat testing. In a patient with classic symptoms of hyperglycemia or hyperglycemic crisis, random plasma glucose results greater than or equal to 200 mg/dL meet the criteria for diagnosis of diabetes. Reference: Standards of Medical Care in Diabetes 2016, [place] Diabetes Association. Diabetes Care. 2016.39(Suppl 1). Performed By: #### 3 016-3, 01084-7, 83148-9 #### [facility] CLIA [id number] [address] [place] [address] [place] Potassium [Moles/Vol] 4.4 mmol/L Normal 3.7-5.1 [facility] Comment on above: Order Comment: Iván olmos Type: BLOOD SPECIMEN Ordering Facility: [facility] Address: [address] [place] [address] Performed By: #### 3 016-3, 06051-4, 36388-2 #### [facility] CLIA [id number] [address] [place] [address] [place] Protein [Mass/Vol] 7.2 g/dL Normal 6.3-8.0 [facility] Comment on above: Order Comment: Speci men Type: BLOOD SPECIMEN Ordering Facility: [facility] Address: [address] [place] [address] Performed By: #### 3 016-3, 20664-4, 54001-1 #### [facility] CLIA [id number] [address] [place] [address] [place] Sodium [Moles/Vol] 140 mmol/L Normal 136-144 [facility] Comment on above: Order Comment: Speci men Type: BLOOD SPECIMEN Ordering Facility: [facility] Address: [address] [place] [address] Performed By: #### 3 016-3, 03683-4, 94670-1 #### [facility] CLIA [id number] [address] [place] [address] [place] Urea nitrogen [Mass/Vol] 31 mg/dL High 9-24 [facility] Comment on above: Order Comment: Speci men Type: BLOOD SPECIMEN Ordering Facility: [facility] Address: [address] [place] [address] Performed By: #### 3 016-3, 70026-8, 64425-4 #### [facility] CLIA [id number] [address] [place] [address] [place] HbA1c (Bld)on 04-05-2023 Average glucose Estimated from glycated hemoglobin (Bld) [Mass/Vol] 160 mg/dL Normal [facility] Comment on above: Order Comment: Speci men Type: BLOOD SPECIMEN Ordering Facility: [facility] Address: [address] [place] [address] Result Comment: eAG: (Estimated average glucose) is a calculated value from HgbA1c and is leasing representative of the average blood glucose level in the last 2-3 month period. Performed By: #### 5 5454-3 #### [facility] CLIA [id number] [address] [place] [address] [place] HbA1c (Bld) [Mass fraction] 7.2 % High 4.3-5.6 [facility] Comment on above: Order Comment: Iván nickolas Type: BLOOD SPECIMEN Ordering Facility: [facility] Address: [address] [place] [address] Result Comment: [place] Diabetes Association guidelines indicate that patients with HgbA1c in the range 5.7-6.4% are at increased risk for development of diabetes, and intervention by lifestyle modification may be beneficial. HgbA1c greater or equal to 6.5% is considered diagnostic of diabetes. Performed By: #### 5 5454-3 #### [facility] CLIA [id number] [address] [place] [address] [place] Lipid 1996 panelon 3 Cholesterol [Mass/Vol] 150 mg/dL Normal <200 [facility] Comment on above: Order Comment: Iván olmos Type: BLOOD SPECIMEN Ordering Facility: [facility] Address: [address] [place] [address] Result Comment: <200 mg/dL, Desirable 200-239 mg/dL, Borderline high >239 mg/dL, High Performed By: #### 3 016-3, 09282-9, 54511-9 #### [facility] CLIA [id number] [address] Cholesterol in HDL [Mass/Vol] 33 mg/dL Low >39 [facility] Comment on above: Order Comment: Iván olmos Type: BLOOD SPECIMEN Ordering Facility: [facility] Address: [address] [place] [address] Result Comment: 40-5 9 mg/dL, Acceptable >59 mg/dL, High: Negative risk factor for coronary heart disease <40 mg/dL, Low: Positive risk factor for coronary heart disease Performed By: #### 3 016-3, 40344-0, 00206-9 #### [facility] CLIA [id number] [address] [place] Cholesterol in LDL [Mass/Vol] 48 mg/dL Normal <100 [facility] Comment on above: Order Comment: Yaquelinyari olmos Type: BLOOD SPECIMEN Ordering Facility: [facility] Address: [address] [place] [address] Result Comment: <100 mg/dL, Optimal 100-129 mg/dL, Near optimal/above optimal 130-159 mg/dL, Borderline high 160-189 mg/dL, High >189 mg/dL, Very high Secondary prevention optimal LDL Cholesterol levels are recommended to be < 70 mg/dL Performed By: #### 3 016-3, 70510-3, 40463-7 #### [facility] CLIA [id number] [address] Cholesterol in LDL/Cholesterol in HDL [Mass ratio] 1.45 {ratio} Normal <2.54 [facility] Comment on above: Order Comment: Iván olmos Type: BLOOD SPECIMEN Ordering Facility: [facility] Address: [address] [place] [address] Result Comment: Refe rence: 1. National Cholesterol Education Program ATP III Guideline At-A-Glance Quick Desk Reference: National Heart, Lung, and Blood [place]. National Institutes of Health. 2001: NIH Publication No. 01-3305. 2. An International Atherosclerosis Society position paper: global recommendations for the management of dyslipidemia: executive summary, Atherosclerosis. 2014: 232(2):410-413. Performed By: #### 3 016-3, 41757-9, 89180-1 #### [facility] CLIA [id number] [address] Cholesterol in VLDL [Mass/Vol] 69 mg/dL High <30 [facility] Comment on above: Order Comment: Iván nickolas Type: BLOOD SPECIMEN Ordering Facility: [facility] Address: [address] [place] [address] Performed By: #### 3 016-3, 79489-7, 76792-2 #### [facility] CLIA [id number] [address] [place] Cholesterol non HDL [Mass/Vol] 117 mg/dL Normal <130 [facility] Comment on above: Order Comment: Yaquelinyari olmos Type: BLOOD SPECIMEN Ordering Facility: [facility] Address: [address] [place] [address] Result Comment: <130 mg/dL, Optimal 130-159 mg/dL, Near optimal/above optimal 160-189 mg/dL, Borderline high 190-219 mg/dL, High >219 mg/dL, Very high Secondary prevention optimal non HDL Cholesterol levels are recommended to be <100 mg/dL Performed By: #### 3 016-3, 76868-6, 02745-2 #### [facility] CLIA [id number] [address] Cholesterol.total/ Cholesterol in HDL [Mass ratio] 4.55 {ratio} Normal <5.10 [facility] Comment on above: Order Comment: Speci men Type: BLOOD SPECIMEN Ordering Facility: [facility] Address: [address] [place] [address] Performed By: #### 3 016-3, 25432-3, 29108-6 #### [facility] CLIA [id number] [address] FASTING TIME [address] [facility] Comment on above: Order Comment: Speci men Type: BLOOD SPECIMEN Ordering Facility: [facility] Address: [address] [place] [address] Performed By: #### 3 016-3, 42178-5, 37150-4 #### [facility] CLIA [id number] [address] Triglyceride [Mass/Vol] 343 mg/dL High <150 [facility] Comment on above: Order Comment: Speci men Type: BLOOD SPECIMEN Ordering Facility: [facility] Address: [address] [place] [address] Result Comment: <150 mg/dL, Normal 150-199 mg/dL, Borderline high 200-499 mg/dL, High >499 mg/dL, Very high Performed By: #### 3 016-3, 42673-9, 04424-3 #### [facility] CLIA [id number] [address] TSH SerPl-aCncon 04-05-2023 TSH Qn 1.450 m[IU]/L Normal 0.270-4.200 [facility] Comment on above: Order Comment: Speci men Type: BLOOD SPECIMEN Ordering Facility: [facility] Address: [place] [id number] Performed By: #### 3 016-3, 01216-6, 32177-8 #### [facility] CLIA [id number] [address] [place] [address] [place] HEMOGLOBIN A1C (POC)on 06-15 HbA1c (Bld) [Mass fraction] 7.2 % Abnormal 4.2 - 5.6 % [facility] PT D/C Summary (1)on 022 PT D/C Summary (1) [facility] Physical [facility] [place] [address] / REHABILITATION SERVICES DISCHARGE SUMMARY MR#: [id number] Acct: [id number] Name: JUDIE CORBETT Jr. Rep #: [id number] : 1965 56 From: Olga Trevino MPT Referring Dr.: Status: REG RCR Insurance: [facility] [employer]URANCE It has been my pleasure to treat JUDIE CORBETT Jr. referred by JUANCARLOS MCCLURE, with the diagnosis of s/p L shld arthro, massive RC repair, bicep tenodesis, SAD, acromiopla 08/01 for a total of 26 visit(s). Discharge Date: 02/20/22 Please see the following information for a summary of their discharge status. Subjective: Pt saw the Dr yesterday and she said that she does not need to see him anymore. He was able to reach up higher at work yesterday. He feels that he can keep working on it at home. L shoulder pain Pain Intensity (Out of 10): 0 % Improvement: 80 Objective/Function: AROM L Shoulder: Flex 141. IR L1 (tight) Goal 1:: I HEP Goal Progress: Goal Met Goal 2:: PROM 130 degrees flexion Goal Progress: Goal Met Goal 3:: Be able to use his L arm with ADL's and work without pain or signs of weakness Goal Progress: Progressing Goal 4:: Increase AROM of the L shoulder to full AROM painfree by DC Goal Progress: Progressing Plan: DC PT to HOME stretching and strengthening Discharge Comments: DC PT to HEP If there are questions or concerns regarding this patient's physical therapy, please feel free to call me at [phone]. Thank you for the referral of this patient. Sincerely, JACOBO Chester Balance/Gait/Functional tests - Balance/Special Test Scores Quick DASH Score: 6.8175 02/20/22 0905 CC: JUANCARLOS MCCLURE; Dr. Ad Boyd MD Signed Normal [facility] Re-Evaluation - PT (1)on Re-Evaluation - PT (1) [facility] Physical Therapy [facility] [address] [place] [address] / REEVALUATION / MEDICARE RECERTIFICATION PHYSICAL THERAPY MR#: [id number] Acct: [id number] Name: JUDIE CORBETT Jr. Rep #: [id number] : 1965 56 From: Olga CENTENO Referring Dr.: Status:REG RCR Insurance: [facility] [employer] INSURANCE JUANCARLOS MCCLURE, It has been my pleasure to treat JUDIE CORBETT Jr. over the last 10 visits for s/p L shld arthro, massive RC repair, bicep tenodesis, SAD, acromiopla 08/01. Please see the progress note below for an update on the physical therapy plan of care! Subjective: Continued from July Objective/Function: PROM L shoulder to 140 degrees and ER to at least 30 degrees. Plan Plan: Start isometrics next visit. Follow filed protocol (6 weeks to 10 weeks) able to do AAROM flex and ER including pulleys, isometics, UBE with arms by side. October 10 able to start AROM and RC strengthening. 1-2X/ week for PROM (flexion 130 degrees and ER to 30 degrees) for 3-4 additional weeks or 6 (09-12-2021)weeks total and then follow protocol after pt sees Dr for progression. May use ice. DOS 08-01-2021. HEP: hand squeeze ball, scapular squeezes, and pendulums Balance/Gait/Functional tests - Balance/Special Test Scores Quick DASH Score: 25.0000 Goals Goal 1:: I HEP Goal Time Frame: 8-12 Weeks Goal 2:: PROM 130 degrees flexion Goal Time Frame: 2-4 Weeks Goal Progress: Goal Met Goal 3:: Be able to use his L arm with ADL's and work without pain or signs of weakness Goal Time Frame: 8-12 Weeks Goal 4:: Increase AROM of the L shoulder to full AROM painfree by DC Goal Time Frame: 8-12 Weeks Anticipated Interventions Patient/Client Instruction: Educate patient on: Condition, Plan of Care For the Purpose of:: To decrease pain, To decrease swelling/inflammation, To increase ROM, To improve nutrient delivery to tissue, To improve muscle performance and motor function, To improve ability to perform ADL's, To increase tolerance to activity/condition/position, To improve performance and independence with ADL's, To decrease level of supervision to perform tasks, To improve ability of physical actions for home/community/work/leisure, To improve health of tissue, To decrease soft tissue restriction, To increase flexibility/ROM Therapeutic Exercise to Include: Strength training, Coordination, Postural training, Flexibilty training, Passive ROM, Active ROM, Scapular Strength/Stabilization For the Purpose of:: To decrease pain, To increase ROM, To improve nutrient delivery to tissue, To improve muscle performance and motor function, To improve ability to perform ADL's, To increase tolerance to activity/condition/position, To improve performance and independence with ADL's, To decrease level of supervision to perform tasks, To improve ability of physical actions for home/community/work/leisure, To improve health of tissue, To decrease soft tissue restriction, To increase flexibility/ROM Manual Therapy Techniques to Include: Passive ROM For the Purpose of:: To increase ROM, To decrease soft tissue restriction, To increase flexibility/ROM Please do not hesitate to contact me at [phone] by phone or if you have questions or concerns regarding this new plan of care! Sincerely, Olga Trevino, JACOBO 09/27/21 1908 CC: JUANCARLOS MCCLURE; Dr. Ad Boyd MD Signed For Medicare only, by signing this I certify the plan of care. Physicians Signature Date Normal [facility] Inital Evaluation (1) - PTon 08-23-2021 Inital Evaluation (1) - PT [facility] Physical Therapy [facility] [address] [place] [address] / REHABILITATION SERVICES INITIAL EVALUATION MR#: [id number] Acct: [id number] Name: JUDIE CORBETT Jr. Rep #: [id number] : 1965 56 From: Olga CENTENO Referring Dr.: OUT OF TOWN DOCTOR Status: REG R CR Insurance: [facility]URANCE Patient's Visit Information JUDIE CORBETT Jr. is a 56 year old M referred to Physical Therapy by JUANCARLOS MCCLURE with a diagnosis of s/p L shld arthro, massive RC repair, bicep tenodesis, SAD, acromiopla 08/01. Date of Evaluation: 08/22/21 Physical Therapist: JACOBO Chester - Visit Plan Frequency: 1-2x /Week Duration: 2 Months Plan: Follow filed protocol. 1-2X/ week for PROM (flexion 130 degrees and ER to 30 degrees) for 3-4 additional weeks or 6 (09-12-2021)weeks total and then follow protocol after pt sees for progression. May use ice. DOS 08-01-2021. HEP: hand squeeze ball, scapular squeezes, and pendulums - Subjective Pt reports that his L shoulder started to act up and went to see Dr Sebastian and she did an MRI and it was a mess. It showed an old tear, a new tear, and did something with his bicep and tucked it under his clavicle but he does not have a scar or luna muscle. The surgery was 5.5 hours and to be in the sling for at least 6 weeks. The tear was massive. He was sleeping in the recliner but now in bed all propped up. It is getting better but still not good sleep. He is off work for at least 8 weeks. RTD in 3 weeks. He is not taking pain meds now for over a week. He is R handed. Pt is in a sling on his side. - Pain L shoulder pain Pain Intensity (Out of 10): 2 - Objective R handed. R shoulder PROM ER at 54 degrees abd 12 degrees. R shoulder PROM flexion 97 degrees. Instructed pt in pendulums, ball hand squeeze and scapular squeezes - Balance/Special Test Scores Quick DASH Score: 34.0900 - Goals Goal 1:: I HEP Goal Time Frame: 8-12 Weeks Goal 2:: PROM 130 degrees flexion Goal Time Frame: 2-4 Weeks Goal 3:: Be able to use his L arm with ADL's and work without pain or signs of weakness Goal Time Frame: 8-12 Weeks Goal 4:: Increase AROM of the L shoulder to full AROM painfree by DC Goal Time Frame: 8-12 Weeks - Rehabilitation Potential Rehabilitation Potential: Good - Anticipated Interventions Patient/Client Instruction: Educate patient on: Condition, Plan of Care For the Purpose of:: To decrease pain, To decrease swelling/inflammation, To increase ROM, To improve nutrient delivery to tissue, To improve muscle performance and motor function, To improve ability to perform ADL's, To increase tolerance to activity/condition/position, To improve performance and independence with ADL's, To decrease level of supervision to perform tasks, To improve ability of physical actions for home/community/work/leisure, To improve health of tissue, To decrease soft tissue restriction, To increase flexibility/ROM Therapeutic Exercise to Include: Strength training, Coordination, Postural training, Flexibilty training, Passive ROM, Active ROM, Scapular Strength/Stabilization For the Purpose of:: To decrease pain, To increase ROM, To improve nutrient delivery to tissue, To improve muscle performance and motor function, To improve ability to perform ADL's, To increase tolerance to activity/condition/position, To improve performance and independence with ADL's, To decrease level of supervision to perform tasks, To improve ability of physical actions for home/community/work/leisure, To improve health of tissue, To decrease soft tissue restriction, To increase flexibility/ROM Manual Therapy Techniques to Include: Passive ROM For the Purpose of:: To increase ROM, To decrease soft tissue restriction, To increase flexibility/ROM Thank you for the opportunity to evaluate your patient. For Medicare and Medicare HMO plans, please review the plan of care and approve it. It will need to be FAXED BACK to us at [phone] for Medicare purposes. For Medicare only, by signing this I certify the plan of care. Please let me know if there are questions or concerns regarding this plan of care. Physician Signature: ___Date: 08/23/21 1535 CC: JUANCARLOS MCCLURE; Dr. Ad Boyd MD Signed Normal [facility] Vital Signs Date Time Vital Sign Value Performing Clinician Rja umana 09-23-2024 07:20-0400 Body height 177.8 cm Monserrat Cioce MANAGER OF SALES.CN P Work Phone: [facility] 09-23-2024 07:20-0400 Body mass index (BMI) [Ratio] 29.13 kg/m2 Monserrat Cioce MANAGER OF SALES.[employer]ZZ[employer] Work Phone: [facility] 09-23-2024 07:20-0400 Body weight 92.08 kg Monserrat Cioce MANAGER OF SALES.CN P Work Phone: [facility] 09-23-2024 07:20-0400 Diastolic blood pressure 88 mm[Hg] Monserrat Cioce MANAGER OF SALES.[employer]ZZ[employer] Work Phone: [facility] 09-23-2024 07:20-0400 Heart rate 69 /min Monserrat Cioce MANAGER OF SALES.CN P Work Phone: [facility] 09-23-2024 07:20-0400 Respiratory rate 19 /min Monserrat Cioce MANAGER OF SALES.CN P Work Phone: [facility] 09-23-2024 07:20-0400 SaO2% (BldA) [Mass fraction] 96 % Monserrat Cioce MANAGER OF SALES.[employer]ZZ[employer]KER Work Phone: [facility] 09-23-2024 07:20-0400 Systolic blood pressure 140 mm[Hg] Monserrat Cioce MANAGER OF SALES.[employer]ZZ[employer] Work Phone: [facility] 04-07-2024 07:34-0500 Body mass index (BMI) [Ratio] 28.98 kg/m2 Shelly García APRN.PIZZA MAKER Work Phone: [facility] 04-07-2024 07:34-0500 Body temperature 97.9 [degF] Shelly García APRN.PIZZA MAKER Work Phone: [facility] 04-07-2024 07:34-0500 Body weight 91.6 kg Shelly García APRN.[employer]ZZA MAKER Work Phone: [facility] 04-07-2024 07:34-0500 Diastolic blood pressure 72 mm[Hg] Shelly García APRN.PIZZA MAKER Work Phone: [facility] 04-07-2024 07:34-0500 Heart rate 86 /min Shelly García APRN.PIZZA MAKER Work Phone: [facility] 04-07-2024 07:34-0500 Respiratory rate 16 /min Shelly García APRN.PIZZA MAKER Work Phone: [facility] 04-07-2024 07:34-0500 SaO2% (BldA) [Mass fraction] 96 % Shelly García APRN.PIZZA MAKER Work Phone: [facility] 04-07-2024 07:34-0500 Systolic blood pressure 134 mm[Hg] Shelly García APRN.PIZZA MAKER Work Phone: [facility] 03-26-2024 08:28-0500 Body mass index (BMI) [Ratio] 28.66 kg/m2 Clara Escobar MD Work Phone: [facility] 03-26-2024 08:28-0500 Body weight 90.6 kg Clara Escobar MD Work Phone: [facility] 03-26-2024 08:28-0500 Diastolic blood pressure 75 mm[Hg] Clara Escobar MD Work Phone: [facility] 03-26-2024 08:28-0500 Heart rate 82 /min Clara Escobar MD Work Phone: [facility] 03-26-2024 08:28-0500 SaO2% (BldA) [Mass fraction] 98 % Clara Escobar MD Work Phone: [facility] 03-26-2024 08:28-0500 Systolic blood pressure 137 mm[Hg] Clara Escobar MD Work Phone: [facility] 01-15-2024 08:22-0400 Diastolic blood pressure 80 mm[Hg] [facility] MANAGER OF SALES.[employer]ZZA [employer] Work Phone: [facility] 01-15-2024 08:22-0400 Systolic blood pressure 122 mm[Hg] [facility] MANAGER OF SALES.PIZZA MAKER Work Phone: [facility] 01-15-2024 07:51-0400 Body mass index (BMI) [Ratio] 29.13 kg/m2 [facility] MANAGER OF SALES.PIZZA MAKER Work Phone: [facility] 01-15-2024 07:51-0400 Body weight 92.1 kg [facility] MANAGER OF SALES.PIZZA MAKER Work Phone: [facility] 01-15-2024 07:51-0400 Heart rate 77 /min [facility] MANAGER OF SALES.PIZZA MAKER Work Phone: [facility] 01-15-2024 07:51-0400 SaO2% (BldA) [Mass fraction] 98 % [facility] MANAGER OF SALES.PIZZA MAKER Work Phone: [facility] 09-12-2023 08:23-0400 Body height 177.8 cm Clara Escobar MD Work Phone: [facility] 09-12-2023 08:23-0400 Body mass index (BMI) [Ratio] 29.42 kg/m2 Clara Escobar MD Work Phone: [facility] 09-12-2023 08:23-0400 Body weight 93 kg Clara Escobar MD Work Phone: [facility] 09-12-2023 08:23-0400 Diastolic blood pressure 74 mm[Hg] Clara Escobar MD Work Phone: [facility] 09-12-2023 08:23-0400 Heart rate 77 /min Clara Escobar MD Work Phone: [facility] 09-12-2023 08:23-0400 Respiratory rate 16 /min Clara Escobar MD Work Phone: [facility] 09-12-2023 08:23-0400 SaO2% (BldA) [Mass fraction] 98 % Clara Escobar MD Work Phone: [facility] 09-12-2023 08:23-0400 Systolic blood pressure 134 mm[Hg] Clara Escobar MD Work Phone: [facility] 08-19-2023 14:53-0400 Diastolic blood pressure 80 mm[Hg] Britney Chris MANAGER OF SALES.PIZZA MAKER Work Phone: [facility] 08-19-2023 14:53-0400 Systolic blood pressure 132 mm[Hg] Britney Chris MANAGER OF SALES.[employer]ZZ[employer] MAKER Work Phone: [facility] 08-19-2023 14:31-0400 Body mass index (BMI) [Ratio] 28.41 kg/m2 Britney LawsonChris MANAGER OF SALES.PIZZA MAKER Work Phone: [facility] 08-19-2023 14:31-0400 Body weight 89.81 kg Britney Chris MANAGER OF SALES.[employer]ZZ[employer] MAKER Work Phone: [facility] 08-19-2023 14:31-0400 Heart rate 96 /min Britney Chris MANAGER OF SALES.PIZZA MAKER Work Phone: [facility] 08-19-2023 14:31-0400 Respiratory rate 18 /min Britney LawsonChris MANAGER OF SALES.PIZZA MAKER Work Phone: [facility] 08-19-2023 14:31-0400 SaO2% (BldA) [Mass fraction] 98 % Britney AlfaroChris MANAGER OF SALES.PIZZA MAKER Work Phone: [facility] 06-15-2022 07:55-0500 Body [facility] SALES.[employer]ZZA MAKER Work Phone: [facility] 06-15-2022 07:55-0500 Body weight 92.35 [facility] MANAGER OF SALES.[employer]ZZA MAKER Work Phone: [facility] 06-15-2022 07:55-0500 Diastolic blood pressure 80 mm[Hg] [facility] MANAGER OF SALES.[employer]KER Work Phone: [facility] 06-15-2022 07:55-0500 Heart rate 75 /min [facility] SALES.[employer]ZZA MAKER Work Phone: [facility] 06-15-2022 07:55-0500 SaO2% (BldA) [Mass fraction] 97 % David Kupie MANAGER OF SALES.PIZZA MAKER Work Phone: [facility] 06-15-2022 07:55-0500 Systolic blood pressure 137 mm[Hg] [facility] MA[facility] OF SALES.[employer]ZZA [employer]KER Work Phone: [facility] 10-05-2021 13:26-0400 Body height 177.8 cm [facility] MANAGER OF SALES.PIZZA MAKER Work Phone: [facility] 10-05-2021 13:26-0400 Body weight 89.81 kg [facility] MANAGER OF SALES.[employer]ZZA MAKER Work Phone: [facility] 10-05-2021 13:26-0400 Diastolic blood pressure 81 mm[Hg] [facility] MANA[facility] OF SALES.PIZZA MAKER Work Phone: [facility] 10-05-2021 13:26-0400 Heart rate 80 /min [facility] MANAGER OF SALES.PIZZA MAKER Work Phone: [facility] 10-05-2021 13:26-0400 SaO2% (BldA) [Mass fraction] 97 % [facility] MANAGER OF SALES.PIZZA MAKER Work Phone: [facility] 10-05-2021 13:26-0400 Systolic blood pressure 139 mm[Hg] David Saha MANAGER OF SALES.TRINA Work Phone: [facility] 07-25-2021 08:26-0400 Body height 177.8 cm Pacc 1 Work Phone: [facility] 07-25-2021 08:26-0400 Body temperature 97.7 [degF] Pacc 1 Work Phone: [facility] 07-25-2021 08:26-0400 Body weight 90.72 kg Pacc 1 Work Phone: [facility] 07-25-2021 08:26-0400 Diastolic blood pressure 82 mm[Hg] Pacc 1 Work Phone: [facility] 07-25-2021 08:26-0400 Heart rate 82 /min Pacc 1 Work Phone: [facility] 07-25-2021 08:26-0400 Respiratory rate 18 /min Pacc 1 Work Phone: [facility] 07-25-2021 08:26-0400 SaO2% (BldA) [Mass fraction] 98 % Pacc 1 Work Phone: [facility] 07-25-2021 08:26-0400 Systolic blood pressure 164 mm[Hg] Pacc 1 Work Phone: [facility] Encounters Encounter Date Encounter Type Care Provider Facility Start: 10-13-2024 End: 10-13-2024 Refill Monserrat C Cioce MANAGER OF SALES.[employer] Work Phone: Endocrinology Comment on above: Refill Request Start: 10-08-2024 End: 10-08-2024 Refill David Saha MANAGER OF SALES.[employer] Work Phone: Endocrinology Comment on above: Refill Request Start: 09-23-2024 End: 09-23-2024 Telephone encounter Monserrat C Cioce MANAGER OF SALES.[employer] Work Phone: Endocrinology Comment on above: OV Notes to DME Start: 09-23-2024 End: 09-23-2024 ambulatory AD BOYD Facility:[facility] Start: 09-23-2024 End: 09-23-2024 Patient encounter procedure Monserratbladimir Thornton MANAGER OF SALES.PIZZA MAKER Work Phone: Endocrinology Comment on above: Controlled type 2 di abetes mellitus without complication, with long-term current use of insulin (HCC) (Primary Dx); Type 2 diabetes mellitus with microalbuminuria, with long-term current use of insulin (HCC) Start: 09-23-2024 End: 09-23-2024 ambulatory AD BOYD Facility:[facility] Start: 09-21-2024 End: 09-21-2024 Refill Shakeel Graham MD Work Phone: Endocrinology Comment on above: Refill Request Start: 09-18-2024 End: 09-22-2024 Refill Clara Escobar MD Work Phone: Endocrinology Comment on above: Refill Request Start: 07-24-2024 End: 07-27-2024 Telephone encounter David Saha APRN.PIZZA MAKER Work Phone: Endocrinology Comment on above: Patient Question Start: 07-23-2024 End: 07-23-2024 Refill David Saha MANAGER OF SALES.[employer] MAKER Work Phone: Endocrinology Comment on above: Refill Request Start: 06-22-2024 End: 06-22-2024 Refill Clara Escobar MD Work Phone: Endocrinology Comment on above: Refill Request Start: 04-07-2024 End: 04-07-2024 ambulatory DAVID SAHA Facility:[facility] Start: 04-07-2024 End: 04-07-2024 Patient encounter procedure Shelly García APRN.PIZZA MAKER [facility] Comment on above: Rhinosinusitis (Prim katie Dx) Start: 04-02-2024 End: 04-02-2024 Refill Clara Escobar MD Work Phone: Endocrinology Comment on above: Refill Request Start: 04-02-2024 End: 04-06-2024 Telephone encounter Clara Escobar MD Work Phone: Endocrinology Comment on above: [employer] FORM Start: 03-27-2024 End: 03-30-2024 Telephone encounter Clara Escobar MD Work Phone: Endocrinology Comment on above: Diabetic Eye Exam (Sanchez Moore O.D.) Start: 03-26-2024 End: 03-26-2024 Telephone encounter Clara Escobar MD Work Phone: Endocrinology Comment on above: [place] Dept of Transport ation Form (Diabetic Waiver) Start: 03-26-2024 End: 03-26-2024 ambulatory AD BOYD Facility:[facility] Start: 03-26-2024 End: 03-26-2024 Patient encounter procedure Clara Escobar MD Work Phone: Endocrinology Comment on above: Type 2 diabetes trang itus with microalbuminuria, with long-term current use of insulin (HCC) (Primary Dx); Essential hypertension; Mixed hyperlipidemia Start: 03-20-2024 End: 03-20-2024 ambulatory [facility] Facility:[facility] Start: 02-13-2024 End: 02-13-2024 Orders Only [facility] MANAGER OF SALES.PIZZA MAKER Work Phone: Endocrinology Start: 02-12-2024 End: 02-12-[address] Work Phone: [facility] Start: 02-12-2024 End: 02-12-2024 Nutrition therapy Myah Cordoba RD Work Phone: [facility] Comment on above: Medical Nutrition Th erapy (Type 2 diabetes) Start: 02-03-2024 End: 02-11-2024 Telephone encounter David Saha MANAGER OF SALES.PIZZA MAKER Work Phone: Endocrinology Comment on above: [employer] Form (CGM s ensor and transmitter ) Start: 01-15-2024 End: 01-15-2024 ambulatory DAVID SALVADOR Facility:[facility] Start: 01-15-2024 End: 01-15-2024 Patient encounter procedure David Jordan MANAGER OF SALES.PIZZA MAKER Work Phone: Endocrinology Comment on above: Type 2 diabetes trang itus with microalbuminuria, with long-term current use of insulin (HCC) (Primary Dx); Mixed hyperlipidemia; Essential hypertension; Encounter for screening for malignant neoplasm of prostate; Overweight with body mass index (BMI) of 29 to 29.9 in adult Start: 10-21-2023 Refill Clara Escobar MD Work Phone: Endocrinology Comment on above: Refill Request Start: 09-13-2023 Refill Shakeel gutierrez MD Work Phone: Endocrinology Comment on above: Refill Request Start: 09-12-2023 End: 09-12-2023 Patient encounter procedure Clara Escobar MD Work Phone: Endocrinology Comment on above: Type 2 diabetes trang itus with microalbuminuria, with long-term current use of insulin (HCC) (Primary Dx); Mixed hyperlipidemia; Essential hypertension; Microalbuminuria; Fatigue, unspecified type Start: 08-29-2023 End: 08-29-2023 Patient encounter procedure Bigg Cutler Work Phone: Podiatry Comment on above: Plantar fasciitis (P rimary Dx); Diabetic polyneuropathy associated with type 2 diabetes mellitus (HCC) Start: 08-28-2023 Admission to [facility] Ad Boyd MD Work Phone: Ambulatory Surgery Comment on above: colorectal cancer co xiomy (Patient with a history of colon polyps is overdue since 2019.) Start: 08-28-2023 ambulatory Ad sanderson MD Work Phone: Ambulatory Surgery Start: 08-19-2023 End: 08-19-2023 Subsequent hospital visit by physician Ned [facility] Dian Work Phone: Radiology Comment on above: Right foot pain [[id number]] Start: 08-19-2023 End: 08-19-2023 Patient encounter procedure Britney Perez MANAGER OF SALES.PIZZA MAKER Work Phone: Internal Medicine [place] Comment on above: Right foot pain (Le jordyn Dx) Start: 08-12-2023 Telephone encounter Clara Escobar MD Work Phone: Endocrinology Comment on above: Patient Update Start: 07-13-2023 Refill David arndt MANAGER OF SALES.PIZZA MAKER Work Phone: Endocrinology Comment on above: Refill Request Start: 06-19-2023 Refill Clara Escobar MD Work Phone: Endocrinology Comment on above: Refill Request Start: 06-13-2023 Refill Clara Escobar MD Work Phone: Endocrinology Comment on above: Refill Request Start: 04-05-2023 End: 04-05-2023 ambulatory AD BOYD Facility:[facility] Start: 04-02-2023 Telephone encounter David vega MANAGER OF SALES.PIZZA MAKER Work Phone: Endocrinology Comment on above: [employer] ([employer]) Start: 04-01-2023 Telephone encounter Clara Escobar MD Work Phone: Endocrinology Comment on above: Diabetic Eye Exam ([facility]) Start: 03-12-2023 Refill Clara Escobar MD Work Phone: Endocrinology Comment on above: Refill Request Start: 03-08-2023 Telephone encounter David vega APRN.PIZZA MAKER Work Phone: Endocrinology Comment on above: [place] BMV Form (Drivi ng form ) Start: 03-05-2023 Telephone encounter David vega MANAGER OF SALES.PIZZA MAKER Work Phone: Endocrinology Comment on above: [employer] Form (Senso rs and Transmitter([employer])) Start: 10-18-2022 Telephone encounter Adalid sorto MD Work Phone: Pain Management Comment on above: Future Appointment ( Left Voice Mail) Start: 10-12-2022 Refill David arndt MANAGER OF SALES.PIZZA MAKER Work Phone: Endocrinology Comment on above: Refill Request Start: 07-18-2022 Refill Clara Escobar MD Work Phone: Endocrinology Comment on above: Refill Request Start: 06-18-2022 Refill David arndt MANAGER OF SALES.PIZZA MAKER Work Phone: Endocrinology Comment on above: Refill Request Start: 06-18-2022 Refill Clara Escobar MD Work Phone: Endocrinology Comment on above: Refill Request Start: 06-15-2022 End: 06-15-2022 Patient encounter procedure David Saha MANAGER OF SALES.PIZZA MAKER Work Phone: Endocrinology Comment on above: Type 2 diabetes trang itus with microalbuminuria, with long-term current use of insulin (HCC) (Primary Dx); Essential hypertension; Mixed hyperlipidemia Start: 05-18-2022 Refill Clara Escobar MD Work Phone: Endocrinology Comment on above: Refill Request Start: 05-14-2022 Telephone encounter Clara Escobar MD Work Phone: Endocrinology Comment on above: Medication Problem ( Change in medications as of per insurance) Start: 04-25-2022 Refill Clara Escobar MD Work Phone: Endocrinology Comment on above: Refill Request Start: 04-03-2022 Telephone encounter Clara Escobar MD Work Phone: Endocrinology Comment on above: [employer] Form (CGM-T ranRent My Itemsitter) Start: 03-29-2022 Telephone encounter Clara Escobar MD Work Phone: Endocrinology Comment on above: [employer] Form (CGM-S [email or web address]) Start: 03-26-2022 Telephone encounter Clara Escobar MD Work Phone: Endocrinology Comment on above: Forms Start: 03-23-2022 Telephone encounter Clara Escobar MD Work Phone: Endocrinology Comment on above: Insulin-Traeted Diab etes Mellitus Assessment Form ([place] Department of Transportation) Start: 03-20-2022 Refill Clara Escobar MD Work Phone: Endocrinology Comment on above: Refill Request Start: 02-20-2022 End: 02-20-2022 ambulatory Ad Boyd [facility] Work Phone: Start: 02-20-2022 End: 02-20-2022 Discharged Recurring [facility]-Physical Therapy Start: 02-15-2022 End: 02-15-2022 Patient encounter procedure Vanessa Dominguez DO Work Phone: Orthopaedics Comment on above: Chronic left shoulde r pain (Primary Dx); Complete tear of left rotator cuff, unspecified whether traumatic Start: 12-16-2021 Refill Clara Escobar MD Work Phone: Endocrinology Comment on above: Refill Request Start: 12-14-2021 End: 12-14-2021 Patient encounter procedure Vanessa Dominguez DO Work Phone: Orthopaedics Comment on above: Complete tear of lef t rotator cuff, unspecified whether traumatic (Primary Dx); S/P shoulder surgery; Bursitis of left shoulder; S/P rotator cuff surgery Start: 10-25-2021 End: 10-25-2021 Patient encounter procedure Vanessa Dominguez DO Work Phone: Orthopaedics Comment on above: Complete tear of lef t rotator cuff, unspecified whether traumatic (Primary Dx); S/P shoulder surgery Start: 10-05-2021 Telephone encounter David vega APRN.PIZZA MAKER Work Phone: Endocrinology Comment on above: Insurance Authorizat ion ([employer]) Start: 10-05-2021 End: 10-05-2021 Patient encounter procedure David Saha APRN.PIZZA MAKER Work Phone: Endocrinology Comment on above: Controlled type 2 di abetes mellitus without complication, with long-term current use of insulin (HCC) (Primary Dx); Essential hypertension; Mixed hyperlipidemia Start: 09-13-2021 End: 09-13-2021 Patient encounter procedure Vanessa Dominguez DO Work Phone: Orthopaedics Comment on above: Complete tear of lef t rotator cuff, unspecified whether traumatic (Primary Dx); Bursitis of left shoulder; S/P rotator cuff surgery Start: 08-17-2021 Refill Clara Escobar MD Work Phone: Endocrinology Comment on above: Refill Request Start: 08-16-2021 End: 08-16-2021 Patient encounter procedure Juancarlos Mcclure PA-C Work Phone: Orthopaedics Comment on above: S/P rotator cuff yolie bakari (Primary Dx); Chronic left shoulder pain; Complete tear of left rotator cuff, unspecified whether traumatic; Tendinitis of left shoulder Start: 08-14-2021 Refill Clara Escobar MD Work Phone: Endocrinology Comment on above: Refill Request Start: 07-25-2021 End: 07-25-2021 Admission to [place] [id number] Work Phone: [facility] Start: 07-25-2021 End: 07-25-2021 ambulatory [place] [address] Work Phone: Pre Anesthesia Comment on above: Preoperative examina tion (Primary Dx); Complete tear of left rotator cuff, unspecified whether traumatic; Bursitis of left shoulder; Tendinitis of left shoulder; Mixed hyperlipidemia; Primary hypertension; Uncontrolled type 2 diabetes mellitus with hyperglycemia (HCC) Start: 07-25-2021 End: 07-25-2021 Preprocedural examination done [place] [address] Work Phone: Pre Anesthesia Start: 07-18-2021 Orders Only Vanessa devries DO Work Phone: Orthopaedics Comment on above: Complete tear of lef t rotator cuff, unspecified whether traumatic (Primary Dx); Bursitis of left shoulder; Tendinitis of left shoulder Procedures Date Procedure Procedure Detail Performing Clinician Start: 01-15-2024 Hemoglobin A1c/Hemoglobin.total in Blood Daivd Saha APRN.CNP Work Phone: Start: 09-12-2023 Hemoglobin A1c/Hemoglobin.total in Blood Clara Escobar MD Work Phone: Start: 08-19-2023 Radex foot complete minimum 3 views Britney M Chris MANAGER OF SALES.PIZZA MAKER Work Phone: Start: 06-15-2022 Hemoglobin A1c/Hemoglobin.total in Blood Davidaudrey Saha MANAGER OF SALES.PIZZA MAKER Work Phone: Start: 02-27-2021 Adult depression screening assessment Vanessa Dominguez DO Work Phone: Start: 03-08-2014 Colonoscopy Vanessa Dominguez DO Work Phone: History of repair of musculotendinous cuff of shoulder S/P rotator cuff surgery Juancarlos Mcclure PA-C Work Phone: History of repair of musculotendinous cuff of shoulder S/P rotator cuff surgery Vanessa Dominguez DO Work Phone: History of repair of musculotendinous cuff of shoulder S/P rotator cuff surgery Vanessa Dominguez DO Work Phone: History of repair of musculotendinous cuff of shoulder Status post rotator cuff repair Plan of Treatment Date Care Activity Detail Author Start: 03-20-2029 Prostate specific antigen measurement Prostate Cancer Screening Discussion [facility] Start: 02-10-2026 PROSTATE CANCER SCREENING DISCUSSION PROSTATE CANCER SCREENING DISCUSSION [facility] Start: 02-10-2026 Prostate specific antigen measurement Prostate Cancer Screening Discussion [facility] Start: 09-23-2025 Hepatitis B screening Urine Albumin:Creatinine Ratio [facility] Start: 09-23-2025 Hepatitis B surface antibody level LDL Cholesterol [facility] Start: 04-01-2025 End: 04-01-2025 Patient encounter procedure 04/01/2025 8:40 AM EST Office Visit Endocrinology [address] [address] Clara Escobar MD [address] [address] Diabetes Endocrinology Comment on above: Diabetes Start: 03-27-2025 Glaucoma screening Dilated Retinal E xam [facility] Start: 03-25-2025 Hemoglobin A1c measurement HbA1C [facility] Start: 03-20-2025 Hepatitis B screening Urine Albumin:Creatinine Ratio [facility] Start: 03-20-2025 Hepatitis B surface antibody level LDL Cholesterol [facility] Start: 01-14-2025 Diabetic foot examination Diabetic Foot Exam [facility] Start: 12-21-2024 Influenza vaccination Influenz a Vaccine (Season Ended) [facility] Start: 11-11-2024 End: 11-11-2024 Patient encounter procedure 11/11/2024 3:00 PM EDT Office Visit Orthopaedics [address] [address] Vanessa Dominguez DO [address] [place] [address] right knee pain. Orthopaedics Comment on above: right knee pain. Start: 10-19-2024 Influenza vaccination Influenza Vacc ine (#1) [facility] Comment on above: Postponed from 12/21 (Declined at this time) Start: 09-24-2024 End: 09-24-2024 Patient encounter procedure 09/24/2024 8:30 AM EDT Office Visit Endocrinology [address] [address] David Saha APRN.PIZZA MAKER [address] [address] follow up Endocrinology Comment on above: follow up Start: 09-23-2024 End: 12-23-2024 25-hydroxyvitamin D3 [Mass/volume] in Serum or Plasma [facility] Comment on above: Expected: 09/23/2024 , Expires: 12/23/2024 Start: 09-23-2024 End: 12-23-2024 Cobalamin (Vitamin B12) [Mass/volume] in Serum or Plasma [facility] Comment on above: Expected: 09/23/2024 , Expires: 12/23/2024 Start: 09-23-2024 End: 12-23-2024 [address] A1c in Blood [facility] Comment on above: Expected: 09/23/2024 , Expires: 12/23/2024 Start: 09-23-2024 End: 12-23-2024 LIPID PANEL, NONFASTING [facility] Work Phone: Comment on above: Expected: 09/23/2024 , Expires: 12/23/2024 Start: 09-23-2024 End: 12-23-2024 Microalbumin/Creatinine [Mass Ratio] in Urine [facility] Comment on above: Expected: 09/23/2024 , Expires: 12/23/2024 Start: 09-23-2024 End: 12-23-2024 Thyrotropin [Units/volume] in Serum or Plasma [facility] Comment on above: Expected: 09/23/2024 , Expires: 12/23/2024 Start: 09-23-2024 End: 09-23-2024 Patient encounter procedure 09/23/2024 7:15 AM EDT Office Visit Endocrinology [address] [place] [address] Monserrat Thornton APRN.PIZZA MAKER [address] [place] [address] diabetes, patient of Dr Escobar Endocrinology Comment on above: diabetes, patient of Dr Escobar Start: 09-17-2024 Hemoglobin A1c measurement HbA1C 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 Start: 07-14-2024 Hemoglobin A1c measurement HbA1C [facility] Start: 04-12-2024 BP Controlled (<130/80) BP Controlle d (<130/80) [facility] Start: 04-05-2024 Hepatitis B screening Urine Albumin:Creatinine Ratio [facility] Start: 04-05-2024 Hepatitis B surface antibody level LDL Cholesterol [facility] Start: 03-29-2024 Glaucoma screening Dilated Retinal E xam [facility] Start: 03-29-2024 Hepatitis C antibody , confirmatory test Dilated Retinal Exam [facility] Start: 03-26-2024 End: 03-26-2024 Patient encounter procedure 03/26/2024 8:40 AM EST Office Visit Endocrinology [address] [id number] Clara Escobar MD [address] [id number] followup Endocrinology Comment on above: followup Start: 03-19-2024 End: 06-18-2024 CBC panel - Blood by Automated count COMPLETE BLOOD COUNT Lab Routine Type 2 diabetes mellitus with microalbuminuria, with long-term current use of insulin (HCC) Expected: 03/19/2024 (Approximate), Expires: 06/18/2024 [facility] Comment on above: Expected: 03/19/2024 (Approximate), Expires: 06/18/2024 Start: 03-19-2024 End: 06-18-2024 Comprehensive metabolic 2000 panel - Serum or Plasma COMPREHENSIVE METABOLIC PANEL Lab Routine Type 2 diabetes mellitus with microalbuminuria, with long-term current use of insulin (HCC) Expected: 03/19/2024 (Approximate), Expires: 06/18/2024 [facility] Work Phone: Comment on above: Expected: 03/19/2024 (Approximate), Expires: 06/18/2024 Start: 03-19-2024 End: 06-18-2024 Hemoglobin A1c in Blood HEMOGLOBIN A1C Lab Routine Type 2 diabetes mellitus with microalbuminuria, with long-term current use of insulin (HCC) Expected: 03/19/2024 (Approximate), Expires: 06/18/2024 [facility] Comment on above: Expected: 03/19/2024 (Approximate), Expires: 06/18/2024 Start: 03-19-2024 End: 06-18-2024 Lipid 1996 panel - Serum or Plasma LIPID PANEL BASIC Lab Routine Type 2 diabetes mellitus with microalbuminuria, with long-term current use of insulin (HCC) Mixed hyperlipidemia Expected: 03/19/2024 (Approximate), Expires: 06/18/2024 [facility] Comment on above: Expected: 03/19/2024 (Approximate), Expires: 06/18/2024 Start: 03-19-2024 End: 06-18-2024 Microalbumin/Creatinine [Mass Ratio] in Urine ALBUMIN/CREATININE RATIO, URINE Lab Routine Type 2 diabetes mellitus with microalbuminuria, with long-term current use of insulin (HCC) Expected: 03/19/2024 (Approximate), Expires: 06/18/2024 [facility] Comment on above: Expected: 03/19/2024 (Approximate), Expires: 06/18/2024 Start: 03-19-2024 End: 06-18-2024 PSA/PROSTATE SPECIFIC ANTIGEN SCREENING PSA/PROSTATE SPECIFIC ANTIGEN SCREENING Lab Routine Encounter for screening for malignant neoplasm of prostate Expected: 03/19/2024 (Approximate), Expires: 06/18/2024 [facility] Comment on above: Expected: 03/19/2024 (Approximate), Expires: 06/18/2024 Start: 03-14-2024 Hemoglobin A1c measurement HbA1C [facility] Start: 02-12-2024 End: 02-12-2024 ambulatory 02/12/2024 3:30 PM EDT Education Diabetic Education [facility] [address] [address] Type 2 diabetes mellitus with microalbuminuria, with long-term current use of in... Diabetic Education [facility] Comment on above: Type 2 diabetes trang itus with microalbuminuria, with long-term current use of in... Start: 01-19-2024 3 comp foot exam completed Diabetic Foot Exam [facility] Start: 01-19-2024 BP Controlled (<130/80) BP Controlle d (<130/80) [facility] Start: 01-19-2024 Diabetic foot examination Diabetic Foot Exam [facility] Start: 01-15-2024 End: 01-15-2024 Patient encounter procedure 01/15/2024 8:00 AM EDT Office Visit Endocrinology [address] [address] David Saha APRN.PIZZA MAKER [address] [address] followup Endocrinology Comment on above: followup Start: 12-22-2023 Covid-19 Vaccine ( season) Covid-19 Vaccine () [facility] Start: 12-22-2023 Covid-19 Vaccine ( season) Covid-19 Vaccine ( season) [facility] Start: 12-22-2023 Influenza vaccination [facility] Start: 10-20-2023 Influenza vaccination Influenza Vacc ine (#1) [facility] Comment on above: Postponed from 12/21 (Declined at this time) Start: 10-05-2023 Hemoglobin A1c measurement HbA1C [facility] Start: 09-12-2023 End: 09-12-2023 Patient encounter procedure 09/12/2023 8:40 AM EDT Office Visit Endocrinology [address] [phone] Clara Escobar MD [address] [address] follow up Endocrinology Comment on above: follow up Start: 09-11-2023 End: 09-11-2023 Patient encounter procedure 09/11/2023 6:20 PM EDT Office Visit Internal Medicine [place] [address] [place] [address] Britney Perez, MANAGER OF SALES.PIZZA MAKER [address] [place] [address] physical Internal Medicine [place] Comment on above: physical Start: 08-29-2023 End: 08-29-2023 Patient encounter procedure 08/29/2023 3:15 PM EDT Office Visit Podiatry [address] [place] [address] Bigg Cutler [address] [place] [address] diabetic foot exam Podiatry Comment on above: diabetic foot exam Start: 08-19-2023 End: 08-19-2023 Patient encounter procedure 08/19/2023 2:40 PM EDT Office Visit Internal Medicine [place] [address] [place] [address] Britney Perez, MANAGER OF SALES.PIZZA MAKER [address] [place] [address] dm issues Internal Medicine [place] Comment on above: dm issues Start: 2023 RSV Vaccine (1 - 1-d ose 60+ series) RSV Vaccine (1 - 1-dose 60+ series) [facility] Start: 2023 RSV Vaccine (1 - Ris k 60-74 years 1-dose series) RSV Vaccine (1 - Risk 60-74 years 1-dose series) [facility] Start: 05-12-2023 Hemoglobin A1c measurement HbA1C [facility] Start: 05-12-2023 Hemoglobin A1c/Hemoglobin.total in Blood HbA1C [facility] Start: 04-22-2023 Behavioral Health Screening Behavioral Health Screening [facility] Start: 04-22-2023 Depression Assessment Depression Ass essment [facility] Start: 12-21-2022 Covid-19 Vaccine ( season) Covid-19 Vaccine ( season) [facility] Start: 12-21-2022 Influenza vaccination INFLUENZ A (Season Ended) [facility] Start: 12-13-2022 Hemoglobin A1c/Hemoglobin.total in Blood HBA1C [facility] Start: 09-06-2022 End: 11-06-2022 ALBUMIN/CREAT RATIO RND UR ALBUMIN/CREAT RATIO RND UR Lab Routine Type 2 diabetes mellitus with microalbuminuria, with long-term current use of insulin (HCC) Expected: 09/06/2022 (Approximate), Expires: 11/06/2022 [facility] Work Phone: Comment on above: Expected: 09/06/2022 (Approximate), Expires: 11/06/2022 Start: 09-06-2022 End: 11-06-2022 Comprehensive metabolic 2000 panel - Serum or Plasma COMP METABOLIC PANEL Lab Routine Type 2 diabetes mellitus with microalbuminuria, with long-term current use of insulin (HCC) Expected: 09/06/2022 (Approximate), Expires: 11/06/2022 [facility] Work Phone: Comment on above: Expected: 09/06/2022 (Approximate), Expires: 11/06/2022 Start: 09-06-2022 End: 11-06-2022 Hemoglobin A1c in Blood HGB A1C Lab Routine Type 2 diabetes mellitus with microalbuminuria, with long-term current use of insulin (HCC) Expected: 09/06/2022 (Approximate), Expires: 11/06/2022 [facility] Work Phone: Comment on above: Expected: 09/06/2022 (Approximate), Expires: 11/06/2022 Start: 09-06-2022 End: 11-06-2022 Lipid 1996 panel - Serum or Plasma LIPID PANEL BASIC Lab Routine Type 2 diabetes mellitus with microalbuminuria, with long-term current use of insulin (HCC) Expected: 09/06/2022 (Approximate), Expires: 11/06/2022 [facility] Work Phone: Comment on above: Expected: 09/06/2022 (Approximate), Expires: 11/06/2022 Start: 07-25-2022 Hepatitis B screening URINE ALBUMIN:CREATININE RATIO [facility] Start: 07-25-2022 Hepatitis B surface antibody level LDL CHOLESTEROL [facility] Start: 06-13-2022 Hemoglobin A1c/Hemoglobin.total in Blood HBA1C [facility] Start: 04-22-2022 DEPRESSION ASSESSMENT DEPRESSION ASS ESSMENT [facility] Start: 02-27-2022 Adult depression screening assessment DEPRESSION SCREENING 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 Start: 02-27-2022 BP CONTROLLED (<130/80) BP CONTROLLE D (<130/80) [facility] Start: 02-21-2022 Hepatitis C antibody , confirmatory test DILATED RETINAL EXAM [facility] Start: 02-10-2022 Hepatitis B screening URINE ALBUMIN:CREATININE RATIO [facility] Start: 01-24-2022 Hemoglobin A1c/Hemoglobin.total in Blood HBA1C [facility] Start: 12-21-2021 Influenza vaccination C [facility] Start: 11-25-2021 3 comp foot exam completed DIABETIC FOOT EXAM [facility] Start: 11-25-2021 COVID-19 VACCINE (#1) COVID-19 VACCI NE (#1) [facility] Comment on above: Postponed from 06/17 (Declined at this time) Postponed from 12/15 (Declined at this time) Start: 11-25-2021 COVID-19 VACCINE (1) COVID-19 VACCIN E (1) [facility] Comment on above: Postponed from 06/17 (Declined at this time) Start: 10-19-2021 Influenza vaccination INFLUENZA (#1) [facility] Comment on above: Postponed from 12/21 (Declined at this time) Start: 08-23-2021 Hemoglobin A1c/Hemoglobin.total in Blood HBA1C [facility] Start: 05-05-2021 Hepatitis B surface antibody level LDL CHOLESTEROL [facility] Start: 04-22-2021 DEPRESSION ASSESSMENT DEPRESSION ASS ESSMENT [facility] Start: 03-08-[address] [facility] Start: 03-08-2019 COLORECTAL CANCER SCREENING COLORECTAL CANCER SCREENING [facility] Start: 03-08-2019 Screening for malign ant neoplasm of colon [facility] Start: 07-24-[address] [facility] Start: 2013 SHINGRIX VACCINE (1 of 2) SHINGRIX VACCINE (1 of 2) [facility] Start: 2008 COLOGUARD (FIT-DNA) COLOGUARD (FIT-D NA) [facility] Start: [address] COLONOGRAPHY [facility] Start: 2008 FECAL OCCULT BLOOD FECAL OCCULT BLOO D [facility] Start: 2008 Screening for malign ant neoplasm of colon [facility] Start: 2008 SIGMOIDOSCOPY SIGMOIDOSCOPY [facility] Start: 1982 HEPATITIS B (1 of 3 - Risk 3-dose series) HEPATITIS B (1 of 3 - Risk 3-dose series) [facility] Start: 1982 Pneumococcal Vaccine : 50+ (1 of 2 - PCV) Pneumococcal Vaccine: 50+ (1 of 2 - PCV) [facility] Start: 1981 Anxiety Screening Anxiety Screening [facility] Start: 1981 BP CONTROLLED (<130/80) BP CONTROLLE D (<130/80) [facility] Start: 1981 Depression Screening Depression Scre ening [facility] Start: 1969 PNEUMOCOCCAL (1 - PCV) PNEUMOCOCCAL (1 - PCV) [facility] Start: [address] [facility] Start: 1963 COVID-19 VACCINE (#1) COVID-19 VACCI NE (#1) [facility] Start: 1963 HEPATITIS B (1 of 3 - 3-dose series) HEPATITIS B (1 of 3 - 3-dose series) [facility] End: 09-17-2024 XR Foot - right AP and Lateral and oblique XR FOOT GENERAL 3V AP/LAT/OBL RIGHT Radiology Routine Right foot pain 1 Occurrences starting 08/19/2023 until 09/17/2024 [facility] Work Phone: Comment on above: 1 Occurrences starti ng 08/19/2023 until 09/17/2024 XR Foot - right AP a nd Lateral and oblique XR FOOT GENERAL 3V AP/LAT/OBL RIGHT Radiology Routine Right foot pain 08/19/2023 3:03 PM EDT [facility] Immunizations Immunization Date Immunization Notes Care Provider Chau perales 06-05-2018 influenza virus vaccine, unspecified formulation David Saha MANAGER OF SALES.PIZZA MAKER Work Phone: [facility] 07-25-2007 tetanus toxoid, reduced diphtheria toxoid, and acellular pertussis vaccine, adsorbed Vanessa Chicorelli DO Work Phone: [facility] Work Phone: Payers Date Payer Category Payer Self-pay [id number] 2013 Private Health Insurance MMO SUP ERMED PPO Member Subscriber Plan / Payer (Effective 2013-Present) Name: Judie Corbett Relation to Subscriber: Self Name: Judie Corbett Payer ID: Not on file Type: PPO Address: [place] [address] [id number] 2013 Unknown MMO MMO SUPERMED PLUS [id number] 2013-Present [phone] [address] [place] [address] PPO [id number] 2013 Unknown [id number] 2013 Unknown [id number] Unknown [id number] Social History Date Type Detail Facility Start: 05-17-2014 End: 09-23-2024 Tobacco smoking status NHIS Never smoked tobacco [facility] Start: 05-17-2014 End: 09-23-2024 Tobacco use and exposure Smokeless tobacco non-user [facility] Start: 06-21-2021 End: 09-23-2024 Alcohol intake Current drinker of alcohol (finding) [facility] Start: 04-28-2007 History SDOH Alcohol Comment rare [address] [facility] Start: 1965 Sex Assigned At Not on file [facility] Start: 07-08-2021 End: 07-18-2021 Exposure to SARS-CoV-2 (event) Unable to assess [facility] Start: 07-25-2021 History SDOH Alcohol Comment Not weekly [facility] Start: 07-15-2021 End: 02-15-2022 Exposure to SARS-CoV-2 (event) Not sure [facility] Start: 04-05-2020 Tobacco smoking status NHIS Unknown if ever smoked [facility] Work Phone: Start: 03-14-2020 Non-smoker [facility] Work Phone: Start: 1965 Sex Assigned At Male W [facility] Work Phone: Start: 09-22-2022 End: 01-18-2023 History of Social function [facility] Work Phone: Start: 09-22-2022 End: 01-18-[address] [facility] Work Phone: Adult Depression Screening Assessment 0 [facility] Work Phone: Start: 09-23-2024 [facility] NEGATED: Highlighted rowStart: NINF History of tobacco use Passive smoker [facility] Medical Equipment Procedure Code Equipment Code Equipment Origin al Text Equipment Identifier Dates [id number], [id number], [id number] Start: 06-22-2015 End: 10-05-2021 Comment on above: CHECK BLOOD SUGARS 6 TIMES DAILY 1 Each as directed. Use 4 pen needles da rebecca Anchr Sut 4.75mm 2 Fibertak - [id number] Start: 08-01-2021 Anchr Sut 4.75mm 2 Fibertak - [id number] Start: 08-01-2021 Lnt Implant Syst em 4.75 Bc Swivelock [id number] Start: 08-01-2021 [place] Corkscrew Suturetape 5.5mm Full Thread 1.3mm Black Blue White - [id number] Start: 08-01-2021 ANCHOR,5.5MM BIO CORK 2 FDA Start: 03-23-2020 ANCHOR,5.5MM BIO CORK 2 FDA Start: 03-23-2020 FIBERTAPE FDA Start: 03-23-2020 FIBERTAPE FDA Start: 03-23-2020 KIT,PROX TENODESIS FDA Start: 03-23-2020 SWIVELOCK,4.75 DOUBLE LOCK FDA Start: 03-23-2020 SWIVELOCK,4.75 DOUBLE LOCK FDA Start: 03-23-2020 SWIVELOCK,4.75 DOUBLE LOCK FDA Start: 03-23-2020 SWIVELOCK,4.75 DOUBLE LOCK FDA Start: 03-23-2020 Functional Status Date Assessment Result Facility 11-23-2014 Are you deaf, or do you have serious difficulty hearing No 11/23/2014 8:01 AM Kalina Fenton Cma No [facility] 11-23-2014 Are you blind, or do you have serious difficulty seeing, even when wearing glasses No 11/23/2014 8:01 AM KAITLIN Laurent CmaKalina No [facility] 11-23-2014 Do you have serious difficulty walking or climbing stairs No 11/23/2014 8:01 AM KAITLIN Laurent CmaKalina No [facility] 11-23-2014 Do you have difficul ty dressing or bathing No 11/23/2014 8:01 AM KAITLIN Laurent [facility]maKalina No [facility] 11-23-2014 Because of a physica l, mental, or emotional condition, do you have difficulty doing errands alone such as visiting a physician's office or shopping No 11/23/2014 8:01 AM KAITLIN Laurent CmaKalina No [facility] Mental Status Date Assessment Result Facility 11-23-2014 Because of a physica l, mental, or emotional condition, do you have serious difficulty concentrating, remembering, or making decisions No 11/23/2014 8:01 AM KAITLIN Laurent CmaKalina Roman No [facility] Clinical Notes 09-19-2015 to 10-13-2024 Telephone Encounter - Elizabeth Reeves RN - 10/13/2024 11:41 AM EDTTelephone Encounter - Elizabeth Reeves RN - 10/13/2024 11:41 AM EDTPatient InstructionsPatient Instructions Note Date & Type Note Facility 10-13-2024 Miscellaneous Notes Patient is [facility] Please send. RAUL: 09/23/24--with Monserrat Thornton NOV: 04/01/25--with Dr. Escobar Thank you documented in this encounter [facility] 10-13-2024 Telephone encounter Note Patient is requesting [facility] Please send. RAUL: 09/23/24--with Monserrat Thornton NOV: 04/01/25--with Dr. Escobar Thank you [facility] 10-08-2024 Telephone encounter Note Prescription Refill Information The patient has been identified by name and date of : Yes Caregiver verified no other encounters exist for this prescription request: Yes Caregiver confirmed with patient/requestor that no other refills are due, in the near future, with this provider at this time: Yes The last office visit in the department: 03/26/2024 Does the patient have a future office visit with this provider/department: Yes Patient reports he is switching his prescriptions over to [facility]. He needs new Rx sent. Requested Prescriptions Pending Prescriptions Disp Refills hydroCHLOROthiazide 25 mg tablet 90 tablet 3 Sig: Take 1 tablet by mouth once daily. lisinopril (ZESTRIL) 40 mg tablet 90 tablet 3 Sig: Take 1 tablet by mouth once daily. Stacy Gonzales MA October 08, 2024 2:[address] [facility] 10-08-2024 Miscellaneous Notes Prescription Refill Information The patient has been identified by name and date of : Yes Caregiver verified no other encounters exist for this prescription request: Yes Caregiver confirmed with patient/requestor that no other refills are due, in the near future, with this provider at this time: Yes The last office visit in the department: 03/26/2024 Does the patient have a future office visit with this provider/department: Yes Patient reports he is switching his prescriptions over to [facility]. He needs new Rx sent. Requested Prescriptions Pending Prescriptions Disp Refills hydroCHLOROthiazide 25 mg tablet 90 tablet 3 Sig: Take 1 tablet by mouth once daily. lisinopril (ZESTRIL) 40 mg tablet 90 tablet 3 Sig: Take 1 tablet by mouth once daily. Stacy Gonzales MA October 08, 2024 2:21 PM documented in this encounter [facility] 09-23-2024 Telephone encounter Note OV notes from today's endocrinology visit faxed to [facility] for Pt's existing CGM order. Fax confirmation received. Reyna Granados RN September 23, 2024 8:[address] [facility] 09-23-2024 Miscellaneous Notes OV notes from today's endocrinology visit [facility] [place] [facility] [email or web address] for Pt's existing [place]GM order. Fax confirmation received. Reyna Granados RN September 23, 2024 8:43 AM documented in this encounter [facility] 09-23-2024 Instructions Monserrat Thornton APRN.PIZZA MAKER - 09/23/2024 7:46 AM EDT LANTUS Inject 60 units once daily HUMALOG Inject 12 units with breakfast PLUS SS#2 Inject 20 units with lunch PLUS SS#2 Inject 30 units with dinner PLUS SS#2 Sliding Scale Insulin Dosing Sliding Scale 2 (2 units for every 50 mg/dL > 150 mg/dL) SUPPLEMENTAL INSULIN If Blood Glucose (mg/dL) is < 150 Give 0 units 151-200 Give 2 units 201-250 Give 4 units 251-300 Give 6 units 301-350 Give 8 units 351-400 Give 10 units >400 Give 12 units, call physician if blood glucose does not improve. documented in this encounter [facility] 09-23-2024 Note HNO ID: [id number] Author: REYNA GRANADOS RN Service: ? Author Type: Registered Nurse Type: Progress Notes Filed: 09/23/2024 07:54 Note Text: [facility] 09-23-2024 History of Present illness Narrative Images from the original note were not included. Images from the original note were not included. OFFICE VISIT PROGRESS NOTE CC Judie Corbett is a 59 year old who presents today for blood sugar review, DM Med dose review, adjust. HPI PATIENT OF DR. 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 Escobar in [facility] Does not calibrate his DEXCOM States was really watching his diet, then 'fell off' Was eating differently intiially, tried for a little while, then 'hyun' I was hungry all the time I like to eat, portion control difficult Lost weight, 10 pounds, then regained I gotta get back on track Has arthritis in bilateral hands/knuckles Was previouly using a lot of tylenol Now started on voltaren Reports farxiga is no longer covered Did not tolerate GLP1 group due to muscle aches and fatigue CURRENT DM MEDS FARXIGA 10 mg daily HUMALOG 04-10-30 LANTUS 55 units daily METFORMIN 1000 BID SMBG Type of Monitor: Other DEXCOM (patient was not calibrating his DEXCOM) Frequency of Monitorin times a day BG Values: Hypoglycemia: no Diet: No specific diet regimen - 'got off track' Exercise: work only DM REVIEW OF SYSTEMS Last Eye Exam : 03/2024 Last Podiatry Exam: 12/2023 Cardiorespiratory: negative, denies chest pain, pressure Claudication: no Dyslipidemia: Yes, controlled on medication High Blood Pressure: Yes, controlled on medication CURRENT LABS LABS ORDERED, NOT COMPLETED BY PATIENT FOR OV HEMOGLOBIN A1C Component Ref Range & Units 6 mo ago (03/20/24) 1 yr ago (04/05/23) 3 yr ago (07/25/21) 4 yr ago (05/05/20) 8 yr ago (03/19/16) 8 yr ago (10/12/15) 9 yr ago (06/22/15) Hemoglobin A1C 4.3 - 5.6 % 7.0 High 7.2 High CM 7.6 High C Recent Labs 07/25/21 0932 1137 09/21/2228 11/09/2243 04/05/2370209/12/2383101/15/2475403/20/24 08 ALT -- -- 21 -- 18 -- -- 20 AST -- -- 23 -- 21 -- -- 27 UCRR 92.7 -- -- -- 88.3 -- -- 85.0 UALBR 21.7 -- -- -- 30.4 -- -- 22.3 UALBCR 23 -- -- -- 34* -- -- 26 TSH -- -- -- -- 1.450 -- -- -- TPROT -- -- 7.5 -- 7.2 -- -- 7.1 ALB -- -- 4.5 -- 4.5 -- -- 4.4 CA -- -- 9.9 -- 9.7 -- -- 9.2 TBILI -- -- 0.3 -- 0.3 -- -- 0.3 ALKPHOS -- -- 65 -- 60 -- -- 54 GLUC -- -- 121* -- 83 -- -- 92 BUN -- -- 23 -- 31* -- -- 30* CREAT -- -- 1.11 -- 1.13 -- -- 1.18 NA -- -- 139 -- 140 -- -- 141 K -- -- 4.6 -- 4.4 -- -- 4.3 CHLOR -- -- 104 -- 104 -- -- 105 CO2 -- -- 21* -- 26 -- -- 24 ANION -- -- 14 -- 10 -- -- 12 EGFROTH -- -- 76 -- 75 -- -- 71 HBA1C -- < > -- < > 7.2* 7.7* 7.3* 7.0* < > = values in this interval not displayed. Recent Labs 07/25/2191203/13/2293604/05/2370209/12/2332 01/15/2475403/20/24806 TG 315* -- 343* -- -- 211* CHOL 147 -- 150 -- -- 154 HDL 34* -- 33* -- -- 36* VLDL 63* -- 69* -- -- 42* LDL 50 -- 48 -- -- 76 FASTTIME 2 -- 12 -- -- 12 TCHDL 4.32 -- 4.55 -- -- 4.28 LDLHDL 1.47 -- 1.45 -- -- 2.11 NONHDL 113 -- 117 -- -- 118 HBA1C 7.6* < > 7.2* 7.7* 7.3* 7.0* HBA0 171 -- 160 -- -- 154 < > = values in this interval not displayed. PAST MEDICAL HISTORY Diagnosis Date Carpal tunnel syndrome, bilateral 2018 DM w/o complication type II, uncontrolled 08/21/2011 Macular degeneration 06/11/2013 Nontraumatic complete tear of right rotator cuff 2019 Other and unspecified hyperlipidemia 04/28/2007 Proteinuria 11/21/2010 Snoring Type II or unspecified type diabetes mellitus without mention of complication, not stated as uncontrolled 04/28/2007 Unspecified essential hypertension 04/28/2007 PAST SURGICAL HISTORY Procedure Laterality Date ARTHROSC SH TENODESIS BICEPS Right 03/23/2020 COLONOSCOPY FLX DX W/COLLJ SPEC WHEN PFRMD 03/08/2014 HAND SURGERY HX Right 1979 Tendon repair REVISE MEDIAN N/CARPAL TUNNEL SURG Left 11/19/2018 REVISE MEDIAN N/CARPAL TUNNEL SURG Right 03/23/2020 ROTATOR CUFF REPAIR Right 03/23/2020 FAMILY HISTORY Problem Relation Age of Onset Diabetes Mother Stroke Mother Cancer Mother kidney Coronary Artery Disease Mother Kidney Disease Father declined dialysis Hypertension Father Coronary Artery Disease Father Emphysema Father No Known Problems Sister No Known Problems Sister Social History Tobacco Use Smoking status: Never Smokeless tobacco: Never Vaping Use Vaping status: Never Used Substance Use Topics Alcohol use: Yes Comment: Not weekly Drug use: No Current Outpatient Medications Medication Sig hydroCHLOROthiazide 25 mg tablet TAKE 1 TABLET BY MOUTH ONCE DAILY lisinopril (ZESTRIL) 40 mg tablet TAKE 1 TABLET BY MOUTH ONCE DAILY verapamil SR (CALAN SR) 240 mg CR tablet take 1 tablet by mouth daily at bedtime fenofibrate (LOFIBRA) 200 mg capsule TAKE 1 CAPSULE BY MOUTH DAILY insulin glargine (LANTUS U-100 INSULIN) 100 unit/mL injection Inject 55 Units subcutaneously daily at bedtime. glucagon (BAQSIMI) 3 mg/actuation nasal spray Use 1 Beeson in the nose as needed. May repeat after 15 minutes using a new device if there is no response. HUMALOG KWIKPEN INSULIN 100 unit/mL INJECT 12 UNTS SUBCUTANEOUSLY BEFORE BREAKFAST, 20 UNITS BEFORE lunch and 30 UNITS FARXIGA 10 mg tablet Take 1 tablet by mouth daily with breakfast. metFORMIN (GLUCOPHAGE) 1,000 mg tablet take 1 tablet by mouth twice daily atorvastatin (LIPITOR) 40 mg tablet take 1 tablet by mouth once daily Blood-Glucose Sensor (DEXCOM G6 SENSOR) ana Use as directed; IDDM, E 11.9 Blood-Glucose Meter,Continuous (DEXCOM G6 MIXING ENGINEER) misc Use as directed, IDDM, E11.9 Blood-Glucose Transmitter (DEXCOM G6 TRANSMITTER) ana Use as directed, IDDM, E 11.9 insulin needles, DISPOSABLE, (BD INSULIN PEN NEEDLE UF) 31 gauge x 5/16 Use 4 pen needles daily Vit A,C and U-Xcdujs-Thmsurls (OCUVITE WITH LUTEIN) 1,000 unit-200 mg-60 unit-2 mg tab Take 1 tablet by mouth once daily. aspirin(ECOTRIN LOW STRENGTH 81 MG TAB) Take one(1) tablet daily. No current facility-administered medications for this visit. ALLERGIES Allergen Reactions Ozempic [Semaglutid* Intolerance REVIEW OF SYSTEMS - POSITIVES IN BOLD GENERAL:No weight loss, malaise or fevers HEENT:Negative for frequent or significant headaches, No changes in hearing or vision, no nose bleeds or other nasal problems NECK:Negative for lumps, goiter, pain and significant neck swelling RESPIRATORY: Negative for cough, hemoptysis, wheezing, COPD, dyspnea or shortness of breath CARDIOVASCULAR: Negative for chest pain, leg swelling, hypertension, CHF or palpitations PHYSICAL EXAMINATION: BP 140/88 (BP Site: Right Arm, BP Position: Sitting, BP Cuff Size: Large Adult) Pulse 69 Resp 19 Ht 177.8 cm (5' 10) Wt 92.1 kg (203 lb) SpO2 96% BMI 29.13 kg/m GENERAL: alert and appropriate, in no distress and well-hydrated, well nourished SKIN: no rash noted HEAD: normocephalic, no abnormality or lesion noted EYES: pupil sizes are equal NECK: no self-reported cervical adenopathy ACANTHOSIS: none noted EXTREMITIES: no edema NEUROLOGIC: no self-reported sensory deficits ASSESSMENT/PLAN (E11.9, Z79.4) Controlled type 2 diabetes mellitus without complication, with long-term current use of insulin ([facility]) (primary encounter diagnosis) Comment: CGM DOWNLOADED AND REVIEWED FOR OV RECOMMENDATIONS PER REVIEW FOLLOWS: Patient is compliant with CGM use and is benefiting from sensor use. No changes to farxiga or metformin ADDING SS#2 to current insulin dosing for prandial LANTUS Inject 60 units once daily HUMALOG Inject 12 units with breakfast PLUS SS#2 Inject 20 units with lunch PLUS SS#2 Inject 30 units with dinner PLUS SS#2 Sliding Scale Insulin Dosing Sliding Scale 2 (2 units for every 50 mg/dL > 150 mg/dL) PRE MEAL BLOOD SUGAR SUPPLEMENTAL INSULIN If Blood Glucose (mg/dL) is < 150 Give 0 units 151-200 Give 2 units 201-250 Give 4 units 251-300 Give 6 units 301-350 Give 8 units 351-400 Give 10 units >400 Give 12 units, call physician if blood glucose does not improve. Recommended diet: Low carbohydrate and Low saturated fat, low simple sugar, high fiber diet Exercise minimally 150 minutes per week, increase as tolerated. Adequate hydration - 1/2 body wgt in oz of water daily, unless fluid restriction applies. I instructed the patient to monitor blood sugars 4 times per day If blood sugars are persistently high or low, to call our office. Patient to continue to follow up with his PCP and with other consultants regarding his other medical problems. Plan: COMPREHENSIVE METABOLIC PANEL, LIPID PANEL, NONFASTING, ALBUMIN/CREATININE RATIO, URINE, HEMOGLOBIN A1C Monserrat Thornton CNP documented in this encounter [facility] 09-23-2024 Note HNO ID: [id number] Author: MONSERRAT THORNTON APRN.TRINA Service: ? Author Type: Nurse Practitioner Type: Progress Notes Filed: 09/23/2024 07:54 Note Text: OFFICE VISIT PROGRESS NOTE CC Judie Corbett is a 59 year old who presents today for blood sugar review, DM Med dose review, adjust. HPI PATIENT OF DR. 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 Escobar in [facility] Does not calibrate his DEXCOM States was really watching his diet, then 'fell off' Was eating differently intiially, tried for a little while, then 'hyun' I was hungry all the time I like to eat, portion control difficult Lost weight, 10 pounds, then regained I gotta get back on track Has arthritis in bilateral hands/knuckles Was previouly using a lot of tylenol Now started on voltaren Reports farxiga is no longer covered Did not tolerate GLP1 group due to muscle aches and fatigue CURRENT DM MEDS FARXIGA 10 mg daily HUMALOG 04-10-30 LANTUS 55 units daily METFORMIN 1000 BID SMBG Type of Monitor: Other DEXCOM (patient was not calibrating his DEXCOM) Frequency of Monitorin times a day BG Values: Hypoglycemia: no Diet: No specific diet regimen - 'got off track' Exercise: work only DM REVIEW OF SYSTEMS Last Eye Exam : 03/2024 Last Podiatry Exam: 12/2023 Cardiorespiratory: negative, denies chest pain, pressure Claudication: no Dyslipidemia: Yes, controlled on medication High Blood Pressure: Yes, controlled on medication CURRENT LABS LABS ORDERED, NOT COMPLETED BY PATIENT FOR OV HEMOGLOBIN A1C Component Ref Range AND Units 6 mo ago (03/20/24) 1 yr ago (04/05/23) 3 yr ago (07/25/21) 4 yr ago (05/05/20) 8 yr ago (03/19/16) 8 yr ago (10/12/15) 9 yr ago (06/22/15) Hemoglobin A1C 4.3 - 5.6 % 7.0 High 7.2 High CM 7.6 High C Recent Labs 07/25/21 0932 03/13/22 0937 09/21/22 0928 11/09/22 0843 04/05/23 0703 09/12/23 0832 01/15/24 0755 03/20/24 0807 ALT -- -- 21 -- 18 -- -- 20 AST -- -- 23 -- 21 -- -- 27 UCRR 92.7 -- -- -- 88.3 -- -- 85.0 UALBR 21.7 -- -- -- 30.4 -- -- 22.3 UALBCR 23 -- -- -- 34* -- -- 26 TSH -- -- -- -- 1.450 -- -- -- TPROT -- -- 7.5 -- 7.2 -- -- 7.1 ALB -- -- 4.5 -- 4.5 -- -- 4.4 CA -- -- 9.9 -- 9.7 -- -- 9.2 TBILI -- -- 0.3 -- 0.3 -- -- 0.3 ALKPHOS -- -- 65 -- 60 -- -- 54 GLUC -- -- 121* -- 83 -- -- 92 BUN -- -- 23 -- 31* -- -- 30* CREAT -- -- 1.11 -- 1.13 -- -- 1.18 NA -- -- 139 -- 140 -- -- 141 K -- -- 4.6 -- 4.4 -- -- 4.3 CHLOR -- -- 104 -- 104 -- -- 105 CO2 -- -- 21* -- 26 -- -- 24 ANION -- -- 14 -- 10 -- -- 12 EGFROTH -- -- 76 -- 75 -- -- 71 HBA1C -- < > -- < > 7.2* 7.7* 7.3* 7.0* < > = values in this interval not displayed. Recent Labs 07/25/21 0913 03/13/22 0937 04/05/23 0703 09/12/23 0832 01/15/24 0755 03/20/24 0807 TG 315* -- 343* -- -- 211* CHOL 147 -- 150 -- -- 154 HDL 34* -- 33* -- -- 36* VLDL 63* -- 69* -- -- 42* LDL 50 -- 48 -- -- 76 FASTTIME 2 -- 12 -- -- 12 TCHDL 4.32 -- 4.55 -- -- 4.28 LDLHDL 1.47 -- 1.45 -- -- 2.11 NONHDL 113 -- 117 -- -- 118 HBA1C 7.6* < > 7.2* 7.7* 7.3* 7.0* HBA0 171 -- 160 -- -- 154 < > = values in this interval not displayed. PAST MEDICAL HISTORY Diagnosis Date Carpal tunnel syndrome, bilateral 2018 DM w/o complication type II, uncontrolled 08/21/2011 Macular degeneration 06/11/2013 Nontraumatic complete tear of right rotator cuff 2019 Other and unspecified hyperlipidemia 04/28/2007 Proteinuria 11/21/2010 Snoring Type II or unspecified type diabetes mellitus without mention of complication, not stated as uncontrolled 04/28/2007 Unspecified essential hypertension 04/28/2007 PAST SURGICAL HISTORY Procedure Laterality Date ARTHROSC SH TENODESIS BICEPS Right 03/23/2020 COLONOSCOPY FLX DX W/COLLJ SPEC WHEN PFRMD 03/08/2014 HAND SURGERY HX Right 1979 Tendon repair REVISE MEDIAN N/CARPAL TUNNEL SURG Left 11/19/2018 REVISE MEDIAN N/CARPAL TUNNEL SURG Right 03/23/2020 ROTATOR CUFF REPAIR Right 03/23/2020 FAMILY HISTORY Problem Relation Age of Onset Diabetes Mother Stroke Mother Cancer Mother kidney Coronary Artery Disease Mother Kidney Disease Father declined dialysis Hypertension Father Coronary Artery Disease Father Emphysema Father No Known Problems Sister No Known Problems Sister Social History Tobacco Use Smoking status: Never Smokeless tobacco: Never Vaping Use Vaping status: Never Used Substance Use Topics Alcohol use: Yes Comment: Not weekly Drug use: No Current Outpatient Medications Medication Sig hydroCHLOROthiazide 25 mg tablet TAKE 1 TABLET BY MOUTH ONCE DAILY lisinopril (ZESTRIL) 40 mg (more content not included)... [facility] 09-22-2024 Telephone encounter Note Patient called back and left a VM on the nurse line stating he did want his medications sent to [facility]. RX's attached. RAUL: 03/26/24--Dr. Escobar NOV: 09/23/24--Lucina Thornton [facility] 09-22-2024 Miscellaneous Notes Patient called back and left a VM on the nurse line stating he did want his medications sent to [facility]. RX's attached. RAUL: 03/26/24--Dr. Escobar NOV: 09/23/24--Lucina Thornton 2nd attempt: Called patient home/cell and left voicemail to call our office back at [phone] OR read his [employer]ide[employer] message and respond on there. Received fax from [facility] requesting 6 medications to be sent to them. [facility] is not on patients chart. Called patient home/cell and left voicemail to call our office back at [phone]. Is he using [facility] or [facility] in [place]? documented in this encounter [facility] 09-21-2024 Telephone encounter Note 2nd attempt: Called patient home/cell and left voicemail to call our office back at [phone] OR read his [employer] message and respond on there. [facility] 09-21-2024 Telephone encounter Note Prescription Refill Information The patient has been identified by name and date of : Yes Caregiver verified no other encounters exist for this prescription request: Yes Caregiver confirmed with patient/requestor that no other refills are due, in the near future, with this provider at this time: Yes The last office visit in the department: 03/26/2024 Does the patient have a future office visit with this provider/department: Yes. 04/01/2025 Requested Prescriptions Pending Prescriptions Disp Refills atorvastatin (LIPITOR) 40 mg tablet [Pharmacy Med Name: atorvastatin 40 mg tablet] 90 tablet 3 Sig: TAKE 1 TABLET BY MOUTH ONCE DAILY metFORMIN (GLUCOPHAGE) 1,000 mg tablet [Pharmacy Med Name: metformin 1,000 mg tablet] 180 tablet 3 Sig: TAKE 1 TABLET BY MOUTH TWICE DAILY Kelly Singh, MA September 21, 2024 10:[address] [facility] 09-21-2024 Miscellaneous Notes Prescription Refill Information The patient has been identified by name and date of : Yes Caregiver verified no other encounters exist for this prescription request: Yes Caregiver confirmed with patient/requestor that no other refills are due, in the near future, with this provider at this time: Yes The last office visit in the department: 03/26/2024 Does the patient have a future office visit with this provider/department: Yes. 04/01/2025 Requested Prescriptions Pending Prescriptions Disp Refills atorvastatin (LIPITOR) 40 mg tablet [Pharmacy Med Name: atorvastatin 40 mg tablet] 90 tablet 3 Sig: TAKE 1 TABLET BY MOUTH ONCE DAILY metFORMIN (GLUCOPHAGE) 1,000 mg tablet [Pharmacy Med Name: metformin 1,000 mg tablet] 180 tablet 3 Sig: TAKE 1 TABLET BY MOUTH TWICE DAILY Kelly Singh MA September 21, 2024 10:37 AM documented in this encounter [facility] 09-18-2024 Telephone encounter Note Received fax from [employer] requesting 6 medications to be sent to them. [facility] is not on patients chart. Called patient home/cell and left voicemail to call our office back at [phone]. Is he using [facility] or [facility] in [place]? [facility] 07-27-2024 Telephone encounter Note Notified patient of David Saha CNP's message. Patient was not accepting of this information. Discussed that the diagnosis attached to his services rendered are directly related to the actual visit he had with nutrition not David, she did not conduct the visit itself. She placed the consult order. Discussed that many insurances do not cover this service. He stated that he was told by his insurance that they do not cover this type of visit. Explained that unfortunately he will need to contact billing to discuss payment options, the answer is not to blame the providers that rendered services. He did not have to attend this appointment, but it is patients responsibility to know what is covered under his own responsibility, he did agree that it is but he feels that what he received was not worth this fee. Discussed that the providers do not place the amounts to visits, they place the services they render according to the [facility]'s template, and the billing office attaches the fee's set forth by [facility], these are fee's set by our [employer]. Any further questions should be addressed between himself, the billing office and insurance. All codes were deemed correct from both providers' standpoint. Patient did end call abruptly. Encounter closed. [facility] 07-27-2024 Miscellaneous Notes Notified patient of David Saha CNP's message. Patient was not accepting of this information. Discussed that the diagnosis attached to his services rendered are directly related to the actual visit he had with rocio Gore, she did not conduct the visit itself. She placed the consult order. Discussed that many insurances do not cover this service. He stated that he was told by his insurance that they do not cover this type of visit. Explained that unfortunately he will need to contact billing to discuss payment options, the answer is not to blame the providers that rendered services. He did not have to attend this appointment, but it is patients responsibility to know what is covered under his own responsibility, he did agree that it is but he feels that what he received was not worth this fee. Discussed that the providers do not place the amounts to visits, they place the services they render according to the [facility]'s template, and the billing office attaches the fee's set forth by [facility], these are fee's set by our [employer]. Any further questions should be addressed between himself, the billing office and insurance. All codes were deemed correct from both providers' standpoint. Patient did end call abruptly. Encounter closed. He will need to follow up with billing department and his insurnace. Thank you Will forward to unit support representative. Thank you The patient needs some help with the coding for the appointment with the registered Dietitian. The patient did call the billing department and was told that he was charged for nutritional education training therapy for 860$. The patient would like a phone call back. The service was not covered by his insurance. Please call the patient at [phone] Roxie Fortune [facility] [place] F20-X documented in this encounter [facility] 07-27-2024 Telephone encounter Note He will need to follow up with billing department and his insurnace. Thank you [facility] 07-24-2024 Telephone encounter Note Will forward to unit support representative. Thank you [facility] 07-24-2024 Telephone encounter Note The patient needs some help with the coding for the appointment with the registered Dietitian. The patient did call the billing department and was told that he was charged for nutritional education training therapy for 860$. The patient would like a phone call back. The service was not covered by his insurance. Please call the patient at [phone] Roxie Fortune [facility] [place] [employer] [facility] 07-23-2024 Telephone encounter Note Images from the original note were not included. Most recent Endocrinology visit: Last encounter Visit on 03/26/2024 (with Clara Escobar) RAUL: 03/26/24--with Dr. Escobar NOV: 09/24/24--with David Please send for Dr. Escobar while she is out 11/09/2022 in [facility] with CLARA ESCOBAR for Type 2 diabetes mellitus with microalbuminuria, with long-term current use of insulin ([facility]) 01/18/2023 in [facility] with DAVID SAHA for Type 2 diabetes mellitus with microalbuminuria, with long-term current use of insulin ([facility]) 04/12/2023 in [facility] with CLARA ESCOBAR for Type 2 diabetes mellitus with microalbuminuria, with long-term current use of insulin ([facility]) 09/12/2023 in [facility] with CLARA ESCOBAR for Type 2 diabetes mellitus with microalbuminuria, with long-term current use of insulin ([facility]) 01/15/2024 in [facility] with DAVID SAHA for Type 2 diabetes mellitus with microalbuminuria, with long-term current use of insulin ([facility]) 03/26/2024 in [facility] with CLARA ESCOBAR for Type 2 diabetes mellitus with microalbuminuria, with long-term current use of insulin ([facility]) Upcoming Endocrinology Appointments - Next 365 Days Visit Type Date Time Department EST AVA PATIENT 09/24/2024 8:30 AM [facility] Requested Prescriptions Pending Prescriptions Disp Refills hydroCHLOROthiazide 25 mg tablet [Pharmacy Med Name: hydrochlorothiazide 25 mg tablet] 90 tablet 3 Sig: TAKE 1 TABLET BY MOUTH ONCE DAILY lisinopril (ZESTRIL) 40 mg tablet [Pharmacy Med Name: lisinopril 40 mg tablet] 90 tablet 3 Sig: TAKE 1 TABLET BY MOUTH ONCE DAILY Latest Ref Rng & Units 03/20/2024 01/15/2024 09/12/2023 Hemoglobin A1C Hemoglobin A1C 4.3 - 5.6 % 7.0 Hemoglobin A1C (POCT) 4.3 - 5.6 % 7.3 7.7 TSH: None on file in the last 12 months Free T3: None on file in the last 12 months Free T4: None on file in the last 12 months Thyroglobulin: None on file in the last 12 months Vitamin D: None on file in the last 12 months Latest Ref Rng & Units 03/20/2024 09/21/2022 07/25/2021 Hematocrit Hematocrit 39.0 - 51.0 % 45.6 47.4 45.1 Latest Ref Rng & Units 03/20/2024 04/05/2023 09/21/2022 Creatinine Creatinine 0.73 - 1.22 mg/dL 1.18 1.13 1.11 Latest Ref Rng & Units 03/20/2024 04/05/2023 09/21/2022 eGFR EGFR >=60 mL/min/1.73m 71 75 76 Latest Ref Rng & Units 03/20/2024 04/05/2023 09/21/2022 Potassium Potassium 3.7 - 5.1 mmol/L 4.3 4.4 4.6 Testosterone: None on file in the last 12 months IGF: None on file in the last 12 months Prolactin: None on file in the last 12 months [facility] 07-23-2024 Miscellaneous Notes Images from the original note were not included. Most recent Endocrinology visit: Last encounter Visit on 03/26/2024 (with Clara Escobar) RAUL: 03/26/24--with Dr. Escobar NOV: 09/24/24--with David Please send for Dr. Escobar while she is out 11/09/2022 in [facility] with CLARA ESCOBAR for Type 2 diabetes mellitus with microalbuminuria, with long-term current use of insulin ([facility]) 01/18/2023 in [facility] with DAVID SAHA for Type 2 diabetes mellitus with microalbuminuria, with long-term current use of insulin ([facility]) 04/12/2023 in [facility] with CLARA ESCOBAR for Type 2 diabetes mellitus with microalbuminuria, with long-term current use of insulin ([facility]) 09/12/2023 in [facility] with CLARA ESCOBAR for Type 2 diabetes mellitus with microalbuminuria, with long-term current use of insulin ([facility]) 01/15/2024 in [facility] with DAVID SAHA for Type 2 diabetes mellitus with microalbuminuria, with long-term current use of insulin ([facility]) 03/26/2024 in [facility] with CLARA ESCOBAR for Type 2 diabetes mellitus with microalbuminuria, with long-term current use of insulin ([facility]) Upcoming Endocrinology Appointments - Next 365 Days Visit Type Date Time Department EST AVA PATIENT 09/24/2024 8:30 AM [facility] Requested Prescriptions Pending Prescriptions Disp Refills hydroCHLOROthiazide 25 mg tablet [Pharmacy Med Name: hydrochlorothiazide 25 mg tablet] 90 tablet 3 Sig: TAKE 1 TABLET BY MOUTH ONCE DAILY lisinopril (ZESTRIL) 40 mg tablet [Pharmacy Med Name: lisinopril 40 mg tablet] 90 tablet 3 Sig: TAKE 1 TABLET BY MOUTH ONCE DAILY Latest Ref Rng & Units 03/20/2024 01/15/2024 09/12/2023 Hemoglobin A1C Hemoglobin A1C 4.3 - 5.6 % 7.0 Hemoglobin A1C (POCT) 4.3 - 5.6 % 7.3 7.7 TSH: None on file in the last 12 months Free T3: None on file in the last 12 months Free T4: None on file in the last 12 months Thyroglobulin: None on file in the last 12 months Vitamin D: None on file in the last 12 months Latest Ref Rng & Units 03/20/2024 09/21/2022 07/25/2021 Hematocrit Hematocrit 39.0 - 51.0 % 45.6 47.4 45.1 Latest Ref Rng & Units 03/20/2024 04/05/2023 09/21/2022 Creatinine Creatinine 0.73 - 1.22 mg/dL 1.18 1.13 1.11 Latest Ref Rng & Units 03/20/2024 04/05/2023 09/21/2022 eGFR EGFR >=60 mL/min/1.73m 71 75 76 Latest Ref Rng & Units 03/20/2024 04/05/2023 09/21/2022 Potassium Potassium 3.7 - 5.1 mmol/L 4.3 4.4 4.6 Testosterone: None on file in the last 12 months IGF: None on file in the last 12 months Prolactin: None on file in the last 12 months documented in this encounter [facility] 06-22-2024 Telephone encounter Note Prescription Refill Information The patient has been identified by name and date of : Yes Caregiver verified no other encounters exist for this prescription request: Yes Caregiver confirmed with patient/requestor that no other refills are due, in the near future, with this provider at this time: Yes The last office visit in the department: 03/26/2024 Does the patient have a future office visit with this provider/department: Yes. 09/24/2024 Requested Prescriptions Pending Prescriptions Disp Refills verapamil SR (CALAN SR) 240 mg CR tablet [Pharmacy Med Name: verapamil ER (SR) 240 mg tablet,extended release] 90 tablet 3 Sig: take 1 tablet by mouth daily at bedtime Kelly Singh MA June 22, 2024 10:[address] [facility] 06-22-2024 Miscellaneous Notes Prescription Refill Information The patient has been identified by name and date of : Yes Caregiver verified no other encounters exist for this prescription request: Yes Caregiver confirmed with patient/requestor that no other refills are due, in the near future, with this provider at this time: Yes The last office visit in the department: 03/26/2024 Does the patient have a future office visit with this provider/department: Yes. 09/24/2024 Requested Prescriptions Pending Prescriptions Disp Refills verapamil SR (CALAN SR) 240 mg CR tablet [Pharmacy Med Name: verapamil ER (SR) 240 mg tablet,extended release] 90 tablet 3 Sig: take 1 tablet by mouth daily at bedtime Kelly Singh MA June 22, 2024 10:37 AM documented in this encounter [facility] 04-07-2024 Note HNO ID: [id number] Author: SHELLY GARCÍA APRN.PIZZA MAKER Service: ? Author Type: Nurse Practitioner Type: Progress Notes Filed: 04/07/2024 07:45 Note Text: CC: Patient presents with: Sinus Problem: sinus pressure and drainage x 9 days HPI: Judie Corbett is a 58 year old male who presents to the office with complaint of head congestion and sinus symptoms for 9 days. Symptoms are staying the same. Associated symptoms includes nasal congestion. Denies wheezing, dyspnea, nausea, vomiting , and diarrhea. Treatments tried include nothing so far. with no relief of symptoms. Sick contacts: unknown. History of asthma, frequent episodes of bronchitis, chronic bronchitis, bronchiectasis or COPD: No Smoker: No Seasonal/environmental allergies: No The ROS is otherwise negative. The patient's pmh, medications, allergies, and past visits are reviewed. PHYSICAL EXAM: BP 134/72 Pulse 86 Temp 36.6 ?C (97.9 ?F) Resp 16 Wt 91.6 kg (201 lb 15.1 oz) SpO2 96% BMI 28.98 kg/m? General appearance: alert, cooperative, pleasant, in no acute distress Head: Normocephalic Eyes: EOM's intact, conjunctiva pink and moist, no icterus, sclera white, non-injected Ears: Right ear: External ear/canal- Normal, TM - clear with good landmarks. Left ear: External ear/canal- Normal, TM - clear with good landmarks Oropharynx:moist without lesions, No erythema, exudates or tonsillar hypertrophy. Heart: Negative. RRR without obvious murmur, gallop, or rubs. No ectopy. Lungs: clear to auscultation, without rales or wheeze, good air exchange PAST MEDICAL HISTORY Diagnosis Date Carpal tunnel syndrome, bilateral 2018 DM w/o complication type II, uncontrolled 08/21/2011 Macular degeneration 06/11/2013 Nontraumatic complete tear of right rotator cuff 2019 Other and unspecified hyperlipidemia 04/28/2007 Proteinuria 11/21/2010 Snoring Type II or unspecified type diabetes mellitus without mention of complication, not stated as uncontrolled 04/28/2007 Unspecified essential hypertension 04/28/2007 PAST SURGICAL HISTORY Procedure Laterality Date ARTHROSC SH TENODESIS BICEPS Right 03/23/2020 COLONOSCOPY FLX DX W/COLLJ SPEC WHEN PFRMD 03/08/2014 HAND SURGERY HX Right 1979 Tendon repair REVISE MEDIAN N/CARPAL TUNNEL SURG Left 11/19/2018 REVISE MEDIAN N/CARPAL TUNNEL SURG Right 03/23/2020 ROTATOR CUFF REPAIR Right 03/23/2020 ALLERGIES Ozempic [Semaglutide] MEDICATIONS fenofibrate (LOFIBRA) 200 mg capsule TAKE 1 CAPSULE BY MOUTH DAILY insulin glargine (LANTUS U-100 INSULIN) 100 unit/mL injection Inject 55 Units subcutaneously daily at bedtime. glucagon (BAQSIMI) 3 mg/actuation nasal spray Use 1 Beeson in the nose as needed. May repeat after 15 minutes using a new device if there is no response. HUMALOG KWIKPEN INSULIN 100 unit/mL INJECT 12 UNTS SUBCUTANEOUSLY BEFORE BREAKFAST, 20 UNITS BEFORE lunch and 30 UNITS FARXIGA 10 mg tablet Take 1 tablet by mouth daily with breakfast. metFORMIN (GLUCOPHAGE) 1,000 mg tablet take 1 tablet by mouth twice daily atorvastatin (LIPITOR) 40 mg tablet take 1 tablet by mouth once daily lisinopril (ZESTRIL) 40 mg tablet take 1 tablet by mouth daily hydroCHLOROthiazide 25 mg tablet take 1 tablet by mouth once daily. verapamil SR (CALAN SR) 240 mg CR tablet take 1 tablet by mouth daily at bedtime Blood-Glucose Sensor (DEXCOM G6 SENSOR) ana Use as directed; IDDM, E 11.9 Blood-Glucose Meter,Continuous (DEXCOM G6 MIXING ENGINEER) misc Use as directed, IDDM, E11.9 Blood-Glucose Transmitter (DEXCOM G6 TRANSMITTER) ana Use as directed, IDDM, E 11.9 insulin needles, DISPOSABLE, (BD INSULIN PEN NEEDLE UF) 31 gauge x 516 Use 4 pen needles daily Vit A,C and P-Fbcjqi-Njadaayi (OCUVITE WITH LUTEIN) 1,000 unit-200 mg-60 unit-2 mg tab Take 1 tablet by mouth once daily. aspirin(ECOTRIN LOW STRENGTH 81 MG TAB) Take one(1) tablet daily. doxycycline (VIBRA-TABS) 100 mg tablet Take 1 tablet by mouth two times a day for 7 days. FAMILY HISTORY Problem Relation Age of Onset Diabetes Mother Stroke Mother Cancer Mother kidney Coronary Artery Disease Mother Kidney Disease Father declined dialysis Hypertension Father Coronary Artery Disease Father Emphysema Father No Known Problems Sister No Known Problems Sister Social History Tobacco Use Smoking status: Never Smokeless tobacco: Never Vaping Use Vaping status: Never Used Substance Use Topics Alcohol use: Yes Comment: Not weekly Drug use: No ASSESSMENT/PLAN: 1. Rhinosinusitis - ICD9: 473.9, ICD10: J32.9 - DOXYCYCLINE HYCLATE 100 MG TABLET Prescription instructions reviewed with patient as applicable. Potential red flag symptoms discussed with the patient. Reviewed appropriate action plan to take if red flag symptoms occur. Patient agreeable to treatment plan. Shelly García APRN.[facility] 04-07-2024 History of Present illness Narrative CC: Patient presents with: Sinus Problem: sinus pressure and drainage x 9 days HPI: Judie Corbett is a 58 year old male who presents to the office with complaint of head congestion and sinus symptoms for 9 days. Symptoms are staying the same. Associated symptoms includes nasal congestion. Denies wheezing, dyspnea, nausea, vomiting , and diarrhea. Treatments tried include nothing so far. with no relief of symptoms. Sick contacts: unknown. History of asthma, frequent episodes of bronchitis, chronic bronchitis, bronchiectasis or COPD: No Smoker: No Seasonal/environmental allergies: No The ROS is otherwise negative. The patient's pmh, medications, allergies, and past visits are reviewed. PHYSICAL EXAM: BP 134/72 Pulse 86 Temp 36.6 C (97.9 F) Resp 16 Wt 91.6 kg (201 lb 15.1 oz) SpO2 96% BMI 28.98 kg/m General appearance: alert, cooperative, pleasant, in no acute distress Head: Normocephalic Eyes: EOM's intact, conjunctiva pink and moist, no icterus, sclera white, non-injected Ears: Right ear: External ear/canal- Normal, TM - clear with good landmarks. Left ear: External ear/canal- Normal, TM - clear with good landmarks Oropharynx:moist without lesions, No erythema, exudates or tonsillar hypertrophy. Heart: Negative. RRR without obvious murmur, gallop, or rubs. No ectopy. Lungs: clear to auscultation, without rales or wheeze, good air exchange PAST MEDICAL HISTORY Diagnosis Date Carpal tunnel syndrome, bilateral 2019 DM w/o complication type II, uncontrolled 08/21/2011 Macular degeneration 06/11/2013 Nontraumatic complete tear of right rotator cuff 2019 Other and unspecified hyperlipidemia 04/28/2007 Proteinuria 11/21/2010 Snoring Type II or unspecified type diabetes mellitus without mention of complication, not stated as uncontrolled 04/28/2007 Unspecified essential hypertension 04/28/2007 PAST SURGICAL HISTORY Procedure Laterality Date ARTHROSC SH TENODESIS BICEPS Right 03/23/2020 COLONOSCOPY FLX DX W/COLLJ SPEC WHEN PFRMD 03/08/2014 HAND SURGERY HX Right 1980 Tendon repair REVISE MEDIAN N/CARPAL TUNNEL SURG Left 11/19/2018 REVISE MEDIAN N/CARPAL TUNNEL SURG Right 03/23/2020 ROTATOR CUFF REPAIR Right 03/23/2020 ALLERGIES Ozempic [Semaglutide] MEDICATIONS fenofibrate (LOFIBRA) 200 mg capsule TAKE 1 CAPSULE BY MOUTH DAILY insulin glargine (LANTUS U-100 INSULIN) 100 unit/mL injection Inject 55 Units subcutaneously daily at bedtime. glucagon (BAQSIMI) 3 mg/actuation nasal spray Use 1 Beeson in the nose as needed. May repeat after 15 minutes using a new device if there is no response. HUMALOG KWIKPEN INSULIN 100 unit/mL INJECT 12 UNTS SUBCUTANEOUSLY BEFORE BREAKFAST, 20 UNITS BEFORE lunch and 30 UNITS FARXIGA 10 mg tablet Take 1 tablet by mouth daily with breakfast. metFORMIN (GLUCOPHAGE) 1,000 mg tablet take 1 tablet by mouth twice daily atorvastatin (LIPITOR) 40 mg tablet take 1 tablet by mouth once daily lisinopril (ZESTRIL) 40 mg tablet take 1 tablet by mouth daily hydroCHLOROthiazide 25 mg tablet take 1 tablet by mouth once daily. verapamil SR (CALAN SR) 240 mg CR tablet take 1 tablet by mouth daily at bedtime Blood-Glucose Sensor (DEXCOM G6 SENSOR) ana Use as directed; IDDM, E 11.9 Blood-Glucose Meter,Continuous (DEXCOM G6 MIXING ENGINEER) [facility] Use as directed, IDDM, E11.9 Blood-Glucose Transmitter (DEXCOM G6 TRANSMITTER) ana Use as directed, IDDM, E 11.9 insulin needles, DISPOSABLE, (BD INSULIN PEN NEEDLE UF) 31 gauge x 5/16 Use 4 pen needles daily Vit A,C and K-Fihjrz-Ysllxonu (OCUVITE WITH LUTEIN) 1,000 unit-200 mg-60 unit-2 mg tab Take 1 tablet by mouth once daily. aspirin(ECOTRIN LOW STRENGTH 81 MG TAB) Take one(1) tablet daily. doxycycline (VIBRA-TABS) 100 mg tablet Take 1 tablet by mouth two times a day for 7 days. FAMILY HISTORY Problem Relation Age of Onset Diabetes Mother Stroke Mother Cancer Mother kidney Coronary Artery Disease Mother Kidney Disease Father declined dialysis Hypertension Father Coronary Artery Disease Father Emphysema Father No Known Problems Sister No Known Problems Sister Social History Tobacco Use Smoking status: Never Smokeless tobacco: Never Vaping Use Vaping status: Never Used Substance Use Topics Alcohol use: Yes Comment: Not weekly Drug use: No ASSESSMENT/PLAN: 1. Rhinosinusitis - ICD9: 473.9, ICD10: J32.9 - DOXYCYCLINE HYCLATE 100 MG TABLET Prescription instructions reviewed with patient as applicable. Potential red flag symptoms discussed with the patient. Reviewed appropriate action plan to take if red flag symptoms occur. Patient agreeable to treatment plan. Shelly García APRN.PIZZA MAKER documented in this encounter [facility] 04-06-2024 Telephone encounter Note Form faxed to [employer] at on April 06, 2024; transmission ok. [facility] 04-06-2024 Miscellaneous Notes Form faxed to [employer] at on April 06, 2024; transmission ok. Form signed Please fax it back Thank you Clara Escobar MD Form on docs desk/basket for review from [employer]. Please review and sign. Needs to be faxed to For: [employer] Office notes attached documented in this encounter [facility] 04-06-2024 Telephone encounter Note Form signed Please fax it back Thank you Clara Escobar MD [facility] 04-02-2024 Telephone encounter Note Form on docs desk/basket for review from [employer]. Please review and sign. 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 09/24/2024 Requested Prescriptions Pending Prescriptions Disp Refills fenofibrate (LOFIBRA) 200 mg capsule [Pharmacy Med Name: fenofibrate micronized 200 mg capsule] 90 capsule 3 Sig: TAKE 1 CAPSULE BY MOUTH DAILY Kelly Singh MA April 02, 2024 11:41 AM [facility] 04-02-2024 Miscellaneous Notes Prescription Refill Information The patient has been identified by name and date of : Yes Caregiver verified no other encounters exist for this prescription request: Yes Caregiver confirmed with patient/requestor that no other refills are due, in the near future, with this provider at this time: Yes The last office visit in the department: 03/26/2024 Does the patient have a future office visit with this provider/department: Yes. 09/24/2024 Requested Prescriptions Pending Prescriptions Disp Refills fenofibrate (LOFIBRA) 200 mg capsule [Pharmacy Med Name: fenofibrate micronized 200 mg capsule] 90 capsule 3 Sig: TAKE 1 CAPSULE BY MOUTH DAILY Kelly Singh MA April 02, 2024 11:41 AM documented in this encounter [facility] 03-30-2024 Telephone encounter Note Reviewed Exam date- 03/27/24 No retinopathy Clara Escobar MD [facility] 03-30-2024 Miscellaneous Notes Reviewed Exam date- 03/27/24 No retinopathy Clara Escobar MD Received Eye Exam Report from Edil King Updated. Placed in provider's inbox for review. [facility] documented in this encounter [facility] 03-27-2024 Telephone encounter Note Received Eye Exam Report from Hector Moore O.D. Updated. Placed in provider's inbox for review. [facility] 03-26-2024 Telephone encounter Note Patient provided [place] Dept of Transportation Diabetic Waiver form at appointment. completed form. A copy of the form will be at the front office agent for patient to moss picker. Called patient and let him know. Copy sent to be scanned in. CLOSED [facility] 03-26-2024 Miscellaneous Notes Patient provided [place] Dept of Transportation Diabetic Waiver form at appointment. completed form. A copy of the form will be at the front office agent for patient to moss picker. Called patient and let him know. Copy sent to be scanned in. CLOSED documented in this encounter [facility] 03-26-2024 Note HNO ID: [id number] Author: CLARA ESCOBAR MD Service: ? Author Type: Physician Type: Progress Notes Filed: 03/26/2024 09:06 Note Text: DIABETES FOLLOW UP SUBJECTIVE: Judie Corbett is a 58 year old male who presents for a return visit regarding type 2 Diabetes, HTN and hyperlipidemia. Diabetes complications include: None. Recent A1c was 7.0 Interval history: He saw a dietitian and cut down on carbs Also focusing on portion control He has lost weight- 7 lbs He tried ozempic but didn't tolerate it -developed muscle aches and extreme fatigue Diabetes treatment regimen: Lantus 60 units q HS Humalog 12-20-30 units with meals- states he usually doesn't need lunch dose since he has made dietary changes Metformin 1000 mg BID Farxiga 10 mg daily Meal plannin meals, snacks are carrots and beets eye exam: uptodate flu shot:no Blood glucose times and ranges (mg/dl): Currently he is using DEXCOM G6 14 day CGM data GMI- 6.8 Average BG 146 TIR- 74% High- 14% Very high-5% Low- 4% Very low-1% Hypoglycemic episodes/treatment: rare He also has HTN, he takes lisinopril 40 mg daily and verapamil 240 mg daily Hyperlipidemia- on pravachol and fenofibrate PAST MEDICAL HISTORY Diagnosis Date Carpal tunnel syndrome, bilateral 2018 DM w/o complication type II, uncontrolled 08/21/2011 Macular degeneration 06/11/2013 Nontraumatic complete tear of right rotator cuff 2019 Other and unspecified hyperlipidemia 04/28/2007 Proteinuria 11/21/2010 Snoring Type II or unspecified type diabetes mellitus without mention of complication, not stated as uncontrolled 04/28/2007 Unspecified essential hypertension 04/28/2007 PAST SURGICAL HISTORY Procedure Laterality Date ARTHROSC SH TENODESIS BICEPS Right 03/23/2020 COLONOSCOPY FLX DX W/COLLJ SPEC WHEN PFRMD 03/08/2014 HAND SURGERY HX Right 1979 Tendon repair REVISE MEDIAN N/CARPAL TUNNEL SURG Left 11/19/2018 REVISE MEDIAN N/CARPAL TUNNEL SURG Right 03/23/2020 ROTATOR CUFF REPAIR Right 03/23/2020 Social History Tobacco Use Smoking status: Never Smokeless tobacco: Never Vaping Use Vaping status: Never Used Substance Use Topics Alcohol use: Yes Comment: Not weekly Drug use: No REVIEW OF SYSTEMS: GENERAL:No weight loss, malaise or fevers NECK:Negative for lumps, goiter, pain and significant neck swelling RESPIRATORY: Negative for cough, hemoptysis, wheezing or shortness of breath CARDIOVASCULAR: Negative for chest pain, leg swelling or palpitations MUSCULOSKELETAL:no muscle aches, +arthralgia NEUROLOGIC: no numbness, tingling, no Paresthesias, no headaches SKIN:Negative for lesions, rash, and itching ENDOCRINE: Negative for cold or heat intolerance or goiter Current Outpatient Medications on File Prior to Visit Medication Sig glucagon (BAQSIMI) 3 mg/actuation nasal spray Use 1 Beeson in the nose as needed. May repeat after 15 minutes using a new device if there is no response. insulin glargine (LANTUS U-100 INSULIN) 100 unit/mL injection Inject 60 Units subcutaneously daily at bedtime. HUMALOG KWIKPEN INSULIN 100 unit/mL INJECT 12 UNTS SUBCUTANEOUSLY BEFORE BREAKFAST, 20 UNITS BEFORE lunch and 30 UNITS FARXIGA 10 mg tablet Take 1 tablet by mouth daily with breakfast. metFORMIN (GLUCOPHAGE) 1,000 mg tablet take 1 tablet by mouth twice daily atorvastatin (LIPITOR) 40 mg tablet take 1 tablet by mouth once daily lisinopril (ZESTRIL) 40 mg tablet take 1 tablet by mouth daily hydroCHLOROthiazide 25 mg tablet take 1 tablet by mouth once daily. verapamil SR (CALAN SR) 240 mg CR tablet take 1 tablet by mouth daily at bedtime fenofibrate (LOFIBRA) 200 mg capsule take 1 capsule by mouth daily Blood-Glucose Sensor (DEXCOM G6 SENSOR) ana Use as directed; IDDM, E 11.9 Blood-Glucose Meter,Continuous (DEXCOM G6 MIXING ENGINEER) misc Use as directed, IDDM, E11.9 Blood-Glucose Transmitter (DEXCOM G6 TRANSMITTER) ana Use as directed, IDDM, E 11.9 insulin needles, DISPOSABLE, (BD INSULIN PEN NEEDLE UF) 31 gauge x 5/16 Use 4 pen needles daily Vit A,C and O-Ydtuub-Zlctkujx (OCUVITE WITH LUTEIN) 1,000 unit-200 mg-60 unit-2 mg tab Take 1 tablet by mouth once daily. aspirin(ECOTRIN LOW STRENGTH 81 MG TAB) Take one(1) tablet daily. semaglutide (OZEMPIC) 0.25 mg or 0.5 mg (2 mg/3 mL) pen Inject subcutaneously 0.25 mg weekly x 4 wks then increase to 0.5 mg weekly (Patient not taking: Reported on 03/26/2024) No current facility-administered medications on file prior to visit. PHYSICAL EXAM: BP 137/75 Pulse 82 Wt 90.6 kg (199 lb 11.8 oz) SpO2 98% BMI 28.66 kg/m? General:alert and oriented X 3, no acute distress Eyes:anicteric sclera, Extraocular motions intact Neck supple, no cervical lymphadenopathy Thyroid: normal size, normal texture, no palpable nodules Chest: Breathing unlabored, Lungs clear to auscultation. No wheezing CV:normal, Regular rate and rhythm, no murmurs Neuro: Gait normal. S (more content not included)... [facility] 03-26-2024 History of Present illness Narrative DIABETES FOLLOW UP SUBJECTIVE: Judie Corbett is a 58 year old male who presents for a return visit regarding type 2 Diabetes, HTN and hyperlipidemia. Diabetes complications include: None. Recent A1c was 7.0 Interval history: He saw a dietitian and cut down on carbs Also focusing on portion control He has lost weight- 7 lbs He tried ozempic but didn't tolerate it -developed muscle aches and extreme fatigue Diabetes treatment regimen: Lantus 60 units q HS Humalog 12-20-30 units with meals- states he usually doesn't need lunch dose since he has made dietary changes Metformin 1000 mg BID Farxiga 10 mg daily Meal plannin meals, snacks are carrots and beets eye exam: uptodate flu shot:no Blood glucose times and ranges (mg/dl): Currently he is using [employer] G6 14 day CGM data GMI- 6.8 Average BG 146 TIR- 74% High- 14% Very high-5% Low- 4% Very low-1% Hypoglycemic episodes/treatment: rare He also has HTN, he takes lisinopril 40 mg daily and verapamil 240 mg daily Hyperlipidemia- on pravachol and fenofibrate PAST MEDICAL HISTORY Diagnosis Date Carpal tunnel syndrome, bilateral 2019 DM w/o complication type II, uncontrolled 08/21/2011 Macular degeneration 06/11/2013 Nontraumatic complete tear of right rotator cuff 2019 Other and unspecified hyperlipidemia 04/28/2007 Proteinuria 11/21/2010 Snoring Type II or unspecified type diabetes mellitus without mention of complication, not stated as uncontrolled 04/28/2007 Unspecified essential hypertension 04/28/2007 PAST SURGICAL HISTORY Procedure Laterality Date ARTHROSC SH TENODESIS BICEPS Right 03/23/2020 COLONOSCOPY FLX DX W/COLLJ SPEC WHEN PFRMD 03/08/2014 HAND SURGERY HX Right 1979 Tendon repair REVISE MEDIAN N/CARPAL TUNNEL SURG Left 11/19/2018 REVISE MEDIAN N/CARPAL TUNNEL SURG Right 03/23/2020 ROTATOR CUFF REPAIR Right 03/23/2020 Social History Tobacco Use Smoking status: Never Smokeless tobacco: Never Vaping Use Vaping status: Never Used Substance Use Topics Alcohol use: Yes Comment: Not weekly Drug use: No REVIEW OF SYSTEMS: GENERAL:No weight loss, malaise or fevers NECK:Negative for lumps, goiter, pain and significant neck swelling RESPIRATORY: Negative for cough, hemoptysis, wheezing or shortness of breath CARDIOVASCULAR: Negative for chest pain, leg swelling or palpitations MUSCULOSKELETAL:no muscle aches, +arthralgia NEUROLOGIC: no numbness, tingling, no Paresthesias, no headaches SKIN:Negative for lesions, rash, and itching ENDOCRINE: Negative for cold or heat intolerance or goiter Current Outpatient Medications on File Prior to Visit Medication Sig glucagon (BAQSIMI) 3 mg/actuation nasal spray Use 1 Beeson in the nose as needed. May repeat after 15 minutes using a new device if there is no response. insulin glargine (LANTUS U-100 INSULIN) 100 unit/mL injection Inject 60 Units subcutaneously daily at bedtime. HUMALOG KWIKPEN INSULIN 100 unit/mL INJECT 12 UNTS SUBCUTANEOUSLY BEFORE BREAKFAST, 20 UNITS BEFORE lunch and 30 UNITS FARXIGA 10 mg tablet Take 1 tablet by mouth daily with breakfast. metFORMIN (GLUCOPHAGE) 1,000 mg tablet take 1 tablet by mouth twice daily atorvastatin (LIPITOR) 40 mg tablet take 1 tablet by mouth once daily lisinopril (ZESTRIL) 40 mg tablet take 1 tablet by mouth daily hydroCHLOROthiazide 25 mg tablet take 1 tablet by mouth once daily. verapamil SR (CALAN SR) 240 mg CR tablet take 1 tablet by mouth daily at bedtime fenofibrate (LOFIBRA) 200 mg capsule take 1 capsule by mouth daily Blood-Glucose Sensor (DEXCOM G6 SENSOR) ana Use as directed; IDDM, E 11.9 Blood-Glucose Meter,Continuous (DEXCOM G6 MIXING ENGINEER) misc Use as directed, IDDM, E11.9 Blood-Glucose Transmitter (DEXCOM G6 TRANSMITTER) ana Use as directed, IDDM, E 11.9 insulin needles, DISPOSABLE, (BD INSULIN PEN NEEDLE UF) 31 gauge x 16 Use 4 pen needles daily Vit A,C and N-Fyusdo-Djhuwcld (OCUVITE WITH LUTEIN) 1,000 unit-200 mg-60 unit-2 mg tab Take 1 tablet by mouth once daily. aspirin(ECOTRIN LOW STRENGTH 81 MG TAB) Take one(1) tablet daily. semaglutide (OZEMPIC) 0.25 mg or 0.5 mg (2 mg/3 mL) pen Inject subcutaneously 0.25 mg weekly x 4 wks then increase to 0.5 mg weekly (Patient not taking: Reported on 03/26/2024) No current facility-administered medications on file prior to visit. PHYSICAL EXAM: BP 137/75 Pulse 82 Wt 90.6 kg (199 lb 11.8 oz) SpO2 98% BMI 28.66 kg/m General:alert and oriented X 3, no acute distress Eyes:anicteric sclera, Extraocular motions intact Neck supple, no cervical lymphadenopathy Thyroid: normal size, normal texture, no palpable nodules Chest: Breathing unlabored, Lungs clear to auscultation. No wheezing CV:normal, Regular rate and rhythm, no murmurs Neuro: Gait normal. Sensation grossly intact. No focal findings Extremities without edema, no deformities, no ulcers noted Skin: no rashes/erythema LAB: Latest Reference Range & Units 03/20/24 08:07 Hemoglobin A1C 4.3 - 5.6 % 7.0 (H) Latest Reference Range & Units 03/20/24 08:07 Cholesterol, Total <200 mg/dL 154 Triglyceride <150 mg/dL 211 (H) Fasting Time hrs 12 HDL Cholesterol >39 mg/dL 36 (L) LDL Cholesterol <100 mg/dL 76 Latest Reference Range & Units 03/20/24 08:07 Albumin/Creat Ratio <30 mg/g 26 Creatinine, Ur Random (UCRR) 20.0 - 300.0 mg/dL 85.0 Albumin, Urine Random mg/L 22.3 ASSESSMENT/PLAN: Type 2 diabetes without complications Hypertension Hyperlipidemia 1. Glycemic Control:A1c has increased 7.7 Reviewed and discussed his recent CGM data TIR > 70% His BG trend down significantly overnight Decrease lantus to 55 units Qhs Continue current humalog regimen Continue Farixga and Metformin Patient uses CGM for BG monitoring He will switching to G7 next week 3. Hypertension:BP is within goal continue lisinopril, Verapamil and HCTZ 25 mg daily 4. Cholesterol:LDL and CHOL were within goal Trig remain elevated Continue lipitor and fenofibrate 5. Complications:none 6. 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 02-12-2024 History of Present illness Narrative [facility] Medical Nutrition Therapy Visit Type: In-Person (Face to Face): Patient states reason for visit: Type 2 Diabetes Management Initial DEMOGRAPHICS: Co-Morbidities: PAST MEDICAL HISTORY Diagnosis Date Carpal tunnel syndrome, bilateral 2019 DM w/o complication type II, uncontrolled 08/21/2011 Macular degeneration 06/11/2013 Nontraumatic complete tear of right rotator cuff 2019 Other and unspecified hyperlipidemia 04/28/2007 Proteinuria 11/21/2010 Snoring Type II or unspecified type diabetes mellitus without mention of complication, not stated as uncontrolled 04/28/2007 Unspecified essential hypertension 04/28/2007 Activity: Do you do a regular exercise- no additional exercise outside of work. - Active with work and working on cars when gets home. May go on walks with and dog. Symptoms: Patient's symptoms are as follows: Nutrition education for diabetes- uncertain what food affects BG. How many hours of sleep on average? 6-7 hours - Denies difficulty falling and/or staying asleep. - Up at 4:30 AM, To bed by 10:30-11P. Diet History: Breakfast (before work): b-fast burrito (2 burritos; onions, peppers, sausage, ghosh, tortilla), OR Red Hot burrito Snack (10A): Bagel w/ bologna+ham+buffalo chicken and venezuelan cheese Lunch (12P): may skip, OR leftovers hot dogs w/ mac n cheese w/ carrots and beets (w/ [place] or ranch dressing) Dinner (6-6:30P): Meatball sub w/ mozzarella cheese and potato wedges, OR leftovers hot dogs w/ mac n cheese Snack (1 hour before bed):occasional additional leftovers from dinner (last night 2 meatballs) Fluids: Dairyman's diet iced tea (1/2 to 1 gallon daily), Water (rare), once and a while Monster energy drink Dining/eating out? rare Allergies: No Food Allergy Patient / Provider Comments: - Current DM medications: Pt states taking Farxiga 10 mg daily, Metformin 1,000mg BID, lantus 60 units, Humalog 12 units breakfast (may skip), 20-22 units lunch, 30 units with dinner, and Ozempic (stopped after taking two doses d/t feeling miserable felt muscle and joint pain, increased fatigue when taking) - Has Dexcom G6; does not have Dexcom dental prosthetist with him at time of visit. - Hypoglycemic events: occasional, s/s include brain fog and excessive sweating. Finds may occur in morning Bg; yesterday ~70 mg/dl pt attributes to taking humalog late with dinner. - Hyperglycemic events: in evening BG high d/t forgetting insulin shot. 200-250 mg/dl. - Initial DM dx: 2011 - Recent A1C 7.3% 2023. - My forget taking Humalog during meals when working or at home and finds self dosing humalog after meal has started. - No past nutrition education for diabetes. - States I'm hungry all of the time. 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 Medications: Current Outpatient Medications Medication Sig insulin glargine (LANTUS U-100 INSULIN) 100 unit/mL injection Inject 60 Units subcutaneously daily at bedtime. HUMALOG KWIKPEN INSULIN 100 unit/mL INJECT 12 UNTS SUBCUTANEOUSLY BEFORE BREAKFAST, 20 UNITS BEFORE lunch and 30 UNITS semaglutide (OZEMPIC) 0.25 mg or 0.5 mg (2 mg/3 mL) pen Inject subcutaneously 0.25 mg weekly x 4 wks then increase to 0.5 mg weekly FARXIGA 10 mg tablet Take 1 tablet by mouth daily with breakfast. metFORMIN (GLUCOPHAGE) 1,000 mg tablet take 1 tablet by mouth twice daily atorvastatin (LIPITOR) 40 mg tablet take 1 tablet by mouth once daily lisinopril (ZESTRIL) 40 mg tablet take 1 tablet by mouth daily hydroCHLOROthiazide 25 mg tablet take 1 tablet by mouth once daily. verapamil SR (CALAN SR) 240 mg CR tablet take 1 tablet by mouth daily at bedtime fenofibrate (LOFIBRA) 200 mg capsule take 1 capsule by mouth daily Blood-Glucose Sensor (DEXCOM G6 SENSOR) ana Use as directed; IDDM, E 11.9 Blood-Glucose Meter,Continuous (DEXCOM G6 MIXING ENGINEER) misc Use as directed, IDDM, E11.9 Blood-Glucose Transmitter (DEXCOM G6 TRANSMITTER) ana Use as directed, IDDM, E 11.9 insulin needles, DISPOSABLE, (BD INSULIN PEN NEEDLE UF) 31 gauge x 5/16 Use 4 pen needles daily Vit A,C and G-Fvdnnd-Bklmidfz (OCUVITE WITH LUTEIN) 1,000 unit-200 mg-60 unit-2 mg tab Take 1 tablet by mouth once daily. aspirin(ECOTRIN LOW STRENGTH 81 MG TAB) Take one(1) tablet daily. No current facility-administered medications for this visit. Labs: Lab Results Component Value Date HBA1C 7.3 01/15/2024 HBA1C 7.7 09/12/2023 HBA1C 7.2 04/05/2023 HBA1C 7.6 11/09/2022 HBA1C 8.0 05/05/2020 HBA1C 8.8 03/19/2016 HBA1C 8.8 10/12/2015 HBA1C 9.4 06/22/2015 HBA1C 9.4 02/19/2015 Cholesterol, Total Date Value Ref Range Status 04/05/2023 150 <200 mg/dL Final Comment: <200 mg/dL, Desirable 200-239 mg/dL, Borderline high >239 mg/dL, High HDL Cholesterol Date Value Ref Range Status 04/05/2023 33 (L) >39 mg/dL Final Comment: 40-59 mg/dL, Acceptable >59 mg/dL, High: Negative risk factor for coronary heart disease <40 mg/dL, Low: Positive risk factor for coronary heart disease LDL Cholesterol Date Value Ref Range Status 04/05/2023 48 <100 mg/dL Final Comment: <100 mg/dL, Optimal 100-129 mg/dL, Near optimal/above optimal 130-159 mg/dL, Borderline high 160-189 mg/dL, High >189 mg/dL, Very high Secondary prevention optimal LDL Cholesterol levels are recommended to be < 70 mg/dL Triglyceride Date Value Ref Range Status 04/05/2023 343 (H) <150 mg/dL Final Comment: <150 mg/dL, Normal 150-199 mg/dL, Borderline high 200-499 mg/dL, High >499 mg/dL, Very high Glucose (mg/dL) Date Value 04/05/2023 83 11/21/2019 126 Potassium (mmol/L) Date Value 04/05/2023 4.4 11/21/2019 4.3 Sodium (mmol/L) Date Value 04/05/2023 140 11/21/2019 138 Chloride (mmol/L) Date Value 04/05/2023 104 11/21/2019 101 CO2 (mmol/L) Date Value 04/05/2023 26 11/21/2019 23 Creatinine (mg/dL) Date Value 04/05/2023 1.13 11/21/2019 1.02 BUN (mg/dL) Date Value 04/05/2023 31 11/21/2019 21 Anion Gap (mmol/L) Date Value 04/05/2023 10 11/21/2019 14 Calcium (mg/dL) Date Value 11/21/2019 9.8 Calcium, Total (mg/dL) Date Value 04/05/2023 9.7 Protein, Total (g/dL) Date Value 04/05/2023 7.2 09/03/2018 7.6 Albumin (g/dL) Date Value 04/05/2023 4.5 11/21/2019 4.6 Bilirubin, Total (mg/dL) Date Value 04/05/2023 0.3 09/03/2018 0.3 Alkaline Phosphatase (U/L) Date Value 04/05/2023 60 09/03/2018 55 AST (U/L) Date Value 04/05/2023 21 09/03/2018 30 ALT (U/L) Date Value 04/05/2023 18 09/03/2018 21 ANTHROPOMETRICS Height: Last 1 Encounter Ht Readings: Date: Ht: 09/12/2023 177.8 cm (5' 10) Current weight: Last 3 Encounter Wt Readings: Date: Wt: 01/15/2024 92.1 kg (203 lb 0.7 oz) 09/12/2023 93 kg (205 lb 0.4 oz) 08/19/2023 89.8 kg (198 lb) BMI: 29.13 kg/m2 5% -10% Weight loss: 10-20 lbs Last Wt 01/15/24 : 92.1 kg (203 lb 0.7 oz) 5% weight loss = 193 lbs, 10% weight loss = 183 lbs [place] body weight: 73 kg (160 lb 15 oz) Adjusted ideal body weight: 80.6 kg (177 lb 12.5 oz) READINESS TO LEARN Cognitive ability: Alert and oriented Motivation to learn: Interested Family support: Unable to assess - Family not present Instruction provided to: Patient Patient learns best by: Multiple Methods Factors affecting learning: None Physical limitations affecting learning: None Stage of Change: Preparation Nutrition Diagnosis: Food and nutrition related knowledge deficit, related to; lack of prior exposure to information , as evidenced by client has no prior knowledge of need for food and nutrition - related information Calories Needed for Current Weight: Resting Metabolic Rate: 1741 Nutrition Intervention: -Diabetes Basics: diabetes disease process, role of insulin in the body, role of glucose in the body, insulin resistance, and relationship of glucose and insulin in the body -Monitoring: A1c meaning and target <7%, BG targets, compression lows, and testing frequency -Healthy Eating: -- Encouraged establishing meals consistency; regularly consume 3 meals per day and snacks as needed. -- Space meals and/or snacks a part by 3-5 hours. -- Plate Method:1/2 plate non-starchy vegetables, 1/4 plate protein, 1/4 plate starch/grain/fruit -- carbohydrate and protein sources and effect on blood sugar regulation and metabolism -- Encouraged to always pair protein and/or healthy fat with CHO sources. Do not consume naked CHO. -- concepts of the Mediterranean diet for healthy carb choices -- CHO counting and foods with carbs, portion sizes, choosing high fiber CHO sources, -- Recommendation for 45 grams carb per meal and </=15 grams carb per snack. -- Recommendation for 30-35 grams protein per meal and 7-14 grams protein per snack. -- Portion sizes for commonly eaten carbohydrate foods -- Food label reading for serving size, total fat, total carbohydrate, fiber, and protein. -- Benefits of fiber in foods and effect on satiety and blood glucose regulation- discussed sources of high fiber foods. -- Importance of including lean protein sources at each meal and snack. -- Importance of including healthy fats such as olive oil, avocado, nuts and fish -- Reviewed sample carb controlled Mediterranean style menus. -Medications: site selection/rotation, reviewed home DM meds, oral agents discussed: dapagliflozin (Farxiga) and metformin , and injectable insulin discussed: lispro (Humalog) and Lantus -Physical Activity: benefits of exercise, impact of exercise on BG, and types of exercise -Problem Solving: hypoglycemia s/sx/tx, glucagon emergency use Gvoke pen (who would use pen (family, ie pt ) and when to use pen), hyperglycemia s/sx/tx, and sick day rules Education Materials: Healthy You: Survival Skills Thriving with the Mediterranean Lifestyle Nutrition Monitoring & Evaluation: Dietitian Goals: Maintained OR Improved Blood Glucose Control by next A1C test Criteria: Blood Glucose Values and A1C Patient Stated Goals at today's visit: Always pair CHO with protein and/or healthy fat. Adherence Potential to Goals: Good Need for Follow up: TBD Referred by: David Saha APRN.* Myah Cordoba RD Consult Billing Type/Increments: Initial Assessment/15 minutes, 5 increment(s), 75 minutes Start time: 15:35 End time: 16:55 My final report will be communicated back to the requesting physician by way of shared medical record. Signed by: Myah Cordoba RD documented in this encounter [facility] 02-12-2024 Note Education (EDEDME) JUDIE CORBETT ([id number]) 1965 M Date Time Provider Department 02/12/24 3:30 PM MYAH CORDOBA Reason for Visit: Medical Nutrition Therapy [1997] Cmt: Type 2 diabetes Visit Diagnoses:Type 2 diabetes mellitus with microalbuminuria, with long-term current use of insulin (HCC) [E11.29, R80.9, Z79.4] Overweight with body mass index (BMI) of 29 to 29.9 in adult [E66.3, Z68.29] Order(s):ENDOCRINOLOGY DIETITIAN VISIT (MNT) [[id number]] Order #: [id number]: [id number] During your visit today, we recorded the following information about you: Allergies As of Date: 02/12/2024 (No Known Allergies) Date Reviewed: 01/15/2024 Reviewed by: David Saha APRN.PIZZA MAKER - Fully Assessed Prescriptions as of 07/27/2024 - hydroCHLOROthiazide 25 mg tablet TAKE 1 TABLET BY MOUTH ONCE DAILY - lisinopril (ZESTRIL) 40 mg tablet TAKE 1 TABLET BY MOUTH ONCE DAILY - verapamil SR (CALAN SR) 240 mg CR tablet take 1 tablet by mouth daily at bedtime - fenofibrate (LOFIBRA) 200 mg capsule TAKE 1 CAPSULE BY MOUTH DAILY - insulin glargine (LANTUS U-100 INSULIN) 100 unit/mL injection Inject 55 Units subcutaneously daily at bedtime. - glucagon (BAQSIMI) 3 mg/actuation nasal spray Use 1 Beeson in the nose as needed. May repeat after 15 minutes using a new device if there is no response. - HUMALOG KWIKPEN INSULIN 100 unit/mL INJECT 12 UNTS SUBCUTANEOUSLY BEFORE BREAKFAST, 20 UNITS BEFORE lunch and 30 UNITS - FARXIGA 10 mg tablet Take 1 tablet by mouth daily with breakfast. - metFORMIN (GLUCOPHAGE) 1,000 mg tablet take 1 tablet by mouth twice daily - atorvastatin (LIPITOR) 40 mg tablet take 1 tablet by mouth once daily - Blood-Glucose Sensor (DEXCOM G6 SENSOR) ana Use as directed; IDDM, E 11.9 - Blood-Glucose Meter,Continuous (DEXCOM G6 MIXING ENGINEER) misc Use as directed, IDDM, E11.9 - Blood-Glucose Transmitter (DEXCOM G6 TRANSMITTER) ana Use as directed, IDDM, E 11.9 - insulin needles, DISPOSABLE, (BD INSULIN PEN NEEDLE UF) 31 gauge x 09/04 Use 4 pen needles daily - Vit A,C and W-Vishga-Xhwdyvys (OCUVITE WITH LUTEIN) 1,000 unit-200 mg-60 unit-2 mg tab Take 1 tablet by mouth once daily. - aspirin(ECOTRIN LOW STRENGTH 81 MG TAB) Take one(1) tablet daily. Encounter Status:Closed by MYAH CORDOBA on 02/12/24 [facility] 02-12-2024 Note HNO ID: [id number] Author: MYAH CORDOBA RD Service: ? Author Type: Registered Dietitian Type: Progress Notes Filed: 02/12/2024 17:05 Note Text: [facility] Medical Nutrition Therapy Visit Type: In-Person (Face to Face): Patient states reason for visit: Type 2 Diabetes Management Initial DEMOGRAPHICS: Co-Morbidities: PAST MEDICAL HISTORY Diagnosis Date Carpal tunnel syndrome, bilateral 2019 DM w/o complication type II, uncontrolled 08/21/2011 Macular degeneration 06/11/2013 Nontraumatic complete tear of right rotator cuff 2019 Other and unspecified hyperlipidemia 04/28/2007 Proteinuria 11/21/2010 Snoring Type II or unspecified type diabetes mellitus without mention of complication, not stated as uncontrolled 04/28/2007 Unspecified essential hypertension 04/28/2007 Activity: Do you do a regular exercise- no additional exercise outside of work. - Active with work and working on cars when gets home. May go on walks with and dog. Symptoms: Patient's symptoms are as follows: Nutrition education for diabetes- uncertain what food affects BG. How many hours of sleep on average? 6-7 hours - Denies difficulty falling and/or staying asleep. - Up at 4:30 AM, To bed by 10:30-11P. Diet History: Breakfast (before work): b-fast burrito (2 burritos; onions, peppers, sausage, ghosh, tortilla), OR Red Hot burrito Snack (10A): Bagel w/ bologna+ham+buffalo chicken and venezuelan cheese Lunch (12P): may skip, OR leftovers hot dogs w/ mac n cheese w/ carrots and beets (w/ thousand [place] or ranch dressing) Dinner (6-6:30P): Meatball sub w/ mozzarella cheese and potato wedges, OR leftovers hot dogs w/ mac n cheese Snack (1 hour before bed):occasional additional leftovers from dinner (last night 2 meatballs) Fluids: Dairyman's diet iced tea (1/2 to 1 gallon daily), Water (rare), once and a while Monster energy drink Dining/eating out? rare Allergies: No Food Allergy Patient / Provider Comments: - Current DM medications: Pt states taking Farxiga 10 mg daily, Metformin 1,000mg BID, lantus 60 units, Humalog 12 units breakfast (may skip), 20-22 units lunch, 30 units with dinner, and Ozempic (stopped after taking two doses d/t feeling miserable felt muscle and joint pain, increased fatigue when taking) - Has Dexcom G6; does not have Dexcom dental prosthetist with him at time of visit. - Hypoglycemic events: occasional, s/s include brain fog and excessive sweating. Finds may occur in morning Bg; yesterday ~70 mg/dl pt attributes to taking humalog late with dinner. - Hyperglycemic events: in evening BG high d/t forgetting insulin shot. 200-250 mg/dl. - Initial DM dx: 2011 - Recent A1C 7.3% 2023. - My forget taking Humalog during meals when working or at home and finds self dosing humalog after meal has started. - No past nutrition education for diabetes. - States I'm hungry all of the time. 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 Medications: Current Outpatient Medications Medication Sig insulin glargine (LANTUS U-100 INSULIN) 100 unit/mL injection Inject 60 Units subcutaneously daily at bedtime. HUMALOG KWIKPEN INSULIN 100 unit/mL INJECT 12 UNTS SUBCUTANEOUSLY BEFORE BREAKFAST, 20 UNITS BEFORE lunch and 30 UNITS semaglutide (OZEMPIC) 0.25 mg or 0.5 mg (2 mg/3 mL) pen Inject subcutaneously 0.25 mg weekly x 4 wks then increase to 0.5 mg weekly FARXIGA 10 mg tablet Take 1 tablet by mouth daily with breakfast. metFORMIN (GLUCOPHAGE) 1,000 mg tablet take 1 tablet by mouth twice daily atorvastatin (LIPITOR) 40 mg tablet take 1 tablet by mouth once daily lisinopril (ZESTRIL) 40 mg tablet take 1 tablet by mouth daily hydroCHLOROthiazide 25 mg tablet take 1 tablet by mouth once daily. verapamil SR (CALAN SR) 240 mg CR tablet take 1 tablet by mouth daily at bedtime fenofibrate (LOFIBRA) 200 mg capsule take 1 capsule by mouth daily Blood-Glucose Sensor (DEXCOM G6 SENSOR) ana Use as directed; IDDM, E 11.9 Blood-Glucose Meter,Continuous (DEXCOM G6 MIXING ENGINEER) misc Use as directed, IDDM, E11.9 Blood-Glucose Transmitter (DEXCOM G6 TRANSMITTER) ana Use as directed, IDDM, E 11.9 insulin needles, DISPOSABLE, (BD INSULIN PEN NEEDLE UF) 31 gauge x /16 Use 4 pen needles daily Vit A,C and I-Asaavd-Xyizzbhk (OCUVITE WITH LUTEIN) 1,000 unit-200 mg-60 unit-2 mg tab Take 1 tablet by mouth once daily. aspirin(ECOTRIN LOW STRENGTH 81 MG TAB) Take one(1) tablet daily. No current facility-administered medications for this visit. Labs: Lab Results Component Value Date HBA1C 7.3 01/15/2024 HBA1C 7.7 09/12/2023 HBA1C 7.2 04/05/2023 HBA1C 7.6 11/09/2022 HBA1C 8.0 05/05/2020 HBA1C 8.8 03/19/2016 HBA1C 8.8 10/12/2015 HBA1C 9.4 06/22/2015 HBA1C 9.4 02/19/2015 Cholesterol, Total Date Value Ref Range Status 04/05/2023 150 <200 mg/dL Final Comment: <200 mg/dL, Desirable 200-239 mg/dL, Borderline high >239 mg/dL, High HDL (more content not included)... [facility] 02-11-2024 Telephone encounter Note Form faxed to [employer] at on February 11, 2024; transmission ok. [facility] 02-11-2024 Miscellaneous Notes Form faxed to [employer] at on February 11, 2024; transmission ok. Form signed. Thank you Form on docs desk/basket for review from [employer]. Please review and sign. Needs to be faxed to [phone]. Attached last office note CGM sensor and transmitter documented in this encounter [facility] 02-11-2024 Telephone encounter Note Form signed. Thank you [facility] 02-03-2024 Telephone encounter Note Form on docs desk/basket for review from [employer]. Please review and sign. Needs to be faxed to [phone]. Attached last office note CGM sensor and transmitter [facility] 01-15-2024 Instructions David Saha APRN.CNP - 01/15/2024 8:37 AM EDT Continue farxiga, metformin. When starting ozempic lower insulin as follows: Lantus to 50 units Humalog Breakfast 5 units Lunch 15 units Dinner 30 units Start ozempic 0.25 mg weekly x 4 wks then increase to 0.5 mg weekly Follow up in March as planned with Dr. Shawn Saha, MSN, MANAGER OF SALES, [employer] SALVAGE PROCESSOR-C, [facility] Endocrinology [facility] Office [facility]/[address], [address] [place] [address] Fax: documented in this encounter [facility] 01-15-2024 History of Present illness Narrative Reason for Consultation: DM Type 2 Referring Physician: Ad Boyd MD [address] [place] [address] HISTORY OF PRESENT ILLNESS Mr. Corbett is a 58 year old male presenting here today for a follow up of DM Type 2. As I recall, he was initially diagnosed with diabetes 2011. Patient of Dr. 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 States he has a big appetite and his is planning on starting them on a new diet. She is on compounded Semaglutide. Has questions about how many carbs to consume and daily calorie intake. Concerned family and friends have of cancer and wonders about screenings Dexcom supplies from [employer]. Interested in G7. Current diabetes regimen is as follows: Farxiga 10 mg daily Metformin 1,000mg BID lantus 55 units HS-- taking 60 units instead Humalog 10 units breakfast, 22 units lunch, 34 units with dinner --actually taking 12 B, 20 L, 30 dinner but admits he often misses the breakfast and lunch doses and takes the dinner dose after eating. Previous DM medications: Invokana Glimepiride he is checking his blood glucose continuously with Dexcom G6 CGM he does bring a log book today for review. LDE Blood Sugar Frequency: Dexcom download (01/02/24 to 01/15/24) In range 73% High 24% Very high 2% Low 1% Very low 0% Avg glucose 151 GMI 6.9 BG is best from 1 AM to 7 AM He rises slightly after breakfast and more after lunch and dinner Hypoglycemia frequency: occasionally Hypoglycemia awareness: Yes Regarding symptoms of hypoglycemia, he is not experiencing any symptoms such as polyuria, polydipsia, nocturia or rapid weight loss or blurry vision, Overall, the patient has no acute complaints at this time. HLD: Atorvastatin, fenofibrate HTN: Lisinopril, hctz, verapamil PAST MEDICAL HISTORY Diagnosis Date Carpal tunnel syndrome, bilateral 2018 DM w/o complication type II, uncontrolled 08/21/2011 Macular degeneration 06/11/2013 Nontraumatic complete tear of right rotator cuff 2019 Other and unspecified hyperlipidemia 04/28/2007 Proteinuria 11/21/2010 Snoring Type II or unspecified type diabetes mellitus without mention of complication, not stated as uncontrolled 04/28/2007 Unspecified essential hypertension 04/28/2007 PAST SURGICAL HISTORY Procedure Laterality Date ARTHROSC SH TENODESIS BICEPS Right 03/23/2020 COLONOSCOPY FLX DX W/COLLJ SPEC WHEN PFRMD 03/08/2014 HAND SURGERY HX Right 1979 Tendon repair REVISE MEDIAN N/CARPAL TUNNEL SURG Left 11/19/2018 REVISE MEDIAN N/CARPAL TUNNEL SURG Right 03/23/2020 ROTATOR CUFF REPAIR Right 03/23/2020 FAMILY HISTORY Problem Relation Age of Onset Diabetes Mother Stroke Mother Cancer Mother kidney Coronary Artery Disease Mother Kidney Disease Father declined dialysis Hypertension Father Coronary Artery Disease Father Emphysema Father No Known Problems Sister No Known Problems Sister Social History Tobacco Use Smoking status: Never Smokeless tobacco: Never Vaping Use Vaping status: Never Used Substance Use Topics Alcohol use: Yes Comment: Not weekly Drug use: No Allergies As of Date: 01/15/2024 (No Known Allergies) Fully Assessed 01/15/2024 Current Outpatient Medications Medication Sig Dispense Refill FARXIGA 10 mg tablet Take 1 tablet by mouth daily with breakfast. 90 tablet 3 metFORMIN (GLUCOPHAGE) 1,000 mg tablet take 1 tablet by mouth twice daily 180 tablet 3 atorvastatin (LIPITOR) 40 mg tablet take 1 tablet by mouth once daily 90 tablet 3 insulin glargine (LANTUS U-100 INSULIN) 100 unit/mL injection Inject 55 Units subcutaneously daily at bedtime. 60 mL 3 HUMALOG KWIKPEN INSULIN 100 unit/mL INJECT 10 UNTS SUBCUTANEOUSLY BEFORE BREAKFAST, 22 UNITS BEFORE lunch and 34 UNITS 75 mL 3 lisinopril (ZESTRIL) 40 mg tablet take 1 tablet by mouth daily 90 tablet 3 hydroCHLOROthiazide 25 mg tablet take 1 tablet by mouth once daily. 90 tablet 3 verapamil SR (CALAN SR) 240 mg CR tablet take 1 tablet by mouth daily at bedtime 90 tablet 3 fenofibrate (LOFIBRA) 200 mg capsule take 1 capsule by mouth daily 90 capsule 3 Blood-Glucose Sensor ([employer] G6 SENSOR) ana Use as directed; IDDM, E 11.9 3 Each 11 Blood-Glucose Meter,Continuous (DEXCOM G6 MIXING ENGINEER) misc Use as directed, IDDM, E11.9 1 Each 0 Blood-Glucose Transmitter (DEXCOM G6 TRANSMITTER) ana Use as directed, IDDM, E 11.9 1 Each 3 insulin needles, DISPOSABLE, (BD INSULIN PEN NEEDLE UF) 31 gauge x 5/16 Use 4 pen needles daily 400 Each 3 Vit A,C and I-Wvzphh-Otrwoczb (OCUVITE WITH LUTEIN) 1,000 unit-200 mg-60 unit-2 mg tab Take 1 tablet by mouth once daily. 0 aspirin(ECOTRIN LOW STRENGTH 81 MG TAB) Take one(1) tablet daily. 0 No current facility-administered medications for this visit. REVIEW OF SYSTEMS Review of Systems Respiratory: Negative for difficulty breathing. Cardiovascular: Negative for chest pain. Gastrointestinal: Negative for nausea, vomiting, diarrhea and constipation. PHYSICAL EXAMINATION BP 122/80 Pulse 77 Wt 92.1 kg (203 lb 0.7 oz) SpO2 98% BMI 29.13 kg/m2 Physical Exam Constitutional: Appearance: Normal appearance. Cardiovascular: Rate and Rhythm: Normal rate and regular rhythm. Pulmonary: Effort: Pulmonary effort is normal. Breath sounds: Normal breath sounds. Skin: General: Skin is warm and dry. Neurological: Mental Status: He is alert and oriented to person, place, and time. Psychiatric: Mood and Affect: Mood normal. Behavior: Behavior normal. Feet:Shoes and socks removed, sensitive to 10 gm monofilament, and calluses noted bilaterally DATA Creatinine Date Value Ref Range Status 04/05/2023 1.13 0.73 - 1.22 mg/dL Final Hemoglobin A1C (%) Date Value 05/05/2020 8.0 Hemoglobin A1C (POCT) (%) Date Value 01/15/2024 7.3 ) No components found for: URINEALBUMIN Cholesterol, Total (mg/dL) Date Value 04/05/2023 150 05/05/2020 204 HDL Cholesterol (mg/dL) Date Value 04/05/2023 33 05/05/2020 32 LDL Cholesterol (mg/dL) Date Value 04/05/2023 48 05/05/2020 Unable to calculate due to increased Triglycerides. See LDL-Chol, Direct. Triglyceride (mg/dL) Date Value 04/05/2023 343 05/05/2020 417 IMPRESSION: Mr. Corbett is a 58 year old male here for evaluation of DM Type 2 complicated by hypertension, hyperlipidemia, microalbuminuria RECOMMENDATIONS: (E11.29, R80.9, Z79.4) Type 2 diabetes mellitus with microalbuminuria, with long-term current use of insulin (HCC) (primary encounter diagnosis) Comment: Glycemic control is improving. Will add Ozempic. Risks and benefits reviewed. Reviewed the importance of taking his humalog at the start of the meal. Urine protein is monitored. He is on SGTL2 and CHRISSY Patient agrees to start GLP-1 therapy. Patient has no history of pancreatitis and no personal or family history of medullary thyroid cancer/c-cell hyperplasia. We discussed the reported risk of medullary thyroid cancer/c-cell hyperplasia noted in rats who received clinically relevant doses of GLP-1. Risk of medullary thyroid cancer/c-cell hyperplasia has yet to be demonstrated in humans, especially in the current pharmacologic doses approved for use. Potential for weight loss with improved glycemic control warrant trial of medication. Patient made inforrmed decision to try the medication. Medication has been fully explained to patient, including risk of C-cell hyperplasia in the thyroid gland occurring in mice/rats, injection technique, risk of hypoglycemia, side effects including nausea/vomiting. Plan: insulin glargine (LANTUS U-100 INSULIN) 100 unit/mL injection, HUMALOG KWIKPEN INSULIN 100 unit/mL, COMPREHENSIVE METABOLIC PANEL, HEMOGLOBIN A1C, ALBUMIN/CREATININE RATIO, URINE, LIPID PANEL BASIC, COMPLETE BLOOD COUNT, ENDOCRINOLOGY DIETITIAN VISIT (MNT), semaglutide (OZEMPIC) 0.25 mg or 0.5 mg (2 mg/3 mL) pen Continue farxiga, metformin. When starting ozempic lower insulin as follows: Lantus to 50 units Humalog Breakfast 5 units Lunch 15 units Dinner 30 units Start ozempic 0.25 mg weekly x 4 wks then increase to 0.5 mg weekly Follow up in March as planned with Dr. Escobar (E78.2) Mixed hyperlipidemia Comment/Plan: LIPID PANEL BASIC Continue statin (I10) Essential hypertension Comment/Plan: continue CHRISSY (Z12.5) Encounter for screening for malignant neoplasm of prostate Comment/Plan: PSA/PROSTATE SPECIFIC ANTIGEN SCREENING Advised patient he should follow up with PCP for prostate exam and if the lab is abnormal he will need to discuss with PCP or see urology (E66.3, Z68.29) Overweight with body mass index (BMI) of 29 to 29.9 in adult Comment: Body mass index is 29.13 kg/m . Plan: ENDOCRINOLOGY DIETITIAN VISIT (MNT) Encouraged increase dietary and exercise efforts as able See unit support representative I spent a total of 40 minutes on the date of the service which included preparing to see the patient, [id number] patient care, completing clinical documentation, obtaining and/or reviewing separately obtained history, performing a medically appropriate examination, counseling and educating the patient/family/caregiver, ordering medications, tests, or procedures, and communicating results to the patient/family/caregiver. David Saha, MSN, MANAGER OF SALES, [employer] SALVAGE PROCESSOR-C, [facility] Endocrinology [facility] Office [facility]/[address] [place], [place] [address] Fax: documented in this encounter [facility] 01-15-2024 Note HNO ID: [id number] Author: DAVID SAHA APRN.PIZZA MAKER Service: ? Author Type: Nurse Practitioner Type: Progress Notes Filed: 01/15/2024 08:57 Note Text: Reason for Consultation: DM Type 2 Referring Physician: Ad Boyd MD [id number] [facility] [address] HISTORY OF PRESENT ILLNESS Mr. Corbett is a 58 year old male presenting here today for a follow up of DM Type 2. As I recall, he was initially diagnosed with diabetes 2011. Patient of Dr. 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 States he has a big appetite and his is planning on starting them on a new diet. She is on compounded Semaglutide. Has questions about how many carbs to consume and daily calorie intake. Concerned family and friends have of cancer and wonders about screenings Dexcom supplies from [employer]. Interested in G7. Current diabetes regimen is as follows: Farxiga 10 mg daily Metformin 1,000mg BID lantus 55 units HS-- taking 60 units instead Humalog 10 units breakfast, 22 units lunch, 34 units with dinner --actually taking 12 B, 20 L, 30 dinner but admits he often misses the breakfast and lunch doses and takes the dinner dose after eating. Previous DM medications: Invokana Glimepiride he is checking his blood glucose continuously with Dexcom G6 CGM he does bring a log book today for review. LDE Blood Sugar Frequency: Dexcom download (01/02/24 to 01/15/24) In range 73% High 24% Very high 2% Low 1% Very low 0% Avg glucose 151 GMI 6.9 BG is best from 1 AM to 7 AM He rises slightly after breakfast and more after lunch and dinner Hypoglycemia frequency: occasionally Hypoglycemia awareness: Yes Regarding symptoms of hypoglycemia, he is not experiencing any symptoms such as polyuria, polydipsia, nocturia or rapid weight loss or blurry vision, Overall, the patient has no acute complaints at this time. HLD: Atorvastatin, fenofibrate HTN: Lisinopril, hctz, verapamil PAST MEDICAL HISTORY Diagnosis Date Carpal tunnel syndrome, bilateral 2018 DM w/o complication type II, uncontrolled 08/21/2011 Macular degeneration 06/11/2013 Nontraumatic complete tear of right rotator cuff 2019 Other and unspecified hyperlipidemia 04/28/2007 Proteinuria 11/21/2010 Snoring Type II or unspecified type diabetes mellitus without mention of complication, not stated as uncontrolled 04/28/2007 Unspecified essential hypertension 04/28/2007 PAST SURGICAL HISTORY Procedure Laterality Date ARTHROSC SH TENODESIS BICEPS Right 03/23/2020 COLONOSCOPY FLX DX W/COLLJ SPEC WHEN PFRMD 03/08/2014 HAND SURGERY HX Right 1980 Tendon repair REVISE MEDIAN N/CARPAL TUNNEL SURG Left 11/19/2018 REVISE MEDIAN N/CARPAL TUNNEL SURG Right 03/23/2020 ROTATOR CUFF REPAIR Right 03/23/2020 FAMILY HISTORY Problem Relation Age of Onset Diabetes Mother Stroke Mother Cancer Mother kidney Coronary Artery Disease Mother Kidney Disease Father declined dialysis Hypertension Father Coronary Artery Disease Father Emphysema Father No Known Problems Sister No Known Problems Sister Social History Tobacco Use Smoking status: Never Smokeless tobacco: Never Vaping Use Vaping status: Never Used Substance Use Topics Alcohol use: Yes Comment: Not weekly Drug use: No Allergies As of Date: 01/15/2024 (No Known Allergies) Fully Assessed 01/15/2024 Current Outpatient Medications Medication Sig Dispense Refill FARXIGA 10 mg tablet Take 1 tablet by mouth daily with breakfast. 90 tablet 3 metFORMIN (GLUCOPHAGE) 1,000 mg tablet take 1 tablet by mouth twice daily 180 tablet 3 atorvastatin (LIPITOR) 40 mg tablet take 1 tablet by mouth once daily 90 tablet 3 insulin glargine (LANTUS U-100 INSULIN) 100 unit/mL injection Inject 55 Units subcutaneously daily at bedtime. 60 mL 3 HUMALOG KWIKPEN INSULIN 100 unit/mL INJECT 10 UNTS SUBCUTANEOUSLY BEFORE BREAKFAST, 22 UNITS BEFORE lunch and 34 UNITS 75 mL 3 lisinopril (ZESTRIL) 40 mg tablet take 1 tablet by mouth daily 90 tablet 3 hydroCHLOROthiazide 25 mg tablet take 1 tablet by mouth once daily. 90 tablet 3 verapamil SR (CALAN SR) 240 mg CR tablet take 1 tablet by mouth daily at bedtime 90 tablet 3 fenofibrate (LOFIBRA) 200 mg capsule take 1 capsule by mouth daily 90 capsule 3 Blood-Glucose Sensor (DEXCOM G6 SENSOR) ana Use as directed; IDDM, E 11.9 3 Each 11 Blood-Glucose Meter,Continuous (DEXCOM G6 MIXING ENGINEER) misc Use as directed, IDDM, E11.9 1 Each 0 Blood-Glucose Transmitter (DEXCOM G6 TRANSMITTER) ana Use as directed, IDDM, E 11.9 1 Each 3 insulin needles, DISPOSABLE, (BD INSULIN PEN NEEDLE UF) 31 gauge x 5/16 Use 4 pen needles daily 400 Each 3 Vit A,C and D-Xbhcgn-Yliyftab (OCUVITE WITH (more content not included)... [facility] 10-21-2023 Miscellaneous Notes Patient called the nurse line stating he received a letter from [employer] stating a medication was no longer being covered as of October 20. Called and spoke to patient, he stated that dapagliflozin propanediol was not covered but Farxiga was. Attached is the PATRICIA for Farxiga. Please send. documented in this encounter [facility] 10-21-2023 Telephone encounter Note Patient called the nurse line stating he received a letter from [employer] stating a medication was no longer being covered as of October 20. Called and spoke to patient, he stated that dapagliflozin propanediol was not covered but Farxiga was. Attached is the PATRICIA for Farxiga. Please send. [facility] 09-17-2023 Telephone encounter Note Requester: Pharmacy Last Visit in Endocrinology: Provider name: Shakeel Graham MD , Date 09/12/2023 Next Scheduled Appt in Endo: 01/15/2024 Last Refill: 10/12/2022 Number of Refills given: 3 Requested Prescriptions Pending Prescriptions Disp Refills metFORMIN (GLUCOPHAGE) 1,000 mg tablet [Pharmacy Med Name: metformin 1,000 mg tablet] 180 tablet 3 Sig: take 1 tablet by mouth twice daily atorvastatin (LIPITOR) 40 mg tablet [Pharmacy Med Name: atorvastatin 40 mg tablet] 90 tablet 3 Sig: take 1 tablet by mouth once daily Please review and advise. Kelly Singh MA [facility] 09-17-2023 Miscellaneous Notes Requester: Pharmacy Last Visit in Endocrinology: Provider name: Shakeel Graham MD , Date 09/12/2023 Next Scheduled Appt in Endo: 01/15/2024 Last Refill: 10/12/2022 Number of Refills given: 3 Requested Prescriptions Pending Prescriptions Disp Refills metFORMIN (GLUCOPHAGE) 1,000 mg tablet [Pharmacy Med Name: metformin 1,000 mg tablet] 180 tablet 3 Sig: take 1 tablet by mouth twice daily atorvastatin (LIPITOR) 40 mg tablet [Pharmacy Med Name: atorvastatin 40 mg tablet] 90 tablet 3 Sig: take 1 tablet by mouth once daily Please review and advise. Kelly Singh MA documented in this encounter [facility] 09-12-2023 History of Present illness Narrative DIABETES FOLLOW UP SUBJECTIVE: Judie Corbett is a 58 year old male who presents for a return visit regarding type 2 Diabetes, HTN and hyperlipidemia. Diabetes complications include: None. Interval history: States that he is always feeling tired Sleeps 6-7 hours at night Per patient's , he snoring at night. Reports daytime fatigue and napping during the day He was recently found to have plantar fascitis Diabetes treatment regimen: Lantus 60 units q HS Humalog 14-22-32 units with meals- skips breakfast dose if his FBG < 60, he has been skipping lunch insulin dose Metformin 1000 mg BID Farxiga 10 mg daily Meal plannin meals, snacks are carrots and beets Last A1c: 7.2 eye exam: uptodate flu shot:no Blood glucose times and ranges (mg/dl): Currently he is using Vocalcom G6 14 day CGM data GMI- 7.0 Average BG 153 TIR- 57% High- 33% Very high-7% Low- 2% Very low-1% Daily pattern- BG trend up between 4-7:00 pm Hypoglycemic episodes/treatment: fasting hypoglycemia noted He also has HTN, he takes lisinopril 40 mg daily and verapamil 240 mg daily Hyperlipidemia- on pravachol and fenofibrate PAST MEDICAL HISTORY Diagnosis Date Carpal tunnel syndrome, bilateral 2018 DM w/o complication type II, uncontrolled 08/21/2011 Macular degeneration 06/11/2013 Nontraumatic complete tear of right rotator cuff 2019 Other and unspecified hyperlipidemia 04/28/2007 Proteinuria 11/21/2010 Snoring Type II or unspecified type diabetes mellitus without mention of complication, not stated as uncontrolled 04/28/2007 Unspecified essential hypertension 04/28/2007 PAST SURGICAL HISTORY Procedure Laterality Date ARTHROSC SH TENODESIS BICEPS Right 03/23/2020 COLONOSCOPY FLX DX W/COLLJ SPEC WHEN PFRMD 03/08/2014 HAND SURGERY HX Right 1979 Tendon repair REVISE MEDIAN N/CARPAL TUNNEL SURG Left 11/19/2018 REVISE MEDIAN N/CARPAL TUNNEL SURG Right 03/23/2020 ROTATOR CUFF REPAIR Right 03/23/2020 Social History Tobacco Use Smoking status: Never Smokeless tobacco: Never Vaping Use Vaping Use: Never used Substance Use Topics Alcohol use: Yes Comment: Not weekly Drug use: No REVIEW OF SYSTEMS: GENERAL:No weight loss, malaise or fevers NECK:Negative for lumps, goiter, pain and significant neck swelling RESPIRATORY: Negative for cough, hemoptysis, wheezing or shortness of breath CARDIOVASCULAR: Negative for chest pain, leg swelling or palpitations GENITOURINARY: no dysuria, Polyuria, no changes in urinary frequency MUSCULOSKELETAL:no muscle aches, +arthralgia NEUROLOGIC: no numbness, tingling, no Paresthesias, no headaches SKIN:Negative for lesions, rash, and itching ENDOCRINE: Negative for cold or heat intolerance or goiter Current Outpatient Medications on File Prior to Visit Medication Sig fenofibrate (LOFIBRA) 200 mg capsule take 1 capsule by mouth daily metFORMIN (GLUCOPHAGE) 1,000 mg tablet Take 1 tablet by mouth twice daily. LANTUS U-100 INSULIN 100 unit/mL injection INJECT 60 UNITS SUBCUTANEOUSLY ONCE DAILY AT BEDTIME atorvastatin (LIPITOR) 40 mg tablet TAKE 1 TABLET BY MOUTH ONCE DAILY hydroCHLOROthiazide 25 mg tablet Take 1 tablet by mouth once daily. lisinopril (ZESTRIL) 40 mg tablet TAKE 1 TABLET BY MOUTH ONCE DAILY verapamil SR (CALAN SR, ISOPTIN SR) 240 mg CR tablet TAKE 1 TABLET BY MOUTH DAILY AT BEDTIME Blood-Glucose Sensor (DEXCOM G6 SENSOR) ana Use as directed; IDDM, E 11.9 Blood-Glucose Meter,Continuous (DEXCOM G6 MIXING ENGINEER) misc Use as directed, IDDM, E11.9 Blood-Glucose Transmitter (DEXCOM G6 TRANSMITTER) ana Use as directed, IDDM, E 11.9 insulin needles, DISPOSABLE, (BD INSULIN PEN NEEDLE UF) 31 gauge x /16 Use 4 pen needles daily Vit A,C and Y-Gbgyyn-Zpuoqdqy (OCUVITE WITH LUTEIN) 1,000 unit-200 mg-60 unit-2 mg tab Take 1 tablet by mouth once daily. aspirin(ECOTRIN LOW STRENGTH 81 MG TAB) Take one(1) tablet daily. No current facility-administered medications on file prior to visit. PHYSICAL EXAM: BP 134/74 Pulse 77 Resp 16 Ht 177.8 cm (5' 10) Wt 93 kg (205 lb 0.4 oz) SpO2 98% BMI 29.42 kg/m General:alert and oriented X 3, no acute distress Eyes:anicteric sclera, Extraocular motions intact Neck supple, no cervical lymphadenopathy Thyroid: normal size, normal texture, no palpable nodules Chest: Breathing unlabored, Lungs clear to auscultation. No wheezing CV:normal, Regular rate and rhythm, no murmurs Neuro: Gait normal. Sensation grossly intact. No focal findings Musculoskeletal: Muscular strength intact, No joint swelling, deformity Extremities without edema, no deformities, no ulcers noted Skin: no rashes/erythema LAB: Latest Reference Range & Units 04/05/23 07:03 Hemoglobin A1C 4.3 - 5.6 % 7.2 (H) Estimated Average Glucose mg/dL 160 TSH 0.270 - 4.200 mIU/L 1.450 Latest Reference Range & Units 04/05/23 07:03 Albumin/Creat Ratio <30 mg/g 34 (H) Creatinine, Ur Random (UCRR) 20.0 - 300.0 mg/dL 88.3 Albumin, Urine Random mg/L 30.4 Latest Reference Range & Units 07/25/21 09:13 eGFR >=60 mL/min/1.73m 57 (L) Cholesterol, Total <200 mg/dL 147 Triglyceride <150 mg/dL 315 (H) Fasting Time hrs 2 HDL Cholesterol >39 mg/dL 34 (L) LDL Cholesterol <100 mg/dL 50 VLDL Cholesterol <30 mg/dL 63 (H) ASSESSMENT/PLAN: Type 2 diabetes without complications Hypertension Hyperlipidemia Microalbuminuria Fatigue 1. Glycemic Control:A1c has increased 7.7 Reviewed and discussed his recent CGM data TIR has decreased to 57% Decrease lantus to 55 units Qhs Increase humalog to 34 units with dinner Continue Farixga and Metformin Patient uses CGM for BG monitoring 3. Hypertension:BP is within goal continue lisinopril, Verapamil and HCTZ 25 mg daily 4. Cholesterol:LDL and CHOL were within goal Elevated Trig Continue lipitor and fenofibrate 5. Complications:none 6. Other: Urine microalbumin was borderline elevated Continue lisinopril Recheck urine microalbumin at follow up uptodate on Eye exam 7. 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 08-29-2023 History of Present illness Narrative Per Judie Mejia was provided with Powerstep Originals, size 10-10.5Men, and instructed/educated in its application, wear, and care. All questions were answered, and patient was able to demonstrate competence with the necessary skills to utilize the above equipment. Argelia Otto RN Initial Office Visit Subjective: This 58 year old male presents to clinic for diabetic foot check. Patient has the following complaints: right heel /arch pain. Patient presents to clinic for evaluation of right foot. Complains of pain to his right heel/arch. He states the pain has bee npresent x 3-4 weeks. It is intermittent. Can be present when he first wakes up and then goes away. Can be present the longer he is on his foot. The biggest concern is making sure it is not neuropathy. Patient admits to being diabetic for 25 years now. Patient -B/T/N in feet at this time. Patient -pain in legs when walking. No other pedal complaints at this time. No change in medications or medical history since last visit. PAIN EVALUATION 08/29/2023 1511 Pain Level: 2 Pain Location: Foot-Right Description: Dull;Aching Duration Amount of Time: 2 Duration Units: Months Frequency: Intermittent Hemoglobin A1C (%) Date Value 04/05/2023 7.2 07/25/2021 7.6 05/05/2020 8.0 10/12/2015 8.8 02/19/2015 9.4 11/16/2014 9.6 08/18/2014 9.9 Hemoglobin A1c (%) Date Value 03/19/2016 8.8 06/22/2015 9.4 Hemoglobin A1C (POCT) (%) Date Value 11/09/2022 7.6 06/15/2022 7.2 03/13/2022 8.4 02/23/2021 7.4 08/19/2020 7.1 PCP: Ad Boyd MD PAST MEDICAL HISTORY Diagnosis Date Carpal tunnel syndrome, bilateral 2019 DM w/o complication type II, uncontrolled 08/21/2011 Macular degeneration 06/11/2013 Nontraumatic complete tear of right rotator cuff 2019 Other and unspecified hyperlipidemia 04/28/2007 Proteinuria 11/21/2010 Snoring Type II or unspecified type diabetes mellitus without mention of complication, not stated as uncontrolled 04/28/2007 Unspecified essential hypertension 04/28/2007 Current Outpatient Medications Medication Sig lisinopril (ZESTRIL) 40 mg tablet take 1 tablet by mouth daily hydroCHLOROthiazide 25 mg tablet take 1 tablet by mouth once daily. HUMALOG KWIKPEN INSULIN 100 unit/mL INJECT 14 UNITS SUBCUTANEOUSLY BEFORE BREAKFAST, INJECT 22 UNITS BEFORE lunch, INJECT 32 UNITS BEFORE dinner verapamil SR (CALAN SR) 240 mg CR tablet take 1 tablet by mouth daily at bedtime dapagliflozin propanediol (FARXIGA) 10 mg tablet Take 1 tablet by mouth daily with breakfast. fenofibrate (LOFIBRA) 200 mg capsule take 1 capsule by mouth daily metFORMIN (GLUCOPHAGE) 1,000 mg tablet Take 1 tablet by mouth twice daily. LANTUS U-100 INSULIN 100 unit/mL injection INJECT 60 UNITS SUBCUTANEOUSLY ONCE DAILY AT BEDTIME atorvastatin (LIPITOR) 40 mg tablet TAKE 1 TABLET BY MOUTH ONCE DAILY Blood-Glucose Sensor (DEXCOM G6 SENSOR) ana Use as directed; IDDM, E 11.9 Blood-Glucose Meter,Continuous (DEXCOM G6 MIXING ENGINEER) misc Use as directed, IDDM, E11.9 Blood-Glucose Transmitter (DEXCOM G6 TRANSMITTER) ana Use as directed, IDDM, E 11.9 insulin needles, DISPOSABLE, (BD INSULIN PEN NEEDLE UF) 31 gauge x 5/16 Use 4 pen needles daily Vit A,C and K-Doqnun-Nugdeqrl (OCUVITE WITH LUTEIN) 1,000 unit-200 mg-60 unit-2 mg tab Take 1 tablet by mouth once daily. aspirin(ECOTRIN LOW STRENGTH 81 MG TAB) Take one(1) tablet daily. No current facility-administered medications for this visit. ALLERGIES No Known Allergies PAST SURGICAL HISTORY Procedure Laterality Date ARTHROSC SH TENODESIS BICEPS Right 03/23/2020 COLONOSCOPY FLX DX W/COLLJ SPEC WHEN PFRMD 03/08/2014 HAND SURGERY HX Right 1979 Tendon repair REVISE MEDIAN N/CARPAL TUNNEL SURG Left 11/19/2018 REVISE MEDIAN N/CARPAL TUNNEL SURG Right 03/23/2020 ROTATOR CUFF REPAIR Right 03/23/2020 FAMILY HISTORY Problem Relation Age of Onset Diabetes Mother Stroke Mother Cancer Mother kidney Coronary Artery Disease Mother Kidney Disease Father declined dialysis Hypertension Father Coronary Artery Disease Father Emphysema Father No Known Problems Sister No Known Problems Sister Social History Tobacco Use Smoking status: Never Smokeless tobacco: Never Vaping Use Vaping Use: Never used Substance Use Topics Alcohol use: Yes Comment: Not weekly Drug use: No REVIEW OF SYSTEMS GENERAL: Negative for Malaise, significant weight loss, fever RESPIRATORY: Negative for cough, wheezing and shortness of breath CARDIOVASCULAR: Negative for chest pain, leg swelling and palpitations GI: Negative for abdominal discomfort, blood in stools or black stools and change in bowel habits : Negative for dysuria, frequency and incontinence MUSCULOSKELETAL: Negative for joint pain or swelling, back pain, and muscle pain. SKIN: Negative for lesions, rash, and itching. HEMATOLOGY/LYMPHOLOGY Negative for prolonged bleeding, bruising easily, and swollen nodes. ENDOCRINE: Negative for cold or heat intolerance, polyuria, polydipsia and goiter. NEURO: negative The remainder of the review of systems is noncontributory. Objective: Patient presents to clinic ambulating in [facility] Constitutional: Pt is a well developed 58 year old male who is alert, oriented, cooperative and in no apparent distress. Eyes: Following during examination. No redness or drainage. Respiratory: RR normal and nonlabored. Even breathing. No evidence of distress. Psychology: Patient is engaged during conversation. Normal affect and mood. Does not appear depressed or anxious. Vasc: DP and PT pulses are palpable bilateral. CFT is less than 5 seconds bilateral. Skin temperature is warm to warm proximal to distal bilateral. There is no edema or varicosities noted. Hair growth present. Neuro: Protective sensation is intact to the foot and toes when tested with the 5.07 SWM bilateral. Vibratory sensation is decreased at the hallux bilateral. + Significant neurological defecits. Derm: Inspection and palpation performed. Nails 1-5 b/l are normal in length and thickness. Skin is of normal turgor and texture. Hyperkeratosis noted to not present. NO ulcerations, scars, verruca or other lesions noted. Ortho: Ankle joint DF is full with the knee extended and full with knee flexed. No pain or crepitus noted. STJ, MTJ ROM are full and free of pain or crepitus. Muscle strength is 5/5 for dorsiflexors, plantarflexors, inverters, everters. Digital deformities include none. Plantar heel pain, right Assessment: (M72.2) Plantar fasciitis (primary encounter diagnosis) (E11.42) Diabetic polyneuropathy associated with type 2 diabetes mellitus (HCC) Plan: 1. Initial Office Visit - A thorough review of the patient's PMH and Podiatric physical exam was completed. 2. Patient advised to perform stretching excercises, icing, and to make appropriate shoe gear changes to include wearing athletic-type shoes with supportive insoles. No barefoot walking. Patient also given written instructions on how to correctly perform the stretching of the achilles tendon/calf stretches, and the heel spur/plantar fasciitis regimen. 3. Patient advised to seek wide, deep toe box, accomodative, comfortable, lace-up, athletic/walking type footwear that includes motion control characteristics for support and cushion that need to be worn at all times when weight-bearing. Shoes should be tested for torsional stability as well as proper bending at the toebox rather than at the midfoot. Good quality shoes such as, but not limited to, New Balance or Asics are examples of more proper foot gear. 4. Patient recommended to get powerstep insoles for proper support of the arch in order to alleviate the tension and stress on the plantar fascia associated with normal daily walking. Patient advised that these modalities used in conjunction with stretching and icing are able to alleviate most symptoms from this condition. 5. If symptoms fail to improve, consider steroid injection. 7. Patient was instructed on the continued importance of diabetic foot care along with proper diet and keeping their blood sugar under control to prevent complications. Patient does have signs of some neuropathy. Stressed the importance of avoiding barefoot walking, wearing good shoes and daily foot inspection Bigg Cutler DPM AMB ROOMING INTAKE FLOWSHEET DATA Pain Pain Level: 2 Pain Location: Foot-Right Description: Dull, Aching Duration Amount of Time: 2 Duration Units: Months Frequency: Intermittent Patient presents with: Right Foot - New, Pain Patient presents for right foot arch pain that began 2 months ago and become worse in the last 3 weeks. States that pain varies, no consistency with what shoes he wears, or how much he walks. Patient states that it is inconsistent. Also states possible hammer toe to right foot. XR done 08/19/[address] encounter [facility] 08-29-2023 Instructions Bigg Cutler - 08/29/2023 3:54 PM EDT Images from the original note were not included. What is Plantar Fasciitis? Plantar fasciitis is the most common cause of heel pain. The pain is caused by inflammation of the plantar fascia. If you strain your plantar fascia, it becomes weak, swollen and irritated (inflamed). The resulting pain may be isolated in the heel or may appear at different points on the bottom of the foot, from time to time; it may occur in one foot or both. Some think that plantar fasciitis pain is caused by irritation of nerves from tissue swelling or inflammation, but it is debatable. Plantar fasciitis is common in middle-aged people; it also occurs in younger people who are on their feet a lot, such as athletes or soldiers. The plantar fascia is a strong band of connective tissue that extends from the base of the toes, along the bottom of the foot, to the bottom of the heel (calcaneous bone); it acts like a bowstring to maintain the arch of the foot. What are heel spurs? The inflammatory reaction of the heel bone may produce spike-like projections of new bone, called heel spurs. The spurs sometimes show on X-rays. They neither cause the initial pain nor do they cause the initial problem. However, later, having to walk on spurs may cause sharp pain. What causes plantar fasciitis? Plantar fasciitis is caused by straining the ligament that supports your arch. Repeated strain can cause tiny tears in the ligament. These lead to pain and swelling. During walking, the plantar fascia experiences tension up to twice the body weight with each step. While this is normal, those who spend much time on their feet, such as nurses, membership manager/waiters, and mail carriers, often experience plantar fasciitis. Athletes involved in tennis or other racquet sports, race walking, jogging or running also show a higher incidence of plantar fasciitis than do those participating in other activities. Thus, it's clear that plantar fasciitis is predominantly an overuse injury. In fact, any activity that results in prolonged tension and stress on the plantar fascia may cause plantar fasciitis. It is possible that changes in footwear may play a role in causing plantar fasciitis, no matter what activity is occurring. Those who are overweight are prone to plantar fasciitis. This is true even for sedentary people who get little physical activity. Abnormalities of the foot and ankle joints may predispose some individuals to development of plantar fasciitis (specifically, over pronation of the subtalar joint). Contributing Factors * Flat feet * Toe running, hill running * Sudden weight increase * High-arched, rigid feet * Soft terrain, e.g. running on sand * Obesity * Pronated feet (rolled inward) * Sudden increase in activity * Family tendency * Poor shoe support * Worn out or poorly fitted shoes * Increasing age * Walking, standing or running for long periods of time, especially on hard surfaces. How is the Injury Treated? Rest Your Feet: Limit, or if possible, stop activities that are causing your heel pain. Try to avoid running or walking on hard surfaces, such as concrete. Use pain as your guide. If your foot is too painful, rest it. Ice: Ice the sore area for 30 to 60 minutes, several times a day, to reduce inflammation and relieve pain. Apply a plastic bag of crushed ice (or a bag of frozen peas) over a towel. Ice the sore area for 15 minutes after activity/exercise. Application of heat is not generally recommended, as heat expands the bone and connective tissue, perhaps exerting greater pressure on nerves and thereby increasing pain. If heat is used, follow it with ice. Medication: If your condition developed recently, anti-inflammatory/analgesic medication, combined with heel pads (see below) may be all that is necessary to relieve pain and to reduce inflammation. If no pain relief has occurred after 2-3 weeks, however, your doctor may inject either cortisone or local anesthetic directly into the tender area. Exercises: Do simple exercises, such as calf stretches and towel stretches (see below) several times a day, especially when you first get up in the morning. These can help your ligament become more flexible and strengthen the muscles that support your arch. Shoes: Poorly fitting shoes can cause plantar fasciitis. The best type of shoe to wear is a good walking or running shoe with good shock absorption and excellent arch support. You should choose the one that fits the best. [place] with your athletic shoes to find a pair that is comfortable and causes fewer symptoms. Put your shoes on as soon as you get out of bed; going barefoot or wearing slippers may make your pain worse. Good brands include (but are not limited to): New Balance, Asics, Saucony, SAS and Merrel s. Taping: Your doctor may tape your foot to maintain the arch. This takes some of the tension off the plantar fascia. Weight Loss: If your weight is putting extra stress on your feet, your doctor may encourage you to try a weight-loss program. Orthotics: An orthotic insole is a molded piece of rubber, plastic, or other material that you insert into your shoe. It corrects the alignment of your foot and cushions your foot from excessive pounding. These may be prescription or non-prescription. Prescription orthotics are custom-fitted and may fit better and control pain better, but are very expensive. Night Splints: A night splint holds the foot with the toes pointed up and the ankle at a 90-degree angle. This position applies a constant, gentle stretch to the plantar fascia. Corticosteroid Shots: Steroids may be injected into the tender area to reduce inflammation. REHAB Exercises to stretch the plantar fascia, the calf muscles, and the Achilles tendon. Tightness of the muscles of the calves may contribute to plantar fasciitis, so stretching the calf muscles is important to rehabilitation, as is stretching of the plantar fascia itself. Plantar fascial stretches Assisted Dorsiflexion/Plantar Fascia Stretch: Sit on the floor or ground, barefoot, with both legs outstretched. Use a towel or elastic band and wrap it around the ball (and not the toes) of the affected foot. Use the towel or elastic band to provide resistance to upward movement of the forefoot. Pull foot upward (toward your body) with the help of the elastic band or towel, and then return to the starting position. Ten repetitions are recommended. Perform the sequence at least three times a day. Alternate Plantar Fascia Stretch: Sit upright in a chair, barefoot. Place the ankle of the affected foot on your opposite knee. Using the same hand as the affected foot, reach across and grab the toes. Flex the ankle toward and pull the toes toward the altman. To test the stretch, place the thumb of your hand on the bottom of the foot. You should be able to feel the cord-like plantar fascia, running the length of the foot. Hold the stretch for a count of 10, then relax. Repeat 10 times. Do the sequence at least three times a day. Achilles/Calf Stretches Strengthening the muscles of the calves may contribute to successful rehabilitation of plantar fasciitis, as well as prevent reoccurrence. The exercises below will help strengthen the calf muscles. Calf and Achilles Tendon Stretch (Gastrocnemius Stretch): Face a wall, standing an arm's length away. Place one foot back. Place both hands on the wall. Bend the elbows and knee of your forward leg, keeping the heel of the backward foot on the floor and keeping your body straight (aligned), until your forehead nearly touches the wall, or until significant stretch is felt in the muscles of the calf of the backward leg. Hold this position for 10 to 15 seconds. Extend elbows (straighten your arms and stand upright again) and maintain this position for 10 seconds. Repeat this cycle 15 to 20 times. Switch legs and repeat the exercise. Powerstep Original Full length. Can purchase at [employer] and boots,shoes and more here in [place], [employer] in [place] or [place]. Also can find in [employer] in [facility]. Powersteps can also be purchased online, starting around $45.00 If you have a metatarsal or dancer pad for your feet apply the pad directly to the insole so you can interchange between your shoes. Find a shoe with a removable insole and take this out and replace with your powerstep insole. Always bring powersteps with you when shopping for shoes so that you can make sure that everything fits well together Diabetes Foot Care Instructions When you have diabetes, proper foot care is very important. Poor foot care may lead to amputation of a foot or leg. As a person with diabetes, you are more vulnerable to foot problems, because diabetes can damage your nerves and reduce blood flow to your feet. Here are some diabetes foot care tips to follow: Wash and Dry Your Feet Daily Use mild soaps Use warm water Pat your skin dry; do not rub. Thoroughly dry your feet. After washing, use lotion on your feet to prevent cracking. Do not put lotion between your toes. Examine Your Feet Each Day Check the tops and bottoms of your feet. Have someone else look at your feet if you cannot see them. Check for dry, cracked skin. Look for blisters, cuts, scratches, or other sores. Check for redness, increased warmth, or tenderness when touching any area of your feet. Check for ingrown toenails, corns, and calluses. If you get a blister or sore from your shoes, do not pop it. Apply a bandage and wear a different pair of shoes. Take Care of Your Toenails Cut toenails after bathing, when they are soft. Cut toenails straight across and smooth with a nail file. Avoid cutting into the corners of toes. Do not cut cuticles. If you have neuropathy (or decreased sensation in your feet) a marketing data specialist should always cut your toenails. Be Careful When Exercising Walk and exercise in comfortable shoes. Do not exercise when you have open sores on your feet. Protect Your Feet With Shoes and Socks Never go barefoot. Always protect your feet by wearing shoes or hard-soled slippers or footwear. Avoid shoes with high heels and pointed toes. Avoid shoes that expose your toes or heels (such as open-toed shoes or sandals). These types of shoes increase your risk for injury and potential infections. Try on new footwear with the type of socks you usually wear. Do not wear new shoes for more than an hour at a time. Change your socks daily. Look and feel inside your shoes before putting them on to make sure there are no foreign objects or rough areas. Avoid tight socks. Wear natural-fiber socks (cotton, wool, or a cotton-wool blend). Wear special shoes if your health care provider recommends them. Wear shoes/boots that will protect your feet from various weather conditions (cold, moisture, etc.). Make sure your shoes fit properly. If you have neuropathy (nerve damage), you may not notice that your shoes are too tight. Perform the footwear test described below. Footwear Test Use this simple test to see if your shoes fit correctly: Stand on a piece of paper. (Make sure you are standing and not sitting, because your foot changes shape when you stand.) Trace the outline of your foot. Trace the outline of your shoe. Compare the tracings: Is the shoe too narrow? Is your foot crammed into the shoe? The shoe should be at least 1/2 inch longer than your longest toe and as wide as your foot. Proper Shoe Choices The following types of shoes are best for people with diabetes Closed toes and heels Leather uppers without a seam inside At least 1/2 inch extra space at the end of your longest toe Inside of shoe should be soft with no rough areas Outer sole should be made of stiff material Shoes should be at least as wide as your feet Tips for Foot Care in Diabetes Don't wait to treat a minor foot problem if you have diabetes. Follow your health care provider's guidelines and first aid guidelines. Report foot injuries and infections to your health care provider immediately. Check water temperature with your elbow, not your foot. Do not use a heating pad on your feet. Do not cross your legs. Do not self-treat your corns, calluses, or other foot problems. Go to your health care provider or marketing data specialist to treat these conditions. documented in this encounter [facility] 08-28-2023 History of Present illness Narrative 1st attempt to schedule consult for colonoscopy --left vm COLONOSCOPY PATIENT OUTREACH Action/ Colonoscopy Recall Patient identified by Name and : Yes. OUTREACH OUTCOME ACTION: Consult- Telephone Call- Pt is overdue for screening colonoscopy. Pt needs consult due to medical history and/or medications. Please call patient and schedule appointment with General Surgery Provider. Karen Sommer RN documented in this encounter [facility] 08-19-2023 History of Present illness Narrative Radiology Service Progress Note PATIENT NAME: Judie Corbett DATE OF SERVICE: August 19, 2023 TIME: 2:53 PM PATIENT IDENTITY VERIFICATION COMPLETED USING TWO (2) IDENTIFIERS: Name and Date of confirmed by patient verbally. FALL SCREENING: Has the patient had 2 falls in the last year or 1 fall with injury or currently using an Ambulatory Assistive Device (Walker, Cane, Wheelchair, Crutches, etc.)? No PATIENT GENDER DATA: Male PATIENT RELEVANT IMPLANT DATA REVIEWED: Yes PATIENT PRESENTS WITH AN IMPLANTABLE OR ATTACHED INFANT ROOM TEACHER: No RADIOLOGY DEPARTMENT: General X-ray: Exam(s) Completed: Lower Extremity X-Ray(s): Foot, Right and Wt. Bearing PERIPHERAL IV DATA: Not applicable SIGNED BY: RT Abril(R) August 19, 2023 2:53 PM documented in this encounter [facility] 08-19-2023 History of Present illness Narrative Images from the original note were not included. CC: Patient presents with: Follow Up: DM - right foot pain HPI Judie Corbett is a 58 year old male who presents today for above. Reports pain in the bottom of his right foot for a few months, worsening over the past few weeks. Patient is diabetic. Located: arch of his foot Described as: pain that is intermittent. Does not interfere with sleep and is usually better by morning. Cause: denies injury. His work requires a lot of walking, climbing and standing. On the weekends he is very active around the house and doesn't really sit much. Pain is aggravated by: walking, doesn't matter what type of shoes he is wearing Pain is alleviated by rest Denies numbness, tingling, decreased sensation, swelling, redness, increased warmth Treatments tried: NSAIDs Ever had pain like this before: no Review of Systems See HPI PAST MEDICAL HISTORY Diagnosis Date Carpal tunnel syndrome, bilateral 2019 DM w/o complication type II, uncontrolled 08/21/2011 Macular degeneration 06/11/2013 Nontraumatic complete tear of right rotator cuff 2019 Other and unspecified hyperlipidemia 04/28/2007 Proteinuria 11/21/2010 Snoring Type II or unspecified type diabetes mellitus without mention of complication, not stated as uncontrolled 04/28/2007 Unspecified essential hypertension 04/28/2007 PAST SURGICAL HISTORY Procedure Laterality Date ARTHROSC SH TENODESIS BICEPS Right 03/23/2020 COLONOSCOPY FLX DX W/COLLJ SPEC WHEN PFRMD 03/08/2014 HAND SURGERY HX Right 1979 Tendon repair REVISE MEDIAN N/CARPAL TUNNEL SURG Left 11/19/2018 REVISE MEDIAN N/CARPAL TUNNEL SURG Right 03/23/2020 ROTATOR CUFF REPAIR Right 03/23/2020 ALLERGIES Patient has no known allergies. MEDICATIONS lisinopril (ZESTRIL) 40 mg tablet take 1 tablet by mouth daily hydroCHLOROthiazide 25 mg tablet take 1 tablet by mouth once daily. HUMALOG KWIKPEN INSULIN 100 unit/mL INJECT 14 UNITS SUBCUTANEOUSLY BEFORE BREAKFAST, INJECT 22 UNITS BEFORE lunch, INJECT 32 UNITS BEFORE dinner verapamil SR (CALAN SR) 240 mg CR tablet take 1 tablet by mouth daily at bedtime dapagliflozin propanediol (FARXIGA) 10 mg tablet Take 1 tablet by mouth daily with breakfast. fenofibrate (LOFIBRA) 200 mg capsule take 1 capsule by mouth daily metFORMIN (GLUCOPHAGE) 1,000 mg tablet Take 1 tablet by mouth twice daily. LANTUS U-100 INSULIN 100 unit/mL injection INJECT 60 UNITS SUBCUTANEOUSLY ONCE DAILY AT BEDTIME atorvastatin (LIPITOR) 40 mg tablet TAKE 1 TABLET BY MOUTH ONCE DAILY Blood-Glucose Sensor (DEXCOM G6 SENSOR) ana Use as directed; IDDM, E 11.9 Blood-Glucose Meter,Continuous (DEXCOM G6 MIXING ENGINEER) misc Use as directed, IDDM, E11.9 Blood-Glucose Transmitter (DEXCOM G6 TRANSMITTER) ana Use as directed, IDDM, E 11.9 insulin needles, DISPOSABLE, (BD INSULIN PEN NEEDLE UF) 31 gauge x 5/16 Use 4 pen needles daily Vit A,C and B-Jltalu-Isliyncg (OCUVITE WITH LUTEIN) 1,000 unit-200 mg-60 unit-2 mg tab Take 1 tablet by mouth once daily. aspirin(ECOTRIN LOW STRENGTH 81 MG TAB) Take one(1) tablet daily. FAMILY HISTORY Problem Relation Age of Onset Diabetes Mother Stroke Mother Cancer Mother kidney Coronary Artery Disease Mother Kidney Disease Father declined dialysis Hypertension Father Coronary Artery Disease Father Emphysema Father No Known Problems Sister No Known Problems Sister Social History Tobacco Use Smoking status: Never Smokeless tobacco: Never Vaping Use Vaping Use: Never used Substance Use Topics Alcohol use: Yes Comment: Not weekly Drug use: No BP 132/80 Pulse 96 Resp 18 Wt 89.8 kg (198 lb) SpO2 98% BMI 28.41 kg/m Physical Exam Vitals reviewed. Constitutional: Appearance: Normal appearance. Cardiovascular: Pulses: Dorsalis pedis pulses are 2+ on the right side. Posterior tibial pulses are 2+ on the right side. Musculoskeletal: Right foot: No deformity. Feet: Feet: Right foot: Skin integrity: Skin integrity normal. Toenail Condition: Right toenails are normal. Neurological: Mental Status: He is alert. ASSESSMENT/PLAN: 1. Right foot pain - ICD9: 729.5, ICD10: M79.671 Differentials include plantar fascitis, arthritis, stress fracture, neuropathy, overuse injury - XR FOOT GENERAL 3V AP/LAT/OBL RIGHT - keep appointment with marketing data specialist as scheduled on 08/28 - continue with NSAID's as needed Prescription instructions reviewed with patient as applicable. Potential red flag symptoms discussed with the patient. Reviewed appropriate action plan to take if red flag symptoms occur. Patient agreeable to treatment plan. Britney Perez APRN.PIZZA MAKER documented in this encounter [facility] 08-13-2023 Telephone encounter Note Reviewed, agree Clara Escobar MD [facility] 08-13-2023 Miscellaneous Notes Reviewed, agree Clara Escobar MD Received a VM on nurses line from yesterday regarding the same message as below. Contacted patient back. State's his right foot insole has been painful and he is having difficulty walking on it as a result (but not urgent). No injury that he can recall. He is not certain this is diabetes related. Discussed that it will need to be assessed properly by PCP to determine if her will require a specialist or not (neurology / podiatry / ortho). Recommended he contact Dr Mtz to obtain an appt or if sever visit an express care. stated understanding and agreeable. Encounter closed. Patient called and said that for the last few weeks, his feet have been hurting. documented in this encounter [facility] 08-13-2023 Telephone encounter Note Received a VM on nurses line from yesterday regarding the same message as below. Contacted patient back. State's his right foot insole has been painful and he is having difficulty walking on it as a result (but not urgent). No injury that he can recall. He is not certain this is diabetes related. Discussed that it will need to be assessed properly by PCP to determine if her will require a specialist or not (neurology / podiatry / ortho). Recommended he contact Dr Mtz to obtain an appt or if sever visit an express care. stated understanding and agreeable. Encounter closed. [facility] 08-12-2023 Telephone encounter Note Patient called and said that for the last few weeks, his feet have been hurting. [facility] 07-15-2023 Miscellaneous Notes Requester: Pharmacy Last Visit in Endocrinology: Provider name: David Saha CNP , Date 01/18/2023 Next Scheduled Appt in Endo: 09/12/2023 Last Refill: 07/19/2022 Number of Refills given: 3 Requested Prescriptions Pending Prescriptions Disp Refills lisinopril (ZESTRIL) 40 mg tablet [Pharmacy Med Name: lisinopril 40 mg tablet] 90 tablet 3 Sig: take 1 tablet by mouth daily hydroCHLOROthiazide 25 mg tablet [Pharmacy Med Name: hydrochlorothiazide 25 mg tablet] 90 tablet 3 Sig: take 1 tablet by mouth once daily. Please review and advise. Kelly Singh MA documented in this encounter [facility] 06-19-2023 Miscellaneous Notes Patient phones requesting refills as follows: Requested Prescriptions Pending Prescriptions Disp Refills HUMALOG KWIKPEN INSULIN 100 unit/mL [Pharmacy Med Name: Humalog KwikPen (U-100) Insulin 100 unit/mL subcutaneous] 75 mL 3 Sig: INJECT 14 UNITS SUBCUTANEOUSLY BEFORE BREAKFAST, INJECT 22 UNITS BEFORE lunch, INJECT 32 UNITS BEFORE dinner Please review and advise. Sydnee Butcher MA documented in this encounter [facility] 06-13-2023 Miscellaneous Notes Patient phones requesting refills as follows: Requested Prescriptions Pending Prescriptions Disp Refills verapamil SR (CALAN SR) 240 mg CR tablet [Pharmacy Med Name: verapamil ER (SR) 240 mg tablet,extended release] 90 tablet 3 Sig: take 1 tablet by mouth daily at bedtime Please review and advise. Sydnee Butcher MA documented in this encounter [facility] 04-03-2023 Miscellaneous Notes Form faxed to ANDREA at on April 03, 2023; transmission ok. Form signed. Thank you Type of letter/form/fax request: [employer] Form received from:Andrea Placed on Provider (Chandrakant) for completion Completed form needs to be faxed to [phone] documented in this encounter [facility] 04-01-2023 Miscellaneous Notes Reviewed No retinopathy Clara Escobar MD Received Eye Exam Report from Hector Moore,OD HM Updated. Placed in provider's inbox for review. documented in this encounter [facility] 03-13-2023 Miscellaneous Notes Requester: Pharmacy Last Visit in Endocrinology: Provider name: Clara Escobar DO , Date 01/18/2023 Next Scheduled Appt in Endo: Visit date not found Last Refill: 03/21/2022 Number of Refills given: 3 Requested Prescriptions Pending Prescriptions Disp Refills fenofibrate (LOFIBRA) 200 mg capsule [Pharmacy Med Name: fenofibrate micronized 200 mg capsule] 90 capsule 3 Sig: take 1 capsule by mouth daily Please review and advise. Kelly Singh MA documented in this encounter [facility] 03-11-2023 Miscellaneous Notes BMV form faxed, Transmission ok. Patient provided stamped envelope so from was mailed as well. Copy sent for scanning. Patient notified via [employer]. CLOSED BMV form completed. Please keep copy for EMR. Thank you Patient dropped off his BMV paperwork to be signed by David Saha or and send it to the Department of Public Safety in [place]. Paperwork placed in mailbox for David. Please advise needs to be completed by 03-18-2023. documented in this encounter [facility] 03-05-2023 Miscellaneous Notes Form Faxed, Transmission ok CLOSED Form singed. Thank you Form on docs desk/basket for review from [employer]. Please review and sign. Needs to be faxed to Office note attached documented in this encounter [facility] 10-18-2022 Miscellaneous Notes Patient contacted via telephone regarding upcoming NEW patient appointment with Dr. Altman on 10/19/22. Patient informed of the following: This is the [facility] calling regarding your upcoming appointment with Dr. Altman. Have you been evaluated and treated by a [facility] Pain Management provider within the past 3 years? NO To avoid a delay in your care, please bring any imaging (such as MRI, CT, XR, etc.) that have been done outside of the [facility] Systems on a disk to be viewed at your appointment. Please be advised that this appointment is a consult only and narcotics will NOT be prescribed. Dr. Altman is primarily an interventional pain management provider. He treats with physical therapy, injections of the spine or joints, and non-narcotic medications. Dr. Altman will not take over and manage any medications that are already being prescribed by another provider. Patient verbalized understanding with no additional questions at this time. documented in this encounter [facility] 10-12-2022 Miscellaneous Notes Requester: Pharmacy Last Visit in Endocrinology: Provider name: David Saha CNP , Date 06/15/2022 Next Scheduled Appt in Endo: 12/14/2022 Last Refill: 10/05/2021 Number of Refills given: 3 Requested Prescriptions Pending Prescriptions Disp Refills metFORMIN (GLUCOPHAGE) 1,000 mg tablet [Pharmacy Med Name: metformin 1,000 mg tablet] 180 tablet 3 Sig: Take 1 tablet by mouth twice daily. LANTUS U-100 INSULIN 100 unit/mL injection [Pharmacy Med Name: Lantus U-100 Insulin 100 unit/mL subcutaneous solution] 60 mL 3 Sig: INJECT 60 UNITS SUBCUTANEOUSLY ONCE DAILY AT BEDTIME atorvastatin (LIPITOR) 40 mg tablet [Pharmacy Med Name: atorvastatin 40 mg tablet] 90 tablet 3 Sig: TAKE 1 TABLET BY MOUTH ONCE DAILY Please review and advise. Kelly Singh MA documented in this encounter [facility] 07-19-2022 Miscellaneous Notes Requester: Pharmacy Last Visit in Endocrinology: Provider name: David Saha CNP , Date 06/15/2022 Next Scheduled Appt in Endo: 12/14/2022 Last Refill: 08/14/2021 Number of Refills given: 3 Requested Prescriptions Pending Prescriptions Disp Refills lisinopril (ZESTRIL) 40 mg tablet [Pharmacy Med Name: lisinopril 40 mg tablet] 90 tablet 3 Sig: TAKE 1 TABLET BY MOUTH ONCE DAILY Please review and advise. Kelly Singh MA documented in this encounter [facility] 06-19-2022 Miscellaneous Notes Requester: Pharmacy Last Visit in Endocrinology: Provider name: Clara Escobar DO , Date 06/15/2022 Next Scheduled Appt in Endo: 09/13/2022 Last Refill: 06/22/2021 Number of Refills given: 3 Requested Prescriptions Pending Prescriptions Disp Refills verapamil SR (CALAN SR, ISOPTIN SR) 240 mg CR tablet [Pharmacy Med Name: verapamil ER (SR) 240 mg tablet,extended release] 90 tablet 3 Sig: TAKE 1 TABLET BY MOUTH DAILY AT BEDTIME Please review and advise. Kelly Singh MA documented in this encounter [facility] 06-18-2022 Miscellaneous Notes Please send in David's absence: Received a faxed notification from [employer] that brand Humalog is preferred. Previously what was sent was for non PATRICIA. Please send below brand Humalog. Requested Prescriptions Pending Prescriptions Disp Refills HUMALOG KWIKPEN INSULIN 100 unit/mL 75 mL 3 Sig: INJECT 14 UNITS SUBCUTANEOUSLY BEFORE BREAKFAST, INJECT 22 UNITS BEFORE lunch, INJECT 32 UNITS BEFORE dinner Please review and advise. Kalina Reza RN documented in this encounter [facility] 06-15-2022 Instructions David Saha APRN.TRINA - 06/15/2022 8:16 AM EST 1.continue farxiga, metformin. 2. Continue lantus 60 units at bedtime. 3. Humalog Breakfast 14 units Lunch 22 units Dinner 32 units 4. Take humalog at the start of the meal. 5. Follow up as planned in August with labs a week prior. David Saha, MSN, MANAGER OF SALES, [employer] SALVAGE PROCESSOR-C, CDE Endocrinology [facility]/[address], [address] [place], [place] [address] Fax: documented in this encounter [facility] 06-15-2022 History of Present illness Narrative Reason for Consultation: DM Type 2 Referring Physician: Ad Boyd MD [id number] [facility] [id number] HISTORY OF PRESENT ILLNESS Mr. Corbett is a 56 year old male presenting here today for a follow up of DM Type 2. As I recall, he was initially diagnosed with diabetes 2011. Patient of Dr. 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 Started on Dexcom since his last visit. Concern his home BG readings were not matching the A1C. Dexcom supplies from [employer]. May snack between meals and take insulin. Occ forgets a dose of humalog and takes it after eating He did not do labs ordered at the last visit Current diabetes regimen is as follows: Farxiga 10 mg daily Metformin 1,000mg BID lantus 60 units HS Humalog 04/10/30 units TID meals Previous DM medications: invokana he is checking his blood glucose continuously he does bring a log book today for review. LDE Blood Sugar Frequency: Dexcom 14 day download (06/02/22 to 06/15/22) In range 67% High 26% Very high 6% Low <1% Very low 0% Avg glucose 161 BG is best overnight from 1 AM to 5 AM. Rises slightly with breakfast. Bigger increase in glucose at lunch and dinner Hypoglycemia frequency: occasionally Hypoglycemia awareness: Yes Regarding symptoms of hypoglycemia, he is not experiencing any symptoms such as polyuria, polydipsia, nocturia or rapid weight loss or blurry vision, Overall, the patient has no acute complaints at this time. HLD: Pravachol, fenofibrate HTN: Lisinopril, verapamil PAST MEDICAL HISTORY Diagnosis Date Carpal tunnel syndrome, bilateral 2018 DM w/o complication type II, uncontrolled 08/21/2011 Macular degeneration 06/11/2013 Nontraumatic complete tear of right rotator cuff 2019 Other and unspecified hyperlipidemia 04/28/2007 Proteinuria 11/21/2010 Snoring Type II or unspecified type diabetes mellitus without mention of complication, not stated as uncontrolled 04/28/2007 Unspecified essential hypertension 04/28/2007 PAST SURGICAL HISTORY Procedure Laterality Date ARTHROSC SH TENODESIS BICEPS Right 03/23/2020 COLONOSCOPY FLX DX W/COLLJ SPEC WHEN PFRMD 03/08/2014 HAND SURGERY HX Right 1980 Tendon repair REVISE MEDIAN N/CARPAL TUNNEL SURG Left 11/19/2018 REVISE MEDIAN N/CARPAL TUNNEL SURG Right 03/23/2020 ROTATOR CUFF REPAIR Right 03/23/2020 FAMILY HISTORY Problem Relation Age of Onset Diabetes Mother Stroke Mother Cancer Mother kidney Coronary Artery Disease Mother Kidney Disease Father declined dialysis Hypertension Father Coronary Artery Disease Father Emphysema Father No Known Problems Sister No Known Problems Sister Social History Tobacco Use Smoking status: Never Smokeless tobacco: Never Vaping Use Vaping Use: Never used Substance Use Topics Alcohol use: Yes Comment: Not weekly Drug use: No Allergies As of Date: 06/15/2022 (No Known Allergies) Fully Assessed 06/15/2022 Current Outpatient Medications Medication Sig Dispense Refill FARXIGA 10 mg tablet Take 1 tablet by mouth daily with breakfast. 90 tablet 3 fenofibrate (LOFIBRA) 200 mg capsule TAKE 1 CAPSULE BY MOUTH DAILY 90 capsule 3 Blood-Glucose Sensor (DEXCOM G6 SENSOR) ana Use as directed; IDDM, E 11.9 3 Each 11 hydroCHLOROthiazide (HYDRODIURIL, ESIDRIX) 25 mg tablet TAKE 1 TABLET BY MOUTH ONCE DAILY 30 tablet 5 Blood-Glucose Meter,Continuous (DEXCOM G6 MIXING ENGINEER) misc Use as directed, IDDM, E11.9 1 Each 0 Blood-Glucose Transmitter (DEXCOM G6 TRANSMITTER) ana Use as directed, IDDM, E 11.9 1 Each 3 insulin lispro (HUMALOG KWIKPEN INSULIN) 100 unit/mL INJECT 12 UNITS SUBCUTANEOUSLY BEFORE BREAKFAST, INJECT 20 UNITS BEFORE lunch, INJECT 30 UNITS BEFORE dinner 20 Pen 3 metFORMIN (GLUCOPHAGE) 1,000 mg tablet Take 1 tablet by mouth twice daily. 180 tablet 3 atorvastatin (LIPITOR) 40 mg tablet Take 1 tablet by mouth once daily. 90 tablet 3 insulin glargine (LANTUS U-100 INSULIN) 100 unit/mL injection Inject 60 Units subcutaneously daily at bedtime. 60 mL 3 insulin needles, DISPOSABLE, (BD INSULIN PEN NEEDLE UF) 31 gauge x 5/16 Use 4 pen needles daily 400 Each 3 lisinopril (ZESTRIL, PRINIVIL) 40 mg tablet TAKE 1 TABLET BY MOUTH ONCE DAILY 90 tablet 3 verapamil SR (CALAN SR, ISOPTIN SR) 240 mg CR tablet Take 1 tablet by mouth daily at bedtime. 90 tablet 3 Vit A,C and T-Raziwt-Mbnhdqak (OCUVITE WITH LUTEIN) 1,000 unit-200 mg-60 unit-2 mg tab Take 1 tablet by mouth once daily. 0 aspirin(ECOTRIN LOW STRENGTH 81 MG TAB) Take one(1) tablet daily. 0 blood sugar diagnostic (ONETOUCH ULTRA TEST) test strip CHECK BLOOD SUGARS 6 TIMES DAILY (Patient not taking: Reported on 06/15/2022) 550 Strip 3 No current facility-administered medications for this visit. REVIEW OF SYSTEMS Review of Systems Respiratory: Negative for difficulty breathing. Cardiovascular: Negative for chest pain. Gastrointestinal: Negative for nausea, vomiting, diarrhea and constipation. PHYSICAL EXAMINATION BP 137/80 Pulse 75 Ht 177.8 cm (5' 10) Wt 92.4 kg (203 lb 9.6 oz) SpO2 97% BMI 29.21 kg/m2 Physical Exam Constitutional: Appearance: Normal appearance. Cardiovascular: Rate and Rhythm: Normal rate and regular rhythm. Pulmonary: Effort: Pulmonary effort is normal. Breath sounds: Normal breath sounds. Skin: General: Skin is warm and dry. Neurological: Mental Status: He is alert and oriented to person, place, and time. Psychiatric: Mood and Affect: Mood normal. Behavior: Behavior normal. DATA Creatinine Date Value Ref Range Status 07/25/2021 1.43 (H) 0.73 - 1.22 mg/dL Final Hemoglobin A1C (%) Date Value 05/05/2020 8.0 Hemoglobin A1C (POCT) (%) Date Value 03/13/2022 8.4 ) No components found for: URINEALBUMIN Cholesterol, Total (mg/dL) Date Value 07/25/2021 147 05/05/2020 204 HDL Cholesterol (mg/dL) Date Value 07/25/2021 34 05/05/2020 32 LDL Cholesterol (mg/dL) Date Value 07/25/2021 50 05/05/2020 Unable to calculate due to increased Triglycerides. See LDL-Chol, Direct. Triglyceride (mg/dL) Date Value 07/25/2021 315 05/05/2020 417 IMPRESSION: Mr. Corbett is a 56 year old male here for evaluation of DM Type 2 complicated by hypertension, hyperlipidemia, microalbuminuria RECOMMENDATIONS: (E11.29, R80.9, Z79.4) Type 2 diabetes mellitus with microalbuminuria, with long-term current use of insulin ([facility]) (primary encounter diagnosis) Comment: glycemic control is improving. Humalog adjusted. Plan: HEMOGLOBIN A1C (POC), insulin lispro (HUMALOG KWIKPEN INSULIN) 100 unit/mL, LIPID PANEL BASIC, ALBUMIN/CREAT RATIO RND UR, HGB A1C, COMP METABOLIC PANEL Continue farxiga, metformin. Continue lantus 60 units at bedtime. Humalog Breakfast 14 units Lunch 22 units Dinner 32 units Take humalog at the start of the meal. Follow up as planned in August with labs a week prior. (E78.2) Mixed hyperlipidemia Comment: taking pravastatin Plan: Lipid with follow up (I10) Essential hypertension Comment: BP stable today Plan:Managed per PCP I spent a total of 30 minutes on the date of the service which included preparing to see the patient, [id number] patient care, completing clinical documentation, obtaining and/or reviewing separately obtained history, performing a medically appropriate examination, counseling and educating the patient/family/caregiver, ordering medications, tests, or procedures, and communicating results to the patient/family/caregiver. David Saha, MSN, MANAGER OF SALES, [employer] SALVAGE PROCESSOR-C, CDE Endocrinology [facility]/[address] [place] [address] Fax: documented in this encounter [facility] 05-14-2022 Miscellaneous Notes Called and spoke to Federico RE: an upcoming change in coverage for UNIFINE PENTIPS 8MM 31G As of , Federico will need to us a PLAN-PREFERRED BD Pen Needle Called and spoke to Federico and informed him of the insurances message. He expressed understanding. I informed him the document will be disposed of and he was okay with that. Destini Oconnor CMA documented in this encounter [facility] 04-25-2022 Miscellaneous Notes Requester: Pharmacy Last Visit in Endocrinology: Provider name: Clara Escobar DO , Date 03/13/2022 Next Scheduled Appt in Endo: 06/15/2022 Last Refill: 04/24/2021 Number of Refills given: 3 Requested Prescriptions Pending Prescriptions Disp Refills FARXIGA 10 mg tablet [Pharmacy Med Name: Farxiga 10 mg tablet] 90 tablet 3 Sig: Take 1 tablet by mouth daily with breakfast. Please review and advise. Kelly Singh MA documented in this encounter [facility] 04-05-2022 Miscellaneous Notes Form Faxed, Transmission ok CLOSED Form signed Please fax it back Clara Escobar MD Form on docs desk/basket for review from [employer]. Please review and sign. Needs to be faxed to [phone]. documented in this encounter [facility] 03-30-2022 Miscellaneous Notes This is a different form. The form he dropped off now is just a regular BMV form. 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 The BMV form is in your inbox. I already completed these and left it at [place] office for patient to pick these up ~ Apr 05 Clara Escobar MD Type of form: DMV Form received via walk in When form is completed, Fax form to BMV and patient will moss picker in office. Form has been forwarded to JEANINE Smallwood documented in this encounter [facility] 03-30-2022 Miscellaneous Notes Noted, I will complete this on Apr 02, when I return to [place] office. Clara Escobar MD Form on docs desk/basket for review from [employer]. Please review and sign. Needs to be faxed to [phone]. Attached last office note as well. documented in this encounter [facility] 03-23-2022 Miscellaneous Notes Received Insulin-Treated Diabetes Mellitus Assessment Form for Dr. Escobar to complete from [employer]. 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 Envelope placed at the from desk. documented in this encounter [facility] 03-21-2022 Miscellaneous Notes Requester: Pharmacy Last Visit in Endocrinology: Provider name: Clara Escobar DO , Date 03/13/2022 Next Scheduled Appt in Endo: 06/15/2022 Last Refill: 04/17/2021 Number of Refills given: 3 Requested Prescriptions Pending Prescriptions Disp Refills fenofibrate (LOFIBRA) 200 mg capsule [Pharmacy Med Name: fenofibrate micronized 200 mg capsule] 90 capsule 3 Sig: TAKE 1 CAPSULE BY MOUTH DAILY Please review and advise. Kelly Singh MA documented in this encounter [facility] 02-15-2022 History of Present illness Narrative Follow Up Visit Chief Complaint Judie Corbett is a 56 year old male who presents today for follow up office visit. Patient presents with: Left Shoulder - Established Patient, Post Op History of Present Illness PAIN EVALUATION No data found in the last 1 encounters. HPI: Judie Corbett is a 56 year old male for a follow up visit sals, rcr, sac/acromioplasty. Pain history is noted as above. Denies calf pain, numbness, tingling, fever, chills or other constitutional symptoms. Is there any overall improvement in your condition? Yes, Any new injury, since being seen last: No REVIEW OF SYMPTOMS: Patient did not have, and does not currently have, any weight loss, malaise, fever, chills, headache, chest pain, chest pressure, palpitations, cough, shortness of breath, orthopnea, paroxsymal nocturnal dyspnea, nausea, vomiting, diarrhea, constipation, melena, hematochezia, urinary difficulties, prolonged bleeding, easily bruising, heat or cold intolerance, new onset joint pain or swelling, new onset extremity weakness or numbness, new onset auditory or visual disturbances, lightheadedness, dizziness, partial loss of consciousness or full loss of consciousness. Current Outpatient Medications Medication Sig hydroCHLOROthiazide (HYDRODIURIL, ESIDRIX) 25 mg tablet TAKE 1 TABLET BY MOUTH ONCE DAILY insulin lispro (HUMALOG KWIKPEN INSULIN) 100 unit/mL INJECT 12 UNITS SUBCUTANEOUSLY BEFORE BREAKFAST, INJECT 20 UNITS BEFORE lunch, INJECT 30 UNITS BEFORE dinner metFORMIN (GLUCOPHAGE) 1,000 mg tablet Take 1 tablet by mouth twice daily. atorvastatin (LIPITOR) 40 mg tablet Take 1 tablet by mouth once daily. insulin glargine (LANTUS U-100 INSULIN) 100 unit/mL injection Inject 60 Units subcutaneously daily at bedtime. lisinopril (ZESTRIL, PRINIVIL) 40 mg tablet TAKE 1 TABLET BY MOUTH ONCE DAILY verapamil SR (CALAN SR, ISOPTIN SR) 240 mg CR tablet Take 1 tablet by mouth daily at bedtime. dapagliflozin (FARXIGA) 10 mg tablet Take 1 tablet by mouth daily with breakfast. fenofibrate (LOFIBRA) 200 mg capsule TAKE 1 CAPSULE BY MOUTH DAILY aspirin(ECOTRIN LOW STRENGTH 81 MG TAB) Take one(1) tablet daily. Blood-Glucose Meter,Continuous (DEXCOM G6 MIXING ENGINEER) misc Use as directed, IDDM, E11.9 Blood-Glucose Sensor (DEXCOM G6 SENSOR) ana Use as directed; IDDM, E 11.9 Blood-Glucose Transmitter (DEXCOM G6 TRANSMITTER) ana Use as directed, IDDM, E 11.9 insulin needles, DISPOSABLE, (BD INSULIN PEN NEEDLE UF) 31 gauge x 5/16 Use 4 pen needles daily blood sugar diagnostic ([employer] ULTRA TEST) test strip CHECK BLOOD SUGARS 6 TIMES DAILY Vit A,C and H-Gzfemr-Idvvnhnb (OCUVITE WITH LUTEIN) 1,000 unit-200 mg-60 unit-2 mg tab Take 1 tablet by mouth once daily. (Patient not taking: Reported on 02/15/2022) No current facility-administered medications for this visit. Physical Exam Vitals: There were no vitals taken for this visit. Psych: Pleasant, good affect and mood General Appearance: Well appearing, alert, in no acute distress, well-hydrated, well nourished.. Skin: Skin color, texture, turgor normal, no suspicious rashes or lesions. Peripheral Pulses: Normal. Neurologic: Gait normal. Reflexes normal and symmetric. Sensation grossly intact.. Lymph Nodes: No cervical lymphadenopathy, No supraclavicular lymphadenopathy, No axillary lymphadenopathy., and No inguinal lymphadenopathy.. Respiratory: No recent pulmonary infection, hemoptysis, chronic cough, or shortness of breath at rest Rheumatologic: Joint deformities: Left shoulder Right Shoulder Exam Right shoulder exam is normal. Tenderness The patient is experiencing no tenderness. Range of Motion Active abduction: normal Passive abduction: normal Extension: normal External rotation: normal Forward flexion: normal Internal rotation 0 degrees: normal Internal rotation 90 degrees: normal Muscle Strength Abduction: 5/5 Internal rotation: 5/5 External rotation: 5/5 Supraspinatus: 5/5 Subscapularis: 5/5 Biceps: 5/5 Tests Apprehension: negative Currie test: negative Cross arm: negative Impingement: negative Other Erythema: absent Sensation: normal Pulse: present Comments: B/l med, uln, rad, ax nerves intact Left Shoulder Exam Tenderness The patient is experiencing no tenderness. Range of Motion Active abduction: abnormal Passive abduction: abnormal Extension: abnormal External rotation: abnormal Forward flexion: abnormal Internal rotation 0 degrees: normal Internal rotation 90 degrees: normal Muscle Strength Abduction: 4/5 Internal rotation: 4/5 External rotation: 4/5 Supraspinatus: 4/5 Subscapularis: 4/5 Biceps: 4/5 Tests Apprehension: negative Currie test: negative Cross arm: negative Impingement: negative Other Erythema: absent Scars: present Sensation: normal Pulse: present Assessment and Plan Radiographs: No imaging to review. Impression: Encounter Diagnosis ICD-10-CM 1. Chronic left shoulder pain M25.512 G89.29 2. Complete tear of left rotator cuff, unspecified whether traumatic M75.122 Today, in detail, through a thorough evaluation, we discussed possible etiologies of pain and our plans for further diagnostic and therapeutic interventions. We discussed strategies for decreasing pain and improving strength, stability and motion. Patient's questions were answered in detailed. Patient verbalizes understanding and agrees with the treatment plan as discussed. Follow up in 6 mos Tylenol/ibuprofen Back to work Improved overall , on current path Discussed length of time Vanessa Dominguez DO AMB ROOMING INTAKE FLOWSHEET DATA Risk Screening Do you have concerns about personal safety or safety in the home?: No documented in this encounter [facility] 12-18-2021 Miscellaneous Notes Requester: Pharmacy Last Visit in Endocrinology: Provider name: David Saha CNP , Date 10/05/21 Next Scheduled Appt in Endo: Visit date 03/13/22 Last Refill: 08/14/21 Number of Refills given: 3 . Requested Prescriptions Pending Prescriptions Disp Refills hydroCHLOROthiazide (HYDRODIURIL, ESIDRIX) 25 mg tablet [Pharmacy Med Name: hydrochlorothiazide 25 mg tablet] 30 tablet 3 Sig: TAKE 1 TABLET BY MOUTH ONCE DAILY Please review and advise. Lilian Kirby LPN documented in this encounter [facility] 12-14-2021 History of Present illness Narrative Images from the original note were not included. Follow Up Visit Chief Complaint Judie Corbett is a 56 year old male who presents today for follow up office visit. Patient presents with: Left Shoulder - Follow Up, Pain History of Present Illness PAIN EVALUATION 12/14/2021 1430 Pain Level: 4 Pain Location: Shoulder-Left Description: Aching;Dull;Sore;Throbbing Duration Amount of Time: -- DOS: 08/01/21 Frequency: Intermittent Intervention/Comfort measure: Reposition;Relaxation;Other: See comment PT HPI: Judie Corbett is a 56 year old male for a follow up visit Denies calf pain, numbness, tingling, fever, chills or other constitutional symptoms. . Pain history is noted as above. Denies calf pain, numbness, tingling, fever, chills or other constitutional symptoms. Slipped a few weeks ago when I reached for railing as he fell. Is there any overall improvement in your condition? Yes, Any new injury, since being seen last: No REVIEW OF SYMPTOMS: Patient did not have, and does not currently have, any weight loss, malaise, fever, chills, headache, chest pain, chest pressure, palpitations, cough, shortness of breath, orthopnea, paroxsymal nocturnal dyspnea, nausea, vomiting, diarrhea, constipation, melena, hematochezia, urinary difficulties, prolonged bleeding, easily bruising, heat or cold intolerance, new onset joint pain or swelling, new onset extremity weakness or numbness, new onset auditory or visual disturbances, lightheadedness, dizziness, partial loss of consciousness or full loss of consciousness. Current Outpatient Medications Medication Sig Blood-Glucose Meter,Continuous (DEXCOM G6 MIXING ENGINEER) misc Use as directed, IDDM, E11.9 Blood-Glucose Sensor (DEXCOM G6 SENSOR) ana Use as directed; IDDM, E 11.9 Blood-Glucose Transmitter (DEXCOM G6 TRANSMITTER) ana Use as directed, IDDM, E 11.9 insulin lispro (HUMALOG KWIKPEN INSULIN) 100 unit/mL INJECT 12 UNITS SUBCUTANEOUSLY BEFORE BREAKFAST, INJECT 20 UNITS BEFORE lunch, INJECT 30 UNITS BEFORE dinner metFORMIN (GLUCOPHAGE) 1,000 mg tablet Take 1 tablet by mouth twice daily. atorvastatin (LIPITOR) 40 mg tablet Take 1 tablet by mouth once daily. insulin glargine (LANTUS U-100 INSULIN) 100 unit/mL injection Inject 60 Units subcutaneously daily at bedtime. insulin needles, DISPOSABLE, (BD INSULIN PEN NEEDLE UF) 31 gauge x 16 Use 4 pen needles daily hydroCHLOROthiazide (HYDRODIURIL, ESIDRIX) 25 mg tablet TAKE 1 TABLET BY MOUTH ONCE DAILY lisinopril (ZESTRIL, PRINIVIL) 40 mg tablet TAKE 1 TABLET BY MOUTH ONCE DAILY verapamil SR (CALAN SR, ISOPTIN SR) 240 mg CR tablet Take 1 tablet by mouth daily at bedtime. fenofibrate (LOFIBRA) 200 mg capsule TAKE 1 CAPSULE BY MOUTH DAILY blood sugar diagnostic ([employer]CH ULTRA TEST) test strip CHECK BLOOD SUGARS 6 TIMES DAILY Vit A,C and F-Ipjhlk-Wbzbukpm (OCUVITE WITH LUTEIN) 1,000 unit-200 mg-60 unit-2 mg tab Take 1 tablet by mouth once daily. aspirin(ECOTRIN LOW STRENGTH 81 MG TAB) Take one(1) tablet daily. dapagliflozin (FARXIGA) 10 mg tablet Take 1 tablet by mouth daily with breakfast. No current facility-administered medications for this visit. Physical Exam Vitals: There were no vitals taken for this visit. Psych: Pleasant, good affect and mood General Appearance: Well appearing, alert, in no acute distress, well-hydrated, well nourished.. Skin: Skin color, texture, turgor normal, no suspicious rashes or lesions. Peripheral Pulses: Normal. Neurologic: Gait normal. Reflexes normal and symmetric. Sensation grossly intact.. Lymph Nodes: No cervical lymphadenopathy, No supraclavicular lymphadenopathy, No axillary lymphadenopathy., and No inguinal lymphadenopathy.. Respiratory: No recent pulmonary infection, hemoptysis, chronic cough, or shortness of breath at rest Rheumatologic: Joint deformities: Right Shoulder Exam Right shoulder exam is normal. Left Shoulder Exam Tenderness The patient is experiencing tenderness in the biceps tendon. Range of Motion Active abduction: abnormal Passive abduction: abnormal Extension: abnormal External rotation: abnormal Forward flexion: abnormal Comments: Improved rom left shoulder ROM, ttp biceps, pos speeds test Assessment and Plan Radiographs: No imaging to review. Impression: Encounter Diagnosis ICD-10-CM 1. Complete tear of left rotator cuff, unspecified whether traumatic M75.122 2. S/P shoulder surgery Z98.890 3. Bursitis of left shoulder M75.52 4. S/P rotator cuff surgery Z98.890 Today, in detail, through a thorough evaluation, we discussed possible etiologies of pain and our plans for further diagnostic and therapeutic interventions. We discussed strategies for decreasing pain and improving strength, stability and motion. Patient's questions were answered in detailed. Patient verbalizes understanding and agrees with the treatment plan as discussed. Last rom to return is IR- discussed with patient Cont current PT, no return to work with overhead motion, doing well otherwise Vanessa Dominguez DO documented in this encounter [facility] 10-25-2021 History of Present illness Narrative Images from the original note were not included. Follow Up Visit Chief Complaint Judie Corbett is a 56 year old male who presents today for follow up office visit. Patient presents with: Left Shoulder - Post Op, Pain History of Present Illness PAIN EVALUATION 10/25/2021 0810 Pain Level: 2 Pain Location: Shoulder-Left Description: Aching;Dull;Sore Duration Amount of Time: DOS: 08/01/21 Frequency: Intermittent Intervention/Comfort measure: Reposition;Relaxation;Cold;Medicat ion;Other: See comment physical therapy HPI: Judie Corbett is a 56 year old male for a follow up visit S/P Left shoulder arthroscopy, massive rotator cuff repair, subacromial decompression/acromioplasty, intraarticular biceps tenodesis. Pain history is noted as above. Is there any overall improvement in your condition? No Any new injury, since being seen last: Yes, 1 week ago patient was working on a machine and almost fell off. Used LT shoulder to grab on and felt pull in biceps. States he is doing better, still in PT. More sore in muscle belly of biceps. REVIEW OF SYMPTOMS: Patient did not have, and does not currently have, any weight loss, malaise, fever, chills, headache, chest pain, chest pressure, palpitations, cough, shortness of breath, orthopnea, paroxsymal nocturnal dyspnea, nausea, vomiting, diarrhea, constipation, melena, hematochezia, urinary difficulties, prolonged bleeding, easily bruising, heat or cold intolerance, new onset joint pain or swelling, new onset extremity weakness or numbness, new onset auditory or visual disturbances, lightheadedness, dizziness, partial loss of consciousness or full loss of consciousness. Current Outpatient Medications Medication Sig Blood-Glucose Meter,Continuous (DEXCOM G6 MIXING ENGINEER) misc Use as directed, IDDM, E11.9 Blood-Glucose Sensor (DEXCOM G6 SENSOR) ana Use as directed; IDDM, E 11.9 Blood-Glucose Transmitter (DEXCOM G6 TRANSMITTER) ana Use as directed, IDDM, E 11.9 insulin lispro (HUMALOG KWIKPEN INSULIN) 100 unit/mL INJECT 12 UNITS SUBCUTANEOUSLY BEFORE BREAKFAST, INJECT 20 UNITS BEFORE lunch, INJECT 30 UNITS BEFORE dinner metFORMIN (GLUCOPHAGE) 1,000 mg tablet Take 1 tablet by mouth twice daily. atorvastatin (LIPITOR) 40 mg tablet Take 1 tablet by mouth once daily. insulin glargine (LANTUS U-100 INSULIN) 100 unit/mL injection Inject 60 Units subcutaneously daily at bedtime. insulin needles, DISPOSABLE, (BD INSULIN PEN NEEDLE UF) 31 gauge x 5/16 Use 4 pen needles daily hydroCHLOROthiazide (HYDRODIURIL, ESIDRIX) 25 mg tablet TAKE 1 TABLET BY MOUTH ONCE DAILY lisinopril (ZESTRIL, PRINIVIL) 40 mg tablet TAKE 1 TABLET BY MOUTH ONCE DAILY verapamil SR (CALAN SR, ISOPTIN SR) 240 mg CR tablet Take 1 tablet by mouth daily at bedtime. fenofibrate (LOFIBRA) 200 mg capsule TAKE 1 CAPSULE BY MOUTH DAILY blood sugar diagnostic ([employer] ULTRA TEST) test strip CHECK BLOOD SUGARS 6 TIMES DAILY Vit A,C and A-Ehtgrn-Ytzbllyl (OCUVITE WITH LUTEIN) 1,000 unit-200 mg-60 unit-2 mg tab Take 1 tablet by mouth once daily. aspirin(ECOTRIN LOW STRENGTH 81 MG TAB) Take one(1) tablet daily. dapagliflozin (FARXIGA) 10 mg tablet Take 1 tablet by mouth daily with breakfast. No current facility-administered medications for this visit. Physical Exam Vitals: There were no vitals taken for this visit. Psych: Pleasant, good affect and mood General Appearance: Well appearing, alert, in no acute distress, well-hydrated, well nourished.. Skin: Skin color, texture, turgor normal, no suspicious rashes or lesions. Peripheral Pulses: Normal. Neurologic: Gait normal. Reflexes normal and symmetric. Sensation grossly intact.. Lymph Nodes: No cervical lymphadenopathy, No supraclavicular lymphadenopathy, No axillary lymphadenopathy. and No inguinal lymphadenopathy.. Respiratory: No recent pulmonary infection, hemoptysis, chronic cough, or shortness of breath at rest Rheumatologic: Joint deformities: Left shoulder pain Right Shoulder Exam Right shoulder exam is normal. Tenderness The patient is experiencing no tenderness. Range of Motion Active abduction: normal Passive abduction: normal Extension: normal External rotation: normal Forward flexion: normal Internal rotation 0 degrees: normal Internal rotation 90 degrees: normal Muscle Strength Abduction: 5/5 Internal rotation: 5/5 External rotation: 5/5 Supraspinatus: 5/5 Subscapularis: 5/5 Biceps: 5/5 Tests Apprehension: negative Currie test: negative Cross arm: negative Impingement: negative Other Erythema: absent Sensation: normal Pulse: present Left Shoulder Exam Tenderness The patient is experiencing no tenderness. Range of Motion Active abduction: abnormal Passive abduction: abnormal Extension: abnormal External rotation: abnormal Forward flexion: abnormal Internal rotation 0 degrees: normal Internal rotation 90 degrees: normal Muscle Strength Abduction: 5/5 Internal rotation: 5/5 External rotation: 5/5 Supraspinatus: 5/5 Subscapularis: 5/5 Biceps: 5/5 Tests Apprehension: negative Currie test: negative Cross arm: negative Impingement: negative Other Erythema: absent Sensation: normal Pulse: present Comments: Med,uln,rad, ax nerves intact Assessment and Plan Radiographs: No imaging to review. Impression: Encounter Diagnosis ICD-10-CM 1. Complete tear of left rotator cuff, unspecified whether traumatic M75.122 2. S/P shoulder surgery Z98.890 Today, in detail, through a thorough evaluation, we discussed possible etiologies of pain and our plans for further diagnostic and therapeutic interventions. We discussed strategies for decreasing pain and improving strength, stability and motion. Patient's questions were answered in detailed. Patient verbalizes understanding and agrees with the treatment plan as discussed. doing well, did PT yesterday and working on pulleys for IR, no issues today Patient aware and in agreement of plan. All questions answered. 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 10-05-2021 Miscellaneous Notes Images from the original note were not included. Completed PA through [employer]. Prior authorization approved Payer: [employer] [phone] CaseId:[id number];Status:Approved;Re view Type:Prior Auth;Coverage Start Date:09/05/2021;Coverage End Date:10/05/2022; Approval Details Authorized from September 05, 2021 to October 05, 2022 Electronic appeal: Not supported View History Medication Being Authorized Blood-Glucose Sensor (DEXCOM G6 SENSOR) ana Use as directed; IDDM, E 11.9 Dispense: 3 Each Refills: 11 Start: 10/05/2021 Class: Normal Diagnoses: Controlled type 2 diabetes mellitus without complication, with long-term current use of insulin (HCC) This order has been released to its destination. To be filled at: [facility] [id number] [place] [address] [phone] [facility] [phone] documented in this encounter [facility] 10-05-2021 History of Present illness Narrative Reason for Consultation: DM Type 2 Referring Physician: Ad Boyd MD [id number] [facility] [address] HISTORY OF PRESENT ILLNESS Mr. Corbett is a 56 year old male presenting here today for a follow up of DM Type 2. As I recall, he was initially diagnosed with diabetes 2011. Endo: Dr. Escobar: LV 02/23/21 A1C 7.6 on 07/25/21 Overall doing well. 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 Diet has not been as good. History in addition to diabetes include: hypertension, hyperlipidemia, carpal tunnel Current diabetes regimen is as follows: 1. Invokana 300mg daily 2. Metformin 1,000mg BID 3. lantus 60 units HS 4. Humalog 12//30 units TID meals --missing breakfast or lunch doses he is checking his blood glucose 0-2 times daily. he does bring a log book today for review. LDE Blood Sugar Frequency: FBS 121, 103, 144,123, 130, 140, 99, 71, 112, 121, 116, 105, 140, 88 AcL:180, 129 acS -- After supper -- Hypoglycemia frequency: denies Hypoglycemia awareness: Yes Regarding symptoms of hypoglycemia, he is not experiencing any symptoms such as polyuria, polydipsia, nocturia or rapid weight loss or blurry vision, Overall, the patient has no acute complaints at this time. HTN: Hctz, lisinopril, verapamil HLD: Fenofibrate, atorvastatin Trial off statin and did not improve symptoms. PAST MEDICAL HISTORY Diagnosis Date Carpal tunnel syndrome, bilateral 2018 DM w/o complication type II, uncontrolled 08/21/2011 Macular degeneration 06/11/2013 Nontraumatic complete tear of right rotator cuff 2019 Other and unspecified hyperlipidemia 04/28/2007 Proteinuria 11/21/2010 Snoring Type II or unspecified type diabetes mellitus without mention of complication, not stated as uncontrolled 04/28/2007 Unspecified essential hypertension 04/28/2007 PAST SURGICAL HISTORY Procedure Laterality Date ARTHROSC SH TENODESIS BICEPS Right 03/23/2020 COLONOSCOPY FLX DX W/COLLJ SPEC WHEN PFRMD 03/08/2014 HAND SURGERY HX Right 1979 Tend[place] repair REVISE MEDIAN N/CARPAL TUNNEL SURG Left 11/19/2018 REVISE MEDIAN N/CARPAL TUNNEL SURG Right 03/23/2020 ROTATOR CUFF REPAIR Right 03/23/2020 FAMILY HISTORY Problem Relation Age of Onset Diabetes Mother Stroke Mother Cancer Mother kidney Coronary Artery Disease Mother Kidney Disease Father declined dialysis Hypertension Father Coronary Artery Disease Father Emphysema Father No Known Problems Sister No Known Problems Sister Social History Tobacco Use Smoking status: Never Smoker Smokeless tobacco: Never Used Vaping Use Vaping Use: Never used Substance Use Topics Alcohol use: Yes Comment: Not weekly Drug use: No Allergies As of Date: 10/05/2021 (No Known Allergies) Fully Assessed 10/05/2021 Current Outpatient Medications Medication Sig Dispense Refill insulin lispro (HUMALOG KWIKPEN INSULIN) 100 unit/mL INJECT 12 UNITS SUBCUTANEOUSLY BEFORE BREAKFAST, INJECT 20 UNITS BEFORE lunch, INJECT 30 UNITS BEFORE dinner 20 Pen 3 metFORMIN (GLUCOPHAGE) 1,000 mg tablet Take 1 tablet by mouth twice daily. 180 tablet 3 atorvastatin (LIPITOR) 40 mg tablet Take 1 tablet by mouth once daily. 90 tablet 3 insulin glargine (LANTUS U-100 INSULIN) 100 unit/mL injection Inject 60 Units subcutaneously daily at bedtime. 60 mL 3 insulin needles, DISPOSABLE, (BD INSULIN PEN NEEDLE UF) 31 gauge x 16 Use 4 pen needles daily 400 Each 3 hydroCHLOROthiazide (HYDRODIURIL, ESIDRIX) 25 mg tablet TAKE 1 TABLET BY MOUTH ONCE DAILY 30 tablet 3 lisinopril (ZESTRIL, PRINIVIL) 40 mg tablet TAKE 1 TABLET BY MOUTH ONCE DAILY 90 tablet 3 verapamil SR (CALAN SR, ISOPTIN SR) 240 mg CR tablet Take 1 tablet by mouth daily at bedtime. 90 tablet 3 dapagliflozin (FARXIGA) 10 mg tablet Take 1 tablet by mouth daily with breakfast. 90 tablet 3 fenofibrate (LOFIBRA) 200 mg capsule TAKE 1 CAPSULE BY MOUTH DAILY 90 capsule 3 blood sugar diagnostic (ONETOUCH ULTRA TEST) test strip CHECK BLOOD SUGARS 6 TIMES DAILY 550 Strip 3 Vit A,C and A-Xaeigy-Kwhbcclr (OCUVITE WITH LUTEIN) 1,000 unit-200 mg-60 unit-2 mg tab Take 1 tablet by mouth once daily. 0 aspirin(ECOTRIN LOW STRENGTH 81 MG TAB) Take one(1) tablet daily. 0 Blood-Glucose Meter,Continuous (DEXCOM G6 MIXING ENGINEER) misc Use as directed, IDDM, E11.9 1 Each 0 Blood-Glucose Sensor (DEXCOM G6 SENSOR) ana Use as directed; IDDM, E 11.9 3 Each 11 Blood-Glucose Transmitter (DEXCOM G6 TRANSMITTER) ana Use as directed, IDDM, E 11.9 1 Each 3 No current facility-administered medications for this visit. REVIEW OF SYSTEMS Review of Systems Respiratory: Negative for difficulty breathing. Cardiovascular: Negative for chest pain. Gastrointestinal: Negative for nausea, vomiting, diarrhea and constipation. PHYSICAL EXAMINATION BP 139/81 Pulse 80 Ht 177.8 cm (5' 10) Wt 89.8 kg (198 lb) SpO2 97% BMI 28.41 kg/m2 Physical Exam Constitutional: Appearance: Normal appearance. Cardiovascular: Rate and Rhythm: Normal rate and regular rhythm. Pulmonary: Effort: Pulmonary effort is normal. Breath sounds: Normal breath sounds. Skin: General: Skin is warm and dry. Neurological: Mental Status: He is alert and oriented to person, place, and time. Psychiatric: Mood and Affect: Mood normal. Behavior: Behavior normal. DATA Creatinine Date Value Ref Range Status 07/25/2021 1.43 (H) 0.73 - 1.22 mg/dL Final Hemoglobin A1C (%) Date Value 07/25/2021 7.6 05/05/2020 8.0 Hemoglobin A1C (POCT) (%) Date Value 02/23/2021 7.4 ) No components found for: URINEALBUMIN Cholesterol, Total (mg/dL) Date Value 07/25/2021 147 05/05/2020 204 HDL Cholesterol (mg/dL) Date Value 07/25/2021 34 05/05/2020 32 LDL Cholesterol (mg/dL) Date Value 07/25/2021 50 05/05/2020 Unable to calculate due to increased Triglycerides. See LDL-Chol, Direct. Triglyceride (mg/dL) Date Value 07/25/2021 315 05/05/2020 417 IMPRESSION: Mr. Corbett is a 56 year old male here for evaluation of DM Type 2 complicated by hypertension and hyperlipidemia RECOMMENDATIONS: (E11.9, Z79.4) Controlled type 2 diabetes mellitus without complication, with long-term current use of insulin ([facility]) (primary encounter diagnosis) Comment: glycemic control is above goal per A1C. FBG is at goal. Limited data to review during the day. Recommend CGM as a medical necessity. 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 Plan: Blood-Glucose Meter,Continuous (DEXCOM G6 MIXING ENGINEER) misc, Blood-Glucose Sensor (DEXCOM G6 SENSOR) ana, Blood-Glucose Transmitter (DEXCOM G6 TRANSMITTER) ana, insulin lispro (HUMALOG KWIKPEN INSULIN) 100 unit/mL, metFORMIN (GLUCOPHAGE) 1,000 mg tablet, insulin glargine (LANTUS U-100 INSULIN) 100 unit/mL injection, insulin needles, DISPOSABLE, (BD INSULIN PEN NEEDLE UF) 31 gauge x 5/16 Continue current medication for diabetes Start dexcom --if unable to obtain increase BG testing to 4x per day. Follow up in February as planned. (E78.2) Mixed hyperlipidemia Comment: taking pravastatin Plan:atorvastatin (LIPITOR) 40 mg tablet lipid with follow up (I10) Essential hypertension Comment: BP stable today Plan:Managed per PCP I spent a total of 30 minutes on the date of the service which included preparing to see the patient, [id number] patient care, completing clinical documentation, obtaining and/or reviewing separately obtained history, performing a medically appropriate examination, counseling and educating the patient/family/caregiver and ordering medications, tests, or procedures. David Saha, MSN, MANAGER OF SALES, [employer]OR-C, CDE Endocrinology [facility]/[address] [place] [address] Fax: documented in this encounter [facility] 09-13-2021 History of Present illness Narrative Images from the original note were not included. Follow Up Visit Chief Complaint Judie Corbett is a 56 year old male who presents today for follow up office visit. Patient presents with: Left Shoulder - Post Op, Pain History of Present Illness PAIN EVALUATION 09/13/2021 0831 Pain Level: 0 Pain Location: Shoulder-Left Description: Aching;Sore Duration Amount of Time: DOS: 08/01/21 Frequency: Intermittent Intervention/Comfort measure: Reposition;Relaxation;Other: See comment;Cold;Medication sling, physical therapy HPI: Judie Corbett is a 56 year old male for a follow up visit S/P Left shoulder arthroscopy, massive rotator cuff repair, subacromial decompression/acromioplasty, intraarticular biceps tenodesis. Patient states he is doing well in physical therapy. Had a recent fall down his stairs but did not injure his shoulder. Pain history is noted as above. Denies numbness, tingling, fever, chills or other constitutional symptoms. Is there any overall improvement in your condition? Yes, decreased pain Any new injury, since being seen last: No REVIEW OF SYMPTOMS: Patient did not have, and does not currently have, any weight loss, malaise, fever, chills, headache, chest pain, chest pressure, palpitations, cough, shortness of breath, orthopnea, paroxsymal nocturnal dyspnea, nausea, vomiting, diarrhea, constipation, melena, hematochezia, urinary difficulties, prolonged bleeding, easily bruising, heat or cold intolerance, new onset joint pain or swelling, new onset extremity weakness or numbness, new onset auditory or visual disturbances, lightheadedness, dizziness, partial loss of consciousness or full loss of consciousness. Current Outpatient Medications Medication Sig metFORMIN (GLUCOPHAGE) 1,000 mg tablet Take 1 tablet by mouth twice daily. atorvastatin (LIPITOR) 40 mg tablet Take 1 tablet by mouth once daily. LANTUS U-100 INSULIN 100 unit/mL injection Inject 60 Units subcutaneously daily at bedtime. hydroCHLOROthiazide (HYDRODIURIL, ESIDRIX) 25 mg tablet TAKE 1 TABLET BY MOUTH ONCE DAILY lisinopril (ZESTRIL, PRINIVIL) 40 mg tablet TAKE 1 TABLET BY MOUTH ONCE DAILY oxyCODONE-acetaminophen (PERCOCET) 5-325 mg tablet Take 1 tablet by mouth every 6 hours as needed for pain. ondansetron (ZOFRAN) 4 mg tablet Take 1 tablet by mouth every 8 hours as needed for nausea/vomiting. verapamil SR (CALAN SR, ISOPTIN SR) 240 mg CR tablet Take 1 tablet by mouth daily at bedtime. traMADol (ULTRAM) 50 mg tablet Take 1 tablet by mouth every 4 hours as needed for pain. for pain. fenofibrate (LOFIBRA) 200 mg capsule TAKE 1 CAPSULE BY MOUTH DAILY insulin lispro (HUMALOG KWIKPEN INSULIN) 100 unit/mL INJECT TEN UNITS SUBCUTANEOUSLY BEFORE BREAKFAST, INJECT 23 UNITS BEFORE lunch, INJECT 35 UNITS BEFORE dinner insulin needles, DISPOSABLE, (BD INSULIN PEN NEEDLE UF) 31 gauge x 5/16 ndle 1 Each as directed. Insulin Syringe-Needle U-100 1 mL 31 x 5/16 syrg Use daily for insulin blood sugar diagnostic ([employer] ULTRA TEST) test strip CHECK BLOOD SUGARS 6 TIMES DAILY Vit A,C and K-Cjvksb-Kcocitap (OCUVITE WITH LUTEIN) 1,000 unit-200 mg-60 unit-2 mg tab Take 1 tablet by mouth once daily. aspirin(ECOTRIN LOW STRENGTH 81 MG TAB) Take one(1) tablet daily. morphine SR (MS CONTIN) 15 mg 12 hr tablet Take 1 tablet by mouth twice daily for 5 days. zolpidem (AMBIEN) 5 mg tablet Take 1 tablet by mouth at bedtime as needed for up to 7 days. dapagliflozin (FARXIGA) 10 mg tablet Take 1 tablet by mouth daily with breakfast. No current facility-administered medications for this visit. Physical Exam Vitals: There were no vitals taken for this visit. Psych: Pleasant, good affect and mood General Appearance: Well appearing, alert, in no acute distress, well-hydrated, well nourished.. Skin: Skin color, texture, turgor normal, no suspicious rashes or lesions. Peripheral Pulses: Normal. Neurologic: Gait normal. Reflexes normal and symmetric. Sensation grossly intact.. Lymph Nodes: No cervical lymphadenopathy, No supraclavicular lymphadenopathy, No axillary lymphadenopathy. and No inguinal lymphadenopathy.. Respiratory: No recent pulmonary infection, hemoptysis, chronic cough, or shortness of breath at rest Rheumatologic: Joint deformities: left shoulder pain Left Shoulder Exam Comments: Med,uln,rad , ax nerves intact Incisions cdi- no signs of infection Assessment and Plan Radiographs: I have reviewed the images with the patient and family. Impression: Encounter Diagnosis ICD-10-CM 1. Complete tear of left rotator cuff, unspecified whether traumatic M75.122 2. Bursitis of left shoulder M75.52 3. S/P rotator cuff surgery Z98.890 Doing well, no complaints Went over images Follow up in 3 months Patient aware and in agreement of plan. All questions answered. Note sent for unemployment as off of work for 6 months. Today, in detail, through a thorough evaluation, we discussed possible etiologies of pain and our plans for further diagnostic and therapeutic interventions. We discussed strategies for decreasing pain and improving strength, stability and motion. Patient's questions were answered in detailed. Patient verbalizes understanding and agrees with the treatment plan as discussed. documented in this encounter [facility] 08-17-2021 Miscellaneous Notes Requester: Pharmacy Last Visit in Endocrinology: Provider name: Clara Escobar DO , Date 02/23/21 Next Scheduled Appt in Endo: 08/31/21 Last Refill: 04/24/21 Number of Refills given: 3 Pending Prescriptions Disp Refills HYDROCHLOROTHIAZIDE 25 MG TABLET 30 tablet 3 Sig: TAKE 1 TABLET BY MOUTH ONCE DAILY PATRICIA: Yes Please review and advise. Lilian Kirby LPN documented in this encounter [facility] 08-16-2021 History of Present illness Narrative Images from the original note were not included. POST OP Juancarlos Mcclure PA-C Department of Orthopaedics Orthopaedics [address] [place] [id number] Dept: [phone] Mr. Corbett presents today for his 2 week visit from: S/P Left shoulder arthroscopy, massive rotator cuff repair, subacromial decompression/acromioplasty, intraarticular biceps tenodesis with Dr. Dominguez DOS: 08/01/2021 History: PAIN EVALUATION 08/16/2021 1424 Pain Level: 3 Pain Location: Shoulder-Left Description: Aching;Dull;Throbbing;Sore Duration Amount of Time: DOS: 08/01/21 Frequency: Intermittent Intervention/Comfort measure: Reposition;Relaxation;Other: See comment;Cold;Medication sling Pain has been controlled with Tylenol. No longer taking any opioid medication. The patient denies swelling, warmth, discharge, drainage, fevers, chills, sweats. He reports compliance with sling He reports no change in past medical & surgical history, medications, allergies, social history, family history and review of systems since last visit, with the exception of the following: None Review of Systems All other systems reviewed and are negative. Radiographs: Not applicable Physical Examination: Appropriate postop appearance No evidence of erythema, warmth, discharge or drainage Incisions well healed Sutures intact Neurovascularly intact No tenderness about the shoulder Positive axillary, musculocutaneous, median, ulna, and radial nerve function Positive distal pulses PROCEDURE: Sutures removed. Procedure well-tolerated. Plan: Progressing as expected in the immediate post operative period. Continue sling for 6 weeks Post op care discussed, all questions answered. Begin phase 1 of physical therapy at 2 weeks. PT ordered today and patient handed print out copy. Follow up in [address] Angelica Mcclure PA-C documented in this encounter [facility] 08-14-2021 Miscellaneous Notes Requester: Pharmacy Last Visit in Endocrinology: Provider name: Clara Escobar DO , Date 02/23/2021 Next Scheduled Appt in Endo: 08/31/2021 Last Refill: 08/04/20 Number of Refills given: 3 Pending Prescriptions Disp Refills LISINOPRIL 40 MG TABLET 90 tablet 3 Sig: TAKE 1 TABLET BY MOUTH ONCE DAILY PATRICIA: Yes Please review and advise. Lilian Kirby LPN documented in this encounter [facility] 07-25-2021 History and physical note HISTORY AND PHYSICAL EXAMINATION SERVICE DATE: 07/25/2021 SERVICE TIME: 8:42 AM PRIMARY CARE PHYSICIAN: Ad Boyd MD REASON FOR VISIT: Judie Corbett is a 56 year old male who is scheduled for left shoulder arthroscopy, rotator cuff repair, subacromial decompression/acromioplasty, biceps tendon arthrodesis at the request of Dr. Vanessa Dominguez for consultation. My final recommendation will be communicated back to the requesting physician by way of shared medical record or letter. Subjective The patient has the following: ACTIVE PROBLEM LIST Uncontrolled Type 2 Diabetes Mellitus With Hyperglycemia (Hcc) Hypertension Mixed Hyperlipidemia Impotence of Organic Origin Complete Tear of Left Rotator Cuff Bursitis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 Unspecified essential hypertension Microalbuminuria Proteinuria Fatigue, unspecified type [facility] this [facility] Diagnosis Controlled type 2 diabetes mellitus without complication, with long-term current use of insulin (HCC) Mixed hyperlipidemia [facility]* Diagnosis Screening for colon cancer- Primary Special screening for malignant neoplasms, colon [facility]* Diagnosis Type 2 diabetes mellitus with microalbuminuria, with long-term current use of insulin (HCC)- Primary documented in this encounter [facility]* Diagnosis Preoperative examination- Primary Preoperative examination, unspecified Complete tear of left rotator cuff, unspecified whether traumatic Bursitis of left shoulder Disorders of bursae and tendons in shoulder region, unspecified Tendinitis of left shoulder Disorders of bursae and tendons in shoulder region, unspecified Mixed hyperlipidemia Primary hypertension Unspecified essential hypertension Uncontrolled type 2 diabetes mellitus with hyperglycemia (HCC) Right foot pain Pain in limb [facility] Diagnosis Preoperative examination- Primary Preoperative examination, unspecified Complete tear of left rotator cuff, unspecified whether traumatic Bursitis of left shoulder Disorders of bursae and tendons in shoulder region, unspecified Tendinitis of left shoulder Disorders of bursae and tendons in shoulder region, unspecified Mixed hyperlipidemia Primary hypertension Unspecified essential hypertension Uncontrolled type 2 diabetes mellitus with hyperglycemia (HCC) Type 2 diabetes mellitus with microalbuminuria, with long-term current use of insulin (HCC)- Primary Mixed hyperlipidemia Essential hypertension Unspecified essential hypertension Encounter for screening for malignant neoplasm of prostate Special screening for malignant neoplasm of prostate Overweight with body mass index (BMI) of 29 to 29.9 in adult [facility] Preoperative examination- Primary Preoperative examination, unspecified Complete tear of left rotator cuff, unspecified whether traumatic Bursitis of left shoulder Disorders of bursae and tendons in shoulder region, unspecified Tendinitis of left shoulder Disorders of bursae and tendons in shoulder region, unspecified Mixed hyperlipidemia Primary hypertension Unspecified essential hypertension Uncontrolled type 2 diabetes mellitus with hyperglycemia (HCC) Type 2 diabetes mellitus with microalbuminuria, with long-term current use of insulin (HCC) Overweight with body mass index (BMI) of 29 to 29.9 in adult [facility] Diagnosis Preoperative examination- Primary Preoperative examination, unspecified Complete tear of left rotator cuff, unspecified whether traumatic Bursitis of left shoulder Disorders of bursae and tendons in shoulder region, unspecified Tendinitis of left shoulder Disorders of bursae and tendons in shoulder region, unspecified Mixed hyperlipidemia Primary hypertension Unspecified essential hypertension Uncontrolled type 2 diabetes mellitus with hyperglycemia (HCC) Type 2 diabetes mellitus with microalbuminuria, with long-term current use of insulin (HCC)- Primary Essential hypertension Unspecified essential hypertension Mixed hyperlipidemia [facility] Preoperative examination- Primary Preoperative examination, unspecified Complete tear of left rotator cuff, unspecified whether traumatic Bursitis of left shoulder Disorders of bursae and tendons in shoulder region, unspecified Tendinitis of left shoulder Disorders of bursae and tendons in shoulder region, unspecified Mixed hyperlipidemia Primary hypertension Unspecified essential hypertension Uncontrolled type 2 diabetes mellitus with hyperglycemia (HCC) Mixed hyperlipidemia [facility] Preoperative examination- Primary Preoperative examination, unspecified Complete tear of left rotator cuff, unspecified whether traumatic Bursitis of left shoulder Disorders of bursae and tendons in shoulder region, unspecified Tendinitis of left shoulder Disorders of bursae and tendons in shoulder region, unspecified Mixed hyperlipidemia Primary hypertension Unspecified essential hypertension Uncontrolled type 2 diabetes mellitus with hyperglycemia (HCC) Rhinosinusitis- Primary Unspecified sinusitis (chronic) [facility] Preoperative examination- Primary Preoperative examination, unspecified Complete tear of left rotator cuff, unspecified whether traumatic Bursitis of left shoulder Disorders of bursae and tendons in shoulder region, unspecified Tendinitis of left shoulder Disorders of bursae and tendons in shoulder region, unspecified Mixed hyperlipidemia Primary hypertension Unspecified essential hypertension Uncontrolled type 2 diabetes mellitus with hyperglycemia (HCC) Essential hypertension Unspecified essential hypertension [facility] Diagnosis Preoperative examination- Primary Preoperative examination, unspecified Complete tear of left rotator cuff, unspecified whether traumatic Bursitis of left shoulder Disorders of bursae and tendons in shoulder region, unspecified Tendinitis of left shoulder Disorders of bursae and tendons in shoulder region, unspecified Mixed hyperlipidemia Primary hypertension Unspecified essential hypertension Uncontrolled type 2 diabetes mellitus with hyperglycemia (HCC) Essential hypertension Unspecified essential hypertension [facility] Diagnosis Preoperative examination- Primary Preoperative examination, unspecified Complete tear of left rotator cuff, unspecified whether traumatic Bursitis of left shoulder Disorders of bursae and tendons in shoulder region, unspecified Tendinitis of left shoulder Disorders of bursae and tendons in shoulder region, unspecified Mixed hyperlipidemia Primary hypertension Unspecified essential hypertension Uncontrolled type 2 diabetes mellitus with hyperglycemia (HCC) Mixed hyperlipidemia Controlled type 2 diabetes mellitus without complication, with long-term current use of insulin (HCC) Controlled type 2 diabetes mellitus without complication, with long-term current use of insulin (HCC)- Primary documented in this encounter [facility] note* Diagnosis Preoperative examination- Primary Preoperative examination, unspecified Complete tear of left rotator cuff, unspecified whether traumatic Bursitis of left shoulder Disorders of bursae and tendons in shoulder region, unspecified Tendinitis of left shoulder Disorders of bursae and tendons in shoulder region, unspecified Mixed hyperlipidemia Primary hypertension Unspecified essential hypertension Uncontrolled type 2 diabetes mellitus with hyperglycemia (HCC) Type 2 diabetes mellitus with microalbuminuria, with long-term current use of insulin (HCC) Controlled type 2 diabetes mellitus without complication, with long-term current use of insulin (HCC) Mixed hyperlipidemia Essential hypertension Unspecified essential hypertension Controlled type 2 diabetes mellitus without complication, with long-term current use of insulin (HCC)- Primary documented in this encounter [facility] note* Diagnosis Preoperative examination- Primary Preoperative examination, unspecified Complete tear of left rotator cuff, unspecified whether traumatic Bursitis of left shoulder Disorders of bursae and tendons in shoulder region, unspecified Tendinitis of left shoulder Disorders of bursae and tendons in shoulder region, unspecified Mixed hyperlipidemia Primary hypertension Unspecified essential hypertension Uncontrolled type 2 diabetes mellitus with hyperglycemia (HCC) Controlled type 2 diabetes mellitus without complication, with long-term current use of insulin (HCC)- Primary Type 2 diabetes mellitus with microalbuminuria, with long-term current use of insulin ([facility]) [facility] Preoperative examination- Primary Preoperative examination, unspecified Complete tear of left rotator cuff, unspecified whether traumatic Bursitis of left shoulder Disorders of bursae and tendons in shoulder region, unspecified Tendinitis of left shoulder Disorders of bursae and tendons in shoulder region, unspecified Mixed hyperlipidemia Primary hypertension Unspecified essential hypertension Uncontrolled type 2 diabetes mellitus with hyperglycemia (HCC) Type 2 diabetes mellitus with microalbuminuria, with long-term current use of insulin (HCC) documented in this encounter [facility] for referral (narrative)* Diagnostic Procedure Only (Routine) - Closed Specialty Diagnoses / Procedures Referred By Contac t Referred To Contact XR IMAGING Diagnoses Right foot pain Procedures XR FOOT GENERAL 3V AP/LAT/OBL RIGHT RADEX FOOT COMPLETE MINIMUM 3 VIEWS Britney Perez APRN.PIZZA MAKER [address] [place] [address] [place] [address] Referral ID Status Reason Start Date Expiration Date V isits Requested Visits Authorized [id number] Closed Auto-Generate d Referral 08/19/2023 09/17/2024 1 1 [facility] for referral (narrative)* Diagnostic Procedure Only (Routine) - Closed Specialty Diagnoses / Procedures Referred By Contac t Referred To Contact XR IMAGING Diagnoses Right foot pain Procedures XR FOOT GENERAL 3V AP/LAT/OBL RIGHT RADEX FOOT COMPLETE MINIMUM 3 VIEWS Britney Perez APRN.[employer]ZZA [employer] [address] [place] [address] [place] [address] Referral ID Status Reason Start Date Expiration Date V isits Requested Visits Authorized [id number] Closed Auto-Generate d Referral 08/19/2023 09/17/2024 1 1 [facility] for visit Narrative* Diagnostic Procedure Only (Routine) - Closed Specialty Diagnoses / Procedures Referred By Contac t Referred To Contact XR IMAGING Diagnoses Right foot pain Procedures XR FOOT GENERAL 3V AP/LAT/OBL RIGHT RADEX FOOT COMPLETE MINIMUM 3 VIEWS Britney Perez, MANAGER OF SALES.[employer] [address] [place] [address] [place] [id number] Referral ID Status Reason Start Date Expiration Date V isits Requested Visits Authorized [id number] Closed Auto-Generate d Referral 08/19/2023 09/17/[address] 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 Advance Directive(s) 08/01/2021 6:36 AM Advance Directive Response Recorded Date/ Time Living Will No March 14 9:20am Power of Chief Relay Tester No March 14, 2020 9:20am Reason for Referral Specialty Diagnoses / Procedures Referred By Contac t Referred To Contact Diagnoses Controlled type 2 diabetes mellitus without complication, with long-term current use of insulin ([facility]) David Saha, JERRY.PIZZA MAKER [address] [address] Referral ID Status Reason Start Date Expiration Date Visits Re quested Visits Authorized [id number] Closed 1 1 Referral ID Status Reason Start Date Expiration Date V isits Requested Visits Authorized [id number] Pending Review 1 1 Referral ID Status Reason Start Date Expiration Date V isits Requested Visits Authorized [id number] Authorized 09/05/2021 10/05/2022 1 1 Referral ID Status Reason Start Date Expiration Date V isits Requested Visits Authorized [id number] Pending Review 1 1 Specialty Diagnoses / Procedures Referred By Contac t Referred To Contact Diagnoses Type 2 diabetes mellitus with microalbuminuria, with long-term current use of insulin ([facility]) David Saha APRN.PIZZA MAKER [address] [address] Referral ID Status Reason Start Date Expiration Date V isits Requested Visits Authorized [id number] Pending Review 1 1 Specialty Diagnoses / Procedures Referred By Contac t Referred To Contact General Surgery Diagnoses Screening for colon cancer Procedures CONSULT TO GENERAL SURGERY OFFICE/OUTPATIENT [facility] MDM 60 MINUTES Britney Perez, MANAGER OF SALES.[employer] [address] [place] [address] Referral ID Status Reason Start Date Expiration Date Visits Requested Visits Authorized [id number] Authorized PCP Requested Referral 08/28/2023 08/27/2024 1 1 Specialty Diagnoses / Procedures Referred By Contac t Referred To Contact Diagnoses Type 2 diabetes mellitus with microalbuminuria, with long-term current use of insulin (HCC) Clara Escobar MD [address] [address] Referral ID Status Reason Start Date Expiration Date V isits Requested Visits Authorized [id number] Pending Review 1 1 Specialty Diagnoses / Procedures Referred By Contac t Referred To Contact Diagnoses Type 2 diabetes mellitus with microalbuminuria, with long-term current use of insulin (HCC) Overweight with body mass index (BMI) of 29 to 29.9 in adult Procedures ENDOCRINOLOGY DIETITIAN VISIT (MNT) MEDICAL NUTRITION ASSMT&IVNTJ INDIV EACH 15 [place] MEDICAL NUTRITION ASSMT&IVNTJ INDIV EACH 15 [place] MEDICAL NUTRITION ASSMT&IVNTJ INDIV EACH 15 [place] MEDICAL NUTRITION ASSMT&IVNTJ INDIV EACH 15 [place] David Saha APRN.PIZZA MAKER [address] [address] Referral ID Status Reason Start Date Expiration Date Visits Requested Visits Authorized [id number] Authorized PCP Requested Referral 01/15/2024 01/14/2025 1 1 Chief Complaint and Reason for Visit Chief Complaint LEFT SHOULDER ROTATO R CUFF. RX HERE Summary Purpose Family History No Family History Records FoundNo Family History Records FoundNo Family History Records Found Additional Source Comments Source Comments (unrecognize d section and content) In the event this informatio n is protected by the Federal Confidentiality of Alcohol and Drug Abuse Patient Records regulations: The Federal rules restrict any use of the information to criminally investigate or prosecute any alcohol or drug abuse patient.[facility] the event this information is protected by the Federal Confidentiality of Alcohol and Drug Abuse Patient Records regulations: The Federal rules restrict any use of the information to criminally investigate or prosecute any alcohol or drug abuse patient.[facility] the event this information is protected by the Federal Confidentiality of Alcohol and Drug Abuse Patient Records regulations: The Federal rules restrict any use of the information to criminally investigate or prosecute any alcohol or drug abuse patient.[facility] the event this information is protected by the Federal Confidentiality of Alcohol and Drug Abuse Patient Records regulations: The Federal rules restrict any use of the information to criminally investigate or prosecute any alcohol or drug abuse patient.[facility] the event this information is protected by the Federal Confidentiality of Alcohol and Drug Abuse Patient Records regulations: The Federal rules restrict any use of the information to criminally investigate or prosecute any alcohol or drug abuse patient.[facility] the event this information is protected by the Federal Confidentiality of Alcohol and Drug Abuse Patient Records regulations: The Federal rules restrict any use of the information to criminally investigate or prosecute any alcohol or drug abuse patient.[facility] the event this information is protected by the Federal Confidentiality of Alcohol and Drug Abuse Patient Records regulations: The Federal rules restrict any use of the information to criminally investigate or prosecute any alcohol or drug abuse patient.[facility] Center[facility] the event this information is protected by the Federal Confidentiality of Alcohol and Drug Abuse Patient Records regulations: The Federal rules restrict any use of the information to criminally investigate or prosecute any alcohol or drug abuse patient.[facility] CenterIn the event this information is protected by the Federal Confidentiality of Alcohol and Drug Abuse Patient Records regulations: The Federal rules restrict any use of the information to criminally investigate or prosecute any alcohol or drug abuse patient.[facility] Center[facility] the event this information is protected by the Federal Confidentiality of Alcohol and Drug Abuse Patient Records regulations: The Federal rules restrict any use of the information to criminally investigate or prosecute any alcohol or drug abuse patient.[facility] Center[facility] the event this information is protected by the Federal Confidentiality of Alcohol and Drug Abuse Patient Records regulations: The Federal rules restrict any use of the information to criminally investigate or prosecute any alcohol or drug abuse patient.[facility] CenterIn the event this information is protected by the Federal Confidentiality of Alcohol and Drug Abuse Patient Records regulations: The Federal rules restrict any use of the information to criminally investigate or prosecute any alcohol or drug abuse patient.[facility]In the event this information is protected by the Federal Confidentiality of Alcohol and Drug Abuse Patient Records regulations: The Federal rules restrict any use of the information to criminally investigate or prosecute any alcohol or drug abuse patient.[facility] CenterIn the event this information is protected by the Federal Confidentiality of Alcohol and Drug Abuse Patient Records regulations: The Federal rules restrict any use of the information to criminally investigate or prosecute any alcohol or drug abuse patient.[facility] CenterIn the event this information is protected by the Federal Confidentiality of Alcohol and Drug Abuse Patient Records regulations: The Federal rules restrict any use of the information to criminally investigate or prosecute any alcohol or drug abuse patient.[facility] CenterIn the event this information is protected by the Federal Confidentiality of Alcohol and Drug Abuse Patient Records regulations: The Federal rules restrict any use of the information to criminally investigate or prosecute any alcohol or drug abuse patient.[facility] CenterIn the event this information is protected by the Federal Confidentiality of Alcohol and Drug Abuse Patient Records regulations: The Federal rules restrict any use of the information to criminally investigate or prosecute any alcohol or drug abuse patient.[facility] CenterIn the event this information is protected by the Federal Confidentiality of Alcohol and Drug Abuse Patient Records regulations: The Federal rules restrict any use of the information to criminally investigate or prosecute any alcohol or drug abuse patient.[facility] CenterIn the event this information is protected by the Federal Confidentiality of Alcohol and Drug Abuse Patient Records regulations: The Federal rules restrict any use of the information to criminally investigate or prosecute any alcohol or drug abuse patient.[facility] CenterIn the event this information is protected by the Federal Confidentiality of Alcohol and Drug Abuse Patient Records regulations: The Federal rules restrict any use of the information to criminally investigate or prosecute any alcohol or drug abuse patient.[facility] CenterIn the event this information is protected by the Federal Confidentiality of Alcohol and Drug Abuse Patient Records regulations: The Federal rules restrict any use of the information to criminally investigate or prosecute any alcohol or drug abuse patient.[facility] CenterIn the event this information is protected by the Federal Confidentiality of Alcohol and Drug Abuse Patient Records regulations: The Federal rules restrict any use of the information to criminally investigate or prosecute any alcohol or drug abuse patient.[facility] CenterIn the event this information is protected by the Federal Confidentiality of Alcohol and Drug Abuse Patient Records regulations: The Federal rules restrict any use of the information to criminally investigate or prosecute any alcohol or drug abuse patient.[facility] CenterIn the event this information is protected by the Federal Confidentiality of Alcohol and Drug Abuse Patient Records regulations: The Federal rules restrict any use of the information to criminally investigate or prosecute any alcohol or drug abuse patient.[facility] CenterIn the event this information is protected by the Federal Confidentiality of Alcohol and Drug Abuse Patient Records regulations: The Federal rules restrict any use of the information to criminally investigate or prosecute any alcohol or drug abuse patient.[facility] CenterIn the event this information is protected by the Federal Confidentiality of Alcohol and Drug Abuse Patient Records regulations: The Federal rules restrict any use of the information to criminally investigate or prosecute any alcohol or drug abuse patient.[facility] CenterIn the event this information is protected by the Federal Confidentiality of Alcohol and Drug Abuse Patient Records regulations: The Federal rules restrict any use of the information to criminally investigate or prosecute any alcohol or drug abuse patient.[facility] CenterIn the event this information is protected by the Federal Confidentiality of Alcohol and Drug Abuse Patient Records regulations: The Federal rules restrict any use of the information to criminally investigate or prosecute any alcohol or drug abuse patient.[facility] CenterIn the event this information is protected by the Federal Confidentiality of Alcohol and Drug Abuse Patient Records regulations: The Federal rules restrict any use of the information to criminally investigate or prosecute any alcohol or drug abuse patient.[facility] CenterIn the event this information is protected by the Federal Confidentiality of Alcohol and Drug Abuse Patient Records regulations: The Federal rules restrict any use of the information to criminally investigate or prosecute any alcohol or drug abuse patient.[facility] CenterIn the event this information is protected by the Federal Confidentiality of Alcohol and Drug Abuse Patient Records regulations: The Federal rules restrict any use of the information to criminally investigate or prosecute any alcohol or drug abuse patient.[facility] CenterIn the event this information is protected by the Federal Confidentiality of Alcohol and Drug Abuse Patient Records regulations: The Federal rules restrict any use of the information to criminally investigate or prosecute any alcohol or drug abuse patient.[facility] CenterIn the event this information is protected by the Federal Confidentiality of Alcohol and Drug Abuse Patient Records regulations: The Federal rules restrict any use of the information to criminally investigate or prosecute any alcohol or drug abuse patient.[facility] CenterIn the event this information is protected by the Federal Confidentiality of Alcohol and Drug Abuse Patient Records regulations: The Federal rules restrict any use of the information to criminally investigate or prosecute any alcohol or drug abuse patient.[facility] CenterIn the event this information is protected by the Federal Confidentiality of Alcohol and Drug Abuse Patient Records regulations: The Federal rules restrict any use of the information to criminally investigate or prosecute any alcohol or drug abuse patient.[facility] CenterIn the event this information is protected by the Federal Confidentiality of Alcohol and Drug Abuse Patient Records regulations: The Federal rules restrict any use of the information to criminally investigate or prosecute any alcohol or drug abuse patient.[facility] CenterIn the event this information is protected by the Federal Confidentiality of Alcohol and Drug Abuse Patient Records regulations: The Federal rules restrict any use of the information to criminally investigate or prosecute any alcohol or drug abuse patient.[facility] CenterIn the event this information is protected by the Federal Confidentiality of Alcohol and Drug Abuse Patient Records regulations: The Federal rules restrict any use of the information to criminally investigate or prosecute any alcohol or drug abuse patient.[facility] CenterIn the event this information is protected by the Federal Confidentiality of Alcohol and Drug Abuse Patient Records regulations: The Federal rules restrict any use of the information to criminally investigate or prosecute any alcohol or drug abuse patient.[facility] CenterIn the event this information is protected by the Federal Confidentiality of Alcohol and Drug Abuse Patient Records regulations: The Federal rules restrict any use of the information to criminally investigate or prosecute any alcohol or drug abuse patient.[facility] CenterIn the event this information is protected by the Federal Confidentiality of Alcohol and Drug Abuse Patient Records regulations: The Federal rules restrict any use of the information to criminally investigate or prosecute any alcohol or drug abuse patient.[facility] CenterIn the event this information is protected by the Federal Confidentiality of Alcohol and Drug Abuse Patient Records regulations: The Federal rules restrict any use of the information to criminally investigate or prosecute any alcohol or drug abuse patient.[facility] CenterIn the event this information is protected by the Federal Confidentiality of Alcohol and Drug Abuse Patient Records regulations: The Federal rules restrict any use of the information to criminally investigate or prosecute any alcohol or drug abuse patient.[facility] CenterIn the event this information is protected by the Federal Confidentiality of Alcohol and Drug Abuse Patient Records regulations: The Federal rules restrict any use of the information to criminally investigate or prosecute any alcohol or drug abuse patient.[facility] CenterIn the event this information is protected by the Federal Confidentiality of Alcohol and Drug Abuse Patient Records regulations: The Federal rules restrict any use of the information to criminally investigate or prosecute any alcohol or drug abuse patient.[facility] CenterIn the event this information is protected by the Federal Confidentiality of Alcohol and Drug Abuse Patient Records regulations: The Federal rules restrict any use of the information to criminally investigate or prosecute any alcohol or drug abuse patient.[facility] CenterIn the event this information is protected by the Federal Confidentiality of Alcohol and Drug Abuse Patient Records regulations: The Federal rules restrict any use of the information to criminally investigate or prosecute any alcohol or drug abuse patient.[facility] CenterIn the event this information is protected by the Federal Confidentiality of Alcohol and Drug Abuse Patient Records regulations: The Federal rules restrict any use of the information to criminally investigate or prosecute any alcohol or drug abuse patient.[facility] CenterIn the event this information is protected by the Federal Confidentiality of Alcohol and Drug Abuse Patient Records regulations: The Federal rules restrict any use of the information to criminally investigate or prosecute any alcohol or drug abuse patient.[facility] CenterIn the event this information is protected by the Federal Confidentiality of Alcohol and Drug Abuse Patient Records regulations: The Federal rules restrict any use of the information to criminally investigate or prosecute any alcohol or drug abuse patient.[facility] CenterIn the event this information is protected by the Federal Confidentiality of Alcohol and Drug Abuse Patient Records regulations: The Federal rules restrict any use of the information to criminally investigate or prosecute any alcohol or drug abuse patient.[facility] CenterIn the event this information is protected by the Federal Confidentiality of Alcohol and Drug Abuse Patient Records regulations: The Federal rules restrict any use of the information to criminally investigate or prosecute any alcohol or drug abuse patient.[facility] CenterIn the event this information is protected by the Federal Confidentiality of Alcohol and Drug Abuse Patient Records regulations: The Federal rules restrict any use of the information to criminally investigate or prosecute any alcohol or drug abuse patient.[facility] CenterIn the event this information is protected by the Federal Confidentiality of Alcohol and Drug Abuse Patient Records regulations: The Federal rules restrict any use of the information to criminally investigate or prosecute any alcohol or drug abuse patient.[facility] CenterIn the event this information is protected by the Federal Confidentiality of Alcohol and Drug Abuse Patient Records regulations: The Federal rules restrict any use of the information to criminally investigate or prosecute any alcohol or drug abuse patient.[facility] CenterIn the event this information is protected by the Federal Confidentiality of Alcohol and Drug Abuse Patient Records regulations: The Federal rules restrict any use of the information to criminally investigate or prosecute any alcohol or drug abuse patient.[facility] CenterIn the event this information is protected by the Federal Confidentiality of Alcohol and Drug Abuse Patient Records regulations: The Federal rules restrict any use of the information to criminally investigate or prosecute any alcohol or drug abuse patient.[facility] CenterIn the event this information is protected by the Federal Confidentiality of Alcohol and Drug Abuse Patient Records regulations: The Federal rules restrict any use of the information to criminally investigate or prosecute any alcohol or drug abuse patient.[facility] CenterIn the event this information is protected by the Federal Confidentiality of Alcohol and Drug Abuse Patient Records regulations: The Federal rules restrict any use of the information to criminally investigate or prosecute any alcohol or drug abuse patient.[facility] CenterIn the event this information is protected by the Federal Confidentiality of Alcohol and Drug Abuse Patient Records regulations: The Federal rules restrict any use of the information to criminally investigate or prosecute any alcohol or drug abuse patient.[facility] the event this information is protected by the Federal Confidentiality of Alcohol and Drug Abuse Patient Records regulations: The Federal rules restrict any use of the information to criminally investigate or prosecute any alcohol or drug abuse patient.[facility] Care Teams (unrecognized sec tion and content) Accessibility Lift Technician Relationship Specialty Start Date End Date Ad Boyd MD [address] [place], [place] [id number] PCP - General Internal Medicine 06/20/16 Accessibility Lift Technician Relationship Specialty Start Date End Date Ad Boyd MD [address] [place], [place] [id number] PCP - General Internal Medicine 06/20/16 Accessibility Lift Technician Relationship Specialty Start Date End Date Ad Boyd MD [address] [place] [address] PCP - General Internal Medicine 06/20/16 Accessibility Lift Technician Relationship Specialty Start Date End Date Ad Boyd MD [address] [facility] [place] [address] PCP - General Internal Medicine 06/20/16 Accessibility Lift Technician Relationship Specialty Start Date End Date Ad Boyd MD [address] [facility] [place] [address] PCP - General Internal Medicine 06/20/16 Accessibility Lift Technician Relationship Specialty Start Date End Date Ad Boyd MD [address] [facility] [place] [address] PCP - General Internal Medicine 06/20/16 Accessibility Lift Technician Relationship Specialty Start Date End Date Ad Boyd MD [address] [facility] [place] [address] PCP - General Internal Medicine 06/20/16 Accessibility Lift Technician Relationship Specialty Start Date End Date Ad Boyd MD [address] [facility] [place] [address] PCP - General Internal Medicine 06/20/16 Accessibility Lift Technician Relationship Specialty Start Date End Date Ad Boyd MD [address] [facility] [place] [address] PCP - General Internal Medicine 06/20/16 Accessibility Lift Technician Relationship Specialty Start Date End Date Ad Boyd MD [address] [facility] [place] [address] PCP - General Internal Medicine 06/20/16 Accessibility Lift Technician Relationship Specialty Start Date End Date Ad Boyd MD [address] [facility] [place] [place] [address] PCP - General Internal Medicine 06/20/16 Accessibility Lift Technician Relationship Specialty Start Date End Date Ad Boyd MD [address] [place] [address] PCP - General Internal Medicine 06/20/16 Accessibility Lift Technician Relationship Specialty Start Date End Date Ad Boyd MD [address] [place] [address] PCP - General Internal Medicine 06/20/16 Accessibility Lift Technician Relationship Specialty Start Date End Date Ad Boyd MD [address] [place] [address] PCP - General Internal Medicine 06/20/16 Accessibility Lift Technician Relationship Specialty Start Date End Date Ad Boyd MD [address] [place] [address] PCP - General Internal Medicine 06/20/16 Accessibility Lift Technician Relationship Specialty Start Date End Date Ad Boyd MD [address] [place] [address] PCP - General Internal Medicine 06/20/16 Clara Escobar MD [address] [address] Endocrinology 09/21/22 Accessibility Lift Technician Relationship Specialty Start Date End Date Ad Boyd MD [address] [place] [address] PCP - General Internal Medicine 06/20/16 Clara Escobar MD [address] [address] Endocrinology 09/21/22 Accessibility Lift Technician Relationship Specialty Start Date End Date Ad Boyd MD [address] [place] [address] PCP - General Internal Medicine 06/20/16 Clara Escobar MD [address] [address] Endocrinology 09/21/22 Accessibility Lift Technician Relationship Specialty Start Date End Date Ad Boyd MD [address] [place] [address] PCP - General Internal Medicine 06/20/16 Clara Escobar MD [facility] [address] [address] Endocrinology 09/21/22 Accessibility Lift Technician Relationship Specialty Start Date End Date Ad Boyd MD [address] [place] [address] PCP - General Internal Medicine 06/20/16 Clara Escobar MD [address] [address] Endocrinology 09/21/22 Accessibility Lift Technician Relationship Specialty Start Date End Date Ad Boyd MD [address] [place] [address] PCP - General Internal Medicine 06/20/16 Clara Escobar MD [address] [address] Endocrinology 09/21/22 Accessibility Lift Technician Relationship Specialty Start Date End Date Ad Boyd MD [address] [place] [address] PCP - General Internal Medicine 06/20/16 Clara Escobar MD [address] [address] Endocrinology 09/21/22 Accessibility Lift Technician Relationship Specialty Start Date End Date Ad Boyd MD [address] [place] [address] PCP - General Internal Medicine 06/20/16 Clara Escobar MD [address] [address] Endocrinology 09/21/22 Accessibility Lift Technician Relationship Specialty Start Date End Date Ad Boyd MD [address] [place] [address] PCP - General Internal Medicine 06/20/16 Clara Escobar MD [address] [address] Endocrinology 09/21/22 Accessibility Lift Technician Relationship Specialty Start Date End Date Ad Boyd MD [address] [place] [address] PCP - General Internal Medicine 06/20/16 Clara Escobar MD [address] [address] Endocrinology 09/21/22 Accessibility Lift Technician Relationship Specialty Start Date End Date Ad Boyd MD [address] [place] [address] PCP - General Internal Medicine 06/20/16 Clara Escobar MD [address] [address] Endocrinology 09/21/22 Accessibility Lift Technician Relationship Specialty Start Date End Date Ad Boyd MD [address] [place] [address] PCP - General Internal Medicine 06/20/16 Clara Escobar MD [address] [address] Endocrinology 09/21/22 Accessibility Lift Technician Relationship Specialty Start Date End Date Ad Boyd MD [address] [place] [address] PCP - General Internal Medicine 06/20/16 Clara Escobar MD [address] [address] Endocrinology 09/21/22 Accessibility Lift Technician Relationship Specialty Start Date End Date Ad Boyd MD [address] [place] [address] PCP - General Internal Medicine 06/20/16 Clara Escobar MD [address] [address] Endocrinology 09/21/22 Accessibility Lift Technician Relationship Specialty Start Date End Date Ad Boyd MD [address] [place] [address] PCP - General Internal Medicine 06/20/16 Clara Escobar MD [address] [address] Endocrinology 09/21/22 Accessibility Lift Technician Relationship Specialty Start Date End Date Ad Boyd MD [address] [place] [address] PCP - General Internal Medicine 06/20/16 Clara Escobar MD [address] [address] Endocrinology 09/21/22 Accessibility Lift Technician Relationship Specialty Start Date End Date Ad Boyd MD [address] [place] [address] PCP - General Internal Medicine 06/20/16 Clara Escobar MD [facility] [address] [address] Endocrinology 09/21/22 Accessibility Lift Technician Relationship Specialty Start Date End Date Ad Boyd MD [address] [place] [address] PCP - General Internal Medicine 06/20/16 Clara Escobar MD [facility] [address] [address] Endocrinology 09/21/22 Accessibility Lift Technician Relationship Specialty Start Date End Date Ad Boyd MD [address] [place] [address] PCP - General Internal Medicine 06/20/16 Clara Escobar MD [address] [address] Endocrinology 09/21/22 Accessibility Lift Technician Relationship Specialty Start Date End Date Ad Boyd MD [address] [place] [address] PCP - General Internal Medicine 06/20/16 Clara Escobar MD [facility] [address] [address] Endocrinology 09/21/22 Accessibility Lift Technician Relationship Specialty Start Date End Date Ad Boyd MD [address] [place] [address] PCP - General Internal Medicine 06/20/16 Clara Escobar MD [facility] [address] [address] Endocrinology 09/21/22 Accessibility Lift Technician Relationship Specialty Start Date End Date Ad Boyd MD [address] [place] [address] PCP - General Internal Medicine 06/20/16 Clara Escobar MD [facility] [address] [address] Endocrinology 09/21/22 Britney Perez, MANAGER OF SALES.PIZZA MAKER [address] [place] [address] Android Developer Internal Medicine 03/30/24 Accessibility Lift Technician Relationship Specialty Start Date End Date Ad Boyd MD [address] [place] [address] PCP - General Internal Medicine 06/20/16 Clara Escobar MD [facility] [address] [address] Endocrinology 09/21/22 Britney Perez, MANAGER OF SALES.PIZZA MAKER [address] [place] [address] Android Developer Internal Medicine 03/30/24 Accessibility Lift Technician Relationship Specialty Start Date End Date Ad Boyd MD [address] [place] [address] PCP - General Internal Medicine 06/20/16 Clara Escobar MD [address] [id number] Endocrinology 09/21/22 Britney Perez, MANAGER OF SALES.PIZZA MAKER [address] [place] [address] Android Developer Internal Medicine 03/30/24 Accessibility Lift Technician Relationship Specialty Start Date End Date Clara Escobar MD [address] [id number] Endocrinology 09/21/22 Britney Perez, MANAGER OF SALES.PIZZA MAKER [address] [place] [address] Android Developer Internal Medicine 03/30/24 Accessibility Lift Technician Relationship Specialty Start Date End Date Clara Escobar MD [address] [address] Endocrinology 09/21/22 Britney Perez, MANAGER OF SALES.PIZZA MAKER [address] [place] [address] Android Developer Internal Medicine 03/30/24 Accessibility Lift Technician Relationship Specialty Start Date End Date Clara Escobar MD [address] [address] Endocrinology 09/21/22 Britney Perez, MANAGER OF SALES.PIZZA MAKER [address] [place] [address] Android Developer Internal Medicine 03/30/24 Accessibility Lift Technician Relationship Specialty Start Date End Date Clara Escobar MD [address] [address] Endocrinology 09/21/22 Britney Perez, MANAGER OF SALES.PIZZA MAKER [address] [place] [address] Android Developer Internal Medicine 03/30/24 Accessibility Lift Technician Relationship Specialty Start Date End Date Clara Escobar MD [address] [address] Endocrinology 09/21/22 Britney Perez, MANAGER OF SALES.PIZZA MAKER [address] [place] [address] Android Developer Internal Medicine 03/30/24 Accessibility Lift Technician Relationship Specialty Start Date End Date Ad Boyd MD [address] [place] [address] PCP - General Internal Medicine 09/23/24 Clara Escobar MD [address] [address] Endocrinology 09/21/22 Britney Perez, MANAGER OF SALES.PIZZA MAKER [address] [place] [address] Android Developer Internal Medicine 03/30/24 Accessibility Lift Technician Relationship Specialty Start Date End Date Clara Escobar MD [address] [address] Endocrinology 09/21/22 Britney Perez, MANAGER OF SALES.PIZZA MAKER [address] [place] [address] Android Developer Internal Medicine 03/30/24 Accessibility Lift Technician Relationship Specialty Start Date End Date Ad Boyd MD [address] [place] [address] PCP - General Internal Medicine 09/23/24 Clara Escobar MD [address] [address] Endocrinology 09/21/22 Britney Perez, MANAGER OF SALES.PIZZA MAKER [address] [place] [address] Android Developer Internal Medicine 03/30/24 Accessibility Lift Technician Relationship Specialty Start Date End Date Ad Boyd MD [address] [place] [address] PCP - General Internal Medicine 09/23/24 Clara Escobar MD [address] [address] Endocrinology 09/21/22 Britney Perez, MANAGER OF SALES.PIZZA MAKER [address] [place] [address] Android Developer Internal Medicine 03/30/24 Accessibility Lift Technician Relationship Specialty Start Date End Date Ad Boyd MD [address] [place] [address] PCP - General Internal Medicine 09/23/24 Clara Escobar MD [address] [address] Endocrinology 09/21/22 Britney Perez, MANAGER OF SALES.PIZZA MAKER [address] [place], [place] [address] Android Developer Internal Medicine 03/30/24 Reason for Visit (unrecogniz ed section and content) Reason Comments Anesthesia Consult Reason Comments Refill Request Reason Comments Post Op Pain Swelling Reason Comments Post Op Pain Reason Comments Insulin Dependent Diabetes Mellitus Reason Comments Insurance Authorization Dexcom G6 Sensor s Reason Comments Follow Up Pain Reason Comments Established Patient Post Op Reason Comments Forms Reason Comments [facility] Form CGM-Sensors Reason Comments [facility] Form CGM-Transmitter Reason Comments Medication Problem Change in medication s as of per insurance Reason Comments Insulin-Traeted Diabetes Mellitus Assess ment Form [place] Department of Transportation Reason Comments Insulin Dependent Diabetes Mellitus Reason Onset Date Comments Refill Request 06/18/2022 Reason Onset Date Comments Refill Request 05/18/2022 Reason Comments Future Appointment Left Voice Mail Reason Comments [facility] Form Sensors and Transmit ter(dexcom) Reason Comments [place] [employer] Form Driving form Reason Comments Diabetic Eye Exam Hector Moore OD Reason Comments [facility] [facility] Reason Comments Patient Update Reason Comments Follow Up DM - right foot pain Reason Comments New Pain Reason Comments Follow Up Established Patient Reason Onset Date Comments colorectal cancer screening 08/28/2023 Nan ent with a history of colon polyps is overdue since 2019. Reason Onset Date Comments Refill Request 10/21/2023 Reason Comments [facility] Form CGM sensor and trans mitter Reason Comments Medical Nutrition Therapy Type 2 diabete s Specialty Diagnoses / Procedures Referred By Contac t Referred To Contact Diagnoses Type 2 diabetes mellitus with microalbuminuria, with long-term current use of insulin (HCC) Overweight with body mass index (BMI) of 29 to 29.9 in adult Procedures ENDOCRINOLOGY DIETITIAN VISIT (MNT) MEDICAL NUTRITION ASSMT&IVNTJ INDIV EACH 15 [place] MEDICAL NUTRITION ASSMT&IVNTJ INDIV EACH 15 [place] MEDICAL NUTRITION ASSMT&IVNTJ INDIV EACH 15 [place] MEDICAL NUTRITION ASSMT&IVNTJ INDIV EACH 15 [place] David Saha APRN.PIZZA MAKER [address] [address] Referral ID Status Reason Start Date Expiration Date V isits Requested Visits Authorized [id number] Closed PCP Requested Referral 01/15/2024 01/14/2025 1 1 Reason Comments Follow Up Reason Comments [place] Dept of Transportation Form Diabetic Waiver Reason Comments Diabetic Eye Exam Hector Moore O.D. Reason Comments [facility] FORM Reason Comments Sinus Problem sinus pressure and d rainage x 9 days Reason Comments Patient Question Reason Comments OV Notes to DME Reason Onset Date Comments Refill Request 09/18/2024 Reason Comments Type 2 Diabetes Reason Onset Date Comments Refill Request 10/08/2024 Reason Onset Date Comments Refill Request 10/13/2024 Goals (unrecognized section and content) Goals may be documented in a n alternate section (unrecognized sect ion and content) No Status Records FoundNo Status Records FoundNo Status Records Found INFORMATION SOURCE (unrecogn ized section and content) DATE CREATED AUTHOR 02/20/2022 [facility] DATE CREATED AUTHOR AUTHOR'S ORGANIZ ATION 03/22/2024 [facility] DATE CREATED AUTHOR AUTHOR'S ORGANIZ ATION 09/25/2024 [facility] FOR RECORDS PERTAINING TO PATIENTS WHO ARE OR HAVE BEEN ENROLLED IN A CHEMICAL DEPENDENCY/SUBSTANCEABUSE PROGRAM, SOME INFORMATION MAY BE OMITTED. This clinical summary was aggregated from multiple sources. Caution should be exercised in using it in the provision of clinical care. This summary normalizes information from multiple sources, and as a consequence, information in this document may materially change the coding, format and clinical context of patient data. In addition, data may be omitted in some cases. CLINICAL DECISIONS SHOULD BE BASED ON THE PRIMARY CLINICAL RECORDS. [employer] [facility]. provides no warranty or guarantee of the accuracy or completeness of information in this document.
== END | disposition home or self-care (01) ==
LOC: RAD 08:23
PROVIDERS: PCP Internal Medicine; Referring Provider Anesthesiology Pain Medicine; Visit Provider Anesthesiology Pain Medicine
DX: M17.0 Bilateral primary osteoarthritis of knee (principal); M79.641 Pain in right hand; M79.642 Pain in left hand
CPT/HCPCS: 73130; 73560